=== PATIENT | female | born 2000 | race Caucasian/White ===

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

== ENCOUNTER 2019-08-09 19:11 | Observation (INO) | payer OTHER ==
[2019-08-09 19:50] VITALS: BP 112/68; PULSE 85; O2SAT 99
[2019-08-09 19:57] LABS: Appearance CLEAR (CLEAR); Bilirubin NEGATIVE (NEGATIVE); Blood NEGATIVE Ery/ul (0-5); Epithelial Cells RARE /HPF (FEW); Glucose NEGATIVE (NEGATIVE); Ketones NEGATIVE (NEGATIVE); Leukocyte Esterase NEGATIVE (NEGATIVE); Mucus SLIGHT /HPF (NEGATIVE); Nitrite NEGATIVE (NEGATIVE); Protein,Urine Dip NEGATIVE (Negative); Specific Gravity 1.016 (1.005-1.025); Urobilinogen NEGATIVE mg/dL (0-1)
[2019-08-09 20:27] LABS: Amphetamine,Urine NEGATIVE (NEGATIVE); Barbiturate,Urine NEGATIVE (NEGATIVE); Benzodiazepine,Urine NEGATIVE (NEGATIVE); Cocaine,Urine NEGATIVE (NEGATIVE); Methadone,Urine NEGATIVE (NEGATIVE); Opiate,Urine NEGATIVE (NEGATIVE); PCP,Urine NEGATIVE (NEGATIVE); THC,Urine NEGATIVE (NEGATIVE)
== END 2019-08-09 21:40 | disposition home or self-care (01) ==
LOC: OB 19:11
PROVIDERS: ADMIT Family Medicine; ATTEND Family Medicine
DX: Z34.83 Encounter for supervision of other normal pregnancy, third trimester (principal)
CPT/HCPCS: 80307; 81001; G0378

== ENCOUNTER 2019-08-18 06:50 | Observation (INO) | payer OTHER ==
[2019-08-18 07:49] LABS: Amourphous Crystal FEW /HPF (NEGATIVE); Appearance SLIGHTLY CLOUDY (CLEAR); Bacteria RARE /HPF (NEGATIVE); Bilirubin NEGATIVE (NEGATIVE); Blood NEGATIVE Ery/ul (0-5); Epithelial Cells RARE /HPF (FEW); Glucose NEGATIVE (NEGATIVE); Ketones NEGATIVE (NEGATIVE); Leukocyte Esterase NEGATIVE (NEGATIVE); Mucus SLIGHT /HPF (NEGATIVE); Nitrite NEGATIVE (NEGATIVE); Protein,Urine Dip NEGATIVE (Negative); Specific Gravity 1.009 (1.005-1.025); Urobilinogen NEGATIVE mg/dL (0-1); WBC 0-2 /HPF (0-5)
[2019-08-18 08:55] LABS: Absolute Neutrophil Ct (ANC) 4.88 (1.4-6.9); BASOPHIL % 0.4 % (0.0-0.4); Basophil (Absolute #) 0.03 (0-0.4); Eosinophil % 1.6 % (0.00-5.0); Eosinophil (Absolute #) 0.12 (0-0.5); Hematocrit 31.2 % (35-47); Hemoglobin 10.1 gm/dl (12.0-16.0); Lymphocyte (Absolute #) 1.85 (1.0-4.6); Lymphocytes % 25.3 % (24.0-44.0); Mean Cell Volume 94.3 fl (78-100); Mean Corpuscular Hemoglobin 30.5 pg (26-32); Mean Corpuscular Hgb Concent. 32.4 g/dl (32-36); Mean Platelet Volume 9.2 fl (7.5-11.0); Monocyte (Absolute #) 0.44 (0.0-1.3); Neutrophil % 66.7 % (36.0-66.0); Platelet Count 199 K/mm3 (150-450); Red Blood Count 3.31 M/mm3 (4.1-5.4); Red Cell Distribution Width 12.8 % (11.5-14.0); White Blood Count 7.3 K/mm3 (4.0-10.5)
[2019-08-18 09:07] LABS: ALBUMIN 3.2 g/dL (3.5-5.0); ALKALINE PHOSPHATASE 136 U/L (38-126); ANION GAP 8.8 MEQ/L (5-15); BLOOD UREA NITROGEN 4 mg/dL (7-17); CHLORIDE 105 mmol/L (98-107); Calcium 8.2 mg/dL (8.4-10.2); Carbon Dioxide 25 mmol/L (22-30); Creatinine 1 0.38 mg/dL (0.52-1.04); Glucose 117 mg/dL (74-106); Potassium 3.2 mmol/L (3.5-5.1); SGOT/AST 16 U/L (14-36); SGPT/ALT 7 U/L (0-35); SODIUM 136 mmol/L (137-145); Total Protein 6.4 g/dL (6.3-8.2)
[2019-08-18] MEDS ORDERED: ZOFRAN ODT 4 MG PO ONE (11:03)
[2019-08-18 12:08] VITALS: BP 112/65; PULSE 88
== END 2019-08-18 14:10 | disposition home or self-care (01) ==
LOC: OB 06:50
PROVIDERS: ADMIT Family Medicine; ATTEND Family Medicine
DX: Z34.83 Encounter for supervision of other normal pregnancy, third trimester (principal)
CPT/HCPCS: 36415; 80053; 81001; 82962; 85025; G0378; 90791; Q0162; Q3014

== ENCOUNTER 2019-12-16 04:53 | Emergency (ER) | payer OTHER ==
--- NOTE | 2019-12-16 05:17 | ERPHSYRPT ---
- History of Present Illness Time Seen by Provider: 12/16/19 05:05 Patient Subjective Stated Complaint: "Dulce just been feeling really weird like hot and weak and anxious." Triage Nursing Assessment: Pt presented via [facility] ambulance for report of anxiety attack at home. pt presented alert et oriented x3 answering questions appropriately. Physician History: This is a 19-year-old white female who has a history of anxiety and panic disorder and is taking hydroxyzine for this. She presents with nightly palpitations which she says she has been focusing on. She is status post delivery of a child 2 months ago. Patient has had similar symptoms in the past. Patient denies any new medications and she denies illicit drug use. She has had some urinary tract infection type symptoms including some dysuria. She has had no abnormal vaginal discharge. She has no chest pain, shortness of air or abdominal pain. Timing/Duration: week(s), intermittent (1), worse Severity of Symptoms-Max: mild Severity of Symptoms-Current: mild Context related to: other (Anxiety) Suicidal thoughts: other (None) Associated Symptoms: anxiety Previous symptoms: same symptoms as today Allergies/Adverse Reactions: No Known Drug Allergies Allergy (Verified 11/21/17 16:14) Home Medications: Hydroxyzine HCl 1 tab PO DAILY PRN 12/16/19 [History] Hx Tetanus, Diphtheria Vaccination/Date Given: Yes Hx Influenza Vaccination/Date Given: No Hx Pneumococcal Vaccination/Date Given: No Travel Risk - International Travel Have you traveled outside of the country in past 3 weeks: No - Coronavirus Screening Are you exhibiting any of the following symptoms?: No Close contact with a COVID-19 positive Pt in past 14-21 Days: No - Past Medical History Pertinent Past Medical History: Yes Neurological History: No Pertinent History ENT History: No Pertinent History Cardiac History: No Pertinent History Respiratory History: No Pertinent History Endocrine Medical History: No Pertinent History Musculoskeletal History: No Pertinent History GI Medical History: No Pertinent History History: No Pertinent History Psycho-Social History: Anxiety, Depression, Panic Disorder Female Reproductive Disorders: No Pertinent History - Past Surgical History Past Surgical History: No Neuro Surgical History: No Pertinent History Cardiac: No Pertinent History Respiratory: No Pertinent History Gastrointestinal: No Pertinent History Genitourinary: No Pertinent History Musculoskeletal: No Pertinent History Female Surgical History: No Pertinent History - Social History Smoking Status: Never smoker Exposure to second hand smoke: Yes Drug Use: none Patient Lives Alone: Yes - Female History Hx Last Menstrual Period: 11/20/19 Hx Now: No - Review of Systems Constitutional: No Symptoms Eyes: No Symptoms Ears, Nose, & Throat: No Symptoms Respiratory: No Symptoms Cardiac: Palpitations, No Chest Pain Abdominal/Gastrointestinal: No Symptoms, No Abdominal Pain, No Nausea, No Vomiting, No Diarrhea Genitourinary Symptoms: No Symptoms Musculoskeletal: No Symptoms Skin: No Symptoms Neurological: No Symptoms Psychological: No Symptoms Endocrine: No Symptoms Hematologic/Lymphatic: No Symptoms Immunological/Allergic: No Symptoms All Other Systems: Reviewed and Negative - Nursing Vital Signs Nursing Vital Signs: Initial Vital Signs Temperature 97.8 F 12/16/19 04:53 Pulse Rate 91 H 12/16/19 04:53 Respiratory Rate 16 12/16/19 04:53 Blood Pressure 139/84 12/16/19 04:53 O2 Sat by Pulse Oximetry 99 12/16/19 04:53 Pain Scale Pain Intensity 3 - Physical Exam General Appearance: no apparent distress, alert, anxiety Eyes, Ears, Nose, Throat Exam: normal ENT inspection, moist mucous membranes Neck Exam: normal inspection, non-tender, supple, full range of motion Respiratory Exam: normal breath sounds, lungs clear, airway intact, No chest tenderness, No respiratory distress Cardiovascular Exam: regular rate/rhythm, normal heart sounds, normal peripheral pulses Gastrointestinal/Abdominal Exam: soft, normal bowel sounds, No tenderness Extremities Exam: normal inspection, normal range of motion, No evidence of injury Current Suicidality: denies suicide plan Neurological Exam: alert, calm, vaccinator II-XII nml as tested, oriented x 3, anxious Appearance: appropriate appearance, appropriate insight, neat, no memory impairment Behavior/Eye Contact/Speech: alert & cooperative, cooperative, good eye contact, normal speech Thoughts/Hallucinations: normal thought pattern, no apparent hallucination Skin Exam: normal color, warm, dry SpO2 Interpretation: normal SpO2: 99 O2 Delivery: Room Air - Course Nursing assessment & vital signs reviewed: Yes EKG Interpreted by Me: RATE (73), Sinus Rhythm, NORMAL AXIS, NORMAL INTERVALS, NORMAL QRS, Other (There are no acute ischemic changes. There is improvement in the current EKG when compared to EKG dated 06/11/2018.) Ordered Tests: Active Orders 24 hr Category Date Time Status EKG-ER Only STAT Care 12/16/19 06:05 Active CBC W DIFF Stat Lab 12/16/19 05:50 Completed CMP Stat Lab 12/16/19 05:50 Completed MAGNESIUM Stat Lab 12/16/19 05:50 Completed UA W/RFX UR CULTURE Stat Lab 12/16/19 06:15 Completed Urine Triage Profile Stat Lab 12/16/19 06:15 Received Lab/Rad Data: Laboratory Result Diagrams 12/16/19 05:50 12/16/19 05:50 Laboratory Results 12/16/19 12/16/19 12/16/19 Range/Units 06:15 05:50 05:50 WBC 8.6 (4.0-10.5) K/mm3 RBC 4.28 (4.1-5.4) M/mm3 Hgb 11.9 L (12.0-16.0) gm/dl Hct 37.7 (35-47) % MCV 88.1 (78-100) fl MCH 27.8 (26-32) pg MCHC 31.6 L (32-36) g/dl RDW 13.8 (11.5-14.0) % Plt Count 227 (150-450) K/mm3 MPV 10.3 (7.5-11.0) fl Gran % 40.7 (36.0-66.0) % Eos # (Auto) 0.47 (0-0.5) Absolute Lymphs (auto) 3.79 (1.0-4.6) Absolute Monos (auto) 0.78 (0.0-1.3) Lymphocytes % 44.2 H (24.0-44.0) % Monocytes % 9.1 (0.0-12.0) % Eosinophils % 5.5 H (0.00-5.0) % Basophils % 0.5 (0.0-0.4) % Absolute Granulocytes 3.50 (1.4-6.9) Basophils # 0.04 (0-0.4) Sodium 138 (137-145) mmol/L Potassium 3.8 (3.5-5.1) mmol/L Chloride 106 (98-107) mmol/L Carbon Dioxide 26 (22-30) mmol/L Anion Gap 9.5 (5-15) MEQ/L BUN 9 (7-17) mg/dL Creatinine 0.60 (0.52-1.04) mg/dL Estimated GFR > 60.0 ML/MIN Glucose 96 (74-106) mg/dL Calcium 9.2 (8.4-10.2) mg/dL Magnesium 1.9 (1.6-2.3) mg/dL Total Bilirubin 0.30 (0.2-1.3) mg/dL AST 32 (14-36) U/L ALT 31 (0-35) U/L Alkaline Phosphatase 86 (38-126) U/L Serum Total Protein 7.1 (6.3-8.2) g/dL Albumin 4.0 (3.5-5.0) g/dL Urine Color STRAW (YELLOW) Urine Appearance CLEAR (CLEAR) Urine pH 7.0 (5-6) Ur Specific [place] 1.008 (1.005-1.025) Urine Protein NEGATIVE (Negative) Urine Ketones NEGATIVE (NEGATIVE) Urine Blood NEGATIVE (0-5) Mynor/ul Urine Nitrite NEGATIVE (NEGATIVE) Urine Bilirubin NEGATIVE (NEGATIVE) Urine Urobilinogen NEGATIVE (0-1) mg/dL Ur Leukocyte Esterase NEGATIVE (NEGATIVE) Urine WBC (Auto) 0-2 (0-5) /HPF Urine RBC (Auto) NONE (0-2) /HPF U Epithel Cells (Auto) RARE (FEW) /HPF Urine Bacteria (Auto) NONE SEEN (NEGATIVE) /HPF Urine Culture Reflexed NO (NO) Urine Glucose NEGATIVE (NEGATIVE) mg/dL - Progress Progress: improved, re-examined Counseled pt/family regarding: lab results, diagnosis, need for follow-up - Departure Departure Disposition: Home Clinical Impression: Anxiety about health Condition: Stable Critical Care Time: No Referrals: GARCIA ALAS MD [Primary Care Provider] - Additional Instructions: Follow-up with your primary care physician for further management of your symptoms and anxiety diagnosis.
[2019-12-16 06:05] LABS: BASOPHIL % 0.5 % (0.0-0.4); Basophil (Absolute #) 0.04 (0-0.4); Eosinophil % 5.5 % (0.00-5.0); Eosinophil (Absolute #) 0.47 (0-0.5); Hematocrit 37.7 % (35-47); Hemoglobin 11.9 gm/dl (12.0-16.0); Lymphocyte (Absolute #) 3.79 (1.0-4.6); Lymphocytes % 44.2 % (24.0-44.0); Mean Cell Volume 88.1 fl (78-100); Mean Corpuscular Hemoglobin 27.8 pg (26-32); Mean Corpuscular Hgb Concent. 31.6 g/dl (32-36); Mean Platelet Volume 10.3 fl (7.5-11.0); Monocyte (Absolute #) 0.78 (0.0-1.3); Monocytes % 9.1 % (0.0-12.0); Neutrophil % 40.7 % (36.0-66.0); Platelet Count 227 K/mm3 (150-450); Red Blood Count 4.28 M/mm3 (4.1-5.4); Red Cell Distribution Width 13.8 % (11.5-14.0); White Blood Count 8.6 K/mm3 (4.0-10.5)
[2019-12-16 06:12] LABS: ALKALINE PHOSPHATASE 86 U/L (38-126); ANION GAP 9.5 MEQ/L (5-15); BLOOD UREA NITROGEN 9 mg/dL (7-17); CHLORIDE 106 mmol/L (98-107); Calcium 9.2 mg/dL (8.4-10.2); Carbon Dioxide 26 mmol/L (22-30); Glucose 96 mg/dL (74-106); MAGNESIUM 1.9 mg/dL (1.6-2.3); Potassium 3.8 mmol/L (3.5-5.1); SGOT/AST 32 U/L (14-36); SGPT/ALT 31 U/L (0-35); SODIUM 138 mmol/L (137-145); Total Protein 7.1 g/dL (6.3-8.2)
[2019-12-16 06:36] LABS: Appearance CLEAR (CLEAR); Bilirubin NEGATIVE (NEGATIVE); Blood NEGATIVE Ery/ul (0-5); Epithelial Cells RARE /HPF (FEW); Glucose NEGATIVE (NEGATIVE); Ketones NEGATIVE (NEGATIVE); Leukocyte Esterase NEGATIVE (NEGATIVE); Nitrite NEGATIVE (NEGATIVE); Protein,Urine Dip NEGATIVE (Negative); Specific Gravity 1.008 (1.005-1.025); Urobilinogen NEGATIVE mg/dL (0-1); WBC 0-2 /HPF (0-5)
[2019-12-16 06:38] LABS: Bacteria NONE SEEN /HPF (NEGATIVE)
[2019-12-16 06:46] LABS: Amphetamine,Urine NEGATIVE (NEGATIVE); Barbiturate,Urine NEGATIVE (NEGATIVE); Benzodiazepine,Urine NEGATIVE (NEGATIVE); Cocaine,Urine NEGATIVE (NEGATIVE); Methadone,Urine NEGATIVE (NEGATIVE); Opiate,Urine NEGATIVE (NEGATIVE); PCP,Urine NEGATIVE (NEGATIVE); THC,Urine NEGATIVE (NEGATIVE)
[2019-12-16 06:58] VITALS: BP 128/86; PULSE 78; O2SAT 98
== END 2019-12-16 06:56 | disposition home or self-care (01) ==
LOC: ED 04:53
DX: F41.9 Anxiety disorder, unspecified (principal)
CPT/HCPCS: 36415; 80053; 80307; 81001; 83735; 85025; 93005; 99284

== ENCOUNTER 2020-01-13 20:22 | Emergency (ER) | payer OTHER ==
[2020-01-13] MEDS ORDERED: Sodium Chloride 0.9% 1000 ML 1,000 ML ONE (20:53)
[2020-01-13] MEDS: Sodium Chloride 0.9% 1000 ML 1,000 ML IV STA (21:05)
[2020-01-13 21:20] LABS: Absolute Neutrophil Ct (ANC) 3.42 (1.4-6.9); BASOPHIL % 0.4 % (0.0-0.4); Basophil (Absolute #) 0.03 (0-0.4); Eosinophil % 2.8 % (0.00-5.0); Hematocrit 39.9 % (35-47); Hemoglobin 12.7 gm/dl (12.0-16.0); Lymphocyte (Absolute #) 2.75 (1.0-4.6); Lymphocytes % 39.1 % (24.0-44.0); Mean Cell Volume 86.9 fl (78-100); Mean Corpuscular Hemoglobin 27.7 pg (26-32); Mean Corpuscular Hgb Concent. 31.8 g/dl (32-36); Mean Platelet Volume 10.2 fl (7.5-11.0); Monocyte (Absolute #) 0.63 (0.0-1.3); Neutrophil % 48.7 % (36.0-66.0); Platelet Count 251 K/mm3 (150-450); Red Blood Count 4.59 M/mm3 (4.1-5.4); Red Cell Distribution Width 14.3 % (11.5-14.0)
[2020-01-13 21:21] LABS: Appearance CLEAR (CLEAR); Bilirubin NEGATIVE (NEGATIVE); Blood NEGATIVE Ery/ul (0-5); Glucose NEGATIVE (NEGATIVE); Ketones NEGATIVE (NEGATIVE); Leukocyte Esterase NEGATIVE (NEGATIVE); Mucus SLIGHT /HPF (NEGATIVE); Nitrite NEGATIVE (NEGATIVE); Protein,Urine Dip NEGATIVE (Negative); Specific Gravity 1.008 (1.005-1.025); Urobilinogen NEGATIVE mg/dL (0-1)
[2020-01-13 21:23] LABS: ALBUMIN 4.6 g/dL (3.5-5.0); ALKALINE PHOSPHATASE 80 U/L (38-126); BLOOD UREA NITROGEN 11 mg/dL (7-17); CHLORIDE 104 mmol/L (98-107); Calcium 9.7 mg/dL (8.4-10.2); Carbon Dioxide 26 mmol/L (22-30); Creatinine 1 0.65 mg/dL (0.52-1.04); Glucose 98 mg/dL (74-106); MAGNESIUM 1.9 mg/dL (1.6-2.3); Potassium 4.3 mmol/L (3.5-5.1); SGOT/AST 26 U/L (14-36); SGPT/ALT 18 U/L (0-35); SODIUM 138 mmol/L (137-145); Total Protein 7.7 g/dL (6.3-8.2)
[2020-01-13 21:32] VITALS: O2SAT 99
--- NOTE | 2020-01-13 21:58 | ERPHSYRPT ---
- History of Present Illness Time Seen by Provider: 01/13/20 20:35 Patient Subjective Stated Complaint: pt states she has been feeling funny for the past 3-4 days. state she has been feeling "out of it", excessively thirsty, having blurry vision, increased anxiety, and her blood sugars have been varying more than usual. states her blood pressure at home was 153/97 at home today when she was feeling bad. c/o frontal headeache now 08/04 Triage Nursing Assessment: pt alert and oriented, answers questions approp. pt ambulatoryw ith steady gait noted. respirations nonlabored with lungs cta. skin pink warm and dry. heart rate 74 on monitor. denies chest pain or pressure. pupils equal and reactive. no facioal droop noted. bilat upper and lower ext strength equal and wnl. Physician History: Patient is a 2 para 2 female who is 3 months who had an anx iety and panic attack this morning and has not been feeling right. For 3 to 4 days has been lightheaded had some blurred vision at times her last period was 615 she is using no control she complains of a headache she also complains of of a history of episodes of hypoglycemia she denies fever but states she has had some chills and sweats. Timing/Duration: day(s) (4) Severity: mild Modifying Factors: Improves With: nothing Associated Symptoms: chills, headaches Allergies/Adverse Reactions: No Known Drug Allergies Allergy (Verified 01/13/20 20:40) Home Medications: Hydroxyzine HCl 1 tab PO DAILY PRN 12/16/19 [History] Hx Tetanus, Diphtheria Vaccination/Date Given: Yes Hx Influenza Vaccination/Date Given: No Hx Pneumococcal Vaccination/Date Given: No Immunizations Up to Date: Yes Travel Risk - International Travel Have you traveled outside of the country in past 3 weeks: No - Coronavirus Screening Close contact with a COVID-19 positive Pt in past 14-21 Days: No - Review of Systems Constitutional: No Fever, No Chills Eyes: Vision Changes Ears, Nose, & Throat: No Symptoms Respiratory: No Cough, No Dyspnea Cardiac: No Chest Pain, No Edema, No Syncope Abdominal/Gastrointestinal: No Abdominal Pain, No Nausea, No Vomiting, No Diarrhea Genitourinary Symptoms: No Dysuria Musculoskeletal: No Back Pain, No Neck Pain Skin: No Rash Neurological: Dizziness, Headache, No Focal Weakness, No Sensory Changes Psychological: No Symptoms Endocrine: No Symptoms All Other Systems: Reviewed and Negative - Past Medical History Pertinent Past Medical History: Yes Neurological History: No Pertinent History ENT History: No Pertinent History Cardiac History: No Pertinent History Respiratory History: No Pertinent History Endocrine Medical History: No Pertinent History Musculoskeletal History: No Pertinent History GI Medical History: No Pertinent History History: No Pertinent History Psycho-Social History: Anxiety, Depression, Panic Disorder Female Reproductive Disorders: No Pertinent History Other Medical History: hypoglycemia - Past Surgical History Past Surgical History: No Neuro Surgical History: No Pertinent History Cardiac: No Pertinent History Respiratory: No Pertinent History Gastrointestinal: No Pertinent History Genitourinary: No Pertinent History Musculoskeletal: No Pertinent History Female Surgical History: No Pertinent History - Social History Smoking Status: Never smoker Exposure to second hand smoke: Yes Drug Use: none Patient Lives Alone: Yes - Female History Hx Last Menstrual Period: mid november Hx Now: No (unsure) - Nursing Vital Signs Nursing Vital Signs: Initial Vital Signs Temperature 97.8 F 01/13/20 20:28 Pulse Rate 84 01/13/20 20:28 Respiratory Rate 18 01/13/20 20:28 Blood Pressure 133/94 01/13/20 20:28 O2 Sat by Pulse Oximetry 98 01/13/20 20:28 Pain Scale Pain Intensity 2 - Physical Exam General Appearance: no apparent distress, alert Eye Exam: PERRL/EOMI, eyes nml inspection Ears, Nose, Throat Exam: normal ENT inspection, TMs normal, pharynx normal, moist mucous membranes Neck Exam: normal inspection, non-tender, supple, full range of motion Respiratory Exam: normal breath sounds, lungs clear, No respiratory distress Cardiovascular Exam: regular rate/rhythm, normal heart sounds, normal peripheral pulses Gastrointestinal/Abdomen Exam: soft, normal bowel sounds, No tenderness, No mass Back Exam: normal inspection, normal range of motion, No CVA tenderness, No vertebral tenderness Extremity Exam: normal inspection, normal range of motion, pelvis stable Neurologic Exam: alert, oriented x 3, cooperative, normal mood/affect, nml cerebellar function, nml station & gait, sensation nml, No motor deficits Skin Exam: normal color, warm, dry, No rash Lymphatic Exam: No adenopathy SpO2: 99 - Course Nursing assessment & vital signs reviewed: Yes EKG Interpreted by Me: RATE (82), NORMAL AXIS, NORMAL INTERVALS, NORMAL QRS, NORMAL ST-T Ordered Tests: Active Orders 24 hr Category Date Time Status EKG-ER Only STAT Care 01/13/20 20:47 Active CBC W DIFF Stat Lab 01/13/20 21:00 Completed CMP Stat Lab 01/13/20 21:00 Completed HCG QUALITATIVE,SERUM Stat Lab 01/13/20 21:00 Completed Lactic Acid Stat Lab 01/13/20 21:00 Completed MAGNESIUM Stat Lab 01/13/20 21:00 Completed TROPONIN Q3H Lab 01/13/20 21:00 Received TROPONIN Q3H Lab 01/14/20 00:00 Ordered TROPONIN Q3H Lab 01/14/20 03:00 Ordered TROPONIN Q3H Lab 01/14/20 06:00 Ordered TROPONIN Q3H Lab 01/14/20 09:00 Ordered UA W/RFX UR CULTURE Stat Lab 01/13/20 20:45 Completed Urine Triage Profile Stat Lab 01/13/20 20:45 Received Medication Summary Discontinued Medications Generic Name Dose Route Start Last Admin Trade Name Maryam PRN Reason Stop Dose Admin Sodium Chloride 1,000 mls @ 999 mls/hr 01/13/20 20:47 01/13/20 21:05 Sodium Chloride 0.9% 1000 Ml IV 01/13/20 21:47 999 mls/hr .Q1H1M STA Administration Sodium Chloride Confirm 01/13/20 20:53 Sodium Chloride 0.9% 1000 Ml Administered 01/13/20 20:54 Dose 1,000 mls @ ud .ROUTE .STK-MED ONE Lab/Rad Data: Laboratory Result Diagrams 01/13/20 21:00 01/13/20 21:00 Laboratory Results 01/13/20 01/13/20 01/13/20 Range/Units 21:00 21:00 21:00 WBC (4.0-10.5) K/mm3 RBC (4.1-5.4) M/mm3 Hgb (12.0-16.0) gm/dl Hct (35-47) % MCV (78-100) fl MCH (26-32) pg MCHC (32-36) g/dl RDW (11.5-14.0) % Plt Count (150-450) K/mm3 MPV (7.5-11.0) fl Gran % (36.0-66.0) % Eos # (Auto) (0-0.5) Absolute Lymphs (auto) (1.0-4.6) Absolute Monos (auto) (0.0-1.3) Lymphocytes % (24.0-44.0) % Monocytes % (0.0-12.0) % Eosinophils % (0.00-5.0) % Basophils % (0.0-0.4) % Absolute Granulocytes (1.4-6.9) Basophils # (0-0.4) Sodium 138 (137-145) mmol/L Potassium 4.3 (3.5-5.1) mmol/L Chloride 104 (98-107) mmol/L Carbon Dioxide 26 (22-30) mmol/L Anion Gap 13.0 (5-15) MEQ/L BUN 11 (7-17) mg/dL Creatinine 0.65 (0.52-1.04) mg/dL Estimated GFR > 60.0 ML/MIN Glucose 98 (74-106) mg/dL Lactic Acid 0.9 (0.4-2.0) Calcium 9.7 (8.4-10.2) mg/dL Magnesium 1.9 (1.6-2.3) mg/dL Total Bilirubin 0.40 (0.2-1.3) mg/dL AST 26 (14-36) U/L ALT 18 (0-35) U/L Alkaline Phosphatase 80 (38-126) U/L Serum Total Protein 7.7 (6.3-8.2) g/dL Albumin 4.6 (3.5-5.0) g/dL Serum , Qual NEGATIVE (Negative) Urine Color (YELLOW) Urine Appearance (CLEAR) Urine pH (5-6) Ur Specific [place] (1.005-1.025) Urine Protein (Negative) Urine Ketones (NEGATIVE) Urine Blood (0-5) Mynor/ul Urine Nitrite (NEGATIVE) Urine Bilirubin (NEGATIVE) Urine Urobilinogen (0-1) mg/dL Ur Leukocyte Esterase (NEGATIVE) Urine WBC (Auto) (0-5) /HPF Urine RBC (Auto) (0-2) /HPF U Epithel Cells (Auto) (FEW) /HPF Urine Bacteria (Auto) (NEGATIVE) /HPF Urine Mucus (Auto) (NEGATIVE) /HPF Urine Culture Reflexed (NO) Urine Glucose (NEGATIVE) mg/dL 01/13/20 01/13/20 Range/Units 21:00 20:45 WBC 7.0 (4.0-10.5) K/mm3 RBC 4.59 (4.1-5.4) M/mm3 Hgb 12.7 (12.0-16.0) gm/dl Hct 39.9 (35-47) % MCV 86.9 (78-100) fl MCH 27.7 (26-32) pg MCHC 31.8 L (32-36) g/dl RDW 14.3 H (11.5-14.0) % Plt Count 251 (150-450) K/mm3 MPV 10.2 (7.5-11.0) fl Gran % 48.7 (36.0-66.0) % Eos # (Auto) 0.20 (0-0.5) Absolute Lymphs (auto) 2.75 (1.0-4.6) Absolute Monos (auto) 0.63 (0.0-1.3) Lymphocytes % 39.1 (24.0-44.0) % Monocytes % 9.0 (0.0-12.0) % Eosinophils % 2.8 (0.00-5.0) % Basophils % 0.4 (0.0-0.4) % Absolute Granulocytes 3.42 (1.4-6.9) Basophils # 0.03 (0-0.4) Sodium (137-145) mmol/L Potassium (3.5-5.1) mmol/L Chloride (98-107) mmol/L Carbon Dioxide (22-30) mmol/L Anion Gap (5-15) MEQ/L BUN (7-17) mg/dL Creatinine (0.52-1.04) mg/dL Estimated GFR ML/MIN Glucose (74-106) mg/dL Lactic Acid (0.4-2.0) Calcium (8.4-10.2) mg/dL Magnesium (1.6-2.3) mg/dL Total Bilirubin (0.2-1.3) mg/dL AST (14-36) U/L ALT (0-35) U/L Alkaline Phosphatase (38-126) U/L Serum Total Protein (6.3-8.2) g/dL Albumin (3.5-5.0) g/dL Serum , Qual (Negative) Urine Color STRAW (YELLOW) Urine Appearance CLEAR (CLEAR) Urine pH 6.0 (5-6) Ur Specific [place] 1.008 (1.005-1.025) Urine Protein NEGATIVE (Negative) Urine Ketones NEGATIVE (NEGATIVE) Urine Blood NEGATIVE (0-5) Mynor/ul Urine Nitrite NEGATIVE (NEGATIVE) Urine Bilirubin NEGATIVE (NEGATIVE) Urine Urobilinogen NEGATIVE (0-1) mg/dL Ur Leukocyte Esterase NEGATIVE (NEGATIVE) Urine WBC (Auto) NONE (0-5) /HPF Urine RBC (Auto) NONE (0-2) /HPF U Epithel Cells (Auto) NONE (FEW) /HPF Urine Bacteria (Auto) NONE (NEGATIVE) /HPF Urine Mucus (Auto) SLIGHT (NEGATIVE) /HPF Urine Culture Reflexed NO (NO) Urine Glucose NEGATIVE (NEGATIVE) mg/dL - Progress Progress: unchanged - Departure Departure Disposition: Home Clinical Impression: Anxiety Condition: Stable Critical Care Time: No Referrals: GARCIA ALAS MD [Primary Care Provider] - Instructions: Anxiety, Adult (DC) Prescriptions: Lorazepam 1 mg [Ativan 1 MG] 1 mg PO Q8H PRN PRN #8 tablet PRN Reason: Anxiety
[2020-01-13 22:03] LABS: Amphetamine,Urine NEGATIVE (NEGATIVE); Barbiturate,Urine NEGATIVE (NEGATIVE); Benzodiazepine,Urine NEGATIVE (NEGATIVE); Cocaine,Urine NEGATIVE (NEGATIVE); Methadone,Urine NEGATIVE (NEGATIVE); Opiate,Urine NEGATIVE (NEGATIVE); PCP,Urine NEGATIVE (NEGATIVE); THC,Urine NEGATIVE (NEGATIVE)
[2020-01-13 22:08] VITALS: BP 121/80; PULSE 76
== END 2020-01-13 22:16 | disposition home or self-care (01) ==
LOC: ED 20:22
DX: F41.9 Anxiety disorder, unspecified (principal); F32.9 Major depressive disorder, single episode, unspecified
CPT/HCPCS: 36000; 36415; 80053; 80307; 81001; 81025; 83605; 83735; 84484; 85025; 93005; 96360; 99284

== ENCOUNTER 2020-02-05 21:20 | Emergency (ER) | payer OTHER ==
[2020-02-05] MEDS ORDERED: TYLENOL 325 MG PO ONE (21:37)
[2020-02-05] MEDS ORDERED: TYLENOL 325 MG ONE (21:42)
--- NOTE | 2020-02-05 22:12 | ERPHSYRPT ---
- History of Present Illness Time Seen by Provider: 02/05/20 21:35 Source: patient Patient Subjective Stated Complaint: pt states she thinks she has a uti. states she has been having burining with urination, pain in bladder area and sometimes in lt lower back Triage Nursing Assessment: pt alert and oriented, answers questions approp. pt ambulatory with steady gait noted. respirations nonlabored with lungs cta. skin pink warm and dry. abd nontender to light palpation. pt reports pain with urination. urine yellow and cloudy. Physician History: Patient is a 19-year-old female who presents to our ED with complaints of UTI. Patient has a history of UTI. Symptoms are the same. Patient has been experiencing dysuria urinary urgency and frequency. Symptoms have been constant for the past 3 to 4 days. Patient's last UTI was approximately 1 year ago. Patient describes discomfort at the suprapubic region. Patient occasionally feels a pain shoot into her low back. Pain is well localized at this time. No fever. No nausea no vomiting. No diarrhea. No trauma. Patient is otherwise healthy. Patient denies the possibility of . She voices no other complaints at this time. Timing/Duration: day(s) (4) Activites at Onset: none Quality: burning Onset Location: suprapubic, low back pain Pain Radiation: other (Pain occasionally radiates to her low back.) Severity of Pain-Max: moderate Severity of Pain-Current: mild Sexual intercourse history: non-contributory Modifying Factors: Improves With: nothing Associated Symptoms: dysuria, urinary frequency, No fever, No chills, No diaphoresis, No , No swelling, No vaginal discharge Allergies/Adverse Reactions: No Known Drug Allergies Allergy (Verified 01/13/20 20:40) Home Medications: Hydroxyzine HCl 1 tab PO DAILY PRN 12/16/19 [History] Hx Tetanus, Diphtheria Vaccination/Date Given: Yes Hx Influenza Vaccination/Date Given: No Hx Pneumococcal Vaccination/Date Given: No Travel Risk - International Travel Have you traveled outside of the country in past 3 weeks: No - Coronavirus Screening Are you exhibiting any of the following symptoms?: No Close contact with a COVID-19 positive Pt in past 14-21 Days: No - Review of Systems Constitutional: No Symptoms, No Fever, No Chills Eyes: No Symptoms Ears, Nose, & Throat: No Symptoms Respiratory: No Symptoms, No Cough, No Dyspnea Cardiac: No Symptoms, No Chest Pain, No Edema, No Syncope Abdominal/Gastrointestinal: No Symptoms, No Abdominal Pain, No Nausea, No Vomiting, No Diarrhea Genitourinary Symptoms: No Symptoms, No Dysuria Musculoskeletal: No Symptoms, No Back Pain, No Neck Pain Skin: No Symptoms, No Rash Neurological: No Symptoms, No Dizziness, No Focal Weakness, No Sensory Changes Psychological: No Symptoms Endocrine: No Symptoms Hematologic/Lymphatic: No Symptoms Immunological/Allergic: No Symptoms All Other Systems: Reviewed and Negative - Past Medical History Pertinent Past Medical History: Yes Neurological History: No Pertinent History ENT History: No Pertinent History Cardiac History: No Pertinent History Respiratory History: No Pertinent History Endocrine Medical History: No Pertinent History Musculoskeletal History: No Pertinent History GI Medical History: No Pertinent History History: No Pertinent History Psycho-Social History: Anxiety, Depression, Panic Disorder Female Reproductive Disorders: No Pertinent History Other Medical History: hypoglycemia - Past Surgical History Past Surgical History: No Neuro Surgical History: No Pertinent History Cardiac: No Pertinent History Respiratory: No Pertinent History Gastrointestinal: No Pertinent History Genitourinary: No Pertinent History Musculoskeletal: No Pertinent History Female Surgical History: No Pertinent History - Social History Smoking Status: Never smoker Exposure to second hand smoke: Yes Drug Use: none Patient Lives Alone: Yes - Female History Hx Last Menstrual Period: current Hx Now: No - Nursing Vital Signs Nursing Vital Signs: Initial Vital Signs Temperature 98.3 F 02/05/20 21:30 Pulse Rate 92 H 02/05/20 21:30 Respiratory Rate 18 02/05/20 21:30 Blood Pressure 127/81 02/05/20 21:30 O2 Sat by Pulse Oximetry 97 02/05/20 21:30 Pain Scale Pain Intensity 5 - Physical Exam General Appearance: no apparent distress, alert Eye Exam: PERRL/EOMI, eyes nml inspection Ears, Nose, Throat Exam: normal ENT inspection, TMs normal, pharynx normal, moist mucous membranes Neck Exam: normal inspection, non-tender, supple, full range of motion Respiratory Exam: normal breath sounds, lungs clear, No respiratory distress Cardiovascular Exam: regular rate/rhythm, normal heart sounds, normal peripheral pulses Gastrointestinal/Abdomen Exam: soft, other (Suprapubic tenderness. No CVA tenderness. No abdominal pain or tenderness.), No tenderness, No mass Back Exam: normal inspection, normal range of motion, No CVA tenderness, No vertebral tenderness Extremity Exam: normal inspection, normal range of motion, pelvis stable Neurologic Exam: alert, oriented x 3, cooperative, head miller II-XII nml as tested, normal mood/affect, sensation nml, No motor deficits Skin Exam: normal color, warm, dry Lymphatic Exam: No adenopathy SpO2 Interpretation: normal SpO2: 97 O2 Delivery: Room Air - Course Nursing assessment & vital signs reviewed: Yes Ordered Tests: Active Orders 24 hr Category Date Time Status CULTURE,URINE Stat Lab 02/05/20 21:51 Received UA W/RFX UR CULTURE Stat Lab 02/05/20 21:51 Received Medication Summary Discontinued Medications Generic Name Dose Route Start Last Admin Trade Name Jamariq PRN Reason Stop Dose Admin Acetaminophen 975 mg 02/05/20 21:37 02/05/20 21:43 Tylenol 325 Mg PO 02/05/20 21:38 975 mg STAT ONE Administration Acetaminophen Confirm 02/05/20 21:42 Tylenol 325 Mg Administered 02/05/20 21:43 Dose 975 mg .ROUTE .STK-MED ONE Lab/Rad Data: Laboratory Results 02/05/20 Range/Units 21:51 Urine Color YELLOW (YELLOW) Urine Appearance CLOUDY (CLEAR) Urine pH 7.0 (5-6) Ur Specific [place] 1.018 (1.005-1.025) Urine Protein 30 (Negative) Urine Ketones NEGATIVE (NEGATIVE) Urine Blood SMALL (0-5) Mynor/ul Urine Nitrite NEGATIVE (NEGATIVE) Urine Bilirubin NEGATIVE (NEGATIVE) Urine Urobilinogen NEGATIVE (0-1) mg/dL Ur Leukocyte Esterase LARGE (NEGATIVE) Urine WBC (Auto) >100 (0-5) /HPF Urine RBC (Auto) 16-25 (0-2) /HPF U Epithel Cells (Auto) NONE (FEW) /HPF Urine Bacteria (Auto) FEW (NEGATIVE) /HPF U Non-Squamous Epi Cells RARE (FEW) /HPF Amorphous Crystals FEW (NEGATIVE) /HPF Urine Culture Reflexed YES (NO) Urine Glucose NEGATIVE (NEGATIVE) mg/dL - Progress Progress: improved Air Movement: good Blood Culture(s) Obtained: No Antibiotics given: Yes Counseled pt/family regarding: lab results, diagnosis, need for follow-up - Departure Departure Disposition: Home Clinical Impression: UTI (urinary tract infection) Condition: Stable Critical Care Time: No Referrals: GARCIA ALAS MD [Primary Care Provider] - Additional Instructions: Discharge/Care Plan HIRAEREN SANDOVAL was seen on 02/05/20 in the Emergency Room. The patient was counseled regarding Diagnosis,Lab results, Imaging studies, need for follow up and when to return to the Emergency Room. Prescriptions given: Discharge Note I have spoken with the patient and/or caregivers. I have explained the patient's condition, diagnosis and treatment plan based on the information available to me at this time. I have answered the patient's and/or caregiver's questions and addressed any concerns. The patient and/or caregivers have as good understanding of the patient's diagnosis, condition and treatment plan as can be expected at this point. The vital signs have been stable. The patient's condition is stable and appropriate for discharge from the emergency department. The patient will pursue further outpatient evaluation with the primary care physician or other designated or consulting physician as outlined in the discharge instructions. The patient and/or caregivers are agreeable to this plan of care and follow-up instructions have been explained in detail. The patient and/or caregivers have received these instruction. The patient/and or caregivers are aware that any significant change in condition or worsening of symptoms sh ould prompt an immediate return to this or the closest emergency department or call 911. Prescriptions: Nitrofurantoin Macro 100 mg [Macrobid 100MG Capsule] 100 mg PO BID 7 Days #14 cap
[2020-02-05 22:13] LABS: Amourphous Crystal FEW /HPF (NEGATIVE); Appearance CLOUDY (CLEAR); Bacteria FEW /HPF (NEGATIVE); Bilirubin NEGATIVE (NEGATIVE); Blood SMALL Ery/ul (0-5); Glucose NEGATIVE (NEGATIVE); Ketones NEGATIVE (NEGATIVE); Leukocyte Esterase LARGE (NEGATIVE); Nitrite NEGATIVE (NEGATIVE); Non-Squamous Epithelial Cells RARE /HPF (FEW); Protein,Urine Dip 30 (Negative); Specific Gravity 1.018 (1.005-1.025); Urobilinogen NEGATIVE mg/dL (0-1); WBC >100 /HPF (0-5)
[2020-02-05] MEDS ORDERED: Macrobid 100MG Capsule PO ONE (22:18)
[2020-02-05] MEDS ORDERED: Macrobid 100MG Capsule ONE (22:18)
[2020-02-05 22:28] VITALS: BP 123/78; PULSE 79; O2SAT 98
== END 2020-02-05 22:28 | disposition home or self-care (01) ==
LOC: ED 21:20
DX: N39.0 Urinary tract infection, site not specified (principal)
CPT/HCPCS: 81001; 87077; 87086; 87186; 99284; A9270-GY

== ENCOUNTER 2020-03-11 00:47 | Emergency (ER) | payer OTHER ==
[2020-03-11 00:53] VITALS: O2SAT 98
[2020-03-11 01:12] VITALS: BP 142/98; PULSE 126
[2020-03-11] MEDS ORDERED: Ativan 1 MG PO ONE (01:12)
[2020-03-11] MEDS ORDERED: BABY ASPIRIN 81 MG CHEW PO ONE (01:12)
[2020-03-11] MEDS ORDERED: Ativan 1 MG ONE (01:24)
[2020-03-11 03:27] LABS: Amphetamine,Urine NEGATIVE (NEGATIVE); Barbiturate,Urine NEGATIVE (NEGATIVE); Benzodiazepine,Urine NEGATIVE (NEGATIVE); Cocaine,Urine NEGATIVE (NEGATIVE); Methadone,Urine NEGATIVE (NEGATIVE); Opiate,Urine NEGATIVE (NEGATIVE); PCP,Urine NEGATIVE (NEGATIVE); THC,Urine NEGATIVE (NEGATIVE)
[2020-03-11 03:28] LABS: ALBUMIN 4.6 g/dL (3.5-5.0); BLOOD UREA NITROGEN 8 mg/dL (7-17); CHLORIDE 105 mmol/L (98-107); Calcium 9.5 mg/dL (8.4-10.2); Carbon Dioxide 24 mmol/L (22-30); Creatinine 1 0.58 mg/dL (0.52-1.04); EST GLOMERULAR FILTRATION RATE > 60.0 ML/MIN; Glucose 146 mg/dL (74-106); Potassium 3.6 mmol/L (3.5-5.1); SODIUM 138 mmol/L (137-145); Total Protein 7.8 g/dL (6.3-8.2)
[2020-03-11 03:29] LABS: ALKALINE PHOSPHATASE 81 U/L (38-126); NT PRO BNP 15.4 pg/mL (0-450); SGOT/AST 22 U/L (14-36); SGPT/ALT 14 U/L (0-35)
[2020-03-11 03:31] LABS: ANION GAP 7.9 MEQ/L (5-15)
[2020-03-11 03:35] LABS: Hemoglobin 13.3 gm/dl (12.0-16.0); Mean Corpuscular Hemoglobin 28.5 pg (26-32); Mean Corpuscular Hgb Concent. 32.4 g/dl (32-36); Platelet Count 231 K/mm3 (150-450); Red Blood Count 4.66 M/mm3 (4.1-5.4); White Blood Count 8.2 K/mm3 (4.0-10.5)
[2020-03-11 03:36] LABS: BASOPHIL % 0.1 % (0.0-0.4); Eosinophil % 0.3 % (0.00-5.0); Lymphocytes % 2.9 % (24.0-44.0); Mean Platelet Volume 10.1 fl (7.5-11.0); Monocytes % 0.7 % (0.0-12.0); Neutrophil % 4.2 % (36.0-66.0)
[2020-03-11 03:37] LABS: Slide Review 1 NO
--- NOTE | 2020-03-11 08:58 | XRAY ---
Indication: Chest pain. Comparison: None Portable chest demonstrates normal heart and lungs. Bony thorax intact with minimal double curvature scoliosis.
== END 2020-03-11 02:10 | disposition home or self-care (01) ==
LOC: ED 00:47
DX: F41.9 Anxiety disorder, unspecified (principal); R00.2 Palpitations
CPT/HCPCS: 36415; 71045; 80053; 80307; 83880; 84484; 85025; 85379; 99284; A9270-GY; G0480

== ENCOUNTER 2020-04-18 12:24 | Emergency (ER) | payer OTHER ==
--- NOTE | 2020-04-18 12:54 | ERPHSYRPT ---
- History of Present Illness Time Seen by Provider: 04/18/20 12:52 Source: patient Exam Limitations: no limitations Patient Subjective Stated Complaint: Tachycardia Triage Nursing Assessment: Patient ambulated back to ED and transferred self to bed. Patient A+O X 3. Patient's skin pink, warm and dry. Patient complains of increased heart rate for the past few days. Patient states she ran out of her Klonopin 3 days ago. Patient states she has a hx of increased HR and anxiety. Patient denies pain or discomfort. Lungs clear a/p noah. No edema noted. Heart tones audible and tachy. Physician History: Patient complains of increased heart rate for the past few days. Patient states she ran out of her Klonopin 3 days ago. Patient states she has a hx of increased HR and anxiety. Patient denies pain or discomfort. Timing/Duration: today Activities at Onset: none Modifying Factors: Improves With: nothing Nitro Today/Relief: no nitro taken today Aspirin Treatment Today: no aspirin today Associated Symptoms: other (off and on palpitations) Allergies/Adverse Reactions: venlafaxine [From Effexor] Allergy (Verified 04/18/20 12:31) Hx Tetanus, Diphtheria Vaccination/Date Given: Yes Hx Influenza Vaccination/Date Given: No Hx Pneumococcal Vaccination/Date Given: No Immunizations Up to Date: Yes Travel Risk - International Travel Have you traveled outside of the country in past 3 weeks: No - Coronavirus Screening Are you exhibiting any of the following symptoms?: No Close contact with a COVID-19 positive Pt in past 14-21 Days: No - Review of Systems Constitutional: No Fever, No Chills Eyes: No Symptoms Ears, Nose, & Throat: No Symptoms Respiratory: No Cough, No Dyspnea Cardiac: Palpitations, No Chest Pain, No Edema, No Syncope Abdominal/Gastrointestinal: No Abdominal Pain, No Nausea, No Vomiting, No Diarrhea Genitourinary Symptoms: No Dysuria Musculoskeletal: No Back Pain, No Neck Pain Skin: No Rash Neurological: No Dizziness, No Focal Weakness, No Sensory Changes Psychological: No Symptoms Endocrine: No Symptoms All Other Systems: Reviewed and Negative - Past Medical History Pertinent Past Medical History: Yes Neurological History: No Pertinent History ENT History: No Pertinent History Cardiac History: No Pertinent History Respiratory History: No Pertinent History Endocrine Medical History: No Pertinent History Musculoskeletal History: No Pertinent History GI Medical History: No Pertinent History History: No Pertinent History Psycho-Social History: Anxiety, Depression, Panic Disorder Female Reproductive Disorders: No Pertinent History Other Medical History: hypoglycemia - Past Surgical History Past Surgical History: No Neuro Surgical History: No Pertinent History Cardiac: No Pertinent History Respiratory: No Pertinent History Gastrointestinal: No Pertinent History Genitourinary: No Pertinent History Musculoskeletal: No Pertinent History Female Surgical History: No Pertinent History - Social History Smoking Status: Never smoker Exposure to second hand smoke: Yes Drug Use: marijuana Patient Lives Alone: No - Female History Hx Last Menstrual Period: currently Hx Now: No - Nursing Vital Signs Nursing Vital Signs: Initial Vital Signs Pulse Rate 127 H 04/18/20 12:33 Respiratory Rate 15 04/18/20 12:33 Blood Pressure 148/98 04/18/20 12:33 O2 Sat by Pulse Oximetry 100 04/18/20 12:33 Pain Scale Pain Intensity 0 - Physical Exam General Appearance: no apparent distress, alert Eye Exam: PERRL/EOMI, eyes nml inspection Ears, Nose, Throat Exam: normal ENT inspection, moist mucous membranes Neck Exam: normal inspection, non-tender, supple Respiratory Exam: normal breath sounds, lungs clear, No respiratory distress Cardiovascular Exam: normal heart sounds, tachycardia, No edema Gastrointestinal/Abdomen Exam: soft, No tenderness, No mass Back Exam: normal inspection, No CVA tenderness, No vertebral tenderness Extremity Exam: normal inspection, normal range of motion Neurologic Exam: alert, oriented x 3, cooperative, normal mood/affect, nml cerebellar function, sensation nml, No motor deficits Skin Exam: normal color, warm, dry Lymphatic Exam: No adenopathy SpO2: 100 - Course Nursing assessment & vital signs reviewed: Yes EKG Interpreted by Me: Sinus Rhythm Ordered Tests: Active Orders 24 hr Category Date Time Status EKG-ER Only STAT Care 04/18/20 12:50 Active CBC W DIFF Stat Lab 04/18/20 13:15 Completed CMP Stat Lab 04/18/20 13:15 Completed CULTURE,URINE Stat Lab 04/18/20 12:52 Received UA W/RFX UR CULTURE Stat Lab 04/18/20 12:52 Completed Urine Triage Profile Stat Lab 04/18/20 13:00 Received Medication Summary Discontinued Medications Generic Name Dose Route Start Last Admin Trade Name Freq PRN Reason Stop Dose Admin Propranolol HCl 40 mg 04/18/20 13:03 04/18/20 13:38 Inderal 20 Mg PO 04/18/20 13:04 40 mg 1XONLY ONE Administration Lab/Rad Data: Laboratory Result Diagrams 04/18/20 13:15 04/18/20 13:15 Laboratory Results 04/18/20 04/18/20 04/18/20 Range/Units 13:15 13:15 12:52 WBC 6.4 (4.0-10.5) K/mm3 RBC 4.48 (4.1-5.4) M/mm3 Hgb 13.0 (12.0-16.0) gm/dl Hct 40.0 (35-47) % MCV 89.3 (78-100) fl MCH 29.0 (26-32) pg MCHC 32.5 (32-36) g/dl RDW 14.1 H (11.5-14.0) % Plt Count 188 (150-450) K/mm3 MPV 10.0 (7.5-11.0) fl Gran % 55.3 (36.0-66.0) % Eos # (Auto) 0.19 (0-0.5) Absolute Lymphs (auto) 2.16 (1.0-4.6) Absolute Monos (auto) 0.48 (0.0-1.3) Lymphocytes % 33.7 (24.0-44.0) % Monocytes % 7.5 (0.0-12.0) % Eosinophils % 3.0 (0.00-5.0) % Basophils % 0.5 (0.0-0.4) % Absolute Granulocytes 3.55 (1.4-6.9) Basophils # 0.03 (0-0.4) Sodium 138 (137-145) mmol/L Potassium 4.1 (3.5-5.1) mmol/L Chloride 107 (98-107) mmol/L Carbon Dioxide 26 (22-30) mmol/L Anion Gap 9.2 (5-15) MEQ/L BUN 9 (7-17) mg/dL Creatinine 0.73 (0.52-1.04) mg/dL Estimated GFR > 60.0 ML/MIN Glucose 103 (74-106) mg/dL Calcium 9.2 (8.4-10.2) mg/dL Total Bilirubin 0.50 (0.2-1.3) mg/dL AST 21 (14-36) U/L ALT 12 (0-35) U/L Alkaline Phosphatase 81 (38-126) U/L Serum Total Protein 7.3 (6.3-8.2) g/dL Albumin 4.2 (3.5-5.0) g/dL Urine Color YELLOW (YELLOW) Urine Appearance SLIGHTLY CLOUDY (CLEAR) Urine pH 5.0 (5-6) Ur Specific [place] 1.024 (1.005-1.025) Urine Protein 30 (Negative) Urine Ketones NEGATIVE (NEGATIVE) Urine Blood LARGE (0-5) Mynor/ul Urine Nitrite NEGATIVE (NEGATIVE) Urine Bilirubin NEGATIVE (NEGATIVE) Urine Urobilinogen NEGATIVE (0-1) mg/dL Ur Leukocyte Esterase NEGATIVE (NEGATIVE) Urine WBC (Auto) 6-10 (0-5) /HPF Urine RBC (Auto) 11-15 (0-2) /HPF U Hyaline Cast (Auto) 0-2 (0-2) /LPF U Epithel Cells (Auto) RARE (FEW) /HPF Urine Bacteria (Auto) RARE (NEGATIVE) /HPF Unidentified Crystals 2-5 (NEGATIVE) /HPF Other Casts (Auto) NEGATIVE (NEGATIVE) /LPF Urine Mucus (Auto) SLIGHT (NEGATIVE) /HPF Urine Culture Reflexed YES (NO) Urine Glucose NEGATIVE (NEGATIVE) mg/dL - Progress Progress: improved Air Movement: good Progress Note: 04/18/20 13:42 Patient urine analysis is showing some bacteria WBC and RBC but patient is asymptomatic so we will not treat this urine analysis with antibiotic. 04/18/20 13:43 wait For urine reflex culture and then will consider antibiotic if necessary patient is informed Counseled pt/family regarding: lab results, diagnosis, need for follow-up - Departure Departure Disposition: Home Clinical Impression: Palpitations with regular cardiac rhythm Condition: Stable Critical Care Time: No Referrals: GARCIA ALAS MD [ACTIVE STAFF] - Instructions: Tachycardia (DC) Additional Instructions: Discharge/Care Plan EMMANUEL INIGUEZSSICA LORI was seen on 04/18/20 in the Emergency Room. The patient w as counseled regarding Diagnosis,Lab results, Imaging studies, need for follow up and when to return to the Emergency Room. Prescriptions given: Discharge Note I have spoken with the patient and/or caregivers. I have explained the patient's condition, diagnosis and treatment plan based on the information available to me at this time. I have answered the patient's and/or caregiver's questions and addressed any concerns. The patient and/or caregivers have as good understanding of the patient's diagnosis, condition and treatment plan as can be expected at this point. The vital signs have been stable. The patient's condition is stable and appropriate for discharge from the emergency department. The patient will pursue further outpatient evaluation with the primary care physician or other designated or consulting physician as outlined in the discharge instructions. The patient and/or caregivers are agreeable to this plan of care and follow-up instructions have been explained in detail. The patient and/or caregivers have received these instruction. The patient/and or caregivers are aware that any significant change in condition or worsening of symptoms should prompt an immediate return to this or the closest emergency department or call 911. urine analysis is showing some bacteria WBC and RBC but patient is asymptomatic so we will not treat this urine analysis with antibiotic. 04/18/20 13:43 wait For urine reflex culture and then will consider antibiotic if necessary patient is informed Prescriptions: Propranolol HCl [Inderal LA] 60 mg PO DAILY 30 Days #30 cap.sa.24h
[2020-04-18] MEDS ORDERED: Inderal 20 MG PO ONE (13:03)
[2020-04-18 13:20] LABS: Absolute Neutrophil Ct (ANC) 3.55 (1.4-6.9); BASOPHIL % 0.5 % (0.0-0.4); Basophil (Absolute #) 0.03 (0-0.4); Eosinophil (Absolute #) 0.19 (0-0.5); Lymphocyte (Absolute #) 2.16 (1.0-4.6); Lymphocytes % 33.7 % (24.0-44.0); Mean Cell Volume 89.3 fl (78-100); Mean Corpuscular Hgb Concent. 32.5 g/dl (32-36); Monocyte (Absolute #) 0.48 (0.0-1.3); Monocytes % 7.5 % (0.0-12.0); Neutrophil % 55.3 % (36.0-66.0); Platelet Count 188 K/mm3 (150-450); Red Blood Count 4.48 M/mm3 (4.1-5.4); Red Cell Distribution Width 14.1 % (11.5-14.0); White Blood Count 6.4 K/mm3 (4.0-10.5)
[2020-04-18 13:35] LABS: ALBUMIN 4.2 g/dL (3.5-5.0); ALKALINE PHOSPHATASE 81 U/L (38-126); ANION GAP 9.2 MEQ/L (5-15); BLOOD UREA NITROGEN 9 mg/dL (7-17); CHLORIDE 107 mmol/L (98-107); Calcium 9.2 mg/dL (8.4-10.2); Carbon Dioxide 26 mmol/L (22-30); Creatinine 1 0.73 mg/dL (0.52-1.04); EST GLOMERULAR FILTRATION RATE > 60.0 ML/MIN; Glucose 103 mg/dL (74-106); Potassium 4.1 mmol/L (3.5-5.1); SGOT/AST 21 U/L (14-36); SGPT/ALT 12 U/L (0-35); SODIUM 138 mmol/L (137-145); Total Protein 7.3 g/dL (6.3-8.2)
[2020-04-18 13:39] LABS: Appearance SLIGHTLY CLOUDY (CLEAR); Bacteria RARE /HPF (NEGATIVE); Bilirubin NEGATIVE (NEGATIVE); Blood LARGE Ery/ul (0-5); Epithelial Cells RARE /HPF (FEW); Glucose NEGATIVE (NEGATIVE); Hyaline Casts 0-2 /LPF (0-2); Ketones NEGATIVE (NEGATIVE); Leukocyte Esterase NEGATIVE (NEGATIVE); Mucus SLIGHT /HPF (NEGATIVE); Nitrite NEGATIVE (NEGATIVE); Protein,Urine Dip 30 (Negative); Specific Gravity 1.024 (1.005-1.025); Urobilinogen NEGATIVE mg/dL (0-1)
[2020-04-18 13:47] LABS: Amphetamine,Urine NEGATIVE (NEGATIVE); Barbiturate,Urine NEGATIVE (NEGATIVE); Benzodiazepine,Urine POSITIVE (NEGATIVE); Cocaine,Urine NEGATIVE (NEGATIVE); Methadone,Urine NEGATIVE (NEGATIVE); Opiate,Urine NEGATIVE (NEGATIVE); PCP,Urine NEGATIVE (NEGATIVE); THC,Urine NEGATIVE (NEGATIVE)
[2020-04-18 14:13] VITALS: BP 123/77; PULSE 98; O2SAT 99
== END 2020-04-18 14:13 | disposition home or self-care (01) ==
LOC: ED 12:24
DX: R00.2 Palpitations (principal)
CPT/HCPCS: 36415; 80053; 80307; 81001; 85025; 87086; 93005; 99284; A9270-GY

== ENCOUNTER 2020-05-25 17:14 | Emergency (ER) | payer OTHER ==
[2020-05-25 17:30] VITALS: O2SAT 99
--- NOTE | 2020-05-25 17:55 | ERPHSYRPT ---
- History of Present Illness Historian: patient Patient Subjective Stated Complaint: pt here for abd pain to center of abd for a week now, with some nausea, and loose stool, was able to eat peanutbutter today Triage Nursing Assessment: pt alert, resp easy, skin w/d/p,has face mask in place, abd soft, no edema Physician History: 19yo wf w L sided abdominal pain x5 days. Pain is 4 out of 10/sharp/worse w food. She has had N/D wo vomiting/melena/hematochezia/dysuria/hem aturia/cough/fever. Pt denies . Timing/Duration: day(s) (5 days) Activities at Onset: none Quality: sharpness Abdominal Pain Onset Location: LUQ, LLQ Pain Radiation: no radiation Severity of Pain-Max: moderate Severity of Pain-Current: mild Modifying Factors: Improves With: eating Associated Symptoms: denies symptoms Previous symptoms: no prior history Allergies/Adverse Reactions: venlafaxine [From Effexor] Allergy (Verified 05/25/20 17:30) Home Medications: Clonazepam 1 mg DAILY 05/25/20 [History] Hx Tetanus, Diphtheria Vaccination/Date Given: No Hx Influenza Vaccination/Date Given: No Hx Pneumococcal Vaccination/Date Given: No Immunizations Up to Date: Yes Travel Risk - International Travel Have you traveled outside of the country in past 3 weeks: No - Coronavirus Screening Are you exhibiting any of the following symptoms?: Yes Symptoms: Vomiting/Diarrhea Close contact with a COVID-19 positive Pt in past 14-21 Days: No - Review of Systems Constitutional: No Symptoms Eyes: No Symptoms Ears, Nose, & Throat: No Symptoms Respiratory: No Symptoms Cardiac: No Symptoms Genitourinary Symptoms: No Symptoms Musculoskeletal: No Symptoms Skin: No Symptoms Neurological: No Symptoms Psychological: No Symptoms Endocrine: No Symptoms Hematologic/Lymphatic: No Symptoms Immunological/Allergic: No Symptoms - Past Medical History Pertinent Past Medical History: Yes Neurological History: No Pertinent History ENT History: No Pertinent History Cardiac History: No Pertinent History Respiratory History: No Pertinent History Endocrine Medical History: No Pertinent History Musculoskeletal History: No Pertinent History GI Medical History: No Pertinent History History: No Pertinent History Psycho-Social History: Anxiety, Depression, Panic Disorder Female Reproductive Disorders: No Pertinent History Other Medical History: hypoglycemia - Past Surgical History Past Surgical History: No Neuro Surgical History: No Pertinent History Cardiac: No Pertinent History Respiratory: No Pertinent History Gastrointestinal: No Pertinent History Genitourinary: No Pertinent History Musculoskeletal: No Pertinent History Female Surgical History: No Pertinent History - Social History Smoking Status: Never smoker Exposure to second hand smoke: No Drug Use: marijuana Patient Lives Alone: No Significant Family History: no pertinent family hx - Female History Hx Last Menstrual Period: unsure Hx Now: No - Nursing Vital Signs Nursing Vital Signs: Initial Vital Signs Temperature 98.3 F 05/25/20 17:22 Pulse Rate 108 H 05/25/20 17:22 Respiratory Rate 18 05/25/20 17:22 Blood Pressure 134/99 05/25/20 17:22 O2 Sat by Pulse Oximetry 99 05/25/20 17:22 Pain Scale Pain Intensity 4 - Physical Exam General Appearance: no apparent distress Eye Exam: PERRL/EOMI, eyes nml inspection, No scleral icterus, No pale conjunctivae Ears, Nose, Throat Exam: normal ENT inspection, TMs normal, pharynx normal, moist mucous membranes Neck Exam: normal inspection, non-tender, supple, full range of motion, No meningismus, No mass, No Brudzinski, No Kernig's Respiratory Exam: normal breath sounds, lungs clear, airway intact, No chest tenderness, No respiratory distress Cardiovascular Exam: regular rate/rhythm, normal heart sounds, normal peripheral pulses, No murmur Gastrointestinal/Abdomen Exam: soft, normal bowel sounds, tenderness (Very mild LUQ wo guarding or rebound) Back Exam: normal inspection, normal range of motion Extremity Exam: normal inspection, normal range of motion Neurologic Exam: alert, oriented x 3, cooperative, lozenge maker helper II-XII nml as tested, normal mood/affect, sensation nml, No motor deficits, No sensory deficit Skin Exam: normal color, warm, dry, No rash Lymphatic Exam: No adenopathy SpO2 Interpretation: normal SpO2: 99 O2 Delivery: Room Air Ordered Tests: Active Orders 24 hr Category Date Time Status AMYLASE Stat Lab 05/25/20 18:07 Completed CBC W DIFF Stat Lab 05/25/20 18:07 Completed CMP Stat Lab 05/25/20 18:07 Completed HCG,QUALITATIVE URINE Stat Lab 05/25/20 18:51 Completed LIPASE Stat Lab 05/25/20 18:07 Completed UA W/RFX UR CULTURE Stat Lab 05/25/20 18:51 Completed Lab/Rad Data: Laboratory Result Diagrams 05/25/20 18:07 05/25/20 18:07 Laboratory Results 05/25/20 05/25/20 05/25/20 Range/Units 18:51 18:51 18:07 WBC (4.0-10.5) K/mm3 RBC (4.1-5.4) M/mm3 Hgb (12.0-16.0) gm/dl Hct (35-47) % MCV (78-100) fl MCH (26-32) pg MCHC (32-36) g/dl RDW (11.5-14.0) % Plt Count (150-450) K/mm3 MPV (7.5-11.0) fl Gran % (36.0-66.0) % Eos # (Auto) (0-0.5) Absolute Lymphs (auto) (1.0-4.6) Absolute Monos (auto) (0.0-1.3) Lymphocytes % (24.0-44.0) % Monocytes % (0.0-12.0) % Eosinophils % (0.00-5.0) % Basophils % (0.0-0.4) % Absolute Granulocytes (1.4-6.9) Basophils # (0-0.4) Sodium 139 (137-145) mmol/L Potassium 4.1 (3.5-5.1) mmol/L Chloride 107 (98-107) mmol/L Carbon Dioxide 24 (22-30) mmol/L Anion Gap 13.1 (5-15) MEQ/L BUN 8 (7-17) mg/dL Creatinine 0.67 (0.52-1.04) mg/dL Estimated GFR > 60.0 ML/MIN Glucose 101 (74-106) mg/dL Calcium 9.4 (8.4-10.2) mg/dL Total Bilirubin 0.50 (0.2-1.3) mg/dL AST 20 (14-36) U/L ALT 10 (0-35) U/L Alkaline Phosphatase 78 (38-126) U/L Serum Total Protein 7.7 (6.3-8.2) g/dL Albumin 4.5 (3.5-5.0) g/dL Amylase 78 (30-110) U/L Lipase 53 (23-300) U/L Urine Color YELLOW (YELLOW) Urine Appearance SLIGHTLY CLOUDY (CLEAR) Urine pH 6.0 (5-6) Ur Specific [place] 1.024 (1.005-1.025) Urine Protein NEGATIVE (Negative) Urine Ketones TRACE (NEGATIVE) Urine Blood MODERATE (0-5) Mynor/ul Urine Nitrite NEGATIVE (NEGATIVE) Urine Bilirubin NEGATIVE (NEGATIVE) Urine Urobilinogen NEGATIVE (0-1) mg/dL Ur Leukocyte Esterase NEGATIVE (NEGATIVE) Urine WBC (Auto) 3-5 (0-5) /HPF Urine RBC (Auto) 0-2 (0-2) /HPF U Epithel Cells (Auto) RARE (FEW) /HPF Urine Bacteria (Auto) NONE (NEGATIVE) /HPF Urine Mucus (Auto) MODERATE (NEGATIVE) /HPF Urine Culture Reflexed NO (NO) Urine Glucose NEGATIVE (NEGATIVE) mg/dL Urine HCG, Qual NEGATIVE (Negative) 05/25/20 Range/Units 18:07 WBC 5.7 (4.0-10.5) K/mm3 RBC 4.82 (4.1-5.4) M/mm3 Hgb 14.3 (12.0-16.0) gm/dl Hct 43.5 (35-47) % MCV 90.2 (78-100) fl MCH 29.7 (26-32) pg MCHC 32.9 (32-36) g/dl RDW 13.4 (11.5-14.0) % Plt Count 218 (150-450) K/mm3 MPV 10.3 (7.5-11.0) fl Gran % 50.8 (36.0-66.0) % Eos # (Auto) 0.22 (0-0.5) Absolute Lymphs (auto) 2.15 (1.0-4.6) Absolute Monos (auto) 0.36 (0.0-1.3) Lymphocytes % 38.0 (24.0-44.0) % Monocytes % 6.4 (0.0-12.0) % Eosinophils % 3.9 (0.00-5.0) % Basophils % 0.9 (0.0-0.4) % Absolute Granulocytes 2.88 (1.4-6.9) Basophils # 0.05 (0-0.4) Sodium (137-145) mmol/L Potassium (3.5-5.1) mmol/L Chloride (98-107) mmol/L Carbon Dioxide (22-30) mmol/L Anion Gap (5-15) MEQ/L BUN (7-17) mg/dL Creatinine (0.52-1.04) mg/dL Estimated GFR ML/MIN Glucose (74-106) mg/dL Calcium (8.4-10.2) mg/dL Total Bilirubin (0.2-1.3) mg/dL AST (14-36) U/L ALT (0-35) U/L Alkaline Phosphatase (38-126) U/L Serum Total Protein (6.3-8.2) g/dL Albumin (3.5-5.0) g/dL Amylase (30-110) U/L Lipase (23-300) U/L Urine Color (YELLOW) Urine Appearance (CLEAR) Urine pH (5-6) Ur Specific [place] (1.005-1.025) Urine Protein (Negative) Urine Ketones (NEGATIVE) Urine Blood (0-5) Mynor/ul Urine Nitrite (NEGATIVE) Urine Bilirubin (NEGATIVE) Urine Urobilinogen (0-1) mg/dL Ur Leukocyte Esterase (NEGATIVE) Urine WBC (Auto) (0-5) /HPF Urine RBC (Auto) (0-2) /HPF U Epithel Cells (Auto) (FEW) /HPF Urine Bacteria (Auto) (NEGATIVE) /HPF Urine Mucus (Auto) (NEGATIVE) /HPF Urine Culture Reflexed (NO) Urine Glucose (NEGATIVE) mg/dL Urine HCG, Qual (Negative) - Progress Progress Note: 05/25/20 19:54 Pt w normal CBC/UA/CMP, so will not get CT at this time. Pt instructed to return to ER for increasing pain or temperature greater than 100.5. Counseled pt/family regarding: lab results, diagnosis, need for follow-up - Departure Departure Disposition: Home Clinical Impression: Abdominal pain Condition: Stable Critical Care Time: No Referrals: LLOYD MILTON [Primary Care Provider] - Instructions: Acute Abdomen (Belly Pain), Adult (DC) Additional Instructions: Follow up with your family MD in 1-2 days Return to ER for increasing pain or temperature greater than 100.5 Prescriptions: Dicyclomine HCl 20 mg [Bentyl 20 mg] 10 mg PO QIDPRN PRN #15 tablet PRN Reason: Pain
[2020-05-25 18:11] LABS: Absolute Neutrophil Ct (ANC) 2.88 (1.4-6.9); BASOPHIL % 0.9 % (0.0-0.4); Basophil (Absolute #) 0.05 (0-0.4); Eosinophil % 3.9 % (0.00-5.0); Eosinophil (Absolute #) 0.22 (0-0.5); Hematocrit 43.5 % (35-47); Hemoglobin 14.3 gm/dl (12.0-16.0); Lymphocyte (Absolute #) 2.15 (1.0-4.6); Mean Cell Volume 90.2 fl (78-100); Mean Corpuscular Hemoglobin 29.7 pg (26-32); Mean Corpuscular Hgb Concent. 32.9 g/dl (32-36); Mean Platelet Volume 10.3 fl (7.5-11.0); Monocyte (Absolute #) 0.36 (0.0-1.3); Monocytes % 6.4 % (0.0-12.0); Neutrophil % 50.8 % (36.0-66.0); Platelet Count 218 K/mm3 (150-450); Red Blood Count 4.82 M/mm3 (4.1-5.4); Red Cell Distribution Width 13.4 % (11.5-14.0); White Blood Count 5.7 K/mm3 (4.0-10.5)
[2020-05-25 18:27] LABS: ALBUMIN 4.5 g/dL (3.5-5.0); ALKALINE PHOSPHATASE 78 U/L (38-126); AMYLASE 78 U/L (30-110); ANION GAP 13.1 MEQ/L (5-15); BLOOD UREA NITROGEN 8 mg/dL (7-17); CHLORIDE 107 mmol/L (98-107); Calcium 9.4 mg/dL (8.4-10.2); Carbon Dioxide 24 mmol/L (22-30); Creatinine 1 0.67 mg/dL (0.52-1.04); EST GLOMERULAR FILTRATION RATE > 60.0 ML/MIN; Glucose 101 mg/dL (74-106); LIPASE 53 U/L (23-300); Potassium 4.1 mmol/L (3.5-5.1); SGOT/AST 20 U/L (14-36); SGPT/ALT 10 U/L (0-35); SODIUM 139 mmol/L (137-145); Total Protein 7.7 g/dL (6.3-8.2)
[2020-05-25 19:10] VITALS: BP 127/88; PULSE 81
[2020-05-25 19:37] LABS: Appearance SLIGHTLY CLOUDY (CLEAR); Bilirubin NEGATIVE (NEGATIVE); Blood MODERATE Ery/ul (0-5); Epithelial Cells RARE /HPF (FEW); Glucose NEGATIVE (NEGATIVE); Ketones TRACE (NEGATIVE); Leukocyte Esterase NEGATIVE (NEGATIVE); Mucus MODERATE /HPF (NEGATIVE); Nitrite NEGATIVE (NEGATIVE); Protein,Urine Dip NEGATIVE (Negative); RBC 0-2 /HPF (0-2); Specific Gravity 1.024 (1.005-1.025); Urobilinogen NEGATIVE mg/dL (0-1)
== END 2020-05-25 20:15 | disposition home or self-care (01) ==
LOC: ED 17:14
DX: R10.9 Unspecified abdominal pain (principal)
CPT/HCPCS: 36415; 80053; 81001; 82150; 83690; 84703; 85025; 99283

== ENCOUNTER 2020-07-15 16:49 | Emergency (ER) | payer OTHER ==
--- NOTE | 2020-07-15 16:55 | ERPHSYRPT ---
- History of Present Illness Time Seen by Provider: 07/15/20 16:54 Historian: patient Exam Limitations: no limitations Physician History: This is a 19-year-old white female who has had history of urinary tract infections in the past and states that symptoms are somewhat similar except there is the addition of left flank pain and suprapubic pressure. She does not have dysuria and she has not noticed hematuria. However when she urinates there is a suprapubic pain with urination. She had no nausea vomiting or diarrhea. She has had no fevers. She has no cough. She denies chest pain. Quality: aching, pressure (Suprapubic) Abdominal Pain Onset Location: suprapubic (Mild with urination), flank (Right) Severity of Pain-Max: mild Severity of Pain-Current: mild Modifying Factors: Improves With: nothing Associated Symptoms: denies symptoms Previous symptoms: same symptoms as today Allergies/Adverse Reactions: venlafaxine [From Effexor] Allergy (Verified 05/25/20 17:30) Home Medications: clonazePAM [Clonazepam] 0.5 mg PO DAILY 07/15/20 [History] Hx Tetanus, Diphtheria Vaccination/Date Given: No Hx Influenza Vaccination/Date Given: No Hx Pneumococcal Vaccination/Date Given: No Travel Risk - International Travel Have you traveled outside of the country in past 3 weeks: No - Coronavirus Screening Are you exhibiting any of the following symptoms?: No Close contact with a COVID-19 positive Pt in past 14-21 Days: No - Review of Systems Constitutional: No Symptoms Eyes: No Symptoms Ears, Nose, & Throat: No Symptoms Respiratory: No Symptoms Cardiac: No Symptoms Abdominal/Gastrointestinal: Abdominal Pain (Mild suprapubic with urination) Genitourinary Symptoms: Flank Pain (Left) Musculoskeletal: No Symptoms Skin: No Symptoms Neurological: No Symptoms Psychological: No Symptoms Endocrine: No Symptoms Hematologic/Lymphatic: No Symptoms Immunological/Allergic: No Symptoms All Other Systems: Reviewed and Negative - Past Medical History Pertinent Past Medical History: Yes Neurological History: No Pertinent History ENT History: No Pertinent History Cardiac History: No Pertinent History Respiratory History: No Pertinent History Endocrine Medical History: No Pertinent History Musculoskeletal History: No Pertinent History GI Medical History: No Pertinent History History: No Pertinent History Psycho-Social History: Anxiety, Depression, Panic Disorder Female Reproductive Disorders: No Pertinent History Other Medical History: hypoglycemia - Past Surgical History Past Surgical History: No Neuro Surgical History: No Pertinent History Cardiac: No Pertinent History Respiratory: No Pertinent History Gastrointestinal: No Pertinent History Genitourinary: No Pertinent History Musculoskeletal: No Pertinent History Female Surgical History: No Pertinent History - Social History Smoking Status: Never smoker Exposure to second hand smoke: No Drug Use: marijuana Patient Lives Alone: No Significant Family History: no pertinent family hx - Nursing Vital Signs Nursing Vital Signs: Initial Vital Signs Temperature 98.4 F 07/15/20 17:56 Pulse Rate 74 07/15/20 17:56 Respiratory Rate 20 07/15/20 17:56 Blood Pressure 156/90 07/15/20 17:56 O2 Sat by Pulse Oximetry 98 07/15/20 17:56 Pain Scale Pain Intensity [Back] 3 Pain Intensity 3 - Physical Exam General Appearance: no apparent distress, alert, anxiety Eye Exam: PERRL/EOMI, eyes nml inspection Ears, Nose, Throat Exam: normal ENT inspection, moist mucous membranes Neck Exam: normal inspection, non-tender, supple, full range of motion Respiratory Exam: normal breath sounds, lungs clear, airway intact, No chest tenderness, No respiratory distress Cardiovascular Exam: regular rate/rhythm, normal heart sounds, normal peripheral pulses Gastrointestinal/Abdomen Exam: soft, normal bowel sounds, tenderness (Mild suprapubic region), No guarding, No rebound Pelvic Exam: not done Rectal Exam: not done Back Exam: normal inspection, normal range of motion, CVA tenderness (Mild left side), No vertebral tenderness Extremity Exam: normal inspection, normal range of motion, pelvis stable Neurologic Exam: alert, oriented x 3, cooperative, vice president 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 portfolio manager II-XII 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 as tested, normal mood/affect, nml cerebellar function, nml station & gait, sensation nml Skin Exam: normal color, warm, dry Lymphatic Exam: No adenopathy SpO2 Interpretation: normal O2 Delivery: Room Air - Course Nursing assessment & vital signs reviewed: No Ordered Tests: Active Orders 24 hr Category Date Time Status CULTURE,URINE Stat Lab 07/15/20 18:15 Received HCG,QUALITATIVE URINE Stat Lab 07/15/20 18:15 Completed UA W/RFX UR CULTURE Stat Lab 07/15/20 18:15 Completed Medication Summary Discontinued Medications Generic Name Dose Route Start Last Admin Trade Name Freq PRN Reason Stop Dose Admin Ceftriaxone Sodium 1,000 mg 07/15/20 19:34 07/15/20 19:45 Rocephin 1000 Mg Inj IM 07/15/20 19:35 1,000 mg STAT ONE Administration Ceftriaxone Sodium Confirm 07/15/20 19:37 Rocephin 1000 Mg Inj Administered 07/15/20 19:38 Dose 1,000 mg .ROUTE .STK-MED ONE Lidocaine HCl Confirm 07/15/20 19:37 Xylocaine 1% Hcl 20 Ml Mdv Administered 07/15/20 19:38 Dose 2 ml .ROUTE .STK-MED ONE Lab/Rad Data: Laboratory Results 07/15/20 07/15/20 Range/Units 18:15 18:15 Urine Color YELLOW (YELLOW) Urine Appearance SLIGHTLY CLOUDY (CLEAR) Urine pH 6.0 (5-6) Ur Specific [place] 1.020 (1.005-1.025) Urine Protein NEGATIVE (Negative) Urine Ketones NEGATIVE (NEGATIVE) Urine Blood NEGATIVE (0-5) Mynor/ul Urine Nitrite NEGATIVE (NEGATIVE) Urine Bilirubin NEGATIVE (NEGATIVE) Urine Urobilinogen NEGATIVE (0-1) mg/dL Ur Leukocyte Esterase MODERATE (NEGATIVE) Urine WBC (Auto) 6-10 (0-5) /HPF Urine RBC (Auto) 0-2 (0-2) /HPF U Epithel Cells (Auto) RARE (FEW) /HPF Urine Bacteria (Auto) NONE (NEGATIVE) /HPF Urine Mucus (Auto) SLIGHT (NEGATIVE) /HPF Urine Culture Reflexed YES (NO) Urine Glucose NEGATIVE (NEGATIVE) mg/dL Urine HCG, Qual NEGATIVE (Negative) - Progress Progress: unchanged Counseled pt/family regarding: lab results, diagnosis, need for follow-up - Departure Departure Disposition: Home Clinical Impression: UTI (urinary tract infection) Condition: Stable Critical Care Time: No Referrals: LLOYD MILTON [ACTIVE STAFF] - Additional Instructions: Drink plenty of fluids. Use Tylenol and ibuprofen for pain and fever control. Take your medication as prescribed. Follow-up with your primary care physician for further management Prescriptions: Smz/Tmp Ds Tablet [Bactrim Ds Tablet] 1 udtab PO BID #14 tablet
[2020-07-15 19:18] VITALS: BP 123/76; PULSE 72; O2SAT 100
[2020-07-15 19:19] LABS: Appearance SLIGHTLY CLOUDY (CLEAR); Bilirubin NEGATIVE (NEGATIVE); Blood NEGATIVE Ery/ul (0-5); Epithelial Cells RARE /HPF (FEW); Glucose NEGATIVE (NEGATIVE); Ketones NEGATIVE (NEGATIVE); Leukocyte Esterase MODERATE (NEGATIVE); Mucus SLIGHT /HPF (NEGATIVE); Nitrite NEGATIVE (NEGATIVE); Protein,Urine Dip NEGATIVE (Negative); RBC 0-2 /HPF (0-2); Urobilinogen NEGATIVE mg/dL (0-1)
[2020-07-15] MEDS ORDERED: Rocephin 1000 MG INJ IM ONE (19:34)
[2020-07-15] MEDS ORDERED: XYLOCAINE 1% HCL 20 ML MDV ONE (19:37)
[2020-07-15] MEDS ORDERED: Rocephin 1000 MG INJ ONE (19:37)
== END 2020-07-15 20:48 | disposition home or self-care (01) ==
LOC: ED 16:49
DX: R10.32 Left lower quadrant pain (principal); N39.0 Urinary tract infection, site not specified
CPT/HCPCS: 81001; 84703; 87086; 96372; 99284; J0696

== ENCOUNTER 2020-09-25 16:56 | Emergency (ER) | payer OTHER ==
--- NOTE | 2020-09-25 17:53 | ERPHSYRPT ---
- History of Present Illness Time Seen by Provider: 09/25/20 17:48 Source: patient, family Exam Limitations: no limitations Patient Subjective Stated Complaint: Pt states "For the past 4 dyas I have been having palpitations and I get short of breath just sitting there." Triage Nursing Assessment: Pt presented alert and oriented X 3, skin pwd Pt a mbulates with an upright steady gait, able to speak in clear full sentences pt tachypneic, crying and anxious. Physician History: pt has hx of panic attacks with prior neg w/u but this one has lasted 4 days , some cough , no fever, some sobreath and some palpitations but says neg holter in past with only tachycardia sinus per hx , last CT 2 years ago and agrees to again if indicated for d dimer after disucscsion of risk and benefits. chest clear, abd soft nontender; no peritoneal signs. she has no trauma; she has hx CAD in family bt older, no hptn, no DM in pt. no actual CP , so is cardiac Heart score less than 3 . Activities at Onset: none Severity of Dyspnea-Max: moderate Severity of Dyspnea-Current: none Possible Cause: occasional episodes Modifying Factors: Improves With: coughing Associated Symptoms: anxiety, cough, heart racing, No fever, No wheezing, No calf pain, No sweating Allergies/Adverse Reactions: venlafaxine [From Effexor] Allergy (Verified 05/25/20 17:30) Home Medications: No Reportable Medications [No Reported Medications] 09/25/20 [History] Hx Tetanus, Diphtheria Vaccination/Date Given: No Hx Influenza Vaccination/Date Given: No Hx Pneumococcal Vaccination/Date Given: No Immunizations Up to Date: Yes Travel Risk - International Travel Have you traveled outside of the country in past 3 weeks: No - Coronavirus Screening Are you exhibiting any of the following symptoms?: No Close contact with a COVID-19 positive Pt in past 14-21 Days: No - Vaccine Status Have you recieved a Covid-19 vaccination: No - Review of Systems Constitutional: No Fever, No Chills Eyes: No Symptoms Ears, Nose, & Throat: No Symptoms, Painful Swallowing Respiratory: Cough, No Dyspnea Cardiac: Palpitations, No Chest Pain, No Edema, No Syncope Abdominal/Gastrointestinal: No Abdominal Pain, No Nausea, No Vomiting, No Diarrhea Genitourinary Symptoms: No Dysuria Musculoskeletal: No Back Pain, No Neck Pain Skin: No Rash Neurological: No Dizziness, No Focal Weakness, No Sensory Changes Psychological: No Symptoms Endocrine: No Symptoms Hematologic/Lymphatic: No Symptoms Immunological/Allergic: No Symptoms All Other Systems: Reviewed and Negative - Past Medical History Pertinent Past Medical History: Yes Neurological History: No Pertinent History ENT History: No Pertinent History Cardiac History: No Pertinent History Respiratory History: No Pertinent History Endocrine Medical History: No Pertinent History Musculoskeletal History: No Pertinent History GI Medical History: No Pertinent History History: No Pertinent History Psycho-Social History: Anxiety, Depression, Panic Disorder Female Reproductive Disorders: No Pertinent History Other Medical History: hypoglycemia - Past Surgical History Past Surgical History: No Neuro Surgical History: No Pertinent History Cardiac: No Pertinent History Respiratory: No Pertinent History Gastrointestinal: No Pertinent History Genitourinary: No Pertinent History Musculoskeletal: No Pertinent History Female Surgical History: No Pertinent History - Social History Smoking Status: Former smoker Exposure to second hand smoke: Yes Drug Use: marijuana Patient Lives Alone: Yes Significant Family History: no pertinent family hx - Female History Hx Last Menstrual Period: 09/06/2020 Hx Now: No - Nursing Vital Signs Nursing Vital Signs: Initial Vital Signs Temperature 98.4 F 09/25/20 17:01 Pulse Rate 116 H 09/25/20 17:01 Respiratory Rate 26 H 09/25/20 17:01 Blood Pressure 167/102 09/25/20 17:01 O2 Sat by Pulse Oximetry 100 09/25/20 17:01 Pain Scale Pain Intensity 0 - Physical Exam General Appearance: no apparent distress, alert Eye Exam: PERRL/EOMI Ears, Nose, Throat Exam: normal ENT inspection, normal pharynx Neck Exam: normal inspection, supple Respiratory Exam: normal breath sounds, lungs clear, airway intact, No respiratory distress, No rhonchi, No wheezing, No stridor Cardiovascular/Chest Exam: normal heart sounds, regular rate/rhythm Abdominal/Gastrointestinal Exam: soft, No tenderness, No distention, No mass Rectal Exam: deferred Extremity Exam: non-tender, normal range of motion, normal inspection, no calf tenderness, no pedal edema Peripheral Pulses Exam: carotid (R): 2+, carotid (L): 2+, femoral (R): 2+, femoral (L): 2+, dorsalis-pedis (R): 2+, dorsalis-pedis (L): 2+ Neurologic Exam: alert, oriented x 3, cooperative, blackjack dealer II-XII nml as tested, sensation nml, No motor deficits Skin Exam: normal color, warm, No dry SpO2 Interpretation: normal SpO2: 100 O2 Delivery: Room Air - Course Nursing assessment & vital signs reviewed: Yes EKG Interpreted by Me: Sinus Rhythm, Sinus Tach, NORMAL INTERVALS, NORMAL QRS, Non-specific ST Changes - Radiology Exams Chest X-ray Interpretation: Reviewed by me, No Pneumothorax, No Infiltrates Ordered Tests: Active Orders 24 hr Category Date Time Status 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 Care 09/25/20 17:56 Active EKG-ER Only STAT Care 09/25/20 17:54 Active Pulse Oximetry (ED) STAT Care 09/25/20 17:54 Active CHEST 2 VIEWS (PA AND LAT) Stat Exams 09/25/20 17:55 Completed CHEST WITH CONTRAST [CT] Stat Exams 09/25/20 18:45 Completed ACETAMINOPHEN Stat Lab 09/25/20 17:51 Completed CBC W DIFF Stat Lab 09/25/20 17:15 Completed CMP Stat Lab 09/25/20 17:15 Completed CULTURE,URINE Stat Lab 09/25/20 17:54 Received D-DIMER QUANTITATIVE Stat Lab 09/25/20 17:15 Completed ETHYL ALCOHOL Stat Lab 09/25/20 17:51 Completed HCG QUALITATIVE,SERUM Stat Lab 09/25/20 17:15 Completed LIPASE Stat Lab 09/25/20 17:15 Completed Lactic Acid Stat Lab 09/25/20 17:54 Completed SALICYLATE Stat Lab 09/25/20 17:51 Completed T4 (Thyroxine) Stat Lab 09/25/20 17:15 Completed TROPONIN Q3H Lab 09/25/20 17:30 Completed TROPONIN Q3H Lab 09/25/20 23:15 Ordered TSH [TSH, 3RD Generation] Stat Lab 09/25/20 17:15 Completed UA W/RFX UR CULTURE Stat Lab 09/25/20 17:54 Completed Medication Summary Discontinued Medications Generic Name Dose Route Start Last Admin Trade Name Freq PRN Reason Stop Dose Admin Sodium Chloride 1,000 mls @ 999 mls/hr 09/25/20 17:54 09/25/20 18:01 Sodium Chloride 0.9% 1000 Ml IV 09/25/20 18:54 999 mls/hr .Q1H1M STA Administration Sodium Chloride Confirm 09/25/20 17:59 Sodium Chloride 0.9% 1000 Ml Administered 09/25/20 18:00 Dose 1,000 mls @ ud .ROUTE .STK-MED ONE Lorazepam 1 mg 09/25/20 17:54 09/25/20 17:59 Ativan 2 Mg/1 Ml Vial IM 09/25/20 17:55 Not Given STAT ONE Lorazepam 1 mg 09/25/20 17:57 09/25/20 18:00 Ativan 1 Mg PO 09/25/20 17:58 1 mg STAT ONE Administration Lorazepam Confirm 09/25/20 17:59 Ativan 1 Mg Administered 09/25/20 18:00 Dose 1 mg .ROUTE .STK-MED ONE Lab/Rad Data: Laboratory Result Diagrams 09/25/20 17:15 09/25/20 17:15 Laboratory Results 09/25/20 09/25/20 09/25/20 Range/Units 17:54 17:54 17:51 WBC (4.0-10.5) K/mm3 RBC (4.1-5.4) M/mm3 Hgb (12.0-16.0) gm/dl Hct (35-47) % MCV (78-100) fl MCH (26-32) pg MCHC (32-36) g/dl RDW (11.5-14.0) % Plt Count (150-450) K/mm3 MPV (7.5-11.0) fl Gran % (36.0-66.0) % Eos # (Auto) (0-0.5) Absolute Lymphs (auto) (1.0-4.6) Absolute Monos (auto) (0.0-1.3) Lymphocytes % (24.0-44.0) % Monocytes % (0.0-12.0) % Eosinophils % (0.00-5.0) % Basophils % (0.0-0.4) % Absolute Granulocytes (1.4-6.9) Basophils # (0-0.4) D-Dimer (215-500) ng/mL Sodium (137-145) mmol/L Potassium (3.5-5.1) mmol/L Chloride (98-107) mmol/L Carbon Dioxide (22-30) mmol/L Anion Gap (5-15) MEQ/L BUN (7-17) mg/dL Creatinine (0.52-1.04) mg/dL Estimated GFR ML/MIN Glucose (74-106) mg/dL Lactic Acid 1.7 (0.4-2.0) Calcium (8.4-10.2) mg/dL Total Bilirubin (0.2-1.3) mg/dL AST (14-36) U/L ALT (0-35) U/L Alkaline Phosphatase (38-126) U/L Troponin I (0.000-0.034) ng/mL Serum Total Protein (6.3-8.2) g/dL Albumin (3.5-5.0) g/dL Lipase (23-300) U/L Thyroxine (T4) (5.53-10.96) ug/dL TSH 3rd Generation (0.47-4.68) mIU/L Serum , Qual (Negative) Urine Color STRAW (YELLOW) Urine Appearance CLEAR (CLEAR) Urine pH 7.0 (5-6) Ur Specific [place] 1.015 (1.005-1.025) Urine Protein NEGATIVE (Negative) Urine Ketones NEGATIVE (NEGATIVE) Urine Blood SMALL (0-5) Mynor/ul Urine Nitrite NEGATIVE (NEGATIVE) Urine Bilirubin NEGATIVE (NEGATIVE) Urine Urobilinogen NEGATIVE (0-1) mg/dL Ur Leukocyte Esterase TRACE (NEGATIVE) Urine WBC (Auto) 0-2 (0-5) /HPF Urine RBC (Auto) NONE SEEN (0-2) /HPF U Epithel Cells (Auto) RARE (FEW) /HPF Urine Bacteria (Auto) NONE SEEN (NEGATIVE) /HPF Urine Culture Reflexed YES (NO) Urine Glucose NEGATIVE (NEGATIVE) mg/dL Salicylates < 1.0 L (2-20) mg/dL Acetaminophen < 10 L (10-30) ug/ml Ethyl Alcohol < 10 (0-10) mg/dL 09/25/20 09/25/20 09/25/20 Range/Units 17:30 17:15 17:15 WBC (4.0-10.5) K/mm3 RBC (4.1-5.4) M/mm3 Hgb (12.0-16.0) gm/dl Hct (35-47) % MCV (78-100) fl MCH (26-32) pg MCHC (32-36) g/dl RDW (11.5-14.0) % Plt Count (150-450) K/mm3 MPV (7.5-11.0) fl Gran % (36.0-66.0) % Eos # (Auto) (0-0.5) Absolute Lymphs (auto) (1.0-4.6) Absolute Monos (auto) (0.0-1.3) Lymphocytes % (24.0-44.0) % Monocytes % (0.0-12.0) % Eosinophils % (0.00-5.0) % Basophils % (0.0-0.4) % Absolute Granulocytes (1.4-6.9) Basophils # (0-0.4) D-Dimer (215-500) ng/mL Sodium (137-145) mmol/L Potassium (3.5-5.1) mmol/L Chloride (98-107) mmol/L Carbon Dioxide (22-30) mmol/L Anion Gap (5-15) MEQ/L BUN (7-17) mg/dL Creatinine (0.52-1.04) mg/dL Estimated GFR ML/MIN Glucose (74-106) mg/dL Lactic Acid (0.4-2.0) Calcium (8.4-10.2) mg/dL Total Bilirubin (0.2-1.3) mg/dL AST (14-36) U/L ALT (0-35) U/L Alkaline Phosphatase (38-126) U/L Troponin I < 0.012 (0.000-0.034) ng/mL Serum Total Protein (6.3-8.2) g/dL Albumin (3.5-5.0) g/dL Lipase (23-300) U/L Thyroxine (T4) 5.70 (5.53-10.96) ug/dL TSH 3rd Generation 3.720 (0.47-4.68) mIU/L Serum , Qual NEGATIVE (Negative) Urine Color (YELLOW) Urine Appearance (CLEAR) Urine pH (5-6) Ur Specific [place] (1.005-1.025) Urine Protein (Negative) Urine Ketones (NEGATIVE) Urine Blood (0-5) Mynor/ul Urine Nitrite (NEGATIVE) Urine Bilirubin (NEGATIVE) Urine Urobilinogen (0-1) mg/dL Ur Leukocyte Esterase (NEGATIVE) Urine WBC (Auto) (0-5) /HPF Urine RBC (Auto) (0-2) /HPF U Epithel Cells (Auto) (FEW) /HPF Urine Bacteria (Auto) (NEGATIVE) /HPF Urine Culture Reflexed (NO) Urine Glucose (NEGATIVE) mg/dL Salicylates (2-20) mg/dL Acetaminophen (10-30) ug/ml Ethyl Alcohol (0-10) mg/dL 09/25/20 09/25/20 09/25/20 Range/Units 17:15 17:15 17:15 WBC 7.8 (4.0-10.5) K/mm3 RBC 4.62 (4.1-5.4) M/mm3 Hgb 14.1 (12.0-16.0) gm/dl Hct 42.7 (35-47) % MCV 92.4 (78-100) fl MCH 30.5 (26-32) pg MCHC 33.0 (32-36) g/dl RDW 12.8 (11.5-14.0) % Plt Count 267 (150-450) K/mm3 MPV 10.3 (7.5-11.0) fl Gran % 54.4 (36.0-66.0) % Eos # (Auto) 0.08 (0-0.5) Absolute Lymphs (auto) 2.93 (1.0-4.6) Absolute Monos (auto) 0.51 (0.0-1.3) Lymphocytes % 37.6 (24.0-44.0) % Monocytes % 6.5 (0.0-12.0) % Eosinophils % 1.0 (0.00-5.0) % Basophils % 0.5 (0.0-0.4) % Absolute Granulocytes 4.23 (1.4-6.9) Basophils # 0.04 (0-0.4) D-Dimer 539 H* (215-500) ng/mL Sodium 139 (137-145) mmol/L Potassium 3.4 L (3.5-5.1) mmol/L Chloride 103 (98-107) mmol/L Carbon Dioxide 25 (22-30) mmol/L Anion Gap 14.7 (5-15) MEQ/L BUN 8 (7-17) mg/dL Creatinine 0.60 (0.52-1.04) mg/dL Estimated GFR > 60.0 ML/MIN Glucose 92 (74-106) mg/dL Lactic Acid (0.4-2.0) Calcium 9.5 (8.4-10.2) mg/dL Total Bilirubin 0.60 (0.2-1.3) mg/dL AST 24 (14-36) U/L ALT 12 (0-35) U/L Alkaline Phosphatase 75 (38-126) U/L Troponin I (0.000-0.034) ng/mL Serum Total Protein 7.6 (6.3-8.2) g/dL Albumin 4.4 (3.5-5.0) g/dL Lipase 72 (23-300) U/L Thyroxine (T4) (5.53-10.96) ug/dL TSH 3rd Generation (0.47-4.68) mIU/L Serum , Qual (Negative) Urine Color (YELLOW) Urine Appearance (CLEAR) Urine pH (5-6) Ur Specific [place] (1.005-1.025) Urine Protein (Negative) Urine Ketones (NEGATIVE) Urine Blood (0-5) Mynor/ul Urine Nitrite (NEGATIVE) Urine Bilirubin (NEGATIVE) Urine Urobilinogen (0-1) mg/dL Ur Leukocyte Esterase (NEGATIVE) Urine WBC (Auto) (0-5) /HPF Urine RBC (Auto) (0-2) /HPF U Epithel Cells (Auto) (FEW) /HPF Urine Bacteria (Auto) (NEGATIVE) /HPF Urine Culture Reflexed (NO) Urine Glucose (NEGATIVE) mg/dL Salicylates (2-20) mg/dL Acetaminophen (10-30) ug/ml Ethyl Alcohol (0-10) mg/dL - Progress Progress: improved, re-examined Air Movement: good Progress Note: 09/25/20 20:12 discussed risk and benefit of testing [performed and that additional w/u is indicated and pt wishes to persue this as outpt which is reasonable with given results , and cardaic heart score. Blood Culture(s) Obtained: No Antibiotics given: No Counseled pt/family regarding: lab results, diagnosis, need for follow-up, rad results - Departure Departure Disposition: Home Clinical Impression: Dyspnea, Person under investigation for COVID-19 Condition: Good Critical Care Time: No Referrals: MARY MARSHALL [Primary Care Provider] - Instructions: Shortness of Breath (Dyspnea) (DC), Coronavirus Disease 2019 (COVID-19) (DC), High Blood Pressure in Adults Additional Instructions: we have not determined the cause for your symptoms and so are also testing for Covid , but additional workup is advised with your s and return meantime if symptoms recur or get worse. also followup with your DrSami to recheck your blood pressure which may need treatment.
[2020-09-25] MEDS ORDERED: Sodium Chloride 0.9% 1000 ML 1,000 ML IV STA (17:54)
[2020-09-25] MEDS ORDERED: Ativan 2 MG/1 ML VIAL IM ONE (17:54)
[2020-09-25] MEDS ORDERED: Ativan 1 MG PO ONE (17:57)
[2020-09-25 17:59] LABS: ACETAMINOPHEN < 10 ug/ml (10-30); ETHYL ALCOHOL < 10 mg/dL (0-10); SALICYLATE < 1.0 mg/dL (2-20)
[2020-09-25] MEDS ORDERED: Ativan 1 MG ONE (17:59)
[2020-09-25] MEDS ORDERED: Sodium Chloride 0.9% 1000 ML 1,000 ML ONE (17:59)
[2020-09-25 18:05] LABS: Absolute Neutrophil Ct (ANC) 4.23 (1.4-6.9); BASOPHIL % 0.5 % (0.0-0.4); Basophil (Absolute #) 0.04 (0-0.4); Eosinophil (Absolute #) 0.08 (0-0.5); Hematocrit 42.7 % (35-47); Hemoglobin 14.1 gm/dl (12.0-16.0); Lymphocyte (Absolute #) 2.93 (1.0-4.6); Lymphocytes % 37.6 % (24.0-44.0); Mean Cell Volume 92.4 fl (78-100); Mean Corpuscular Hemoglobin 30.5 pg (26-32); Mean Platelet Volume 10.3 fl (7.5-11.0); Monocyte (Absolute #) 0.51 (0.0-1.3); Monocytes % 6.5 % (0.0-12.0); Neutrophil % 54.4 % (36.0-66.0); Platelet Count 267 K/mm3 (150-450); Red Blood Count 4.62 M/mm3 (4.1-5.4); Red Cell Distribution Width 12.8 % (11.5-14.0); White Blood Count 7.8 K/mm3 (4.0-10.5)
[2020-09-25 18:16] LABS: ALBUMIN 4.4 g/dL (3.5-5.0); ALKALINE PHOSPHATASE 75 U/L (38-126); ANION GAP 14.7 MEQ/L (5-15); BLOOD UREA NITROGEN 8 mg/dL (7-17); CHLORIDE 103 mmol/L (98-107); Calcium 9.5 mg/dL (8.4-10.2); Carbon Dioxide 25 mmol/L (22-30); EST GLOMERULAR FILTRATION RATE > 60.0 ML/MIN; Glucose 92 mg/dL (74-106); LIPASE 72 U/L (23-300); Potassium 3.4 mmol/L (3.5-5.1); SGOT/AST 24 U/L (14-36); SGPT/ALT 12 U/L (0-35); SODIUM 139 mmol/L (137-145); Total Protein 7.6 g/dL (6.3-8.2)
[2020-09-25 18:44] LABS: T4 (Thyroxine) 5.7 ug/dL (5.53-10.96); TSH, 3RD Generation 3.72 mIU/L (0.47-4.68)
[2020-09-25 20:22] LABS: Appearance CLEAR (CLEAR); Bilirubin NEGATIVE (NEGATIVE); Blood SMALL Ery/ul (0-5); Epithelial Cells RARE /HPF (FEW); Glucose NEGATIVE (NEGATIVE); Ketones NEGATIVE (NEGATIVE); Leukocyte Esterase TRACE (NEGATIVE); Nitrite NEGATIVE (NEGATIVE); Protein,Urine Dip NEGATIVE (Negative); Specific Gravity 1.015 (1.005-1.025); Urobilinogen NEGATIVE mg/dL (0-1); WBC 0-2 /HPF (0-5)
[2020-09-25 20:30] LABS: RBC NONE SEEN /HPF (0-2)
[2020-09-25 20:31] LABS: Bacteria NONE SEEN /HPF (NEGATIVE)
--- NOTE | 2020-09-25 20:53 | XRAY ---
Indication: Short of breath. Elevated d-dimer. Multiple contiguous axial images obtained through the chest using 100 cc Isovue 370 contrast and PE protocol. Comparison: None. There is good opacification of the pulmonary arteries to include the lobar and segmental branches. No pulmonary embolus. Heart is not enlarged. Aorta is normal in course and caliber. No pathologic mediastinal/hilar lymphadenopathy. Lungs are inflated and clear. Bony thorax intact. Limited upper abdomen unremarkable. Impression: Negative pulmonary embolus. No acute cardiopulmonary abnormalities. Comment: Preliminary interpretation was made by [facility]. No critical discrepancy.
--- NOTE | 2020-09-25 20:53 | XRAY ---
Indication: Short of breath and weak. Comparison: March 11, 2020. PA/lateral chest hyperinflated and clear. Heart is not enlarged. Bony thorax intact. No new/acute findings.
[2020-09-26 00:04] VITALS: BP 139/77; PULSE 77; O2SAT 98
== END 2020-09-25 21:10 | disposition home or self-care (01) ==
LOC: ED 16:56
DX: R06.00 Dyspnea, unspecified (principal); R06.02 Shortness of breath
CPT/HCPCS: 36000; 36415; 71046; 71260; 80053; 80307; 81001; 81025; 83605; 83690; 84436; 84443; 84484; 85025; 85379; 87086; 93005; 93041; 94760; 96360; 99284; U0003; A9270-GY; G0480

== ENCOUNTER 2020-10-31 19:32 | Emergency (ER) | payer OTHER ==
[2020-10-31] MEDS ORDERED: Zofran 4 MG/2 ML VIAL IV ONE (20:17)
[2020-10-31] MEDS ORDERED: Sodium Chloride 0.9% 1000 ML 1,000 ML IV STA (20:20)
[2020-10-31] MEDS ORDERED: TYLENOL 325 MG PO ONE (20:20)
[2020-10-31] MEDS ORDERED: Zofran 4 MG/2 ML VIAL ONE (20:30)
[2020-10-31] MEDS ORDERED: Sodium Chloride 0.9% 1000 ML 1,000 ML ONE (20:30)
[2020-10-31] MEDS ORDERED: TYLENOL 325 MG ONE (20:30)
[2020-10-31 21:07] LABS: Absolute Neutrophil Ct (ANC) 3.51 (1.4-6.9); BASOPHIL % 0.3 % (0.0-0.4); Basophil (Absolute #) 0.02 (0-0.4); Eosinophil % 2.6 % (0.00-5.0); Hematocrit 42.8 % (35-47); Hemoglobin 14.1 gm/dl (12.0-16.0); Lymphocyte (Absolute #) 3.16 (1.0-4.6); Lymphocytes % 41.5 % (24.0-44.0); Mean Corpuscular Hemoglobin 30.3 pg (26-32); Mean Corpuscular Hgb Concent. 32.9 g/dl (32-36); Mean Platelet Volume 10.5 fl (7.5-11.0); Monocyte (Absolute #) 0.73 (0.0-1.3); Monocytes % 9.6 % (0.0-12.0); Platelet Count 231 K/mm3 (150-450); Red Blood Count 4.65 M/mm3 (4.1-5.4); Red Cell Distribution Width 12.7 % (11.5-14.0); White Blood Count 7.6 K/mm3 (4.0-10.5)
[2020-10-31 21:07] LABS: Amourphous Crystal FEW /HPF (NEGATIVE); Appearance SLIGHTLY CLOUDY (CLEAR); Bilirubin NEGATIVE (NEGATIVE); Blood NEGATIVE Ery/ul (0-5); Epithelial Cells RARE /HPF (FEW); Glucose NEGATIVE (NEGATIVE); Ketones NEGATIVE (NEGATIVE); Leukocyte Esterase NEGATIVE (NEGATIVE); Mucus SLIGHT /HPF (NEGATIVE); Nitrite NEGATIVE (NEGATIVE); Protein,Urine Dip NEGATIVE (Negative); Specific Gravity 1.017 (1.005-1.025); Urobilinogen NEGATIVE mg/dL (0-1); WBC 0-2 /HPF (0-5)
[2020-10-31 21:20] LABS: ALBUMIN 4.6 g/dL (3.5-5.0); ALKALINE PHOSPHATASE 67 U/L (38-126); BLOOD UREA NITROGEN 11 mg/dL (7-17); CHLORIDE 102 mmol/L (98-107); Calcium 9.5 mg/dL (8.4-10.2); Carbon Dioxide 27 mmol/L (22-30); EST GLOMERULAR FILTRATION RATE > 60.0 ML/MIN; Glucose 86 mg/dL (74-106); Potassium 3.7 mmol/L (3.5-5.1); SGOT/AST 21 U/L (14-36); SGPT/ALT 11 U/L (0-35); SODIUM 137 mmol/L (137-145); Total Protein 7.7 g/dL (6.3-8.2)
[2020-10-31 22:07] VITALS: O2SAT 99
--- NOTE | 2020-10-31 22:13 | ERPHSYRPT ---
- History of Present Illness Time Seen by Provider: 10/31/20 19:34 Source: patient Exam Limitations: no limitations Patient Subjective Stated Complaint: Patient states " I have been feeling wierd today and I found out last week I was . Today I started having cramps throughout my lower back and in my lower ABD and I have had 1 miscarriage so I got scared." Triage Nursing Assessment: . Physician History: 20 years old 4 para 2 at with positive test last week presented in the ER with pelvic cramping since yesterday which is worsening today with radiation/causing low back pain as well. No vaginal bleeding or discharge. No urinary symptoms. Does have history of early miscarriage with her first . Timing/Duration: yesterday, gradual onset, worse Activites at Onset: rest Quality: cramping Onset Location: pelvic pain, low back pain Pain Radiation: back Severity of Pain-Max: moderate Severity of Pain-Current: mild Prior abdominal problems: none Sexual intercourse history: single partner Modifying Factors: Improves With: nothing Associated Symptoms: , lower back pain Allergies/Adverse Reactions: venlafaxine [From Effexor] Allergy (Verified 10/31/20 19:47) Home Medications: Buspirone HCl [Buspar] 15 mg PO BID 10/31/20 [History] Fluoxetine HCl 20 mg [Prozac 20 MG] 20 mg PO DAILY 10/31/20 [History] Vits W-Ca,Fe,FA(<1Mg) [] 1 each PO DAILY 10/31/20 [History] Hx Tetanus, Diphtheria Vaccination/Date Given: Yes Hx Influenza Vaccination/Date Given: No Hx Pneumococcal Vaccination/Date Given: No Travel Risk - International Travel Have you traveled outside of the country in past 3 weeks: No - Coronavirus Screening Are you exhibiting any of the following symptoms?: No Close contact with a COVID-19 positive Pt in past 14-21 Days: No - Vaccine Status Have you recieved a Covid-19 vaccination: No - Review of Systems Constitutional: No Symptoms Eyes: No Symptoms Ears, Nose, & Throat: No Symptoms Respiratory: No Symptoms Cardiac: No Symptoms Abdominal/Gastrointestinal: No Symptoms Genitourinary Symptoms: Musculoskeletal: Back Pain Skin: No Symptoms Neurological: No Symptoms Psychological: No Symptoms Endocrine: No Symptoms Hematologic/Lymphatic: No Symptoms - Past Medical History Pertinent Past Medical History: Yes Neurological History: No Pertinent History ENT History: No Pertinent History Cardiac History: No Pertinent History Respiratory History: No Pertinent History Endocrine Medical History: No Pertinent History Musculoskeletal History: No Pertinent History GI Medical History: No Pertinent History History: No Pertinent History Psycho-Social History: Anxiety, Depression, Panic Disorder Female Reproductive Disorders: No Pertinent History Other Medical History: hypoglycemia - Past Surgical History Past Surgical History: No Neuro Surgical History: No Pertinent History Cardiac: No Pertinent History Respiratory: No Pertinent History Gastrointestinal: No Pertinent History Genitourinary: No Pertinent History Musculoskeletal: No Pertinent History Female Surgical History: No Pertinent History - Social History Smoking Status: Never smoker Exposure to second hand smoke: No Drug Use: none Patient Lives Alone: No Significant Family History: no pertinent family hx - Female History Hx Now: Yes - Nursing Vital Signs Nursing Vital Signs: Initial Vital Signs Temperature 97.5 F 10/31/20 19:46 Pulse Rate 97 H 10/31/20 19:46 Respiratory Rate 20 10/31/20 19:46 Blood Pressure 155/92 10/31/20 19:46 O2 Sat by Pulse Oximetry 100 10/31/20 19:46 Pain Scale Pain Intensity 5 - Physical Exam General Appearance: no apparent distress, alert, anxiety Eye Exam: eyes nml inspection Ears, Nose, Throat Exam: normal ENT inspection Neck Exam: normal inspection, supple, full range of motion Respiratory Exam: normal breath sounds, lungs clear Cardiovascular Exam: regular rate/rhythm, normal heart sounds Gastrointestinal/Abdomen Exam: soft, normal bowel sounds, tenderness (Minimal suprapubic tenderness) Back Exam: normal inspection, normal range of motion Extremity Exam: normal inspection, normal range of motion Neurologic Exam: alert, oriented x 3, cooperative Skin Exam: normal color SpO2 Interpretation: normal SpO2: 99 O2 Delivery: Room Air Ordered Tests: Active Orders 24 hr Category Date Time Status OB <14 WKS 1ST GESTATION [US] Stat Exams 10/31/20 20:21 Taken CBC W DIFF Stat Lab 10/31/20 18:50 Completed CMP Stat Lab 10/31/20 18:50 Completed HCG, Quantitative (Inhouse) Stat Lab 10/31/20 18:50 Completed UA W/RFX UR CULTURE Stat Lab 10/31/20 20:30 Completed Medication Summary Discontinued Medications Generic Name Dose Route Start Last Admin Trade Name Freq PRN Reason Stop Dose Admin Acetaminophen 650 mg 10/31/20 20:20 10/31/20 20:30 Tylenol 325 Mg PO 10/31/20 20:21 650 mg STAT ONE Administration Acetaminophen Confirm 10/31/20 20:30 Tylenol 325 Mg Administered 10/31/20 20:31 Dose 650 mg .ROUTE .STK-MED ONE Sodium Chloride 1,000 mls @ 999 mls/hr 10/31/20 20:20 10/31/20 21:34 Sodium Chloride 0.9% 1000 Ml IV 10/31/20 21:20 Infused .Q1H1M STA Infusion Sodium Chloride Confirm 10/31/20 20:30 Sodium Chloride 0.9% 1000 Ml Administered 10/31/20 20:31 Dose 1,000 mls @ ud .ROUTE .STK-MED ONE Ondansetron HCl 4 mg 10/31/20 20:17 10/31/20 20:31 Zofran 4 Mg/2 Ml Vial IV 10/31/20 20:18 4 mg STAT ONE Administration Ondansetron HCl Confirm 10/31/20 20:30 Zofran 4 Mg/2 Ml Vial Administered 10/31/20 20:31 Dose 4 mg .ROUTE .STK-MED ONE Lab/Rad Data: Laboratory Result Diagrams 10/31/20 18:50 10/31/20 18:50 Laboratory Results 10/31/20 10/31/20 10/31/20 Range/Units 20:30 18:50 18:50 WBC (4.0-10.5) K/mm3 RBC (4.1-5.4) M/mm3 Hgb (12.0-16.0) gm/dl Hct (35-47) % MCV (78-100) fl MCH (26-32) pg MCHC (32-36) g/dl RDW (11.5-14.0) % Plt Count (150-450) K/mm3 MPV (7.5-11.0) fl Gran % (36.0-66.0) % Eos # (Auto) (0-0.5) Absolute Lymphs (auto) (1.0-4.6) Absolute Monos (auto) (0.0-1.3) Lymphocytes % (24.0-44.0) % Monocytes % (0.0-12.0) % Eosinophils % (0.00-5.0) % Basophils % (0.0-0.4) % Absolute Granulocytes (1.4-6.9) Basophils # (0-0.4) Sodium 137 (137-145) mmol/L Potassium 3.7 (3.5-5.1) mmol/L Chloride 102 (98-107) mmol/L Carbon Dioxide 27 (22-30) mmol/L Anion Gap 12.0 (5-15) MEQ/L BUN 11 (7-17) mg/dL Creatinine 0.60 (0.52-1.04) mg/dL Estimated GFR > 60.0 ML/MIN Glucose 86 (74-106) mg/dL Calcium 9.5 (8.4-10.2) mg/dL Total Bilirubin 0.50 (0.2-1.3) mg/dL AST 21 (14-36) U/L ALT 11 (0-35) U/L Alkaline Phosphatase 67 (38-126) U/L Serum Total Protein 7.7 (6.3-8.2) g/dL Albumin 4.6 (3.5-5.0) g/dL Beta HCG, Quant 143.05 mIU/ml Urine Color YELLOW (YELLOW) Urine Appearance SLIGHTLY CLOUDY (CLEAR) Urine pH 6.0 (5-6) Ur Specific [place] 1.017 (1.005-1.025) Urine Protein NEGATIVE (Negative) Urine Ketones NEGATIVE (NEGATIVE) Urine Blood NEGATIVE (0-5) Mynor/ul Urine Nitrite NEGATIVE (NEGATIVE) Urine Bilirubin NEGATIVE (NEGATIVE) Urine Urobilinogen NEGATIVE (0-1) mg/dL Ur Leukocyte Esterase NEGATIVE (NEGATIVE) Urine WBC (Auto) 0-2 (0-5) /HPF Urine RBC (Auto) NONE (0-2) /HPF U Epithel Cells (Auto) RARE (FEW) /HPF Urine Bacteria (Auto) NONE (NEGATIVE) /HPF Amorphous Crystals FEW (NEGATIVE) /HPF Urine Mucus (Auto) SLIGHT (NEGATIVE) /HPF Urine Culture Reflexed NO (NO) Urine Glucose NEGATIVE (NEGATIVE) mg/dL 10/31/20 Range/Units 18:50 WBC 7.6 (4.0-10.5) K/mm3 RBC 4.65 (4.1-5.4) M/mm3 Hgb 14.1 (12.0-16.0) gm/dl Hct 42.8 (35-47) % MCV 92.0 (78-100) fl MCH 30.3 (26-32) pg MCHC 32.9 (32-36) g/dl RDW 12.7 (11.5-14.0) % Plt Count 231 (150-450) K/mm3 MPV 10.5 (7.5-11.0) fl Gran % 46.0 (36.0-66.0) % Eos # (Auto) 0.20 (0-0.5) Absolute Lymphs (auto) 3.16 (1.0-4.6) Absolute Monos (auto) 0.73 (0.0-1.3) Lymphocytes % 41.5 (24.0-44.0) % Monocytes % 9.6 (0.0-12.0) % Eosinophils % 2.6 (0.00-5.0) % Basophils % 0.3 (0.0-0.4) % Absolute Granulocytes 3.51 (1.4-6.9) Basophils # 0.02 (0-0.4) Sodium (137-145) mmol/L Potassium (3.5-5.1) mmol/L Chloride (98-107) mmol/L Carbon Dioxide (22-30) mmol/L Anion Gap (5-15) MEQ/L BUN (7-17) mg/dL Creatinine (0.52-1.04) mg/dL Estimated GFR ML/MIN Glucose (74-106) mg/dL Calcium (8.4-10.2) mg/dL Total Bilirubin (0.2-1.3) mg/dL AST (14-36) U/L ALT (0-35) U/L Alkaline Phosphatase (38-126) U/L Serum Total Protein (6.3-8.2) g/dL Albumin (3.5-5.0) g/dL Beta HCG, Quant mIU/ml Urine Color (YELLOW) Urine Appearance (CLEAR) Urine pH (5-6) Ur Specific [place] (1.005-1.025) Urine Protein (Negative) Urine Ketones (NEGATIVE) Urine Blood (0-5) Mynor/ul Urine Nitrite (NEGATIVE) Urine Bilirubin (NEGATIVE) Urine Urobilinogen (0-1) mg/dL Ur Leukocyte Esterase (NEGATIVE) Urine WBC (Auto) (0-5) /HPF Urine RBC (Auto) (0-2) /HPF U Epithel Cells (Auto) (FEW) /HPF Urine Bacteria (Auto) (NEGATIVE) /HPF Amorphous Crystals (NEGATIVE) /HPF Urine Mucus (Auto) (NEGATIVE) /HPF Urine Culture Reflexed (NO) Urine Glucose (NEGATIVE) mg/dL - Progress Progress: improved Air Movement: fair Progress Note: 10/31/20 22:12 20 years old is evaluated for pelvic cramping early in . She is given fluid bolus and Tylenol, on reevaluation her cramps are better. No UTI. Grossly unremarkable work-up. Obtain ultrasound which did not see any obvious sac/poles or any abnormality in the uterus/adnexal area. It was done transabdominal as patient refused to have transvaginal ultrasound. Report is preliminary and official report is pending. She is already on vitamins. Her hCG quant is 143. She could be too early in the to strip picker by ultrasound. She is advised to have pelvic rest and increase hydration with outpatient follow-up with Dr. Perry. Discussed signs symptoms of worsening needing return to ER which she seems understanding. Blood Culture(s) Obtained: No Antibiotics given: No Counseled pt/family regarding: lab results, diagnosis, need for follow-up, rad results - Departure Departure Disposition: Home Clinical Impression: Pelvic pain affecting Qualifiers: Trimester: first trimester Qualified Code(s): O26.891 - Other specified related conditions, first trimester; R10.2 - Pelvic and perineal pain Condition: Stable Critical Care Time: No Referrals: MARY MARSHALL [Primary Care Provider] - Follow Up with PCP/3 days STELLA PERRY DO [ACTIVE STAFF] - (1-2 days for reevaluation.) Instructions: Symptoms Additional Instructions: Drink plenty of fluids. Continue with your vitamins. Take Tylenol as needed. Have pelvic rest. Follow-up with OB for reevaluation. Return to ER for intractable pain/cramping/vaginal bleeding discharge etc.
[2020-10-31 22:25] VITALS: BP 125/72; PULSE 80
[2020-10-31 22:30] LABS: ABO TYPING A; Antibody Screen NEGATIVE (NEGATIVE); RH TYPING POSITIVE
--- NOTE | 2020-11-01 08:46 | XRAY ---
Indication: Cramping. Two-dimensional transabdominal early OB ultrasound performed. Comparison: None for this . Urinary bladder not adequately distended producing suboptimal acoustic window. Uterus anteverted measuring 8.0 x 4.3 x 6.9 cm. No intrauterine gestational sac, pole, or heart tones. Endometrial stripe measures 11 mm. Right ovary measures 2.7 x 2.2 x 2.3 cm and the left measures 1.3 x 2.4 x 1.6 cm with normal color perfusion bilaterally. No suspicious adnexal mass or free fluid. Impression: Negative for intrauterine/ectopic . Correlate with serial beta hCG and follow-up sonogram regarding viability. Comment: Preliminary report was given.
== END 2020-10-31 22:25 | disposition home or self-care (01) ==
LOC: ED 19:32
DX: O26.891 Other specified pregnancy related conditions, first trimester (principal); R10.2 Pelvic and perineal pain
CPT/HCPCS: 36000; 36415; 76801; 80053; 81001; 84702; 85025; 86850; 86900; 86901; 96360; 96374; 99284; J2405; A9270-GY

== ENCOUNTER 2020-11-02 16:20 | Emergency (ER) | payer OTHER ==
[2020-11-02] MEDS ORDERED: Sodium Chloride 0.9% 1000 ML 1,000 ML IV STA (16:56)
[2020-11-02] MEDS ORDERED: TYLENOL 325 MG PO STA (16:56)
[2020-11-02] MEDS ORDERED: TYLENOL 325 MG ONE (17:00)
[2020-11-02] MEDS ORDERED: Sodium Chloride 0.9% 1000 ML 1,000 ML ONE (17:00)
--- NOTE | 2020-11-02 17:42 | ERPHSYRPT ---
- History of Present Illness Time Seen by Provider: 11/02/20 16:34 Source: patient Exam Limitations: no limitations Patient Subjective Stated Complaint: Pt states "I am and I was bleeding earlier. I am so nervous right now." Triage Nursing Assessment: Pt presented alert and oriented X 3, skin pwd Pt ambulates with an upright steady gait, able to speak in clear full sentences. Pt in no apparent respiratory distress. Physician History: 20 years old 4 para 2 at almost 4 weeks gestation per LMP presented in the ER with sudden onset vaginal bleeding almost 30 minutes prior to arrival when she used the restroom and noted some blood on the wipe. Later on she has small clots but no tissues. Gradually it is clearing up and is also complaining of mild dull aching pelvic cramping without any significant aggravating or relieving factors. Patient was seen in the ER 2 days ago with ultrasound negative for any obvious visible IUP/ectopic sac. Patient was seen at primary OB yesterday with hCG quant done this afternoon which is 343, more than doubled the last time. Timing/Duration: today, sudden, improved Activites at Onset: rest Quality: dullness Onset Location: pelvic pain Pain Radiation: none Severity of Pain-Max: mild Severity of Pain-Current: mild Prior abdominal problems: none Sexual intercourse history: single partner Modifying Factors: Improves With: nothing Allergies/Adverse Reactions: venlafaxine [From Effexor] Allergy (Verified 10/31/20 19:47) Home Medications: Buspirone HCl [Buspar] 15 mg PO BID 10/31/20 [History] Fluoxetine HCl 20 mg [Prozac 20 MG] 20 mg PO DAILY 10/31/20 [History] Vits W-Ca,Fe,FA(<1Mg) [] 1 each PO DAILY 10/31/20 [History] Aspirin [Aspirin EC] 81 mg PO DAILY 11/02/20 [History] Hx Tetanus, Diphtheria Vaccination/Date Given: Yes Hx Influenza Vaccination/Date Given: No Hx Pneumococcal Vaccination/Date Given: No Travel Risk - International Travel Have you traveled outside of the country in past 3 weeks: No - Coronavirus Screening Are you exhibiting any of the following symptoms?: No Close contact with a COVID-19 positive Pt in past 14-21 Days: No - Vaccine Status Have you recieved a Covid-19 vaccination: No - Review of Systems Constitutional: No Symptoms Eyes: No Symptoms Ears, Nose, & Throat: No Symptoms Respiratory: No Symptoms Cardiac: No Symptoms Abdominal/Gastrointestinal: Abdominal Pain Genitourinary Symptoms: Musculoskeletal: No Symptoms Skin: No Symptoms Neurological: No Symptoms Psychological: Anxiety Endocrine: No Symptoms Hematologic/Lymphatic: No Symptoms Immunological/Allergic: No Symptoms - Past Medical History Pertinent Past Medical History: Yes Neurological History: No Pertinent History ENT History: No Pertinent History Cardiac History: No Pertinent History Respiratory History: No Pertinent History Endocrine Medical History: No Pertinent History Musculoskeletal History: No Pertinent History GI Medical History: No Pertinent History History: No Pertinent History Psycho-Social History: Anxiety, Depression, Panic Disorder Female Reproductive Disorders: No Pertinent History Other Medical History: hypoglycemia - Past Surgical History Past Surgical History: No Neuro Surgical History: No Pertinent History Cardiac: No Pertinent History Respiratory: No Pertinent History Gastrointestinal: No Pertinent History Genitourinary: No Pertinent History Musculoskeletal: No Pertinent History Female Surgical History: No Pertinent History - Social History Smoking Status: Never smoker Exposure to second hand smoke: Yes Drug Use: none Patient Lives Alone: No Significant Family History: no pertinent family hx - Female History Hx Last Menstrual Period: 09/24/2020 Hx Now: Yes - Nursing Vital Signs Nursing Vital Signs: Initial Vital Signs Temperature 97.7 F 11/02/20 16:38 Pulse Rate 102 H 11/02/20 16:38 Respiratory Rate 20 11/02/20 16:38 Blood Pressure 165/93 11/02/20 16:38 O2 Sat by Pulse Oximetry 100 11/02/20 16:38 Pain Scale Pain Intensity 4 - Physical Exam General Appearance: no apparent distress, alert, anxiety Eye Exam: eyes nml inspection Ears, Nose, Throat Exam: normal ENT inspection Neck Exam: normal inspection, non-tender, supple, full range of motion Respiratory Exam: normal breath sounds, lungs clear Cardiovascular Exam: regular rate/rhythm, normal heart sounds Gastrointestinal/Abdomen Exam: soft, normal bowel sounds, No tenderness Pelvic Exam: not done Back Exam: normal inspection, normal range of motion Extremity Exam: normal inspection, normal range of motion Neurologic Exam: alert, oriented x 3, cooperative Skin Exam: normal color SpO2 Interpretation: normal SpO2: 100 O2 Delivery: Room Air Ordered Tests: Medication Summary Generic Name Dose Route Start Last Admin Trade Name Freq PRN Reason Stop Dose Admin Sodium Chloride 1,000 mls @ 999 mls/hr 11/02/20 16:56 11/02/20 17:02 Sodium Chloride 0.9% 1000 Ml IV 11/02/20 17:56 999 mls/hr .Q1H1M STA Administration Discontinued Medications Generic Name Dose Route Start Last Admin Trade Name Maryam PRN Reason Stop Dose Admin Acetaminophen 650 mg 11/02/20 16:56 11/02/20 17:02 Tylenol 325 Mg PO 11/02/20 16:57 650 mg STAT STA Administration Acetaminophen Confirm 11/02/20 17:00 Tylenol 325 Mg Administered 11/02/20 17:01 Dose 650 mg .ROUTE .STK-MED ONE Sodium Chloride Confirm 11/02/20 17:00 Sodium Chloride 0.9% 1000 Ml Administered 11/02/20 17:01 Dose 1,000 mls @ ud .ROUTE .STK-MED ONE - Progress Progress Note: 11/02/20 17:45 She is given fluid bolus and Tylenol for symptomatic relief. I have discussed with Dr. Perry who do not think patient needs any work-up and repeating another ultrasound would not be any help as she is too early in her . Recommended keeping up with hydration, pelvic rest and outpatient follow-up with ob. Her discomfort/cramping is almost completely resolved on reevaluation. I have discussed with patient about hydration and signs symptoms of worsening needing return to ER which she seems understanding. Stable for discharge Discussed with Dr.: Luli Counseled pt/family regarding: diagnosis, need for follow-up - Departure Departure Disposition: Home Clinical Impression: Vaginal bleeding affecting early Condition: Stable Critical Care Time: No Referrals: MARY MARSHALL [Primary Care Provider] - Follow Up with PCP/3 days STELLA PERRY DO [ACTIVE STAFF] - (Call for next appointment) Instructions: Bleeding In Early Additional Instructions: Drink plenty of fluids. Take Tylenol as needed for cramping. Have pelvic rest. Follow-up with your OB for reevaluation. Return to ER for worsening bleeding, cramping/pain or if feel dizzy lightheaded etc.
[2020-11-02 17:49] VITALS: O2SAT 100
[2020-11-02 18:06] VITALS: BP 118/66; PULSE 72
== END 2020-11-02 18:20 | disposition home or self-care (01) ==
LOC: ED 16:20
DX: O20.9 Hemorrhage in early pregnancy, unspecified (principal); Z3A.01 Less than 8 weeks gestation of pregnancy
CPT/HCPCS: 36000; 99284; A9270-GY

== ENCOUNTER 2020-11-16 17:15 | Emergency (ER) | payer OTHER ==
--- NOTE | 2020-11-16 17:17 | ERPHSYRPT ---
- History of Present Illness Time Seen by Provider: 11/16/20 17:17 Source: patient Exam Limitations: no limitations Physician History: This is a 20-year-old white female who is approximately 6 weeks and presents with sudden onset of clear vaginal discharge. She called her radar engineering teacher, Dr. Perry, who she saw yesterday in his clinic. He told her to come to the emergency department. This patient had a full work-up in the emergency department on 10/31/2020 because of pelvic cramping and . She had another emergency department work-up on 11/02/2020 for vaginal bleeding. Ultrasound was also performed at that time. No obvious sac present. Most rece nt hCG was 143. In addition to her evaluation in radar engineering teacher office yesterday, she was also seen in his office on 11/01/2020. Patient does have a significant history of anxiety issues. She is with a history of early miscarriage. She has no abdominal pain or cramping. She has no vaginal bleeding. Timing/Duration: today Activites at Onset: none Quality: other (Pain) Pain Radiation: none Severity of Pain-Max: none Severity of Pain-Current: none Prior abdominal problems: none Sexual intercourse history: non-contributory Modifying Factors: Improves With: nothing Associated Symptoms: denies symptoms Allergies/Adverse Reactions: venlafaxine [From Effexor] Allergy (Verified 11/16/20 17:27) Home Medications: Buspirone HCl [Buspar] 15 mg PO BID 10/31/20 [History] Vits W-Ca,Fe,FA(<1Mg) [] 1 each PO DAILY 10/31/20 [History] Aspirin [Aspirin EC] 81 mg PO DAILY 11/02/20 [History] Sertraline HCl 50 mg [Zoloft 50 mg Tablet] 1 tab PO DAILY 11/16/20 [History] Hx Tetanus, Diphtheria Vaccination/Date Given: Yes Hx Influenza Vaccination/Date Given: No Hx Pneumococcal Vaccination/Date Given: No Travel Risk - International Travel Have you traveled outside of the country in past 3 weeks: No - Coronavirus Screening Are you exhibiting any of the following symptoms?: No Close contact with a COVID-19 positive Pt in past 14-21 Days: No - Vaccine Status Have you recieved a Covid-19 vaccination: No - Review of Systems Constitutional: No Symptoms Eyes: No Symptoms Ears, Nose, & Throat: No Symptoms Respiratory: No Symptoms Cardiac: No Symptoms Abdominal/Gastrointestinal: No Symptoms Genitourinary Symptoms: Vaginal Discharge (Clear. Has now stopped) Musculoskeletal: No Symptoms Skin: No Symptoms Neurological: No Symptoms Psychological: No Symptoms Endocrine: No Symptoms Hematologic/Lymphatic: No Symptoms Immunological/Allergic: No Symptoms All Other Systems: Reviewed and Negative - Past Medical History Pertinent Past Medical History: Yes Neurological History: No Pertinent History ENT History: No Pertinent History Cardiac History: No Pertinent History Respiratory History: No Pertinent History Endocrine Medical History: No Pertinent History Musculoskeletal History: No Pertinent History GI Medical History: No Pertinent History History: No Pertinent History Psycho-Social History: Anxiety, Depression, Panic Disorder Female Reproductive Disorders: No Pertinent History Other Medical History: hypoglycemia - Past Surgical History Past Surgical History: No Neuro Surgical History: No Pertinent History Cardiac: No Pertinent History Respiratory: No Pertinent History Gastrointestinal: No Pertinent History Genitourinary: No Pertinent History Musculoskeletal: No Pertinent History Female Surgical History: No Pertinent History - Social History Smoking Status: Never smoker Exposure to second hand smoke: Yes Drug Use: none Patient Lives Alone: No Significant Family History: no pertinent family hx - Nursing Vital Signs Nursing Vital Signs: Initial Vital Signs Temperature 98.3 F 11/16/20 17:29 Pulse Rate 80 11/16/20 17:29 Respiratory Rate 18 11/16/20 17:29 Blood Pressure 126/82 11/16/20 17:29 O2 Sat by Pulse Oximetry 97 11/16/20 17:29 Pain Scale Pain Intensity 0 - Physical Exam General Appearance: no apparent distress, alert Eye Exam: PERRL/EOMI, eyes nml inspection Ears, Nose, Throat Exam: normal ENT inspection, moist mucous membranes Neck Exam: normal inspection, non-tender, supple, full range of motion Respiratory Exam: normal breath sounds, lungs clear, airway intact, No chest tenderness, No respiratory distress Cardiovascular Exam: regular rate/rhythm, normal heart sounds, normal peripheral pulses Gastrointestinal/Abdomen Exam: soft, normal bowel sounds, No tenderness Pelvic Exam: not done Rectal Exam: not done Back Exam: normal inspection, normal range of motion, No CVA tenderness, No vertebral tenderness Extremity Exam: normal inspection, normal range of motion, pelvis stable Neurologic Exam: alert, oriented x 3, cooperative, 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 tested, normal mood/affect, nml cerebellar function, nml station & gait, sensation nml Skin Exam: normal color, warm, dry Lymphatic Exam: No adenopathy SpO2 Interpretation: normal O2 Delivery: Room Air - Course Nursing assessment & vital signs reviewed: Yes Ordered Tests: Active Orders 24 hr Category Date Time Status UA W/RFX UR CULTURE Stat Lab 11/16/20 17:40 Completed Lab/Rad Data: Laboratory Results 11/16/20 Range/Units 17:40 Urine Color YELLOW (YELLOW) Urine Appearance CLEAR (CLEAR) Urine pH 8.0 (5-6) Ur Specific [place] 1.011 (1.005-1.025) Urine Protein NEGATIVE (Negative) Urine Ketones NEGATIVE (NEGATIVE) Urine Blood NEGATIVE (0-5) Mynor/ul Urine Nitrite NEGATIVE (NEGATIVE) Urine Bilirubin NEGATIVE (NEGATIVE) Urine Urobilinogen NEGATIVE (0-1) mg/dL Ur Leukocyte Esterase NEGATIVE (NEGATIVE) Urine WBC (Auto) NONE (0-5) /HPF Urine RBC (Auto) NONE (0-2) /HPF U Epithel Cells (Auto) NONE (FEW) /HPF Urine Bacteria (Auto) NONE (NEGATIVE) /HPF Urine Culture Reflexed NO (NO) Urine Glucose NEGATIVE (NEGATIVE) mg/dL - Progress Progress: re-examined, unchanged Air Movement: good Progress Note: 11/16/20 18:28 Medical decision making: This patient has had an extensive work-up over the last 3 to 4 weeks and has had multiple visits to the emergency department as well as to her radar engineering teacher. I do not believe that she needs any type of extensive emergency department work-up. She has no abdominal pain or cramping. She has no vaginal bleeding. She is only 6 weeks . My plan is to check a urinalysis. Her urinalysis is negative for any acute emergent issue. Patient can follow-up with her radar engineering teacher at her scheduled appointment in 1 month. Blood Culture(s) Obtained: No Antibiotics given: No Counseled pt/family regarding: lab results, diagnosis, need for follow-up - Departure Departure Disposition: Home Clinical Impression: Encounter for medical screening examination Condition: Stable Critical Care Time: No Referrals: MARY MARSHALL [Primary Care Provider] - Additional Instructions: Take your medications as prescribed. Keep your appointment with your radar engineering teacher in 1 month. If there is any concerns call your radar engineering teacher or follow-up in the emergency department as needed.
[2020-11-16 18:26] VITALS: BP 112/70; PULSE 70; O2SAT 98
[2020-11-16 18:26] LABS: Appearance CLEAR (CLEAR); Bilirubin NEGATIVE (NEGATIVE); Blood NEGATIVE Ery/ul (0-5); Glucose NEGATIVE (NEGATIVE); Ketones NEGATIVE (NEGATIVE); Leukocyte Esterase NEGATIVE (NEGATIVE); Nitrite NEGATIVE (NEGATIVE); Protein,Urine Dip NEGATIVE (Negative); Specific Gravity 1.011 (1.005-1.025); Urobilinogen NEGATIVE mg/dL (0-1)
== END 2020-11-16 18:35 | disposition home or self-care (01) ==
LOC: ED 17:15
DX: Z13.9 Encounter for screening, unspecified (principal); Z3A.01 Less than 8 weeks gestation of pregnancy
CPT/HCPCS: 81001; 99283

== ENCOUNTER 2020-11-28 17:55 | Emergency (ER) | payer OTHER ==
[2020-11-28 18:20] LABS: Appearance SLIGHTLY CLOUDY (CLEAR); Bilirubin NEGATIVE (NEGATIVE); Blood NEGATIVE Ery/ul (0-5); Epithelial Cells RARE /HPF (FEW); Glucose NEGATIVE (NEGATIVE); Ketones NEGATIVE (NEGATIVE); Leukocyte Esterase MODERATE (NEGATIVE); Mucus SLIGHT /HPF (NEGATIVE); Nitrite NEGATIVE (NEGATIVE); Protein,Urine Dip NEGATIVE (Negative); Specific Gravity 1.023 (1.005-1.025); Urobilinogen 2 mg/dL (0-1)
[2020-11-28] MEDS ORDERED: KEFLEX 500 MG PO ONE (19:49)
[2020-11-28] MEDS ORDERED: TYLENOL 325 MG PO STA (19:49)
[2020-11-28] MEDS ORDERED: Sodium Chloride 0.9% 1000 ML 1,000 ML IV STA (19:50)
[2020-11-28] MEDS ORDERED: KEFLEX 500 MG ONE (19:54)
[2020-11-28] MEDS ORDERED: Sodium Chloride 0.9% 1000 ML 1,000 ML ONE (19:54)
[2020-11-28] MEDS ORDERED: TYLENOL 325 MG ONE (19:54)
--- NOTE | 2020-11-28 19:54 | ERPHSYRPT ---
- History of Present Illness Time Seen by Provider: 11/28/20 19:27 Source: patient Exam Limitations: no limitations Patient Subjective Stated Complaint: Pt c/o of noah flank pain that radiates to noah lower abdomen quadrants, pt is passing blood with clots, pt is 8 weeks pre gnant Triage Nursing Assessment: Pt brought self to the ER, vitals wnl, rates abd/back pain as 4/10, pain had been off and on but became steady today, hx of kidney issues while with previous child, hx of kidney stones and infections, skin n/w/d, pulses normal, pain w/palpatation to the noah flanks and noah lower abdomen Physician History: 20 years old 3 para 2 at 8 weeks gestation per ultrasound at will be with single IUP presented in the ER with bilateral off-and-on flank pain for the last couple of days with some suprapubic discomfort and associated increased frequency and some hematuria. Patient denies any nausea vomiting, fever or chills. Denies any right or left lower quadrant pain. Does have some low back discomfort as well. Denies any vaginal bleeding or discharge. Reports having some kidney issue probably hydronephrosis with previous . Timing/Duration: day(s) (2), intermittent, gradual onset, worse Activites at Onset: rest Quality: aching Onset Location: suprapubic, generalized flank Pain Radiation: none Severity of Pain-Max: moderate Severity of Pain-Current: mild Prior abdominal problems: none Sexual intercourse history: non-contributory Modifying Factors: Improves With: rest. Worsens With: movement, palpation, urinating Associated Symptoms: dysuria, urinary frequency, lower back pain Allergies/Adverse Reactions: venlafaxine [From Effexor] Allergy (Verified 11/28/20 18:10) Home Medications: Buspirone HCl [Buspar] 15 mg PO BID 10/31/20 [History] Vits W-Ca,Fe,FA(<1Mg) [] 1 each PO DAILY 10/31/20 [History] Aspirin [Aspirin EC] 81 mg PO DAILY 11/02/20 [History] Sertraline HCl 50 mg [Zoloft 50 mg Tablet] 1 tab PO DAILY 11/16/20 [History] Hydroxyzine HCl 25 mg [Atarax 25 mg] 25 mg PO TID PRN 11/28/20 [History] Hx Tetanus, Diphtheria Vaccination/Date Given: Yes Hx Influenza Vaccination/Date Given: No Hx Pneumococcal Vaccination/Date Given: No Travel Risk - International Travel Have you traveled outside of the country in past 3 weeks: No - Coronavirus Screening Are you exhibiting any of the following symptoms?: No Close contact with a COVID-19 positive Pt in past 14-21 Days: No - Vaccine Status Have you recieved a Covid-19 vaccination: No - Review of Systems Constitutional: No Symptoms Eyes: No Symptoms Ears, Nose, & Throat: No Symptoms Respiratory: No Symptoms Cardiac: No Symptoms Abdominal/Gastrointestinal: Abdominal Pain Genitourinary Symptoms: Frequency, Hematuria Musculoskeletal: No Symptoms Skin: No Symptoms Neurological: No Symptoms Psychological: No Symptoms Endocrine: No Symptoms Hematologic/Lymphatic: No Symptoms Immunological/Allergic: No Symptoms - Past Medical History Pertinent Past Medical History: Yes Neurological History: No Pertinent History ENT History: No Pertinent History Cardiac History: No Pertinent History Respiratory History: No Pertinent History Endocrine Medical History: No Pertinent History Musculoskeletal History: No Pertinent History GI Medical History: No Pertinent History History: No Pertinent History Psycho-Social History: Anxiety, Depression, Panic Disorder Female Reproductive Disorders: No Pertinent History Other Medical History: hypoglycemia - Past Surgical History Past Surgical History: No Neuro Surgical History: No Pertinent History Cardiac: No Pertinent History Respiratory: No Pertinent History Gastrointestinal: No Pertinent History Genitourinary: No Pertinent History Musculoskeletal: No Pertinent History Female Surgical History: No Pertinent History - Social History Smoking Status: Never smoker Exposure to second hand smoke: Yes Drug Use: none Patient Lives Alone: No Significant Family History: no pertinent family hx - Female History Hx Now: Yes Expected Date of Delivery: 07/10/21 - Nursing Vital Signs Nursing Vital Signs: Initial Vital Signs Temperature 98.5 F 11/28/20 18:01 Pulse Rate 77 11/28/20 18:01 Blood Pressure 123/86 11/28/20 18:01 O2 Sat by Pulse Oximetry 100 11/28/20 18:01 Pain Scale Pain Intensity 3 - Physical Exam General Appearance: no apparent distress, alert Eye Exam: PERRL/EOMI Ears, Nose, Throat Exam: normal ENT inspection Neck Exam: normal inspection, supple, full range of motion Respiratory Exam: normal breath sounds Cardiovascular Exam: regular rate/rhythm, normal heart sounds Gastrointestinal/Abdomen Exam: soft, normal bowel sounds, tenderness (Suprapubic. Mild bilateral flank tenderness.), No distention, No guarding, No rebound Back Exam: normal inspection, normal range of motion, CVA tenderness Extremity Exam: normal inspection, normal range of motion Neurologic Exam: alert, oriented x 3, cooperative Skin Exam: normal color SpO2 Interpretation: normal SpO2: 100 O2 Delivery: Room Air Ordered Tests: Active Orders 24 hr Category Date Time Status IV Insertion STAT Care 11/28/20 20:48 Active CBC W DIFF Stat Lab 11/28/20 19:58 Completed CMP Stat Lab 11/28/20 19:58 Completed LIPASE Stat Lab 11/28/20 19:58 Completed UA W/RFX UR CULTURE Stat Lab 11/28/20 18:13 Completed Medication Summary Discontinued Medications Generic Name Dose Route Start Last Admin Trade Name Freq PRN Reason Stop Dose Admin Acetaminophen 650 mg 11/28/20 19:49 11/28/20 19:55 Tylenol 325 Mg PO 11/28/20 19:50 650 mg STAT STA Administration Acetaminophen Confirm 11/28/20 19:54 Tylenol 325 Mg Administered 11/28/20 19:55 Dose 650 mg .ROUTE .STK-MED ONE Cephalexin HCl 500 mg 11/28/20 19:49 11/28/20 19:55 Keflex 500 Mg PO 11/28/20 19:50 500 mg STAT ONE Administration Cephalexin HCl Confirm 11/28/20 19:54 Keflex 500 Mg Administered 11/28/20 19:55 Dose 500 mg .ROUTE .STK-MED ONE Sodium Chloride 1,000 mls @ 999 mls/hr 11/28/20 19:50 11/28/20 19:56 Sodium Chloride 0.9% 1000 Ml IV 11/28/20 20:50 999 mls/hr .Q1H1M STA Administration Sodium Chloride Confirm 11/28/20 19:54 Sodium Chloride 0.9% 1000 Ml Administered 11/28/20 19:55 Dose 1,000 mls @ ud .ROUTE .STK-MED ONE Lab/Rad Data: Laboratory Result Diagrams 11/28/20 19:58 11/28/20 19:58 Laboratory Results 11/28/20 11/28/20 11/28/20 Range/Units 19:58 19:58 18:13 WBC 9.0 (4.0-10.5) K/mm3 RBC 4.05 L (4.1-5.4) M/mm3 Hgb 12.3 (12.0-16.0) gm/dl Hct 37.9 (35-47) % MCV 93.6 (78-100) fl MCH 30.4 (26-32) pg MCHC 32.5 (32-36) g/dl RDW 12.7 (11.5-14.0) % Plt Count 208 (150-450) K/mm3 MPV 9.6 (7.5-11.0) fl Gran % 58.7 (36.0-66.0) % Eos # (Auto) 0.18 (0-0.5) Absolute Lymphs (auto) 2.75 (1.0-4.6) Absolute Monos (auto) 0.78 (0.0-1.3) Lymphocytes % 30.5 (24.0-44.0) % Monocytes % 8.6 (0.0-12.0) % Eosinophils % 2.0 (0.00-5.0) % Basophils % 0.2 (0.0-0.4) % Absolute Granulocytes 5.29 (1.4-6.9) Basophils # 0.02 (0-0.4) Sodium 134 L (137-145) mmol/L Potassium 4.0 (3.5-5.1) mmol/L Chloride 102 (98-107) mmol/L Carbon Dioxide 25 (22-30) mmol/L Anion Gap 10.5 (5-15) MEQ/L BUN 9 (7-17) mg/dL Creatinine 0.48 L (0.52-1.04) mg/dL Estimated GFR > 60.0 ML/MIN Glucose 81 (74-106) mg/dL Calcium 9.0 (8.4-10.2) mg/dL Total Bilirubin 0.30 (0.2-1.3) mg/dL AST 23 (14-36) U/L ALT 13 (0-35) U/L Alkaline Phosphatase 62 (38-126) U/L Serum Total Protein 6.5 (6.3-8.2) g/dL Albumin 3.8 (3.5-5.0) g/dL Lipase 63 (23-300) U/L Urine Color YELLOW (YELLOW) Urine Appearance SLIGHTLY CLOUDY (CLEAR) Urine pH 6.0 (5-6) Ur Specific [place] 1.023 (1.005-1.025) Urine Protein NEGATIVE (Negative) Urine Ketones NEGATIVE (NEGATIVE) Urine Blood NEGATIVE (0-5) Mynor/ul Urine Nitrite NEGATIVE (NEGATIVE) Urine Bilirubin NEGATIVE (NEGATIVE) Urine Urobilinogen 2 (0-1) mg/dL Ur Leukocyte Esterase MODERATE (NEGATIVE) Urine WBC (Auto) 3-5 (0-5) /HPF Urine RBC (Auto) NONE (0-2) /HPF U Epithel Cells (Auto) RARE (FEW) /HPF Urine Bacteria (Auto) NONE (NEGATIVE) /HPF Urine Mucus (Auto) SLIGHT (NEGATIVE) /HPF Urine Culture Reflexed NO (NO) Urine Glucose NEGATIVE (NEGATIVE) mg/dL - Progress Progress: improved Air Movement: good Progress Note: 11/28/20 20:55 She is given fluid bolus and Tylenol, on reevaluation her pain is much improved. Questionable UTI which would be treated because she is with Keflex. Normal white count, grossly unremarkable chemistries. No peritoneal signs needing imaging. She is almost 8 weeks, difficult to have heart tones but does not have any vaginal bleeding or discharge or cramping. She is despite that she is recommended pelvic rest, increase hydration, Tylenol as needed and outpatient follow-up. Discussed signs symptoms of worsening needing return to ER which she seems understanding. Stable for discharge. 11/28/20 21:00 Plan discussed with her primary OB who will see patient sometimes next week. Blood Culture(s) Obtained: No Antibiotics given: Yes Counseled pt/family regarding: lab results, diagnosis, need for follow-up - Departure Departure Disposition: Home Clinical Impression: UTI in , antepartum Condition: Stable Critical Care Time: No Referrals: MARY MARSHALL [Primary Care Provider] - Follow Up with PCP/3 days STELLA SOTO DO [ACTIVE STAFF] - (Call tomorrow for evaluation.) Instructions: Urinary Tract Infections in , Blood in the Urine (Hematuria) in Adults Additional Instructions: Pelvic rest. Drink plenty of fluids. Take Tylenol as needed. Continue with antibiotics. Follow-up with your OB for reevaluation in 1 to 2 days. Return to ER for worsening pain, hematuria Prescriptions: Cephalexin Mh 500 mg [Keflex 500 mg] 500 mg PO TID #21 capsule
[2020-11-28 20:23] LABS: Absolute Neutrophil Ct (ANC) 5.29 (1.4-6.9); BASOPHIL % 0.2 % (0.0-0.4); Basophil (Absolute #) 0.02 (0-0.4); Eosinophil (Absolute #) 0.18 (0-0.5); Hematocrit 37.9 % (35-47); Hemoglobin 12.3 gm/dl (12.0-16.0); Lymphocyte (Absolute #) 2.75 (1.0-4.6); Lymphocytes % 30.5 % (24.0-44.0); Mean Cell Volume 93.6 fl (78-100); Mean Corpuscular Hemoglobin 30.4 pg (26-32); Mean Corpuscular Hgb Concent. 32.5 g/dl (32-36); Mean Platelet Volume 9.6 fl (7.5-11.0); Monocyte (Absolute #) 0.78 (0.0-1.3); Monocytes % 8.6 % (0.0-12.0); Neutrophil % 58.7 % (36.0-66.0); Platelet Count 208 K/mm3 (150-450); Red Blood Count 4.05 M/mm3 (4.1-5.4); Red Cell Distribution Width 12.7 % (11.5-14.0)
[2020-11-28 20:36] LABS: ALBUMIN 3.8 g/dL (3.5-5.0); ALKALINE PHOSPHATASE 62 U/L (38-126); ANION GAP 10.5 MEQ/L (5-15); BLOOD UREA NITROGEN 9 mg/dL (7-17); CHLORIDE 102 mmol/L (98-107); Carbon Dioxide 25 mmol/L (22-30); Creatinine 1 0.48 mg/dL (0.52-1.04); EST GLOMERULAR FILTRATION RATE > 60.0 ML/MIN; Glucose 81 mg/dL (74-106); LIPASE 63 U/L (23-300); SGOT/AST 23 U/L (14-36); SGPT/ALT 13 U/L (0-35); SODIUM 134 mmol/L (137-145); Total Protein 6.5 g/dL (6.3-8.2)
[2020-11-28 21:09] VITALS: BP 125/73; PULSE 93; O2SAT 98
== END 2020-11-28 21:09 | disposition home or self-care (01) ==
LOC: ED 17:55
DX: O23.41 Unspecified infection of urinary tract in pregnancy, first trimester (principal); Z3A.08 8 weeks gestation of pregnancy
CPT/HCPCS: 36000; 36415; 80053; 81001; 83690; 85025; 96360; 99284; A9270-GY

== ENCOUNTER 2020-12-02 14:29 | Emergency (ER) | payer OTHER ==
[2020-12-02 14:35] VITALS: O2SAT 98
--- NOTE | 2020-12-02 14:59 | ERPHSYRPT ---
- History of Present Illness Time Seen by Provider: 12/02/20 14:40 Source: patient Exam Limitations: no limitations Patient Subjective Stated Complaint: Pt states that her BS was 31 on her meter, upon arrival to the ER it was 128 on the hospitals, pt reports a headache Triage Nursing Assessment: Pt brought to the ER by her mother, hypertensive, BS is 128, headache, medial chest pain rated at 1/10, doesn't appear to be in any distress Physician History: Patient is a 20-year-old female presents to our ED for evaluation of dizziness and hypoglycemia. Patient states she checked her blood sugar at home and it revealed a blood sugar of 31. Patient states she has been experiencing hypoglycemic episodes since she was 15 years old. Patient states she became very nervous and came to our ED. Patient has no chest pain no nausea no vomiting no diaphoresis. Patient is currently asymptomatic. Patient was in our ED 4 days ago. She received full laboratory work-up. All was essentially normal. Patient was diagnosed with a UTI. She is currently in antibiotics. Patient voices no other complaints concerns at this time. Timing/Duration: today Severity: mild Modifying Factors: Improves With: nothing Associated Symptoms: denies symptoms Allergies/Adverse Reactions: venlafaxine [From Effexor] Allergy (Verified 12/02/20 14:35) Home Medications: Buspirone HCl [Buspar] 15 mg PO BID 10/31/20 [History] Vits W-Ca,Fe,FA(<1Mg) [] 1 each PO DAILY 10/31/20 [History] Aspirin [Aspirin EC] 81 mg PO DAILY 11/02/20 [History] Sertraline HCl 50 mg [Zoloft 50 mg Tablet] 1 tab PO DAILY 11/16/20 [History] Hydroxyzine HCl 25 mg [Atarax 25 mg] 25 mg PO TID PRN 11/28/20 [History] Hx Tetanus, Diphtheria Vaccination/Date Given: Yes Hx Influenza Vaccination/Date Given: No Hx Pneumococcal Vaccination/Date Given: No Travel Risk - International Travel Have you traveled outside of the country in past 3 weeks: No - Coronavirus Screening Are you exhibiting any of the following symptoms?: No Close contact with a COVID-19 positive Pt in past 14-21 Days: No - Vaccine Status Have you recieved a Covid-19 vaccination: No - Review of Systems Constitutional: No Symptoms, No Fever, No Chills Eyes: No Symptoms Ears, Nose, & Throat: No Symptoms Respiratory: No Symptoms, No Cough, No Dyspnea Cardiac: No Symptoms, No Chest Pain, No Edema, No Syncope Abdominal/Gastrointestinal: No Symptoms, No Abdominal Pain, No Nausea, No Vomiting, No Diarrhea Genitourinary Symptoms: No Symptoms, No Dysuria Musculoskeletal: No Symptoms, No Back Pain, No Neck Pain Skin: No Symptoms, No Rash Neurological: No Symptoms, No Dizziness, No Focal Weakness, No Sensory Changes Psychological: No Symptoms Endocrine: No Symptoms Hematologic/Lymphatic: No Symptoms Immunological/Allergic: No Symptoms All Other Systems: Reviewed and Negative - Past Medical History Pertinent Past Medical History: Yes Neurological History: No Pertinent History ENT History: No Pertinent History Cardiac History: No Pertinent History Respiratory History: No Pertinent History Endocrine Medical History: No Pertinent History Musculoskeletal History: No Pertinent History GI Medical History: No Pertinent History History: No Pertinent History Psycho-Social History: Anxiety, Depression, Panic Disorder Female Reproductive Disorders: No Pertinent History Other Medical History: hypoglycemia - Past Surgical History Past Surgical History: No Neuro Surgical History: No Pertinent History Cardiac: No Pertinent History Respiratory: No Pertinent History Gastrointestinal: No Pertinent History Genitourinary: No Pertinent History Musculoskeletal: No Pertinent History Female Surgical History: No Pertinent History - Social History Smoking Status: Never smoker Exposure to second hand smoke: Yes Drug Use: none Patient Lives Alone: No Significant Family History: no pertinent family hx - Female History Hx Now: Yes Expected Date of Delivery: 07/10/21 - Nursing Vital Signs Nursing Vital Signs: Initial Vital Signs Temperature 98.3 F 12/02/20 14:30 Pulse Rate 92 H 12/02/20 14:30 Blood Pressure 147/88 12/02/20 14:30 O2 Sat by Pulse Oximetry 98 12/02/20 14:30 Pain Scale Pain Intensity 1 - Physical Exam General Appearance: no apparent distress, alert Eye Exam: PERRL/EOMI, eyes nml inspection Ears, Nose, Throat Exam: normal ENT inspection, TMs normal, pharynx normal, moist mucous membranes Neck Exam: normal inspection, non-tender, supple, full range of motion Respiratory Exam: normal breath sounds, lungs clear, No respiratory distress Cardiovascular Exam: regular rate/rhythm, normal heart sounds, normal peripheral pulses Gastrointestinal/Abdomen Exam: soft, normal bowel sounds, No tenderness, No mass Back Exam: normal inspection, normal range of motion, No CVA tenderness, No vertebral tenderness Extremity Exam: normal inspection, normal range of motion, pelvis stable Neurologic Exam: alert, oriented x 3, cooperative, normal mood/affect, nml cerebellar function, nml station & gait, sensation nml, No motor deficits Skin Exam: normal color, warm, dry, No rash Lymphatic Exam: No adenopathy SpO2 Interpretation: normal SpO2: 98 O2 Delivery: Room Air - Course Nursing assessment & vital signs reviewed: Yes - Progress Progress: improved Progress Note: Glucose checked in our ED. Glucose was 128. Patient asymptomatic. Patient denies vaginal pain vaginal discharge. No abdominal cramping pelvic cramping. Patient has no SWITCHBOARD OPERATOR SUPERVISOR complaints at this time. Vitals are stable. Patient was in our ED 4 days ago. She received a complete work-up at that time. Patient declined additional work-up. Patient attributes her transient symptoms to her chronic recurrent hypoglycemia. Case discussed with Dr. Farris he patient's SWITCHBOARD OPERATOR SUPERVISOR physician feels patient is appropriate for discharge as well. Will discharge patient at this time. She agrees to follow-up with her primary care doctor within 48 hours for reevaluation. 12/02/20 15:17 Discussed with : Other ([facility]) Will see patient in: office Counseled pt/family regarding: diagnosis, need for follow-up - Departure Departure Disposition: Home Clinical Impression: Hypoglycemia Condition: Stable Critical Care Time: No Referrals: MARY MARSHALL [Primary Care Provider] - Additional Instructions: Discharge/Care Plan EMMANUEL INIGUEZSSICA LORI was seen on 12/02/20 in the Emergency Room. The patient was counseled regarding Diagnosis,Lab results, Imaging studies, need for follow up and when to return to the Emergency Room. Prescriptions given: Discharge Note I have spoken with the patient and/or caregivers. I have explained the patient's condition, diagnosis and treatment plan based on the information available to me at this time. I have answered the patient's and/or caregiver's questions and addressed any concerns. The patient and/or caregivers have as good understanding of the patient's diagnosis, condition and treatment plan as can be expected at this point. The vital signs have been stable. The patient's condition is stable and appropriate for discharge from the emergency department. The patient will pursue further outpatient evaluation with the primary care physician or other designated or consulting physician as outlined in the discharge instructions. The patient and/or caregivers are agreeable to this plan of care and follow-up instructions have been explained in detail. The patient and/or caregivers have received these instruction. The patient/and or caregivers are aware that any significant change in condition or worsening of symptoms should prompt an immediate return to this or the closest emergency department or call 911.
[2020-12-02 15:28] VITALS: BP 131/79; PULSE 81
== END 2020-12-02 15:22 | disposition home or self-care (01) ==
LOC: ED 14:29
DX: E16.2 Hypoglycemia, unspecified (principal)
CPT/HCPCS: 99283

== ENCOUNTER 2020-12-31 17:26 | Emergency (ER) | payer OTHER ==
[2020-12-31] MEDS ORDERED: Sodium Chloride 0.9% 1000 ML 1,000 ML IV STA (17:47)
--- NOTE | 2020-12-31 17:47 | ERPHSYRPT ---
- History of Present Illness Time Seen by Provider: 12/31/20 17:47 Source: patient, family Exam Limitations: no limitations Patient Subjective Stated Complaint: On Keflex for 2 days and today it got switched it today to Macrobid, diagnosed 3 days ago from [facility] with a UTI, pt states that her left flank hurts and is causing her to vomit Triage Nursing Assessment: Pt brought self to the ER, vitals wnl, rates pain in her left flank as 5/10, N&V, states that she hasn't urinated in 2 days but she did give a urine sample today, denies pain in the abdomen with palpatation Physician History: This is a 20-year-old white female who is approximately 13 weeks and presents with left flank pain. She was seen in urgent care clinic 2 days ago and was given a prescription for Keflex. She took this medication for 2 days to treat the urinary tract infection. Sensitivities returned today and patient was called by the clinic and told to stop her Keflex and they started her on Macrobid. She has not taken any of that medication yet. She was having significant flank pain and was nauseated and had some vomiting and so she came to the emergency room for evaluation. We obtained the culture and sensitivities of her urine specimen dated 12/29/2020. That urinalysis, culture and sensitivity grew out greater than 100,000 CFU's per milliliter's of Staphylococcus saprophyticus. Timing/Duration: today Activites at Onset: none Quality: aching Onset Location: left flank Pain Radiation: none Severity of Pain-Max: mild (To moderate) Severity of Pain-Current: mild (To moderate) Sexual intercourse history: non-contributory Modifying Factors: Improves With: nothing Associated Symptoms: vomiting, Allergies/Adverse Reactions: venlafaxine [From Effexor] Allergy (Verified 12/31/20 17:40) Home Medications: Buspirone HCl [Buspar] 5 mg PO TID 10/31/20 [History] Vits W-Ca,Fe,FA(<1Mg) [] 1 each PO DAILY 10/31/20 [History] Aspirin [Aspirin EC] 81 mg PO DAILY 11/02/20 [History] Sertraline HCl 50 mg [Zoloft 50 mg Tablet] 1 tab PO DAILY 11/16/20 [History] Hydroxyzine HCl 25 mg [Atarax 25 mg] 25 mg PO TID PRN 11/28/20 [History] Nitrofurantoin Macro 100 mg [Macrobid 100MG Capsule] 100 mg PO BID 12/31/20 [History] Hx Tetanus, Diphtheria Vaccination/Date Given: Yes Hx Influenza Vaccination/Date Given: No Hx Pneumococcal Vaccination/Date Given: No Travel Risk - International Travel Have you traveled outside of the country in past 3 weeks: No - Coronavirus Screening Are you exhibiting any of the following symptoms?: No Close contact with a COVID-19 positive Pt in past 14-21 Days: No - Vaccine Status Have you recieved a Covid-19 vaccination: No - Review of Systems Constitutional: No Symptoms Eyes: No Symptoms Ears, Nose, & Throat: No Symptoms Respiratory: No Symptoms Cardiac: No Symptoms Abdominal/Gastrointestinal: Nausea, Vomiting, No Abdominal Pain Genitourinary Symptoms: Flank Pain (Left) Musculoskeletal: No Symptoms Skin: No Symptoms Neurological: No Symptoms Psychological: No Symptoms Endocrine: No Symptoms Hematologic/Lymphatic: No Symptoms Immunological/Allergic: No Symptoms All Other Systems: Reviewed and Negative - Past Medical History Pertinent Past Medical History: Yes Neurological History: No Pertinent History ENT History: No Pertinent History Cardiac History: No Pertinent History Respiratory History: No Pertinent History Endocrine Medical History: No Pertinent History Musculoskeletal History: No Pertinent History GI Medical History: No Pertinent History History: No Pertinent History Psycho-Social History: Anxiety, Depression, Panic Disorder Female Reproductive Disorders: No Pertinent History Other Medical History: hypoglycemia - Past Surgical History Past Surgical History: No Neuro Surgical History: No Pertinent History Cardiac: No Pertinent History Respiratory: No Pertinent History Gastrointestinal: No Pertinent History Genitourinary: No Pertinent History Musculoskeletal: No Pertinent History Female Surgical History: No Pertinent History - Social History Smoking Status: Never smoker Exposure to second hand smoke: Yes Drug Use: none Patient Lives Alone: No Significant Family History: no pertinent family hx - Female History Hx Now: Yes Expected Date of Delivery: 07/10/21 - Nursing Vital Signs Nursing Vital Signs: Initial Vital Signs Temperature 97.5 F 12/31/20 17:31 Pulse Rate 100 H 12/31/20 17:31 Blood Pressure 139/94 12/31/20 17:31 O2 Sat by Pulse Oximetry 100 12/31/20 17:31 Pain Scale Pain Intensity 2 - Physical Exam General Appearance: no apparent distress, alert, anxiety Eye Exam: PERRL/EOMI, eyes nml inspection Ears, Nose, Throat Exam: normal ENT inspection, moist mucous membranes Neck Exam: normal inspection, non-tender, supple, full range of motion Respiratory Exam: normal breath sounds, lungs clear, airway intact, No chest tenderness, No respiratory distress Cardiovascular Exam: regular rate/rhythm, normal heart sounds, normal peripheral pulses Gastrointestinal/Abdomen Exam: soft, normal bowel sounds, No tenderness Pelvic Exam: not done Rectal Exam: not done Back Exam: normal inspection, normal range of motion, CVA tenderness (left) Extremity Exam: normal inspection, normal range of motion, pelvis stable Neurologic Exam: alert, oriented x 3, cooperative, flight attendant ramp II-XII nml as tested, normal mood/affect, nml cerebellar function, nml station & gait, sensation nml Skin Exam: normal color, warm, dry Lymphatic Exam: No adenopathy SpO2 Interpretation: normal SpO2: 100 O2 Delivery: Room Air - Course Nursing assessment & vital signs reviewed: Yes Ordered Tests: Active Orders 24 hr Category Date Time Status IV Insertion STAT Care 12/31/20 17:47 Active AMYLASE Stat Lab 12/31/20 17:48 Completed CBC W DIFF Stat Lab 12/31/20 17:48 Completed CMP Stat Lab 12/31/20 17:48 Completed CULTURE,URINE Stat Lab 12/31/20 17:43 Received HCG,QUALITATIVE URINE Stat Lab 12/31/20 17:43 Completed LIPASE Stat Lab 12/31/20 17:48 Completed Lactic Acid Stat Lab 12/31/20 17:48 Completed UA W/RFX UR CULTURE Stat Lab 12/31/20 17:43 Completed Medication Summary Discontinued Medications Generic Name Dose Route Start Last Admin Trade Name Freq PRN Reason Stop Dose Admin Sodium Chloride 1,000 mls @ 999 mls/hr 12/31/20 17:47 12/31/20 18:55 Sodium Chloride 0.9% 1000 Ml IV 12/31/20 18:47 Infused .Q1H1M STA Infusion Sodium Chloride Confirm 12/31/20 17:52 Sodium Chloride 0.9% 1000 Ml Administered 12/31/20 17:53 Dose 1,000 mls @ ud .ROUTE .STK-MED ONE Ceftriaxone Sodium/Dextrose 1 g in 50 mls @ 100 mls/hr 12/31/20 18:46 12/31/20 18:55 Rocephin 1 Gm-D5w 50 Ml Bag IV 12/31/20 19:15 100 ml/hr STAT STA 100 mls/hr Administration Ceftriaxone Sodium/Dextrose Confirm 12/31/20 18:53 Rocephin 1 Gm-D5w 50 Ml Bag Administered 12/31/20 18:54 Dose 1 g in 50 mls @ ud IV .STK-MED ONE Ondansetron HCl 4 mg 12/31/20 17:49 12/31/20 17:54 Zofran 4 Mg/2 Ml Vial IV 12/31/20 17:50 4 mg STAT ONE Administration Ondansetron HCl Confirm 12/31/20 17:51 Zofran 4 Mg/2 Ml Vial Administered 12/31/20 17:52 Dose 4 mg .ROUTE .STK-MED ONE Lab/Rad Data: Laboratory Result Diagrams 12/31/20 17:48 12/31/20 17:48 Laboratory Results 12/31/20 12/31/20 12/31/20 Range/Units 17:48 17:48 17:48 WBC 8.2 (4.0-10.5) K/mm3 RBC 4.15 (4.1-5.4) M/mm3 Hgb 12.7 (12.0-16.0) gm/dl Hct 38.4 (35-47) % MCV 92.5 (78-100) fl MCH 30.6 (26-32) pg MCHC 33.1 (32-36) g/dl RDW 12.7 (11.5-14.0) % Plt Count 193 (150-450) K/mm3 MPV 9.6 (7.5-11.0) fl Gran % 64.8 (36.0-66.0) % Eos # (Auto) 0.08 (0-0.5) Absolute Lymphs (auto) 2.16 (1.0-4.6) Absolute Monos (auto) 0.63 (0.0-1.3) Lymphocytes % 26.4 (24.0-44.0) % Monocytes % 7.7 (0.0-12.0) % Eosinophils % 1.0 (0.00-5.0) % Basophils % 0.1 (0.0-0.4) % Absolute Granulocytes 5.30 (1.4-6.9) Basophils # 0.01 (0-0.4) Sodium 135 L (137-145) mmol/L Potassium 4.1 (3.5-5.1) mmol/L Chloride 101 (98-107) mmol/L Carbon Dioxide 25 (22-30) mmol/L Anion Gap 12.3 (5-15) MEQ/L BUN 6 L (7-17) mg/dL Creatinine 0.46 L (0.52-1.04) mg/dL Estimated GFR > 60.0 ML/MIN Glucose 80 (74-106) mg/dL Lactic Acid 1.0 (0.4-2.0) Calcium 8.9 (8.4-10.2) mg/dL Total Bilirubin 0.40 (0.2-1.3) mg/dL AST 24 (14-36) U/L ALT 14 (0-35) U/L Alkaline Phosphatase 70 (38-126) U/L Serum Total Protein 7.3 (6.3-8.2) g/dL Albumin 4.0 (3.5-5.0) g/dL Amylase 76 (30-110) U/L Lipase 69 (23-300) U/L Urine Color (YELLOW) Urine Appearance (CLEAR) Urine pH (5-6) Ur Specific Pease (1.005-1.025) Urine Protein (Negative) Urine Ketones (NEGATIVE) Urine Blood (0-5) Mynor/ul Urine Nitrite (NEGATIVE) Urine Bilirubin (NEGATIVE) Urine Urobilinogen (0-1) mg/dL Ur Leukocyte Esterase (NEGATIVE) Urine WBC (Auto) (0-5) /HPF Urine RBC (Auto) (0-2) /HPF U Epithel Cells (Auto) (FEW) /HPF Urine Bacteria (Auto) (NEGATIVE) /HPF Urine Mucus (Auto) (NEGATIVE) /HPF Urine Culture Reflexed (NO) Urine Glucose (NEGATIVE) mg/dL Urine HCG, Qual (Negative) 12/31/20 12/31/20 Range/Units 17:43 17:43 WBC (4.0-10.5) K/mm3 RBC (4.1-5.4) M/mm3 Hgb (12.0-16.0) gm/dl Hct (35-47) % MCV (78-100) fl MCH (26-32) pg MCHC (32-36) g/dl RDW (11.5-14.0) % Plt Count (150-450) K/mm3 MPV (7.5-11.0) fl Gran % (36.0-66.0) % Eos # (Auto) (0-0.5) Absolute Lymphs (auto) (1.0-4.6) Absolute Monos (auto) (0.0-1.3) Lymphocytes % (24.0-44.0) % Monocytes % (0.0-12.0) % Eosinophils % (0.00-5.0) % Basophils % (0.0-0.4) % Absolute Granulocytes (1.4-6.9) Basophils # (0-0.4) Sodium (137-145) mmol/L Potassium (3.5-5.1) mmol/L Chloride (98-107) mmol/L Carbon Dioxide (22-30) mmol/L Anion Gap (5-15) MEQ/L BUN (7-17) mg/dL Creatinine (0.52-1.04) mg/dL Estimated GFR ML/MIN Glucose (74-106) mg/dL Lactic Acid (0.4-2.0) Calcium (8.4-10.2) mg/dL Total Bilirubin (0.2-1.3) mg/dL AST (14-36) U/L ALT (0-35) U/L Alkaline Phosphatase (38-126) U/L Serum Total Protein (6.3-8.2) g/dL Albumin (3.5-5.0) g/dL Amylase (30-110) U/L Lipase (23-300) U/L Urine Color ANGIE (YELLOW) Urine Appearance CLOUDY (CLEAR) Urine pH 7.0 (5-6) Ur Specific Pease 1.010 (1.005-1.025) Urine Protein 30 (Negative) Urine Ketones NEGATIVE (NEGATIVE) Urine Blood NEGATIVE (0-5) Mynor/ul Urine Nitrite NEGATIVE (NEGATIVE) Urine Bilirubin NEGATIVE (NEGATIVE) Urine Urobilinogen NEGATIVE (0-1) mg/dL Ur Leukocyte Esterase LARGE (NEGATIVE) Urine WBC (Auto) 26-50 (0-5) /HPF Urine RBC (Auto) 11-15 (0-2) /HPF U Epithel Cells (Auto) PACKED (FEW) /HPF Urine Bacteria (Auto) FEW (NEGATIVE) /HPF Urine Mucus (Auto) SLIGHT (NEGATIVE) /HPF Urine Culture Reflexed YES (NO) Urine Glucose NEGATIVE (NEGATIVE) mg/dL Urine HCG, Qual POSITIVE (Negative) - Progress Progress: improved, re-examined Air Movement: good Progress Note: 12/31/20 19:27 Medical decision making: This patient grew out Staph saprophyticus. I reviewed the patient's culture and sensitivity results from 12/29/2020. This organism is sensitive to ceftriaxone as well as cefdinir based on my research. Both of these medications can be taken when . Patient will receive injection of intravenous Rocephin followed by 7 days outpatient treatment with cefdinir. I reviewed the cefdinir drug profile regarding and with the patient. Patient can use Tylenol for pain control. Patient is to follow-up with her primary care physician and nurse case management for further management. She was informed to return to the emergency department if her symptoms worsen. Blood Culture(s) Obtained: Yes Antibiotics given: Yes Counseled pt/family regarding: lab results, diagnosis, need for follow-up - Departure Departure Disposition: Home Clinical Impression: Pyelonephritis affecting Condition: Stable Critical Care Time: No Referrals: MARY MARSHALL [Primary Care Provider] - Additional Instructions: Drink plenty of fluids. Use Tylenol for pain control. Take your medication as prescribed. Stop your Macrobid and Keflex. Follow-up with your runner worker and primary care doctor for further management. Return to the emergency department symptoms worsen. Prescriptions: Cefdinir 300 mg PO BID 7 Days #14 capsule
[2020-12-31] MEDS ORDERED: Zofran 4 MG/2 ML VIAL IV ONE (17:49)
[2020-12-31] MEDS ORDERED: Zofran 4 MG/2 ML VIAL ONE (17:51)
[2020-12-31] MEDS ORDERED: Sodium Chloride 0.9% 1000 ML 1,000 ML ONE (17:52)
[2020-12-31 18:05] LABS: BASOPHIL % 0.1 % (0.0-0.4); Basophil (Absolute #) 0.01 (0-0.4); Eosinophil (Absolute #) 0.08 (0-0.5); Hematocrit 38.4 % (35-47); Hemoglobin 12.7 gm/dl (12.0-16.0); Lymphocyte (Absolute #) 2.16 (1.0-4.6); Lymphocytes % 26.4 % (24.0-44.0); Mean Cell Volume 92.5 fl (78-100); Mean Corpuscular Hemoglobin 30.6 pg (26-32); Mean Corpuscular Hgb Concent. 33.1 g/dl (32-36); Mean Platelet Volume 9.6 fl (7.5-11.0); Monocyte (Absolute #) 0.63 (0.0-1.3); Monocytes % 7.7 % (0.0-12.0); Neutrophil % 64.8 % (36.0-66.0); Platelet Count 193 K/mm3 (150-450); Red Blood Count 4.15 M/mm3 (4.1-5.4); Red Cell Distribution Width 12.7 % (11.5-14.0); White Blood Count 8.2 K/mm3 (4.0-10.5)
[2020-12-31 18:10] LABS: ALKALINE PHOSPHATASE 70 U/L (38-126); AMYLASE 76 U/L (30-110); ANION GAP 12.3 MEQ/L (5-15); BLOOD UREA NITROGEN 6 mg/dL (7-17); CHLORIDE 101 mmol/L (98-107); Calcium 8.9 mg/dL (8.4-10.2); Carbon Dioxide 25 mmol/L (22-30); Creatinine 1 0.46 mg/dL (0.52-1.04); EST GLOMERULAR FILTRATION RATE > 60.0 ML/MIN; Glucose 80 mg/dL (74-106); LIPASE 69 U/L (23-300); Potassium 4.1 mmol/L (3.5-5.1); SGOT/AST 24 U/L (14-36); SGPT/ALT 14 U/L (0-35); SODIUM 135 mmol/L (137-145); Total Protein 7.3 g/dL (6.3-8.2)
[2020-12-31 18:36] LABS: Appearance CLOUDY (CLEAR); Bacteria FEW /HPF (NEGATIVE); Bilirubin NEGATIVE (NEGATIVE); Blood NEGATIVE Ery/ul (0-5); Epithelial Cells PACKED /HPF (FEW); Glucose NEGATIVE (NEGATIVE); Ketones NEGATIVE (NEGATIVE); Leukocyte Esterase LARGE (NEGATIVE); Mucus SLIGHT /HPF (NEGATIVE); Nitrite NEGATIVE (NEGATIVE); Protein,Urine Dip 30 (Negative); Urobilinogen NEGATIVE mg/dL (0-1); WBC 26-50 /HPF (0-5)
[2020-12-31] MEDS ORDERED: ROCEPHIN 1 Gm-D5w 50 ml Bag** 1 G/50 ML IVPB IV STA (18:46)
[2020-12-31] MEDS ORDERED: ROCEPHIN 1 Gm-D5w 50 ml Bag** 1 G/50 ML IVPB IV ONE (18:53)
[2020-12-31 19:25] VITALS: BP 120/77; PULSE 68
[2020-12-31 19:29] VITALS: O2SAT 100
== END 2020-12-31 19:35 | disposition home or self-care (01) ==
LOC: ED 17:26
DX: O23.01 Infections of kidney in pregnancy, first trimester (principal); Z3A.13 13 weeks gestation of pregnancy
CPT/HCPCS: 36000; 36415; 80053; 81001; 82150; 83605; 83690; 84703; 85025; 87086; 96360; 96374; 96375; 99284; J0696; J2405

== ENCOUNTER 2021-01-18 21:53 | Emergency (ER) | payer OTHER ==
[2021-01-18] MEDS ORDERED: Sodium Chloride 0.9% 1000 ML 1,000 ML IV STA (22:35)
[2021-01-18] MEDS ORDERED: Sodium Chloride 0.9% 1000 ML 1,000 ML ONE (22:42)
[2021-01-18 23:01] LABS: Absolute Neutrophil Ct (ANC) 5.53 (1.4-6.9); BASOPHIL % 0.2 % (0.0-0.4); Basophil (Absolute #) 0.02 (0-0.4); Eosinophil % 2.4 % (0.00-5.0); Hematocrit 35.1 % (35-47); Hemoglobin 11.7 gm/dl (12.0-16.0); Lymphocyte (Absolute #) 2.22 (1.0-4.6); Lymphocytes % 26.2 % (24.0-44.0); Mean Cell Volume 93.9 fl (78-100); Mean Corpuscular Hemoglobin 31.3 pg (26-32); Mean Corpuscular Hgb Concent. 33.3 g/dl (32-36); Mean Platelet Volume 9.9 fl (7.5-11.0); Monocytes % 5.9 % (0.0-12.0); Neutrophil % 65.3 % (36.0-66.0); Platelet Count 177 K/mm3 (150-450); Red Blood Count 3.74 M/mm3 (4.1-5.4); Red Cell Distribution Width 12.9 % (11.5-14.0); White Blood Count 8.5 K/mm3 (4.0-10.5)
--- NOTE | 2021-01-18 23:07 | ERPHSYRPT ---
- History of Present Illness Time Seen by Provider: 01/18/21 22:10 Source: patient Exam Limitations: no limitations Patient Subjective Stated Complaint: C/O loose stools X 2 weeks. Now having N/V and dizziness. States "very bad headaches." Denies any fever. Triage Nursing Assessment: States "tender" when palpating lower abdomen. Abdomen is soft and non-distended. Denies any vaginal bleeding or spotting. Physician History: Patient is a 20-year-old female M1 presents to our ED currently 15 weeks . Patient presents with complaints of nausea vomiting, diarrhea and body aches. Patient has been experiencing diarrhea for approximately 2 weeks. Patient has been taking Zofran for her vomiting but states it is not very helpful. She has also been experiencing a mild headache. For which she has been taking Tylenol. Patient is not mildly dizzy. Patient called her [employer] physician's office who advised coming to our ED for evaluation. No fever. No trauma. Patient experiences intermittent periumbilical pain. No active pain at this time however. Patient states she is otherwise healthy. She voices no other complaints or concerns at this time. Timing/Duration: week(s) (2 weeks) Severity: moderate Modifying Factors: Improves With: nothing Associated Symptoms: No shortness of breath, No cough, No fever, No syncope, No seizure Allergies/Adverse Reactions: venlafaxine [From Effexor] Allergy (Verified 01/18/21 22:14) Home Medications: Buspirone HCl [Buspar] 5 mg PO TID 10/31/20 [History] Vits W-Ca,Fe,FA(<1Mg) [] 1 each PO DAILY 10/31/20 [History] Aspirin [Aspirin EC] 81 mg PO DAILY 11/02/20 [History] Sertraline HCl 50 mg [Zoloft 50 mg Tablet] 1 tab PO DAILY 11/16/20 [History] Hydroxyzine HCl 25 mg [Atarax 25 mg] 25 mg PO TID PRN 11/28/20 [History] Hx Tetanus, Diphtheria Vaccination/Date Given: Yes Hx Influenza Vaccination/Date Given: No Hx Pneumococcal Vaccination/Date Given: No Travel Risk - International Travel Have you traveled outside of the country in past 3 weeks: No - Coronavirus Screening Are you exhibiting any of the following symptoms?: Yes Symptoms: Shortness of Breath, Vomiting/Diarrhea, Headaches/Body Aches/Fatigue Close contact with a COVID-19 positive Pt in past 14-21 Days: No - Vaccine Status Have you recieved a Covid-19 vaccination: No - Review of Systems Constitutional: No Symptoms, No Fever, No Chills Eyes: No Symptoms Ears, Nose, & Throat: No Symptoms Respiratory: No Symptoms, No Cough, No Dyspnea Cardiac: No Symptoms, No Chest Pain, No Edema, No Syncope Abdominal/Gastrointestinal: No Symptoms, No Abdominal Pain, No Nausea, No Vomit ing, No Diarrhea Genitourinary Symptoms: No Symptoms, No Dysuria Musculoskeletal: No Symptoms, No Back Pain, No Neck Pain Skin: No Symptoms, No Rash Neurological: No Symptoms, No Dizziness, No Focal Weakness, No Sensory Changes Psychological: No Symptoms Endocrine: No Symptoms Hematologic/Lymphatic: No Symptoms Immunological/Allergic: No Symptoms All Other Systems: Reviewed and Negative - Past Medical History Pertinent Past Medical History: Yes Neurological History: No Pertinent History ENT History: No Pertinent History Cardiac History: No Pertinent History Respiratory History: No Pertinent History Endocrine Medical History: No Pertinent History Musculoskeletal History: No Pertinent History GI Medical History: No Pertinent History History: No Pertinent History Psycho-Social History: Anxiety, Depression, Panic Disorder Female Reproductive Disorders: No Pertinent History Other Medical History: hypoglycemia - Past Surgical History Past Surgical History: No Neuro Surgical History: No Pertinent History Cardiac: No Pertinent History Respiratory: No Pertinent History Gastrointestinal: No Pertinent History Genitourinary: No Pertinent History Musculoskeletal: No Pertinent History Female Surgical History: No Pertinent History - Social History Smoking Status: Never smoker Exposure to second hand smoke: Yes Drug Use: none Patient Lives Alone: No (kids) Significant Family History: no pertinent family hx - Female History Hx Now: Yes Expected Date of Delivery: 07/10/21 Gestational Age: 15 weeks - Nursing Vital Signs Nursing Vital Signs: Initial Vital Signs Temperature 97.9 F 01/18/21 22:04 Pulse Rate 94 H 01/18/21 22:04 Respiratory Rate 19 01/18/21 22:04 Blood Pressure 141/86 01/18/21 22:04 O2 Sat by Pulse Oximetry 98 01/18/21 22:04 Pain Scale Pain Intensity 2 - Physical Exam General Appearance: no apparent distress, alert Eye Exam: PERRL/EOMI, eyes nml inspection Ears, Nose, Throat Exam: normal ENT inspection, TMs normal, pharynx normal, moist mucous membranes Neck Exam: normal inspection, non-tender, supple, full range of motion Respiratory Exam: normal breath sounds, lungs clear, No respiratory distress Cardiovascular Exam: regular rate/rhythm, normal heart sounds, normal peripheral pulses Gastrointestinal/Abdomen Exam: soft, normal bowel sounds, No tenderness, No mass Back Exam: normal inspection, normal range of motion, No CVA tenderness, No vertebral tenderness Extremity Exam: normal inspection, normal range of motion, pelvis stable Neurologic Exam: alert, oriented x 3, cooperative, normal mood/affect, nml cerebellar function, nml station & gait, sensation nml, No motor deficits Skin Exam: normal color, warm, dry, No rash Lymphatic Exam: No adenopathy SpO2 Interpretation: normal SpO2: 98 O2 Delivery: Room Air - Course Nursing assessment & vital signs reviewed: Yes Ordered Tests: Active Orders 24 hr Category Date Time Status IV Insertion STAT Care 01/18/21 22:35 Active CBC W DIFF Stat Lab 01/18/21 22:50 Completed CMP Stat Lab 01/18/21 22:50 Completed LIPASE Stat Lab 01/18/21 22:50 Completed UA W/RFX UR CULTURE Stat Lab 01/18/21 22:39 Completed Medication Summary Discontinued Medications Generic Name Dose Route Start Last Admin Trade Name Maryam PRN Reason Stop Dose Admin Sodium Chloride 1,000 mls @ 999 mls/hr 01/18/21 22:35 01/18/21 22:43 Sodium Chloride 0.9% 1000 Ml IV 01/18/21 23:35 999 mls/hr .Q1H1M STA Administration Sodium Chloride Confirm 01/18/21 22:42 Sodium Chloride 0.9% 1000 Ml Administered 01/18/21 22:43 Dose 1,000 mls @ ud .ROUTE .STK-MED ONE Lab/Rad Data: Laboratory Result Diagrams 01/18/21 22:50 01/18/21 22:50 Laboratory Results 01/18/21 01/18/21 01/18/21 Range/Units 22:50 22:50 22:39 WBC 8.5 (4.0-10.5) K/mm3 RBC 3.74 L (4.1-5.4) M/mm3 Hgb 11.7 L (12.0-16.0) gm/dl Hct 35.1 (35-47) % MCV 93.9 (78-100) fl MCH 31.3 (26-32) pg MCHC 33.3 (32-36) g/dl RDW 12.9 (11.5-14.0) % Plt Count 177 (150-450) K/mm3 MPV 9.9 (7.5-11.0) fl Gran % 65.3 (36.0-66.0) % Eos # (Auto) 0.20 (0-0.5) Absolute Lymphs (auto) 2.22 (1.0-4.6) Absolute Monos (auto) 0.50 (0.0-1.3) Lymphocytes % 26.2 (24.0-44.0) % Monocytes % 5.9 (0.0-12.0) % Eosinophils % 2.4 (0.00-5.0) % Basophils % 0.2 (0.0-0.4) % Absolute Granulocytes 5.53 (1.4-6.9) Basophils # 0.02 (0-0.4) Sodium 133 L (137-145) mmol/L Potassium 3.4 L (3.5-5.1) mmol/L Chloride 102 (98-107) mmol/L Carbon Dioxide 23 (22-30) mmol/L Anion Gap 10.5 (5-15) MEQ/L BUN 5 L (7-17) mg/dL Creatinine 0.41 L (0.52-1.04) mg/dL Estimated GFR > 60.0 ML/MIN Glucose 115 H (74-106) mg/dL Calcium 8.4 (8.4-10.2) mg/dL Total Bilirubin < 0.10 L (0.2-1.3) mg/dL AST 19 (14-36) U/L ALT 9 (0-35) U/L Alkaline Phosphatase 55 (38-126) U/L Serum Total Protein 6.1 L (6.3-8.2) g/dL Albumin 3.3 L (3.5-5.0) g/dL Lipase 45 (23-300) U/L Urine Color YELLOW (YELLOW) Urine Appearance CLOUDY (CLEAR) Urine pH 6.0 (5-6) Ur Specific [place] 1.025 (1.005-1.025) Urine Protein NEGATIVE (Negative) Urine Ketones NEGATIVE (NEGATIVE) Urine Blood NEGATIVE (0-5) Mynor/ul Urine Nitrite NEGATIVE (NEGATIVE) Urine Bilirubin NEGATIVE (NEGATIVE) Urine Urobilinogen NEGATIVE (0-1) mg/dL Ur Leukocyte Esterase NEGATIVE (NEGATIVE) Urine WBC (Auto) 0-2 (0-5) /HPF Urine RBC (Auto) 0-2 (0-2) /HPF U Epithel Cells (Auto) RARE (FEW) /HPF Urine Bacteria (Auto) NONE SEEN (NEGATIVE) /HPF Amorphous Crystals FEW (NEGATIVE) /HPF Urine Mucus (Auto) SLIGHT (NEGATIVE) /HPF Urine Culture Reflexed NO (NO) Urine Glucose NEGATIVE (NEGATIVE) mg/dL - Progress Progress: improved Progress Note: Patient reassessed. She feels better. IV fluids infused. Patient tolerated p.o. heart tones were 160. 01/19/21 00:52 01/19/21 00:54 Discussed with who agrees with disposition. Patient will follow up with him this week. Discussed with : Luli Will see patient in: office Counseled pt/family regarding: lab results, diagnosis, need for follow-up - Departure Departure Disposition: Home Clinical Impression: Nausea and vomiting, Diarrhea, Nausea and vomiting during Condition: Stable Critical Care Time: No Referrals: MARY MARSHALL [Primary Care Provider] - Additional Instructions: Discharge/Care Plan HIRAEREN SANDOVAL was seen on 01/19/21 in the Emergency Room. The patient was counseled regarding Diagnosis,Lab results, Imaging studies, need for follow up and when to return to the Emergency Room. Prescriptions given: Discharge Note I have spoken with the patient and/or caregivers. I have explained the patient's condition, diagnosis and treatment plan based on the information available to me at this time. I have answered the patient's and/or caregiver's questions and addressed any concerns. The patient and/or caregivers have as good understanding of the patient's diagnosis, condition and treatment plan as can be expected at this point. The vital signs have been stable. The patient's condition is stable and appropriate for discharge from the emergency department. The patient will pursue further outpatient evaluation with the primary care physician or other designated or consulting physician as outlined in the discharge instructions. The patient and/or caregivers are agreeable to this plan of care and follow-up instructions have been explained in detail. The patient and/or caregivers have received these instruction. The patient/and or caregivers are aware that any significant change in condition or worsening of symptoms should prompt an immediate return to this or the closest emergency department or call 911.
[2021-01-18 23:08] LABS: Amourphous Crystal FEW /HPF (NEGATIVE); Appearance CLOUDY (CLEAR); Bacteria NONE SEEN /HPF (NEGATIVE); Bilirubin NEGATIVE (NEGATIVE); Blood NEGATIVE Ery/ul (0-5); Epithelial Cells RARE /HPF (FEW); Glucose NEGATIVE (NEGATIVE); Ketones NEGATIVE (NEGATIVE); Leukocyte Esterase NEGATIVE (NEGATIVE); Mucus SLIGHT /HPF (NEGATIVE); Nitrite NEGATIVE (NEGATIVE); Protein,Urine Dip NEGATIVE (Negative); RBC 0-2 /HPF (0-2); Specific Gravity 1.025 (1.005-1.025); Urobilinogen NEGATIVE mg/dL (0-1); WBC 0-2 /HPF (0-5)
[2021-01-18 23:14] LABS: ALBUMIN 3.3 g/dL (3.5-5.0); ALKALINE PHOSPHATASE 55 U/L (38-126); ANION GAP 10.5 MEQ/L (5-15); BILIRUBIN,TOTAL < 0.10 mg/dL (0.2-1.3); BLOOD UREA NITROGEN 5 mg/dL (7-17); CHLORIDE 102 mmol/L (98-107); Calcium 8.4 mg/dL (8.4-10.2); Carbon Dioxide 23 mmol/L (22-30); Creatinine 1 0.41 mg/dL (0.52-1.04); EST GLOMERULAR FILTRATION RATE > 60.0 ML/MIN; Glucose 115 mg/dL (74-106); LIPASE 45 U/L (23-300); Potassium 3.4 mmol/L (3.5-5.1); SGOT/AST 19 U/L (14-36); SGPT/ALT 9 U/L (0-35); SODIUM 133 mmol/L (137-145); Total Protein 6.1 g/dL (6.3-8.2)
[2021-01-19 00:53] VITALS: BP 119/75; PULSE 64
[2021-01-19 00:56] VITALS: O2SAT 98
== END 2021-01-19 01:18 | disposition home or self-care (01) ==
LOC: ED 21:53
DX: O21.9 Vomiting of pregnancy, unspecified (principal); Z3A.15 15 weeks gestation of pregnancy; R19.7 Diarrhea, unspecified; R42 Dizziness and giddiness
CPT/HCPCS: 36000; 36415; 80053; 81001; 83690; 85025; 96360; 99284

== ENCOUNTER 2021-02-22 21:28 | Emergency (ER) | payer OTHER ==
[2021-02-22] MEDS ORDERED: Sodium Chloride 0.9% 1000 ML 1,000 ML IV STA (23:00)
--- NOTE | 2021-02-22 23:28 | ERPHSYRPT ---
- History of Present Illness Time Seen by Provider: 02/22/21 21:59 Source: patient Exam Limitations: no limitations Physician History: 20 years old 3 para 2 at 20 weeks gestation presented in the ER with vaginal discharge/gush of fluid which started almost 4 hours ago when she was doing her daughter's room. Since then it has slowed down but still having some discharge with associated moderate intensity dull aching pelvic cramping without any significant aggravating or relieving factors. Denies any urinary symptoms. No fever chills cough reported. Timing/Duration: hour(s) (4), constant, sudden Activites at Onset: physical activity Quality: cramping Onset Location: pelvic pain Severity of Pain-Max: moderate Severity of Pain-Current: moderate Prior abdominal problems: none Sexual intercourse history: non-contributory Modifying Factors: Improves With: nothing Associated Symptoms: vaginal fluid leakage Allergies/Adverse Reactions: venlafaxine [From Effexor] Allergy (Verified 02/22/21 22:59) Home Medications: Buspirone HCl [Buspar] 5 mg PO TID 10/31/20 [History] Vits W-Ca,Fe,FA(<1Mg) [] 1 each PO DAILY 10/31/20 [History] Aspirin [Aspirin EC] 81 mg PO DAILY 11/02/20 [History] Sertraline HCl 50 mg [Zoloft 50 mg Tablet] 1 tab PO DAILY 11/16/20 [History] Hydroxyzine HCl 25 mg [Atarax 25 mg] 25 mg PO TID PRN 11/28/20 [History] Hx Tetanus, Diphtheria Vaccination/Date Given: Yes Hx Influenza Vaccination/Date Given: No Hx Pneumococcal Vaccination/Date Given: No Travel Risk - Vaccine Status Have you recieved a Covid-19 vaccination: No - Review of Systems Constitutional: No Symptoms Eyes: No Symptoms Ears, Nose, & Throat: No Symptoms Respiratory: No Symptoms Cardiac: No Symptoms Abdominal/Gastrointestinal: No Symptoms Genitourinary Symptoms: , Vaginal Discharge Musculoskeletal: No Symptoms Skin: No Symptoms Neurological: No Symptoms Psychological: Anxiety Endocrine: No Symptoms Hematologic/Lymphatic: No Symptoms Immunological/Allergic: No Symptoms - Past Medical History Pertinent Past Medical History: Yes Neurological History: No Pertinent History ENT History: No Pertinent History Cardiac History: No Pertinent History Respiratory History: No Pertinent History Endocrine Medical History: No Pertinent History Musculoskeletal History: No Pertinent History GI Medical History: No Pertinent History History: No Pertinent History Psycho-Social History: Anxiety, Depression, Panic Disorder Female Reproductive Disorders: No Pertinent History Other Medical History: hypoglycemia - Past Surgical History Past Surgical History: No Neuro Surgical History: No Pertinent History Cardiac: No Pertinent History Respiratory: No Pertinent History Gastrointestinal: No Pertinent History Genitourinary: No Pertinent History Musculoskeletal: No Pertinent History Female Surgical History: No Pertinent History - Social History Smoking Status: Never smoker Exposure to second hand smoke: Yes Drug Use: none Patient Lives Alone: No (kids) Significant Family History: no pertinent family hx - Female History Hx Now: Yes - Nursing Vital Signs Nursing Vital Signs: Initial Vital Signs Temperature 97.9 F 02/22/21 23:00 Pulse Rate 73 02/22/21 23:00 Respiratory Rate 18 02/22/21 23:00 Blood Pressure 133/80 02/22/21 23:00 O2 Sat by Pulse Oximetry 100 02/22/21 23:00 Pain Scale Pain Intensity 4 - Physical Exam General Appearance: no apparent distress, alert, anxiety Eye Exam: PERRL/EOMI Ears, Nose, Throat Exam: normal ENT inspection, pharynx normal Neck Exam: normal inspection, supple, full range of motion Respiratory Exam: normal breath sounds, lungs clear Cardiovascular Exam: regular rate/rhythm, normal heart sounds Gastrointestinal/Abdomen Exam: soft, normal bowel sounds, tenderness (Pelvic/suprapubic), other (Gravid uterus) Back Exam: normal inspection, normal range of motion Extremity Exam: normal inspection, normal range of motion, pelvis stable Neurologic Exam: alert, oriented x 3, cooperative Skin Exam: normal color SpO2 Interpretation: normal SpO2: 98 O2 Delivery: Room Air Ordered Tests: Medication Summary Discontinued Medications Generic Name Dose Route Start Last Admin Trade Name Freq PRN Reason Stop Dose Admin Acetaminophen 1,000 mg 02/23/21 00:49 02/23/21 00:54 Tylenol Extra Strength 500 Mg PO 02/23/21 00:50 1,000 mg STAT STA Administration Acetaminophen Confirm 02/23/21 00:53 Tylenol Extra Strength 500 Mg Administered 02/23/21 00:54 Dose 1,000 mg .ROUTE .[employer]-MED ONE Sodium Chloride 1,000 mls @ 999 mls/hr 02/22/21:00 02/23/21 00:08 Sodium Chloride 0.9% 1000 Ml IV 02/23/21 00:00 999 mls/hr .Q1H1M STA Administration Sodium Chloride Confirm 02/22/21 23:54 Sodium Chloride 0.9% 1000 Ml Administered 02/22/21 23:55 Dose 1,000 mls @ ud .ROUTE .STK-MED ONE Ceftriaxone Sodium/Dextrose 1 g in 50 mls @ 100 mls/hr 02/23/21 00:50 02/23/21 00:54 Rocephin 1 Gm-D5w 50 Ml Bag IV 02/23/21 01:19 100 mls/hr STAT STA 100 mls/hr Administration Ceftriaxone Sodium/Dextrose Confirm 02/23/21 00:53 Rocephin 1 Gm-D5w 50 Ml Bag Administered 02/23/21 00:54 Dose 1 g in 50 mls @ ud IV .STK-MED ONE Lab/Rad Data: Laboratory Result Diagrams 02/22/21 23:21 02/22/21 23:21 Laboratory Results 02/22/21 02/22/21 02/22/21 Range/Units 23:40 23:21 23:21 WBC 11.0 H (4.0-10.5) K/mm3 RBC 3.37 L (4.1-5.4) M/mm3 Hgb 10.5 L (12.0-16.0) gm/dl Hct 31.9 L (35-47) % MCV 94.7 (78-100) fl MCH 31.2 (26-32) pg MCHC 32.9 (32-36) g/dl RDW 12.6 (11.5-14.0) % Plt Count 232 (150-450) K/mm3 MPV 9.6 (7.5-11.0) fl Gran % 64.8 (36.0-66.0) % Eos # (Auto) 0.15 (0-0.5) Absolute Lymphs (auto) 2.95 (1.0-4.6) Absolute Monos (auto) 0.75 (0.0-1.3) Lymphocytes % 26.8 (24.0-44.0) % Monocytes % 6.8 (0.0-12.0) % Eosinophils % 1.4 (0.00-5.0) % Basophils % 0.2 (0.0-0.4) % Absolute Granulocytes 7.12 H (1.4-6.9) Basophils # 0.02 (0-0.4) Sodium 134 L (137-145) mmol/L Potassium 3.5 (3.5-5.1) mmol/L Chloride 103 (98-107) mmol/L Carbon Dioxide 24 (22-30) mmol/L Anion Gap 10.8 (5-15) MEQ/L BUN 3 L (7-17) mg/dL Creatinine 0.37 L (0.52-1.04) mg/dL Estimated GFR > 60.0 ML/MIN Glucose 96 (74-106) mg/dL Calcium 8.4 (8.4-10.2) mg/dL Total Bilirubin 0.30 (0.2-1.3) mg/dL AST 17 (14-36) U/L ALT 6 (0-35) U/L Alkaline Phosphatase 84 (38-126) U/L Serum Total Protein 6.5 (6.3-8.2) g/dL Albumin 3.4 L (3.5-5.0) g/dL Urine Color (YELLOW) Urine Appearance (CLEAR) Urine pH (5-6) Ur Specific [place] (1.005-1.025) Urine Protein (Negative) Urine Ketones (NEGATIVE) Urine Blood (0-5) Mynor/ul Urine Nitrite (NEGATIVE) Urine Bilirubin (NEGATIVE) Urine Urobilinogen (0-1) mg/dL Ur Leukocyte Esterase (NEGATIVE) Urine WBC (Auto) (0-5) /HPF Urine RBC (Auto) (0-2) /HPF U Epithel Cells (Auto) (FEW) /HPF Urine Bacteria (Auto) (NEGATIVE) /HPF Urine Mucus (Auto) (NEGATIVE) /HPF Urine Culture Reflexed (NO) Urine Glucose (NEGATIVE) mg/dL POC Amnio Swab Test Negative 02/22/21 Range/Units 23:19 WBC (4.0-10.5) K/mm3 RBC (4.1-5.4) M/mm3 Hgb (12.0-16.0) gm/dl Hct (35-47) % MCV (78-100) fl MCH (26-32) pg MCHC (32-36) g/dl RDW (11.5-14.0) % Plt Count (150-450) K/mm3 MPV (7.5-11.0) fl Gran % (36.0-66.0) % Eos # (Auto) (0-0.5) Absolute Lymphs (auto) (1.0-4.6) Absolute Monos (auto) (0.0-1.3) Lymphocytes % (24.0-44.0) % Monocytes % (0.0-12.0) % Eosinophils % (0.00-5.0) % Basophils % (0.0-0.4) % Absolute Granulocytes (1.4-6.9) Basophils # (0-0.4) Sodium (137-145) mmol/L Potassium (3.5-5.1) mmol/L Chloride (98-107) mmol/L Carbon Dioxide (22-30) mmol/L Anion Gap (5-15) MEQ/L BUN (7-17) mg/dL Creatinine (0.52-1.04) mg/dL Estimated GFR ML/MIN Glucose (74-106) mg/dL Calcium (8.4-10.2) mg/dL Total Bilirubin (0.2-1.3) mg/dL AST (14-36) U/L ALT (0-35) U/L Alkaline Phosphatase (38-126) U/L Serum Total Protein (6.3-8.2) g/dL Albumin (3.5-5.0) g/dL Urine Color YELLOW (YELLOW) Urine Appearance CLOUDY (CLEAR) Urine pH 7.0 (5-6) Ur Specific [place] 1.014 (1.005-1.025) Urine Protein NEGATIVE (Negative) Urine Ketones NEGATIVE (NEGATIVE) Urine Blood NEGATIVE (0-5) Mynor/ul Urine Nitrite NEGATIVE (NEGATIVE) Urine Bilirubin NEGATIVE (NEGATIVE) Urine Urobilinogen 2 (0-1) mg/dL Ur Leukocyte Esterase LARGE (NEGATIVE) Urine WBC (Auto) 16-25 (0-5) /HPF Urine RBC (Auto) NONE (0-2) /HPF U Epithel Cells (Auto) FEW (FEW) /HPF Urine Bacteria (Auto) FEW (NEGATIVE) /HPF Urine Mucus (Auto) SLIGHT (NEGATIVE) /HPF Urine Culture Reflexed YES (NO) Urine Glucose NEGATIVE (NEGATIVE) mg/dL POC Amnio Swab Test - Progress Progress: improved Air Movement: good Progress Note: 02/22/21 23:47 She is given fluid bolus and Tylenol. Discussed with Dr. Perry, will obtain AmniSure for membrane rupture, ultrasound. 02/23/21 AmniSure is negative for rupture of membrane. Ultrasound showed good heart tone around 144, amniotic fluid of 15 and cervical length 3+ and closed. Lab work grossly unremarkable, given Tylenol and does have UTI and given a dose of Rocephin in here and will continue with Keflex to go home. As per OB recommendation after discussion with Dr. Perry, patient can be discharged if has negative AmniSure and ultrasound did not show anything acute. She is advised to follow-up with Dr. Perez who is her primary OB in the morning. Discussed signs symptoms of worsening needing return to ER which he seems understanding. Stable for discharge. Blood Culture(s) Obtained: No Antibiotics given: No Discussed with : Luli Counseled pt/family regarding: lab results, diagnosis, need for follow-up, rad results - Departure Departure Disposition: Home Clinical Impression: Pelvic pain affecting Qualifiers: Trimester: second trimester Qualified Code(s): O26.892 - Other specified related conditions, second trimester UTI (urinary tract infection) during Qualifiers: Trimester: second trimester Qualified Code(s): O23.42 - Unspecified infection of urinary tract in , second trimester Condition: Stable Critical Care Time: No Referrals: MARY MARSHALL [Primary Care Provider] - Follow Up with PCP/3 days JIN PEREZ MD [NON-STAFF PHY W/O PRIVILEGES] - (Call in the morning for reevaluation) Instructions: Threatened Miscarriage (DC) Additional Instructions: Drink plenty of fluids. Take Tylenol as needed. Continue with antibiotics. Follow-up with your primary OB for reevaluation tomorrow. Return to ER for intractable pain, cramping, vaginal bleeding discharge etc. Prescriptions: Cephalexin Mh 500 mg [Keflex 500 mg] 500 mg PO TID #21 cap
[2021-02-22] MEDS ORDERED: Sodium Chloride 0.9% 1000 ML 1,000 ML ONE (23:54)
[2021-02-22 23:56] LABS: Absolute Neutrophil Ct (ANC) 7.12 (1.4-6.9); BASOPHIL % 0.2 % (0.0-0.4); Basophil (Absolute #) 0.02 (0-0.4); Eosinophil % 1.4 % (0.00-5.0); Eosinophil (Absolute #) 0.15 (0-0.5); Hematocrit 31.9 % (35-47); Hemoglobin 10.5 gm/dl (12.0-16.0); Lymphocyte (Absolute #) 2.95 (1.0-4.6); Lymphocytes % 26.8 % (24.0-44.0); Mean Cell Volume 94.7 fl (78-100); Mean Corpuscular Hemoglobin 31.2 pg (26-32); Mean Corpuscular Hgb Concent. 32.9 g/dl (32-36); Mean Platelet Volume 9.6 fl (7.5-11.0); Monocyte (Absolute #) 0.75 (0.0-1.3); Monocytes % 6.8 % (0.0-12.0); Neutrophil % 64.8 % (36.0-66.0); Platelet Count 232 K/mm3 (150-450); Red Blood Count 3.37 M/mm3 (4.1-5.4); Red Cell Distribution Width 12.6 % (11.5-14.0)
[2021-02-23 00:02] LABS: ALBUMIN 3.4 g/dL (3.5-5.0); ALKALINE PHOSPHATASE 84 U/L (38-126); ANION GAP 10.8 MEQ/L (5-15); BLOOD UREA NITROGEN 3 mg/dL (7-17); CHLORIDE 103 mmol/L (98-107); Calcium 8.4 mg/dL (8.4-10.2); Carbon Dioxide 24 mmol/L (22-30); Creatinine 1 0.37 mg/dL (0.52-1.04); EST GLOMERULAR FILTRATION RATE > 60.0 ML/MIN; Glucose 96 mg/dL (74-106); Potassium 3.5 mmol/L (3.5-5.1); SGOT/AST 17 U/L (14-36); SGPT/ALT 6 U/L (0-35); SODIUM 134 mmol/L (137-145); Total Protein 6.5 g/dL (6.3-8.2)
[2021-02-23 00:09] LABS: Appearance CLOUDY (CLEAR); Bacteria FEW /HPF (NEGATIVE); Bilirubin NEGATIVE (NEGATIVE); Blood NEGATIVE Ery/ul (0-5); Epithelial Cells FEW /HPF (FEW); Glucose NEGATIVE (NEGATIVE); Ketones NEGATIVE (NEGATIVE); Leukocyte Esterase LARGE (NEGATIVE); Mucus SLIGHT /HPF (NEGATIVE); Nitrite NEGATIVE (NEGATIVE); Protein,Urine Dip NEGATIVE (Negative); Specific Gravity 1.014 (1.005-1.025); Urobilinogen 2 mg/dL (0-1)
[2021-02-23] MEDS ORDERED: TYLENOL EXTRA STRENGTH 500 MG PO STA (00:49)
[2021-02-23] MEDS ORDERED: ROCEPHIN 1 Gm-D5w 50 ml Bag** 1 G/50 ML IVPB IV STA (00:50)
[2021-02-23] MEDS ORDERED: ROCEPHIN 1 Gm-D5w 50 ml Bag** 1 G/50 ML IVPB IV ONE (00:53)
[2021-02-23] MEDS ORDERED: TYLENOL EXTRA STRENGTH 500 MG ONE (00:53)
[2021-02-23 01:12] VITALS: BP 118/67; PULSE 77
--- NOTE | 2021-02-23 09:16 | XRAY ---
Indication: Vaginal discharge. Evaluate CT and cervical length. Two-dimensional limited OB sonogram performed. Single intrauterine with heart rate [address] CT is 15.6 cm. Cervix is closed measuring 3.8 cm in length. Comment: Preliminary report was given.
[2021-02-25 17:23] VITALS: O2SAT 98
== END 2021-02-23 01:15 | disposition home or self-care (01) ==
LOC: ED 21:28
DX: O26.892 Other specified pregnancy related conditions, second trimester (principal); Z3A.20 20 weeks gestation of pregnancy; R10.2 Pelvic and perineal pain
CPT/HCPCS: 36000; 36415; 76815; 80053; 81001; 84112; 85025; 87086; 96360; 99284; J0696; A9270-GY

== ENCOUNTER 2021-04-03 19:44 | Emergency (ER) | payer OTHER ==
[2021-04-03] MEDS ORDERED: TYLENOL 325 MG PO ONE (20:08)
[2021-04-03] MEDS ORDERED: Sodium Chloride 0.9% 1000 ML 1,000 ML IV STA (20:08)
[2021-04-03] MEDS ORDERED: Sodium Chloride 0.9% 1000 ML 1,000 ML ONE (20:21)
[2021-04-03] MEDS ORDERED: TYLENOL 325 MG ONE (20:21)
--- NOTE | 2021-04-03 20:49 | ERPHSYRPT ---
- History of Present Illness Time Seen by Provider: 04/03/21 19:51 Source: patient Exam Limitations: no limitations Patient Subjective Stated Complaint: pt states she has been having fatigue and feeling unwell for the last 3 days. Triage Nursing Assessment: pt alert and oriented, answers questions approp. pt ambulatory with steady gait noted. respirations nonlabored. skin pink warm and dry. Physician History: 20 years old 3 para 2 at 26 weeks gestation presented in the ER with chief complaint of generalized weakness fatigue and tiredness. Patient reports she is having multiple episodes of loose stool every day for the last 3 days. She also has nausea and vomiting which is around baseline since her started. She has been taking oral but feels dehydrated. Also reports occasional cramping and feeling of bulge in her vagina for almost 1 week. Denies any vaginal bleeding or discharge. Denies any cramping currently. Timing/Duration: day(s) (3), constant, gradual onset, worse Severity: moderate Associated Symptoms: nausea, vomiting, weakness Allergies/Adverse Reactions: venlafaxine [From Effexor] Allergy (Verified 04/03/21 20:11) Home Medications: Buspirone HCl [Buspar] 5 mg PO TID 10/31/20 [History] Vits W-Ca,Fe,FA(<1Mg) [] 1 each PO DAILY 10/31/20 [History] Aspirin [Aspirin EC] 81 mg PO DAILY 11/02/20 [History] Sertraline HCl 50 mg [Zoloft 50 mg Tablet] 1 tab PO DAILY 11/16/20 [History] Hydroxyzine HCl 25 mg [Atarax 25 mg] 25 mg PO TID PRN 11/28/20 [History] Hx Tetanus, Diphtheria Vaccination/Date Given: Yes Hx Influenza Vaccination/Date Given: No Hx Pneumococcal Vaccination/Date Given: No Immunizations Up to Date: Yes Travel Risk - International Travel Have you traveled outside of the country in past 3 weeks: No - Coronavirus Screening Are you exhibiting any of the following symptoms?: Yes Symptoms: Vomiting/Diarrhea, Headaches/Body Aches/Fatigue Close contact with a COVID-19 positive Pt in past 14-21 Days: No - Vaccine Status Have you recieved a Covid-19 vaccination: No - Review of Systems Constitutional: No Symptoms Eyes: No Symptoms Ears, Nose, & Throat: No Symptoms Respiratory: No Symptoms Cardiac: No Symptoms Abdominal/Gastrointestinal: Nausea, Vomiting, Diarrhea Genitourinary Symptoms: No Symptoms Musculoskeletal: No Symptoms Skin: No Symptoms Neurological: No Symptoms Psychological: No Symptoms Endocrine: No Symptoms Hematologic/Lymphatic: No Symptoms Immunological/Allergic: No Symptoms - Past Medical History Pertinent Past Medical History: Yes Neurological History: No Pertinent History ENT History: No Pertinent History Cardiac History: No Pertinent History Respiratory History: No Pertinent History Endocrine Medical History: No Pertinent History Musculoskeletal History: No Pertinent History GI Medical History: No Pertinent History History: No Pertinent History Psycho-Social History: Anxiety, Depression, Panic Disorder Female Reproductive Disorders: No Pertinent History Other Medical History: hypoglycemia - Past Surgical History Past Surgical History: No Neuro Surgical History: No Pertinent History Cardiac: No Pertinent History Respiratory: No Pertinent History Gastrointestinal: No Pertinent History Genitourinary: No Pertinent History Musculoskeletal: No Pertinent History Female Surgical History: No Pertinent History - Social History Smoking Status: Never smoker Exposure to second hand smoke: Yes Drug Use: none Patient Lives Alone: No (kids) Significant Family History: no pertinent family hx - Female History Hx Last Menstrual Period: september 28 Hx Now: Yes Expected Date of Delivery: 07/10/21 Gestational Age: 26 weeks - Nursing Vital Signs Nursing Vital Signs: Initial Vital Signs Temperature 98.1 F 04/03/21 19:58 Pulse Rate 86 04/03/21 19:58 Respiratory Rate 16 04/03/21 19:58 Blood Pressure 135/74 04/03/21 19:58 O2 Sat by Pulse Oximetry 100 04/03/21 19:58 Pain Scale Pain Intensity 3 - Physical Exam General Appearance: no apparent distress, alert, anxiety Eye Exam: PERRL/EOMI, eyes nml inspection Ears, Nose, Throat Exam: normal ENT inspection, TMs normal, pharynx normal Neck Exam: normal inspection, non-tender, supple, full range of motion Respiratory Exam: normal breath sounds, lungs clear Cardiovascular Exam: regular rate/rhythm, normal heart sounds Gastrointestinal/Abdomen Exam: soft, normal bowel sounds, other (Gravid uterus), No tenderness Back Exam: normal inspection, normal range of motion Extremity Exam: normal inspection, normal range of motion Neurologic Exam: alert, oriented x 3, cooperative Skin Exam: normal color SpO2 Interpretation: normal SpO2: 100 O2 Delivery: Room Air Ordered Tests: Active Orders 24 hr Category Date Time Status Heart Tones-ED STAT Care 04/03/21 20:09 Active IV Insertion STAT Care 04/03/21 20:08 Active CBC W DIFF Stat Lab 04/03/21 20:19 Completed CMP Stat Lab 04/03/21 20:19 Completed LIPASE Stat Lab 04/03/21 20:19 Completed UA W/RFX UR CULTURE Stat Lab 04/03/21 20:19 Completed Medication Summary Discontinued Medications Generic Name Dose Route Start Last Admin Trade Name Freava PRN Reason Stop Dose Admin Acetaminophen 975 mg 04/03/21 20:08 04/03/21 20:23 Tylenol 325 Mg PO 04/03/21 20:09 975 mg STAT ONE Administration Acetaminophen Confirm 04/03/21 20:21 Tylenol 325 Mg Administered 04/03/21 20:22 Dose 975 mg .ROUTE .STK-MED ONE Sodium Chloride 1,000 mls @ 999 mls/hr 04/03/21 20:08 04/03/21 21:24 Sodium Chloride 0.9% 1000 Ml IV 04/03/21 21:08 Infused .Q1H1M STA Infusion Sodium Chloride Confirm 04/03/21 20:21 Sodium Chloride 0.9% 1000 Ml Administered 04/03/21 20:22 Dose 1,000 mls @ ud .ROUTE .STK-MED ONE Lab/Rad Data: Laboratory Result Diagrams 04/03/21 20:19 04/03/21 20:19 Laboratory Results 04/03/21 04/03/21 04/03/21 Range/Units 20:19 20:19 20:19 WBC 10.5 (4.0-10.5) K/mm3 RBC 3.52 L (4.1-5.4) M/mm3 Hgb 10.8 L (12.0-16.0) gm/dl Hct 33.0 L (35-47) % MCV 93.8 (78-100) fl MCH 30.7 (26-32) pg MCHC 32.7 (32-36) g/dl RDW 12.7 (11.5-14.0) % Plt Count 213 (150-450) K/mm3 MPV 9.5 (7.5-11.0) fl Gran % 66.4 H (36.0-66.0) % Eos # (Auto) 0.15 (0-0.5) Absolute Lymphs (auto) 2.44 (1.0-4.6) Absolute Monos (auto) 0.93 (0.0-1.3) Lymphocytes % 23.2 L (24.0-44.0) % Monocytes % 8.8 (0.0-12.0) % Eosinophils % 1.4 (0.00-5.0) % Basophils % 0.2 (0.0-0.4) % Absolute Granulocytes 6.99 H (1.4-6.9) Basophils # 0.02 (0-0.4) Sodium 133 L (137-145) mmol/L Potassium 3.6 (3.5-5.1) mmol/L Chloride 104 (98-107) mmol/L Carbon Dioxide 20 L (22-30) mmol/L Anion Gap 12.3 (5-15) MEQ/L BUN 3 L (7-17) mg/dL Creatinine 0.32 L (0.52-1.04) mg/dL Estimated GFR > 60.0 ML/MIN Glucose 79 (74-106) mg/dL Calcium 8.3 L (8.4-10.2) mg/dL Total Bilirubin 0.40 (0.2-1.3) mg/dL AST 21 (14-36) U/L ALT 8 (0-35) U/L Alkaline Phosphatase 100 (38-126) U/L Serum Total Protein 6.6 (6.3-8.2) g/dL Albumin 3.5 (3.5-5.0) g/dL Lipase 60 (23-300) U/L Urine Color COLORLESS (YELLOW) Urine Appearance CLEAR (CLEAR) Urine pH 8.0 (5-6) Ur Specific [place] 1.002 (1.005-1.025) Urine Protein NEGATIVE (Negative) Urine Ketones NEGATIVE (NEGATIVE) Urine Blood NEGATIVE (0-5) Mynor/ul Urine Nitrite NEGATIVE (NEGATIVE) Urine Bilirubin NEGATIVE (NEGATIVE) Urine Urobilinogen NEGATIVE (0-1) mg/dL Ur Leukocyte Esterase NEGATIVE (NEGATIVE) Urine WBC (Auto) NONE (0-5) /HPF Urine RBC (Auto) NONE (0-2) /HPF U Epithel Cells (Auto) NONE (FEW) /HPF Urine Bacteria (Auto) NONE (NEGATIVE) /HPF Urine Culture Reflexed NO (NO) Urine Glucose NEGATIVE (NEGATIVE) mg/dL - Progress Progress: improved Progress Note: She is given fluid bolus and Tylenol. Discussed with her primary OB Dr. Keene, reviewed history, recommended pelvic exam and heart tones along with baseline work-up and hydration. Pelvic exam did not reveal any cervical dilatation. Good heart tones. No obvious contractions. She is given fluids, feeling better on reevaluation baseline work-up grossly unremarkable. Recommended outpatient follow-up and supportive care discussed signs symptoms of worsening needing return to ER which she seems understanding. 04/03/21 21:54 Counseled pt/family regarding: lab results, diagnosis, need for follow-up - Departure Departure Disposition: Home Clinical Impression: Nausea and vomiting during , Diarrhea during Condition: Stable Critical Care Time: No Referrals: MARY MARSHALL [Primary Care Provider] - STELLA SOTO DO [ACTIVE STAFF] - (Call tomorrow for reevaluation/appointment) Instructions: Taking in Enough Fluids While You are Additional Instructions: Drink plenty of fluids. Continue with Zofran as needed. Follow-up with your primary OB for reevaluation. Return to ER for intractable vomiting/diarrhea or if have worsening cramping, vaginal bleeding discharge etc.
[2021-04-03 20:54] LABS: Absolute Neutrophil Ct (ANC) 6.99 (1.4-6.9); BASOPHIL % 0.2 % (0.0-0.4); Basophil (Absolute #) 0.02 (0-0.4); Eosinophil % 1.4 % (0.00-5.0); Eosinophil (Absolute #) 0.15 (0-0.5); Hemoglobin 10.8 gm/dl (12.0-16.0); Lymphocyte (Absolute #) 2.44 (1.0-4.6); Lymphocytes % 23.2 % (24.0-44.0); Mean Cell Volume 93.8 fl (78-100); Mean Corpuscular Hemoglobin 30.7 pg (26-32); Mean Corpuscular Hgb Concent. 32.7 g/dl (32-36); Mean Platelet Volume 9.5 fl (7.5-11.0); Monocyte (Absolute #) 0.93 (0.0-1.3); Monocytes % 8.8 % (0.0-12.0); Neutrophil % 66.4 % (36.0-66.0); Platelet Count 213 K/mm3 (150-450); Red Blood Count 3.52 M/mm3 (4.1-5.4); Red Cell Distribution Width 12.7 % (11.5-14.0); White Blood Count 10.5 K/mm3 (4.0-10.5)
[2021-04-03 21:02] LABS: Appearance CLEAR (CLEAR); Bilirubin NEGATIVE (NEGATIVE); Blood NEGATIVE Ery/ul (0-5); Glucose NEGATIVE (NEGATIVE); Ketones NEGATIVE (NEGATIVE); Leukocyte Esterase NEGATIVE (NEGATIVE); Nitrite NEGATIVE (NEGATIVE); Protein,Urine Dip NEGATIVE (Negative); Specific Gravity 1.002 (1.005-1.025); Urobilinogen NEGATIVE mg/dL (0-1)
[2021-04-03 21:12] LABS: ALBUMIN 3.5 g/dL (3.5-5.0); ALKALINE PHOSPHATASE 100 U/L (38-126); ANION GAP 12.3 MEQ/L (5-15); BLOOD UREA NITROGEN 3 mg/dL (7-17); CHLORIDE 104 mmol/L (98-107); Calcium 8.3 mg/dL (8.4-10.2); Carbon Dioxide 20 mmol/L (22-30); Creatinine 1 0.32 mg/dL (0.52-1.04); EST GLOMERULAR FILTRATION RATE > 60.0 ML/MIN; Glucose 79 mg/dL (74-106); LIPASE 60 U/L (23-300); Potassium 3.6 mmol/L (3.5-5.1); SGOT/AST 21 U/L (14-36); SGPT/ALT 8 U/L (0-35); SODIUM 133 mmol/L (137-145); Total Protein 6.6 g/dL (6.3-8.2)
[2021-04-03 21:58] VITALS: BP 115/78; PULSE 76; O2SAT 99
[2021-04-03 22:58] LABS: Slide Review 1 YES
== END 2021-04-03 22:02 | disposition home or self-care (01) ==
LOC: ED 19:44
DX: O21.0 Mild hyperemesis gravidarum (principal); O26.892 Other specified pregnancy related conditions, second trimester; R19.7 Diarrhea, unspecified; Z3A.26 26 weeks gestation of pregnancy
CPT/HCPCS: 36000; 36415; 80053; 81001; 83690; 85025; 99284; A9270-GY

== ENCOUNTER 2021-04-16 15:05 | Observation (INO) | payer OTHER ==
[2021-04-16 15:32] VITALS: BP 108/67; PULSE 94; O2SAT 99
[2021-04-16 15:32] LABS: Appearance CLEAR (CLEAR); Bacteria RARE /HPF (NEGATIVE); Bilirubin NEGATIVE (NEGATIVE); Blood NEGATIVE Ery/ul (0-5); Epithelial Cells RARE /HPF (FEW); Glucose NEGATIVE (NEGATIVE); Ketones NEGATIVE (NEGATIVE); Leukocyte Esterase SMALL (NEGATIVE); Nitrite NEGATIVE (NEGATIVE); Protein,Urine Dip NEGATIVE (Negative); Specific Gravity 1.006 (1.005-1.025); Urobilinogen NEGATIVE mg/dL (0-1); WBC 0-2 /HPF (0-5)
[2021-04-16 15:38] LABS: Amphetamine,Urine NEGATIVE (NEGATIVE); Barbiturate,Urine NEGATIVE (NEGATIVE); Benzodiazepine,Urine NEGATIVE (NEGATIVE); Cocaine,Urine NEGATIVE (NEGATIVE); Methadone,Urine NEGATIVE (NEGATIVE); Opiate,Urine NEGATIVE (NEGATIVE); PCP,Urine NEGATIVE (NEGATIVE); THC,Urine NEGATIVE (NEGATIVE)
== END 2021-04-16 16:40 | disposition home or self-care (01) ==
LOC: OB 15:05
PROVIDERS: ADMIT Obstetrics & Gynecology; ATTEND Obstetrics & Gynecology
DX: Z34.82 Encounter for supervision of other normal pregnancy, second trimester (principal); Z3A.27 27 weeks gestation of pregnancy
CPT/HCPCS: 80307; 81001; 87086; G0378

== ENCOUNTER 2021-04-24 17:55 | Observation (INO) | payer OTHER ==
[2021-04-24 18:54] VITALS: BP 108/70; PULSE 76; O2SAT 99
== END 2021-04-24 19:15 | disposition home or self-care (01) ==
LOC: OB 17:55
PROVIDERS: ADMIT Obstetrics & Gynecology; ATTEND Obstetrics & Gynecology
DX: O26.893 Other specified pregnancy related conditions, third trimester (principal); Z3A.29 29 weeks gestation of pregnancy; R51.9 Headache, unspecified; R11.0 Nausea
CPT/HCPCS: G0378

== ENCOUNTER 2021-05-02 17:56 | Observation (INO) | payer OTHER | END 2021-05-02 19:12 | disposition home or self-care (01) | LOC: OB 17:56 | PROVIDERS: ADMIT Obstetrics & Gynecology; ATTEND Obstetrics & Gynecology | DX: Z34.83 Encounter for supervision of other normal pregnancy, third trimester (principal); Z3A.30 30 weeks gestation of pregnancy | CPT/HCPCS: 84112; G0378 ==

== ENCOUNTER 2021-05-11 23:35 | Observation (INO) | payer OTHER ==
[2021-05-12 00:15] LABS: Amphetamine,Urine NEGATIVE (NEGATIVE); Barbiturate,Urine NEGATIVE (NEGATIVE); Benzodiazepine,Urine NEGATIVE (NEGATIVE); Cocaine,Urine NEGATIVE (NEGATIVE); Methadone,Urine NEGATIVE (NEGATIVE); Opiate,Urine NEGATIVE (NEGATIVE); PCP,Urine NEGATIVE (NEGATIVE); THC,Urine NEGATIVE (NEGATIVE)
[2021-05-12 00:16] LABS: Appearance CLOUDY (CLEAR); Bacteria RARE /HPF (NEGATIVE); Bilirubin NEGATIVE (NEGATIVE); Blood NEGATIVE Ery/ul (0-5); Epithelial Cells FEW /HPF (FEW); Glucose NEGATIVE (NEGATIVE); Ketones NEGATIVE (NEGATIVE); Leukocyte Esterase MODERATE (NEGATIVE); Mucus SLIGHT /HPF (NEGATIVE); Nitrite NEGATIVE (NEGATIVE); Protein,Urine Dip NEGATIVE (Negative); Specific Gravity 1.009 (1.005-1.025); Urobilinogen NEGATIVE mg/dL (0-1)
[2021-05-12] MEDS: Lactated Ringers 1,000 ML IV ONE ×2 (00:37→05:01)
[2021-05-12] MEDS ORDERED: PROCARDIA 10 MG PO ONE (02:03)
[2021-05-12] MEDS ORDERED: TYLENOL 325 MG PO PRN (02:20)
[2021-05-12] MEDS ORDERED: Lactated Ringers 1,000 ML IV SCH (02:30)
[2021-05-12] MEDS ORDERED: Celestone Soluspan 6MG/ML IM ONE (04:20)
[2021-05-12] MEDS ORDERED: Magnesium Sulfate 40 Gm/1000 Ml H2O Premix*** 1,000 ML IV SCH (04:30)
[2021-05-12 05:01] LABS: INR 0.95 (0.8-3.0); PROTIME 11.2 SECONDS (9.4-12.5)
[2021-05-12 05:02] LABS: Hematocrit 30.6 % (35-47); Hemoglobin 9.7 gm/dl (12.0-16.0); Mean Cell Volume 92.4 fl (78-100); Mean Corpuscular Hemoglobin 29.3 pg (26-32); Mean Corpuscular Hgb Concent. 31.7 g/dl (32-36); Mean Platelet Volume 9.1 fl (7.5-11.0); Platelet Count 166 K/mm3 (150-450); Red Blood Count 3.31 M/mm3 (4.1-5.4); Red Cell Distribution Width 12.9 % (11.5-14.0); White Blood Count 10.9 K/mm3 (4.0-10.5)
[2021-05-12 05:04] LABS: PTT 24.2 SECONDS (25.1-36.5)
[2021-05-12 05:14] LABS: ALBUMIN 2.8 g/dL (3.5-5.0); ALKALINE PHOSPHATASE 166 U/L (38-126); ANION GAP 7.9 MEQ/L (5-15); CHLORIDE 106 mmol/L (98-107); Calcium 8.1 mg/dL (8.4-10.2); Carbon Dioxide 25 mmol/L (22-30); Creatinine 1 0.36 mg/dL (0.52-1.04); EST GLOMERULAR FILTRATION RATE > 60.0 ML/MIN; Glucose 99 mg/dL (74-106); Potassium 3.5 mmol/L (3.5-5.1); SGOT/AST 16 U/L (14-36); SGPT/ALT 9 U/L (0-35); SODIUM 135 mmol/L (137-145); Total Protein 5.5 g/dL (6.3-8.2)
[2021-05-12 05:16] LABS: BLOOD UREA NITROGEN < 2 mg/dL (7-17)
--- NOTE | 2021-05-12 08:05 | PCM.DS ---
Discharge Summary Date of Admission: 05/11/21 23:35 Admitting Physician: STELLA SOTO DO Consults: Consults on Case 05/12/21 04:14 Notify Physician ROUTINE Primary Care Provider: MARY MARSHALL Allergies Allergies venlafaxine [From Effexor] Allergy (Verified 05/12/21 00:16) Irregular Heart Beat hives also Hospital Summary - Hospital Course Hospital Course: pt admitted secondary to having regular uterine contx and was given procardia 10mg without resolution of contx and declined terbutaline. pt was then started on mgso4 and contx subsided. pt was given first dose celestone and was instructed to fu in 24 hrs for repeat dose. pt had pelvic exam this morning and was noted to being closed and thick on exam. pt stable for discharge and was advised to fu in office as scheduled next week to go home on procardia 10mg q 6 hrs. - Vitals & Intake/Output Vital Signs: Vital Signs Temperature 97.9 F 05/12/21 04:30 Pulse Rate 76 05/12/21 07:00 Respiratory Rate 20 05/12/21 00:24 Blood Pressure 102/59 05/12/21 07:00 O2 Sat by Pulse Oximetry 94 L 05/12/21 06:00 Intake & Output: Intake & Output 05/09/21 05/10/21 05/11/21 05/12/21 11:59 11:59 11:59 11:59 Intake Total 3315 Output Total 1125 Balance 2190 Weight 74.389 kg - Lab Result Diagrams: 05/12/21 04:51 05/12/21 04:51 Lab Results-Last 24 Hrs: Lab Results-Last 24 Hours 05/11/21 05/11/21 05/12/21 Range/Units 23:55 23:55 03:26 WBC (4.0-10.5) K/mm3 RBC (4.1-5.4) M/mm3 Hgb (12.0-16.0) gm/dl Hct (35-47) % MCV (78-100) fl MCH (26-32) pg MCHC (32-36) g/dl RDW (11.5-14.0) % Plt Count (150-450) K/mm3 MPV (7.5-11.0) fl PT (9.4-12.5) SECONDS INR (0.8-3.0) APTT (25.1-36.5) SECONDS Sodium (137-145) mmol/L Potassium (3.5-5.1) mmol/L Chloride (98-107) mmol/L Carbon Dioxide (22-30) mmol/L Anion Gap (5-15) MEQ/L BUN (7-17) mg/dL Creatinine (0.52-1.04) mg/dL Estimated GFR ML/MIN Glucose (74-106) mg/dL POC Glucometer 79 (74 to 106) mg/dL Calcium (8.4-10.2) mg/dL Magnesium (1.6-2.3) mg/dL Total Bilirubin (0.2-1.3) mg/dL AST (14-36) U/L ALT (0-35) U/L Alkaline Phosphatase (38-126) U/L Serum Total Protein (6.3-8.2) g/dL Albumin (3.5-5.0) g/dL Urine Color YELLOW (YELLOW) Urine Appearance CLOUDY (CLEAR) Urine pH 8.0 (5-6) Ur Specific [place] 1.009 (1.005-1.025) Urine Protein NEGATIVE (Negative) Urine Ketones NEGATIVE (NEGATIVE) Urine Blood NEGATIVE (0-5) Mynor/ul Urine Nitrite NEGATIVE (NEGATIVE) Urine Bilirubin NEGATIVE (NEGATIVE) Urine Urobilinogen NEGATIVE (0-1) mg/dL Ur Leukocyte Esterase MODERATE (NEGATIVE) Urine WBC (Auto) 3-5 (0-5) /HPF Urine RBC (Auto) NONE (0-2) /HPF U Epithel Cells (Auto) FEW (FEW) /HPF Urine Bacteria (Auto) RARE (NEGATIVE) /HPF Urine Mucus (Auto) SLIGHT (NEGATIVE) /HPF Urine Culture Reflexed NO (NO) Urine Glucose NEGATIVE (NEGATIVE) mg/dL Urine Opiates Level NEGATIVE (NEGATIVE) Ur Methadone NEGATIVE (NEGATIVE) Urine Barbiturates NEGATIVE (NEGATIVE) Ur Phencyclidine (PCP) NEGATIVE (NEGATIVE) Urine Amphetamine NEGATIVE (NEGATIVE) U Benzodiazepine Level NEGATIVE (NEGATIVE) Urine Cocaine NEGATIVE (NEGATIVE) Urine Marijuana (THC) NEGATIVE (NEGATIVE) 05/12/21 05/12/21 05/12/21 Range/Units 04:51 04:51 04:51 WBC 10.9 H (4.0-10.5) K/mm3 RBC 3.31 L (4.1-5.4) M/mm3 Hgb 9.7 L (12.0-16.0) gm/dl Hct 30.6 L (35-47) % MCV 92.4 (78-100) fl MCH 29.3 (26-32) pg MCHC 31.7 L (32-36) g/dl RDW 12.9 (11.5-14.0) % Plt Count 166 (150-450) K/mm3 MPV 9.1 (7.5-11.0) fl PT (9.4-12.5) SECONDS INR (0.8-3.0) APTT (25.1-36.5) SECONDS Sodium 135 L (137-145) mmol/L Potassium 3.5 (3.5-5.1) mmol/L Chloride 106 (98-107) mmol/L Carbon Dioxide 25 (22-30) mmol/L Anion Gap 7.9 (5-15) MEQ/L BUN < 2 L (7-17) mg/dL Creatinine 0.36 L (0.52-1.04) mg/dL Estimated GFR > 60.0 ML/MIN Glucose 99 (74-106) mg/dL POC Glucometer (74 to 106) mg/dL Calcium 8.1 L (8.4-10.2) mg/dL Magnesium 2.2 (1.6-2.3) mg/dL Total Bilirubin 0.30 (0.2-1.3) mg/dL AST 16 (14-36) U/L ALT 9 (0-35) U/L Alkaline Phosphatase 166 H (38-126) U/L Serum Total Protein 5.5 L (6.3-8.2) g/dL Albumin 2.8 L (3.5-5.0) g/dL Urine Color (YELLOW) Urine Appearance (CLEAR) Urine pH (5-6) Ur Specific [place] (1.005-1.025) Urine Protein (Negative) Urine Ketones (NEGATIVE) Urine Blood (0-5) Mynor/ul Urine Nitrite (NEGATIVE) Urine Bilirubin (NEGATIVE) Urine Urobilinogen (0-1) mg/dL Ur Leukocyte Esterase (NEGATIVE) Urine WBC (Auto) (0-5) /HPF Urine RBC (Auto) (0-2) /HPF U Epithel Cells (Auto) (FEW) /HPF Urine Bacteria (Auto) (NEGATIVE) /HPF Urine Mucus (Auto) (NEGATIVE) /HPF Urine Culture Reflexed (NO) Urine Glucose (NEGATIVE) mg/dL Urine Opiates Level (NEGATIVE) Ur Methadone (NEGATIVE) Urine Barbiturates (NEGATIVE) Ur Phencyclidine (PCP) (NEGATIVE) Urine Amphetamine (NEGATIVE) U Benzodiazepine Level (NEGATIVE) Urine Cocaine (NEGATIVE) Urine Marijuana (THC) (NEGATIVE) 05/12/21 Range/Units 04:51 WBC (4.0-10.5) K/mm3 RBC (4.1-5.4) M/mm3 Hgb (12.0-16.0) gm/dl Hct (35-47) % MCV (78-100) fl MCH (26-32) pg MCHC (32-36) g/dl RDW (11.5-14.0) % Plt Count (150-450) K/mm3 MPV (7.5-11.0) fl PT 11.2 (9.4-12.5) SECONDS INR 0.95 (0.8-3.0) APTT 24.2 L (25.1-36.5) SECONDS Sodium (137-145) mmol/L Potassium (3.5-5.1) mmol/L Chloride (98-107) mmol/L Carbon Dioxide (22-30) mmol/L Anion Gap (5-15) MEQ/L BUN (7-17) mg/dL Creatinine (0.52-1.04) mg/dL Estimated GFR ML/MIN Glucose (74-106) mg/dL POC Glucometer (74 to 106) mg/dL Calcium (8.4-10.2) mg/dL Magnesium (1.6-2.3) mg/dL Total Bilirubin (0.2-1.3) mg/dL AST (14-36) U/L ALT (0-35) U/L Alkaline Phosphatase (38-126) U/L Serum Total Protein (6.3-8.2) g/dL Albumin (3.5-5.0) g/dL Urine Color (YELLOW) Urine Appearance (CLEAR) Urine pH (5-6) Ur Specific [place] (1.005-1.025) Urine Protein (Negative) Urine Ketones (NEGATIVE) Urine Blood (0-5) Mynor/ul Urine Nitrite (NEGATIVE) Urine Bilirubin (NEGATIVE) Urine Urobilinogen (0-1) mg/dL Ur Leukocyte Esterase (NEGATIVE) Urine WBC (Auto) (0-5) /HPF Urine RBC (Auto) (0-2) /HPF U Epithel Cells (Auto) (FEW) /HPF Urine Bacteria (Auto) (NEGATIVE) /HPF Urine Mucus (Auto) (NEGATIVE) /HPF Urine Culture Reflexed (NO) Urine Glucose (NEGATIVE) mg/dL Urine Opiates Level (NEGATIVE) Ur Methadone (NEGATIVE) Urine Barbiturates (NEGATIVE) Ur Phencyclidine (PCP) (NEGATIVE) Urine Amphetamine (NEGATIVE) U Benzodiazepine Level (NEGATIVE) Urine Cocaine (NEGATIVE) Urine Marijuana (THC) (NEGATIVE) Micro Results-Entire Visit: Accuchecks Date 05/12/21 - Discharge Disposition: Home, Self-Care Condition: Stable Prescriptions: New Nifedipine 10 mg [Procardia 10 mg] 10 mg PO Q6-8HPRN 30 Days #90 No Action Buspirone HCl [Buspar] 5 mg PO TID Vits W-Ca,Fe,FA(<1Mg) [] 1 each PO DAILY Aspirin [Aspirin EC] 81 mg PO DAILY Hydroxyzine HCl 25 mg [Atarax 25 mg] 25 mg PO TID PRN PRN PRN Reason: Anxiety Sertraline HCl 50 mg [Zoloft 50 mg Tablet] 75 mg PO DAILY Follow up with: MARY MARSHALL [Primary Care Provider] - STELLA SOTO DO [ACTIVE STAFF] - 1 Week
--- NOTE | 2021-05-12 08:08 | PCM.NOTE ---
Date and Time: 05/12/21805 Subjective Assessment: pt currently admitted for contx and was placed on mgso4 and now doing well. has received one dose of celestone and is to return tomorrow for second dose. pt currently doing well and had received one dose of procarida with minimal resolution . pt had declined terbutaline. vss afebrile abd; soft pelvc; closed thick post a/p iup 31 wks with contx will discontinue mgso 4 at this time may dc home today and fu in office as scheduled. OBJECTIVE DATA Vital Signs: Vital Signs - 24 hr Temp Pulse Resp BP BP Pulse Ox 05/12/21 07:00 76 102/59 05/12/21 06:00 85 109/65 111/66 94 L 05/12/21 05:00 83 108/58 05/12/21 04:30 97.9 F 87 111/68 99 05/12/21 03:45 86 105/60 98 05/12/21 03:15 77 97/57 97 05/12/21 02:50 92 H 96 05/12/21 02:45 115 H 110/65 98 05/12/21 00:24 98.0 F 87 20 108/64 97 Pain Assessment - Last Documented Pain Intensity 4 Pain Scale Used 0-10 Pain Scale Intake and Output: Intake & Output 05/09/21 05/10/21 05/11/21 05/12/21 11:59 11:59 11:59 11:59 Intake Total 3315 Output Total 1125 Balance 2190 Weight 74.389 kg Lab Results: Lab Results-Last 24 Hours 05/11/21 05/11/21 05/12/21 Range/Units 23:55 23:55 03:26 WBC (4.0-10.5) K/mm3 RBC (4.1-5.4) M/mm3 Hgb (12.0-16.0) gm/dl Hct (35-47) % MCV (78-100) fl MCH (26-32) pg MCHC (32-36) g/dl RDW (11.5-14.0) % Plt Count (150-450) K/mm3 MPV (7.5-11.0) fl PT (9.4-12.5) SECONDS INR (0.8-3.0) APTT (25.1-36.5) SECONDS Sodium (137-145) mmol/L Potassium (3.5-5.1) mmol/L Chloride (98-107) mmol/L Carbon Dioxide (22-30) mmol/L Anion Gap (5-15) MEQ/L BUN (7-17) mg/dL Creatinine (0.52-1.04) mg/dL Estimated GFR ML/MIN Glucose (74-106) mg/dL POC Glucometer 79 (74 to 106) mg/dL Calcium (8.4-10.2) mg/dL Magnesium (1.6-2.3) mg/dL Total Bilirubin (0.2-1.3) mg/dL AST (14-36) U/L ALT (0-35) U/L Alkaline Phosphatase (38-126) U/L Serum Total Protein (6.3-8.2) g/dL Albumin (3.5-5.0) g/dL Urine Color YELLOW (YELLOW) Urine Appearance CLOUDY (CLEAR) Urine pH 8.0 (5-6) Ur Specific [place] 1.009 (1.005-1.025) Urine Protein NEGATIVE (Negative) Urine Ketones NEGATIVE (NEGATIVE) Urine Blood NEGATIVE (0-5) Mynor/ul Urine Nitrite NEGATIVE (NEGATIVE) Urine Bilirubin NEGATIVE (NEGATIVE) Urine Urobilinogen NEGATIVE (0-1) mg/dL Ur Leukocyte Esterase MODERATE (NEGATIVE) Urine WBC (Auto) 3-5 (0-5) /HPF Urine RBC (Auto) NONE (0-2) /HPF U Epithel Cells (Auto) FEW (FEW) /HPF Urine Bacteria (Auto) RARE (NEGATIVE) /HPF Urine Mucus (Auto) SLIGHT (NEGATIVE) /HPF Urine Culture Reflexed NO (NO) Urine Glucose NEGATIVE (NEGATIVE) mg/dL Urine Opiates Level NEGATIVE (NEGATIVE) Ur Methadone NEGATIVE (NEGATIVE) Urine Barbiturates NEGATIVE (NEGATIVE) Ur Phencyclidine (PCP) NEGATIVE (NEGATIVE) Urine Amphetamine NEGATIVE (NEGATIVE) U Benzodiazepine Level NEGATIVE (NEGATIVE) Urine Cocaine NEGATIVE (NEGATIVE) Urine Marijuana (THC) NEGATIVE (NEGATIVE) 05/12/21 05/12/21 05/12/21 Range/Units 04:51 04:51 04:51 WBC 10.9 H (4.0-10.5) K/mm3 RBC 3.31 L (4.1-5.4) M/mm3 Hgb 9.7 L (12.0-16.0) gm/dl Hct 30.6 L (35-47) % MCV 92.4 (78-100) fl MCH 29.3 (26-32) pg MCHC 31.7 L (32-36) g/dl RDW 12.9 (11.5-14.0) % Plt Count 166 (150-450) K/mm3 MPV 9.1 (7.5-11.0) fl PT (9.4-12.5) SECONDS INR (0.8-3.0) APTT (25.1-36.5) SECONDS Sodium 135 L (137-145) mmol/L Potassium 3.5 (3.5-5.1) mmol/L Chloride 106 (98-107) mmol/L Carbon Dioxide 25 (22-30) mmol/L Anion Gap 7.9 (5-15) MEQ/L BUN < 2 L (7-17) mg/dL Creatinine 0.36 L (0.52-1.04) mg/dL Estimated GFR > 60.0 ML/MIN Glucose 99 (74-106) mg/dL POC Glucometer (74 to 106) mg/dL Calcium 8.1 L (8.4-10.2) mg/dL Magnesium 2.2 (1.6-2.3) mg/dL Total Bilirubin 0.30 (0.2-1.3) mg/dL AST 16 (14-36) U/L ALT 9 (0-35) U/L Alkaline Phosphatase 166 H (38-126) U/L Serum Total Protein 5.5 L (6.3-8.2) g/dL Albumin 2.8 L (3.5-5.0) g/dL Urine Color (YELLOW) Urine Appearance (CLEAR) Urine pH (5-6) Ur Specific [place] (1.005-1.025) Urine Protein (Negative) Urine Ketones (NEGATIVE) Urine Blood (0-5) Mynor/ul Urine Nitrite (NEGATIVE) Urine Bilirubin (NEGATIVE) Urine Urobilinogen (0-1) mg/dL Ur Leukocyte Esterase (NEGATIVE) Urine WBC (Auto) (0-5) /HPF Urine RBC (Auto) (0-2) /HPF U Epithel Cells (Auto) (FEW) /HPF Urine Bacteria (Auto) (NEGATIVE) /HPF Urine Mucus (Auto) (NEGATIVE) /HPF Urine Culture Reflexed (NO) Urine Glucose (NEGATIVE) mg/dL Urine Opiates Level (NEGATIVE) Ur Methadone (NEGATIVE) Urine Barbiturates (NEGATIVE) Ur Phencyclidine (PCP) (NEGATIVE) Urine Amphetamine (NEGATIVE) U Benzodiazepine Level (NEGATIVE) Urine Cocaine (NEGATIVE) Urine Marijuana (THC) (NEGATIVE) 05/12/21 Range/Units 04:51 WBC (4.0-10.5) K/mm3 RBC (4.1-5.4) M/mm3 Hgb (12.0-16.0) gm/dl Hct (35-47) % MCV (78-100) fl MCH (26-32) pg MCHC (32-36) g/dl RDW (11.5-14.0) % Plt Count (150-450) K/mm3 MPV (7.5-11.0) fl PT 11.2 (9.4-12.5) SECONDS INR 0.95 (0.8-3.0) APTT 24.2 L (25.1-36.5) SECONDS Sodium (137-145) mmol/L Potassium (3.5-5.1) mmol/L Chloride (98-107) mmol/L Carbon Dioxide (22-30) mmol/L Anion Gap (5-15) MEQ/L BUN (7-17) mg/dL Creatinine (0.52-1.04) mg/dL Estimated GFR ML/MIN Glucose (74-106) mg/dL POC Glucometer (74 to 106) mg/dL Calcium (8.4-10.2) mg/dL Magnesium (1.6-2.3) mg/dL Total Bilirubin (0.2-1.3) mg/dL AST (14-36) U/L ALT (0-35) U/L Alkaline Phosphatase (38-126) U/L Serum Total Protein (6.3-8.2) g/dL Albumin (3.5-5.0) g/dL Urine Color (YELLOW) Urine Appearance (CLEAR) Urine pH (5-6) Ur Specific [place] (1.005-1.025) Urine Protein (Negative) Urine Ketones (NEGATIVE) Urine Blood (0-5) Mynor/ul Urine Nitrite (NEGATIVE) Urine Bilirubin (NEGATIVE) Urine Urobilinogen (0-1) mg/dL Ur Leukocyte Esterase (NEGATIVE) Urine WBC (Auto) (0-5) /HPF Urine RBC (Auto) (0-2) /HPF U Epithel Cells (Auto) (FEW) /HPF Urine Bacteria (Auto) (NEGATIVE) /HPF Urine Mucus (Auto) (NEGATIVE) /HPF Urine Culture Reflexed (NO) Urine Glucose (NEGATIVE) mg/dL Urine Opiates Level (NEGATIVE) Ur Methadone (NEGATIVE) Urine Barbiturates (NEGATIVE) Ur Phencyclidine (PCP) (NEGATIVE) Urine Amphetamine (NEGATIVE) U Benzodiazepine Level (NEGATIVE) Urine Cocaine (NEGATIVE) Urine Marijuana (THC) (NEGATIVE)
[2021-05-16 16:55] VITALS: BP 102/59; PULSE 76; O2SAT 94
== END 2021-05-12 09:45 | disposition home or self-care (01) ==
LOC: OB 23:35
PROVIDERS: ADMIT Obstetrics & Gynecology; ATTEND Obstetrics & Gynecology
DX: Z34.83 Encounter for supervision of other normal pregnancy, third trimester (principal); Z3A.37 37 weeks gestation of pregnancy
CPT/HCPCS: 36415; 80053; 80307; 81001; 82947; 83735; 85027; 85610; 85730; 87086; 96372; G0378; J0702; A9270-GY

== ENCOUNTER 2021-05-31 23:46 | Observation (INO) | payer OTHER ==
[2021-06-01 00:11] VITALS: BP 116/67; PULSE 90
[2021-06-01 00:22] LABS: Amphetamine,Urine NEGATIVE (NEGATIVE); Barbiturate,Urine NEGATIVE (NEGATIVE); Benzodiazepine,Urine NEGATIVE (NEGATIVE); Cocaine,Urine NEGATIVE (NEGATIVE); Methadone,Urine NEGATIVE (NEGATIVE); Opiate,Urine NEGATIVE (NEGATIVE); PCP,Urine NEGATIVE (NEGATIVE); THC,Urine NEGATIVE (NEGATIVE)
== END 2021-06-01 01:25 | disposition home or self-care (01) ==
LOC: OB 23:46
PROVIDERS: ADMIT Obstetrics & Gynecology; ATTEND Obstetrics & Gynecology
DX: Z34.83 Encounter for supervision of other normal pregnancy, third trimester (principal); Z3A.34 34 weeks gestation of pregnancy
CPT/HCPCS: 80307; G0378

== ENCOUNTER 2021-06-02 19:59 | Observation (INO) | payer OTHER ==
[2021-06-02 20:24] VITALS: O2SAT 99
[2021-06-02 21:05] LABS: Hematocrit 32.7 % (35-47); Hemoglobin 10.2 gm/dl (12.0-16.0); Mean Cell Volume 89.6 fl (78-100); Mean Corpuscular Hemoglobin 27.9 pg (26-32); Mean Corpuscular Hgb Concent. 31.2 g/dl (32-36); Mean Platelet Volume 9.9 fl (7.5-11.0); Platelet Count 177 K/mm3 (150-450); Red Blood Count 3.65 M/mm3 (4.1-5.4); Red Cell Distribution Width 13.2 % (11.5-14.0)
[2021-06-02 21:20] LABS: Appearance SLIGHTLY CLOUDY (CLEAR); Bacteria RARE /HPF (NEGATIVE); Bilirubin NEGATIVE (NEGATIVE); Blood NEGATIVE Ery/ul (0-5); Epithelial Cells FEW /HPF (FEW); Glucose NEGATIVE (NEGATIVE); Ketones SMALL (NEGATIVE); Leukocyte Esterase MODERATE (NEGATIVE); Mucus SLIGHT /HPF (NEGATIVE); Nitrite NEGATIVE (NEGATIVE); Protein,Urine Dip NEGATIVE (Negative); RBC 0-2 /HPF (0-2); Specific Gravity 1.009 (1.005-1.025); Urobilinogen NEGATIVE mg/dL (0-1)
[2021-06-02 21:22] LABS: ALBUMIN 3.5 g/dL (3.5-5.0); ALKALINE PHOSPHATASE 323 U/L (38-126); ANION GAP 10.5 MEQ/L (5-15); CHLORIDE 103 mmol/L (98-107); Calcium 8.4 mg/dL (8.4-10.2); Carbon Dioxide 22 mmol/L (22-30); Creatinine 1 0.38 mg/dL (0.52-1.04); EST GLOMERULAR FILTRATION RATE > 60.0 ML/MIN; Glucose 81 mg/dL (74-106); Potassium 3.6 mmol/L (3.5-5.1); SGOT/AST 24 U/L (14-36); SGPT/ALT 9 U/L (0-35); SODIUM 132 mmol/L (137-145); Total Protein 6.6 g/dL (6.3-8.2); Uric Acid 4.6 mg/dL (2.6-6.0)
[2021-06-02 21:26] LABS: BLOOD UREA NITROGEN < 2 mg/dL (7-17)
[2021-06-02 21:32] LABS: Creatinine, Urine Random 66.7 mg/dl
[2021-06-02 22:20] VITALS: BP 118/72; PULSE 89
== END 2021-06-02 22:15 | disposition home or self-care (01) ==
LOC: OB 19:59
PROVIDERS: ADMIT Obstetrics & Gynecology; ATTEND Obstetrics & Gynecology
DX: Z34.83 Encounter for supervision of other normal pregnancy, third trimester (principal); Z3A.34 34 weeks gestation of pregnancy
CPT/HCPCS: 36415; 80053; 81001; 82570; 84156; 84550; 85027; G0378

== ENCOUNTER 2021-06-04 13:01 | Observation (INO) | payer OTHER ==
[2021-06-04] MEDS ORDERED: Lactated Ringers 1,000 ML IV ONE (14:00)
[2021-06-04 14:19] LABS: Appearance SLIGHTLY CLOUDY (CLEAR); Bacteria FEW /HPF (NEGATIVE); Bilirubin NEGATIVE (NEGATIVE); Blood LARGE Ery/ul (0-5); Epithelial Cells FEW /HPF (FEW); Glucose NEGATIVE (NEGATIVE); Ketones NEGATIVE (NEGATIVE); Leukocyte Esterase SMALL (NEGATIVE); Mucus SLIGHT /HPF (NEGATIVE); Nitrite NEGATIVE (NEGATIVE); Protein,Urine Dip NEGATIVE (Negative); Specific Gravity 1.009 (1.005-1.025); Urobilinogen NEGATIVE mg/dL (0-1)
[2021-06-04 15:08] VITALS: BP 127/84; PULSE 105; O2SAT 99
== END 2021-06-04 16:20 | disposition home or self-care (01) ==
LOC: OB 13:01
PROVIDERS: ADMIT Obstetrics & Gynecology; ATTEND Obstetrics & Gynecology
DX: Z34.83 Encounter for supervision of other normal pregnancy, third trimester (principal); Z3A.34 34 weeks gestation of pregnancy
CPT/HCPCS: 81001; 87086; G0378

== ENCOUNTER 2021-10-30 19:31 | Emergency (ER) | payer OTHER ==
--- NOTE | 2021-10-30 19:58 | ERPHSYRPT ---
- History of Present Illness Source: patient Exam Limitations: other (Poor historian) Patient Subjective Stated Complaint: pt states she has had shortness of breath and cough for 2 days, states she has checked her bp at home and was 146/102. c/o slight headache in occipital area 08/04 Triage Nursing Assessment: pt alert and oriented, answers questions approp. pt ambulatory with steady gait noted. skin pink warm and dry. respirations nonlabored with lungs cta bilat. Physician History: 21 yo anxious wf cc of elevated BP/bilateral occipital ANNA x 1 day. Pt states that she has just not felt well over last day. She has a mild cough/mild coryza but denies fever. Pt denies fever/N/V/D/focal weakness but has had mild chest pain/dyspnea. Timing/Duration: yesterday Quality: aching Head Pain Location: occipital Severity of Pain-Max: moderate Severity of Pain-Current: mild Recent Head Trauma: no recent headache/trauma Associated Symptoms: nasal congestion, nasal drainage, No confusion, No dizziness, No fatigue, No facial pain, No fever/chills, No flushing, No light-he adedness, No loss of consciousness, No nausea/vomiting, No neck pain, No numbness in legs/feet, No rash, No sweating, No scotoma, No seizures, No sinus infection, No sensitive to light, No speech problems, No stiff neck, No trouble walking, No vision changes, No visual disturbance, No weakness Previous symptoms: no prior history Allergies/Adverse Reactions: venlafaxine [From Effexor] Allergy (Verified 10/30/21 19:50) Irregular Heart Beat hives also Home Medications: Buspirone HCl [Buspar] 5 mg PO TID 10/31/20 [History] Vits W-Ca,Fe,FA(<1Mg) [] 1 each PO DAILY 10/31/20 [History] Aspirin [Aspirin EC] 81 mg PO DAILY 11/02/20 [History] Hydroxyzine HCl 25 mg [Atarax 25 mg] 25 mg PO TID PRN PRN 11/28/20 [History] Sertraline HCl 50 mg [Zoloft 50 mg Tablet] 75 mg PO DAILY 04/16/21 [History] Hx Tetanus, Diphtheria Vaccination/Date Given: Yes Hx Influenza Vaccination/Date Given: No Hx Pneumococcal Vaccination/Date Given: No Immunizations Up to Date: Yes Travel Risk - International Travel Have you traveled outside of the country in past 3 weeks: No - Coronavirus Screening Are you exhibiting any of the following symptoms?: Yes Symptoms: Cough: New Onset, Shortness of Breath Close contact with a COVID-19 positive Pt in past 14-21 Days: No - Vaccine Status Have you recieved a Covid-19 vaccination: No - Review of Systems Constitutional: No Symptoms Eyes: No Symptoms Ears, Nose, & Throat: No Symptoms, Nose Discharge Respiratory: No Symptoms, Cough Cardiac: No Symptoms Abdominal/Gastrointestinal: No Symptoms Genitourinary Symptoms: No Symptoms Musculoskeletal: No Symptoms Skin: No Symptoms Neurological: No Symptoms, Headache Psychological: No Symptoms, Anxiety Endocrine: No Symptoms Hematologic/Lymphatic: No Symptoms Immunological/Allergic: No Symptoms - Past Medical History Pertinent Past Medical History: Yes Neurological History: No Pertinent History ENT History: No Pertinent History Cardiac History: No Pertinent History Respiratory History: No Pertinent History Endocrine Medical History: No Pertinent History Musculoskeletal History: No Pertinent History GI Medical History: No Pertinent History History: No Pertinent History Psycho-Social History: Anxiety, Depression, Panic Disorder Female Reproductive Disorders: No Pertinent History Other Medical History: hypoglycemia - Past Surgical History Past Surgical History: No Neuro Surgical History: No Pertinent History Cardiac: No Pertinent History Respiratory: No Pertinent History Gastrointestinal: No Pertinent History Genitourinary: No Pertinent History Musculoskeletal: No Pertinent History Female Surgical History: No Pertinent History - Social History Smoking Status: Current some day smoker Exposure to second hand smoke: Yes (occasional) Drug Use: none Patient Lives Alone: No Significant Family History: no pertinent family hx - Female History Hx Last Menstrual Period: current Hx Now: No - Nursing Vital Signs Nursing Vital Signs: Initial Vital Signs Temperature 97.3 F 10/30/21 19:33 Pulse Rate 90 10/30/21 19:33 Respiratory Rate 20 10/30/21 19:33 Blood Pressure 164/107 10/30/21 19:33 O2 Sat by Pulse Oximetry 100 10/30/21 19:33 Pain Scale Pain Intensity 2 Hypertensive - Physical Exam General Appearance: no apparent distress, anxiety Eye Exam: PERRL/EOMI, eyes nml inspection Ears, Nose, Throat Exam: normal ENT inspection, TMs normal, pharynx normal, moist mucous membranes Neck Exam: normal inspection, non-tender, supple, full range of motion, No meningismus, No mass, No Brudzinski, No Kernig's, No carotid bruit Respiratory Exam: normal breath sounds, lungs clear, airway intact, No respiratory distress Cardiovascular Exam: regular rate/rhythm, normal heart sounds, normal peripheral pulses, capillary refill <2 sec, No murmur Gastrointestinal/Abdominal Exam: soft, normal bowel sounds, No tenderness Back Exam: normal inspection, normal range of motion Extremity Exam: normal inspection, normal range of motion Mental Status Exam: alert, 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 3, 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 Exam: normal hearing, normal speech, PERRL Coordination/Gait Exam: normal gait, normal cerebellar function Motor/Sensory Exam: no motor deficit, no sensory deficit, no pronator drift, negative Babinski's sign DTR Exam: bicep (R): 2+, bicep (L): 2+ Skin Exam: normal color, warm, dry, No rash Lymphatic Exam: No adenopathy SpO2 Interpretation: normal SpO2: 100 O2 Delivery: Room Air - Course Nursing assessment & vital signs reviewed: Yes EKG Interpreted by Me: RATE (NSR/Rate77/Normal QT-QTc/RBBB/Flipped Twave V2- V3/No acute ST segment changes) - CT Exams Head CT Interpretation: Tele-radiologist Report (Neg) Ordered Tests: Active Orders 24 hr Category Date Time Status HEAD WITHOUT CONTRAST [CT] Stat Exams 10/30/21 19:56 Taken Medication Summary Discontinued Medications Generic Name Dose Route Start Last Admin Trade Name Maryam PRN Reason Stop Dose Admin Clonidine 0.2 mg 10/30/21 19:55 10/30/21 20:00 Clonidine Hcl 0.1 Mg Tablet PO 10/30/21 19:56 0.2 mg STAT ONE Administration Clonidine Confirm 10/30/21 19:59 Clonidine Hcl 0.1 Mg Tablet Administered 10/30/21 20:00 Dose 0.2 mg .ROUTE [email or web address] Lab/Rad Data: Laboratory Results 10/30/21 Range/Units 20:18 Influenza Type A Ag NEGATIVE (NEGATIVE) Influenza Type B Ag NEGATIVE (NEGATIVE) RSV (PCR) NEGATIVE (Negative) SARS-CoV-2 (PCR) NEGATIVE (NEGATIVE) - Progress Progress: improved Progress Note: 10/30/21 21:04 0.2 po clonidine w improvement in BP, anxiety, and headache 10/31/21 00:49 Counseled pt/family regarding: diagnosis, need for follow-up, rad results - Departure Departure Disposition: Home Clinical Impression: Anxiety Condition: Stable Critical Care Time: No Referrals: MARY MARSHALL [Primary Care Provider] - Follow up/PCP as directed Instructions: High Blood Pressure in Adults, Anxiety, Adult (DC) Additional Instructions: Follow up with your family Clonidine as needed Return to ER for increasing pain/focal weakness/temperature greater than 100.5 Prescriptions: Clonidine HCl 0.1 mg [Clonidine 0.1 mg Tablet] 0.1 mg PO BID PRN #12 tablet MDD 2 tabs PRN Reason: Anxiety
[2021-10-30] MEDS ORDERED: CLONIDINE 0.1 MG TABLET ONE (19:59)
[2021-10-30] MEDS: CLONIDINE 0.1 MG TABLET PO ONE (20:00)
[2021-10-30 20:47] VITALS: O2SAT 100
[2021-10-30 20:56] LABS: INFLUENZA A NEGATIVE (NEGATIVE); INFLUENZA B NEGATIVE (NEGATIVE); RESPIRATORY SYNCTIAL VIRUS NEGATIVE (Negative); SARS-CoV-2 Xpert Express NEGATIVE (NEGATIVE)
[2021-10-30 21:10] VITALS: BP 137/92; PULSE 58
--- NOTE | 2021-10-31 22:05 | XRAY ---
Exam: CT of the head without IV contrast from 10/30/2021. CTDI: 53.92 mGy Comparison: None. Indication: 21-year-old female with non-specified headache and elevated blood pressure. Technique: Non-IV contrast axial images were obtained through the brain. Reconstructed coronal and sagittal images were created and reviewed. Findings: The ventricles are of normal size and configuration. No focal mass effect or midline shift is seen. The mccormack matter-white matter interfaces appear unremarkable. No acute intracranial bleed or abnormal extra-axial fluid collection is seen. No focal low-attenuation lesions are seen to suggest edema or an ischemic infarct. The cortical sulci and basilar cisterns appear unremarkable. The calvarium of the skull appears intact. The orbits appear grossly unremarkable. The visualized paranasal sinuses are clear without air-fluid levels. The mastoid air cells also appear well aerated without effusion. Impression: 1. No acute intracranial bleed or other acute intracranial process is seen.
== END 2021-10-30 21:17 | disposition home or self-care (01) ==
LOC: ED 19:31
DX: F41.9 Anxiety disorder, unspecified (principal); R03.0 Elevated blood-pressure reading, without diagnosis of hypertension; R51.9 Headache, unspecified; R05.9 Cough, unspecified; R09.81 Nasal congestion; R07.9 Chest pain, unspecified; Z72.0 Tobacco use; Z79.899 Other long term (current) drug therapy
CPT/HCPCS: 0241U; 70450; 99284; A9270-GY

== ENCOUNTER 2021-12-15 16:53 | Emergency (ER) | payer OTHER ==
[2021-12-15] MEDS ORDERED: BABY ASPIRIN 81 MG CHEW PO ONE (17:52)
--- NOTE | 2021-12-15 18:24 | ERPHSYRPT ---
- History of Present Illness Time Seen by Provider: 12/15/21 16:57 Source: patient, rehabilitation tech Patient Subjective Stated Complaint: pt is very stressed and was becoming short of breath and having chest pains, pt admitted to me that she has been drinking alot and she is becoming a single mother of 3 kids and one is a special needs kid, she has been staying at her ex-husbands trailor/house and he told her today that he has a gas leak and she thinks that may be contributing to her feeling sick Triage Nursing Assessment: Pt brought to the ER by a friend, aleja woods, rates pain in chest and head as a 1/10, pt can pin point the pain and states that it hurts when you push on it, pt is very anxious and appears to be having an anxiety attack but is calming down, hx of high blood pressure, pulses normal, skin flushed and diaphoretic Physician History: 21 years old female with history of anxiety depression, hypertension presented in the ER with chief complaint of chest pain and shortness of breath for the last 2 days off and on. Patient reports she is going through a lot of stress because of going to be single mom with 3 kids. She complains of dull aching substernal chest pain and hurts to take a deep breath. Patient reports she has been drinking every day for last few days because she does not know how to cope with the stress. Denies any suicidal or homicidal ideations. Today she was told that there is a gas leak in her trailer and that make her anxiety go worse. She took Benadryl prior to arrival. She denies minimal chest discomfort at present and no shortness of breath. Patient is very anxious throughout the interview. Timing/Duration: day(s) (2), intermittent, gradual onset, worse Activities at Onset: rest Severity of Dyspnea-Max: moderate Severity of Dyspnea-Current: mild Possible Cause: unknown cause Modifying Factors: Worsens With: exertion Associated Symptoms: cough, chest pain/discomfort, heaviness, tightness, No painful breathing, No productive cough Allergies/Adverse Reactions: venlafaxine [From Effexor] Allergy (Verified 12/15/21 16:59) Irregular Heart Beat hives also Home Medications: Losartan Potassium 50 mg PO DAILY 12/15/21 [History] Hx Tetanus, Diphtheria Vaccination/Date Given: Yes Hx Influenza Vaccination/Date Given: No Hx Pneumococcal Vaccination/Date Given: No Travel Risk - International Travel Have you traveled outside of the country in past 3 weeks: No - Coronavirus Screening Are you exhibiting any of the following symptoms?: No Close contact with a COVID-19 positive Pt in past 14-21 Days: No - Vaccine Status Have you recieved a Covid-19 vaccination: No - Review of Systems Constitutional: No Symptoms Eyes: No Symptoms Ears, Nose, & Throat: No Symptoms Respiratory: Dyspnea Cardiac: Chest Pain, Palpitations Abdominal/Gastrointestinal: No Symptoms Genitourinary Symptoms: No Symptoms Musculoskeletal: No Symptoms Skin: No Symptoms Neurological: No Symptoms Psychological: Anxiety, Depression, No Suicidal Ideations, No Homicidal Ideations Endocrine: No Symptoms Hematologic/Lymphatic: No Symptoms Immunological/Allergic: No Symptoms - Past Medical History Pertinent Past Medical History: Yes Neurological History: No Pertinent History ENT History: No Pertinent History Cardiac History: No Pertinent History Respiratory History: No Pertinent History Endocrine Medical History: No Pertinent History Musculoskeletal History: No Pertinent History GI Medical History: No Pertinent History History: No Pertinent History Psycho-Social History: Anxiety, Depression, Panic Disorder Female Reproductive Disorders: No Pertinent History Other Medical History: hypoglycemia - Past Surgical History Past Surgical History: No Neuro Surgical History: No Pertinent History Cardiac: No Pertinent History Respiratory: No Pertinent History Gastrointestinal: No Pertinent History Genitourinary: No Pertinent History Musculoskeletal: No Pertinent History Female Surgical History: No Pertinent History - Social History Smoking Status: Former smoker Exposure to second hand smoke: No (occasional) Drug Use: none Patient Lives Alone: No Significant Family History: no pertinent family hx - Female History Hx Last Menstrual Period: 11/24/2021 Hx Now: (unkn) - Nursing Vital Signs Nursing Vital Signs: Initial Vital Signs Temperature 97.9 F 12/15/21 17:04 Pulse Rate 82 12/15/21 17:04 Respiratory Rate 12 12/15/21 17:04 Blood Pressure 139/90 12/15/21 17:04 O2 Sat by Pulse Oximetry 98 12/15/21 17:04 Pain Scale Pain Intensity 1 - Physical Exam General Appearance: no apparent distress, alert, anxiety Eye Exam: PERRL/EOMI, eyes nml inspection Ears, Nose, Throat Exam: hearing grossly normal, normal ENT inspection, normal pharynx Neck Exam: normal inspection, non-tender, supple, full range of motion Respiratory Exam: normal breath sounds, lungs clear Cardiovascular/Chest Exam: normal heart sounds, regular rate/rhythm Abdominal/Gastrointestinal Exam: soft, normal bowel sounds, No tenderness Extremity Exam: non-tender, normal range of motion Neurologic Exam: alert, oriented x 3, cooperative Skin Exam: normal color SpO2 Interpretation: normal SpO2: 98 O2 Delivery: Room Air - Course EKG Interpreted by Me: RATE (104), Sinus Tach, NORMAL AXIS, NORMAL INTERVALS, NORMAL QRS Ordered Tests: Active Orders 24 hr Category Date Time Status Operations Inspector STAT Care 12/15/21 17:52 Active EKG-ER Only STAT Care 12/15/21 17:52 Active IV Insertion STAT Care 12/15/21 17:52 Active CHEST 1 VIEW (PORTABLE) Stat Exams 12/15/21 17:52 Taken CHEST WITH CONTRAST [CT] Stat Exams 12/15/21 19:48 Taken CBC W DIFF Stat Lab 12/15/21 18:30 Completed CMP Stat Lab 12/15/21 18:30 Completed D-DIMER QUANTITATIVE Stat Lab 12/15/21 18:30 Completed ETHYL ALCOHOL Stat Lab 12/15/21 18:30 Completed HCG QUALITATIVE,SERUM Stat Lab 12/15/21 18:30 Completed TROPONIN Q3H Lab 12/15/21 18:30 Completed TROPONIN Q3H Lab 12/15/21 21:00 Ordered TROPONIN Q3H Lab 12/16/21 00:00 Ordered TROPONIN Q3H Lab 12/16/21 03:00 Ordered TROPONIN Q3H Lab 12/16/21 06:00 Ordered Urine Triage Profile Stat Lab 12/15/21 19:28 Received Medication Summary Discontinued Medications Generic Name Dose Route Start Last Admin Trade Name Maryam PRN Reason Stop Dose Admin Aspirin 324 mg 12/15/21 17:52 12/15/21 17:56 Aspirin 81 Mg Tab.Chew PO 12/15/21 17:53 324 mg STAT ONE Administration Lab/Rad Data: Laboratory Result Diagrams 12/15/21 18:30 12/15/21 18:30 Laboratory Results 12/15/21 12/15/21 12/15/21 Range/Units 18:30 18:30 18:30 WBC (4.0-10.5) x10^3/uL RBC (4.1-5.4) x10^6/uL Hgb (12.0-16.0) g/dL Hct (35-47) % MCV (78-100) fL MCH (26-32) pg MCHC (32-36) g/dL RDW (11.5-14.0) % Plt Count (150-450) x10^3/uL MPV (7.5-11.0) fL Gran % (36.0-66.0) % Immature Gran % (Auto) (0.00-0.4) % Nucleat RBC Rel Count (0.00-0.1) % Eos # (Auto) (0-0.5) x10^3/uL Immature Gran # (Auto) (0.00-0.03) x10^3u/L Absolute Lymphs (auto) (1.0-4.6) x10^3/uL Absolute Monos (auto) (0.0-1.3) x10^3/uL Absolute Nucleated RBC (0.00-0.01) x10^3u/L Lymphocytes % (24.0-44.0) % Monocytes % (0.0-12.0) % Eosinophils % (0.00-5.0) % Basophils % (0.0-0.4) % Absolute Granulocytes (1.4-6.9) x10^3/uL Basophils # (0-0.4) x10^3/uL D-Dimer (0.0-0.50) mg/L Sodium (137-145) mmol/L Potassium (3.5-5.1) mmol/L Chloride (98-107) mmol/L Carbon Dioxide (22-30) mmol/L Anion Gap (5-15) MEQ/L BUN (7-17) mg/dL Creatinine (0.52-1.04) mg/dL Estimated GFR ML/MIN Glucose (74-106) mg/dL Calcium (8.4-10.2) mg/dL Total Bilirubin (0.2-1.3) mg/dL AST (14-36) U/L ALT (0-35) U/L Alkaline Phosphatase (38-126) U/L Troponin I < 0.012 (0.000-0.034) ng/mL Serum Total Protein (6.3-8.2) g/dL Albumin (3.5-5.0) g/dL Serum , Qual NEGATIVE (Negative) Ethyl Alcohol < 10 (0-10) mg/dL 12/15/21 12/15/21 12/15/21 Range/Units 18:30 18:30 18:30 WBC 5.9 (4.0-10.5) x10^3/uL RBC 4.09 L (4.1-5.4) x10^6/uL Hgb 12.6 (12.0-16.0) g/dL Hct 37.7 (35-47) % MCV 92.2 (78-100) fL MCH 30.8 (26-32) pg MCHC 33.4 (32-36) g/dL RDW 14.5 H (11.5-14.0) % Plt Count 143 L (150-450) x10^3/uL MPV 8.7 (7.5-11.0) fL Gran % 50.5 (36.0-66.0) % Immature Gran % (Auto) 0.2 (0.00-0.4) % Nucleat RBC Rel Count 0.0 (0.00-0.1) % Eos # (Auto) 0.03 (0-0.5) x10^3/uL Immature Gran # (Auto) 0.01 (0.00-0.03) x10^3u/L Absolute Lymphs (auto) 2.40 (1.0-4.6) x10^3/uL Absolute Monos (auto) 0.47 (0.0-1.3) x10^3/uL Absolute Nucleated RBC 0.00 (0.00-0.01) x10^3u/L Lymphocytes % 40.4 (24.0-44.0) % Monocytes % 7.9 (0.0-12.0) % Eosinophils % 0.5 (0.00-5.0) % Basophils % 0.5 (0.0-0.4) % Absolute Granulocytes 3.00 (1.4-6.9) x10^3/uL Basophils # 0.03 (0-0.4) x10^3/uL D-Dimer 2.51 H* (0.0-0.50) mg/L Sodium 138 (137-145) mmol/L Potassium 4.2 (3.5-5.1) mmol/L Chloride 103 (98-107) mmol/L Carbon Dioxide 28 (22-30) mmol/L Anion Gap 11.5 (5-15) MEQ/L BUN 9 (7-17) mg/dL Creatinine 0.72 (0.52-1.04) mg/dL Estimated GFR > 60.0 ML/MIN Glucose 104 (74-106) mg/dL Calcium 9.2 (8.4-10.2) mg/dL Total Bilirubin 0.80 (0.2-1.3) mg/dL AST 26 (14-36) U/L ALT 15 (0-35) U/L Alkaline Phosphatase 114 (38-126) U/L Troponin I (0.000-0.034) ng/mL Serum Total Protein 7.8 (6.3-8.2) g/dL Albumin 4.1 (3.5-5.0) g/dL Serum , Qual (Negative) Ethyl Alcohol (0-10) mg/dL - Progress Progress: improved Air Movement: good Progress Note: 12/15/21 20:50 21 years old is evaluated for chest pain and shortness of breath. EKG did not show any acute ischemic changes. Negative troponins. Elevated D-dimer and CTA is negative for any acute findings. Patient lab work grossly unremarkable. I believe part of her symptoms are secondary to anxiety, recommended outpatient follow-up. Counseled on alcohol use. Discussed signs symptoms of worsening needing return to ER which she seems understanding. Patient is asked multiple times and denies any suicidal or homicidal ideations and has a good support with a friend who lives with her. Antibiotics given: No Counseled pt/family regarding: lab results, diagnosis, need for follow-up, rad results, smoking cessation - Departure Departure Disposition: Home Clinical Impression: Atypical chest pain, Anxiety attack Condition: Stable Critical Care Time: No Referrals: MARY MARSHALL [Primary Care Provider] - Follow up/PCP as directed (1-2 days for reevaluation) Instructions: Panic Disorder, Anxiety, Adult (DC) Additional Instructions: Do not drink alcohol. Follow-up with primary care for reevaluation. Return to ER for worsening symptoms of anxiety or if having suicidal/homicidal ideations, persistent chest pain/shortness of breath etc.
[2021-12-15 18:34] LABS: Basophil (Absolute #) 0.03 x10^3/uL (0-0.4); Eosinophil % 0.5 % (0.00-5.0); Eosinophil (Absolute #) 0.03 x10^3/uL (0-0.5); Hematocrit 37.7 % (35-47); Hemoglobin 12.6 g/dL (12.0-16.0); Lymphocytes % 40.4 % (24.0-44.0); Mean Cell Volume 92.2 fL (78-100); Mean Corpuscular Hemoglobin 30.8 pg (26-32); Mean Corpuscular Hgb Concent. 33.4 g/dL (32-36); Mean Platelet Volume 8.7 fL (7.5-11.0); Monocyte (Absolute #) 0.47 x10^3/uL (0.0-1.3); Monocytes % 7.9 % (0.0-12.0); Neutrophil % 50.5 % (36.0-66.0); Platelet Count 143 x10^3/uL (150-450); Red Blood Count 4.09 x10^6/uL (4.1-5.4); Red Cell Distribution Width 14.5 % (11.5-14.0); White Blood Count 5.9 x10^3/uL (4.0-10.5)
[2021-12-15 18:49] LABS: ALBUMIN 4.1 g/dL (3.5-5.0); ALKALINE PHOSPHATASE 114 U/L (38-126); ANION GAP 11.5 MEQ/L (5-15); BLOOD UREA NITROGEN 9 mg/dL (7-17); CHLORIDE 103 mmol/L (98-107); Calcium 9.2 mg/dL (8.4-10.2); Carbon Dioxide 28 mmol/L (22-30); Creatinine 1 0.72 mg/dL (0.52-1.04); EST GLOMERULAR FILTRATION RATE > 60.0 ML/MIN; Glucose 104 mg/dL (74-106); Potassium 4.2 mmol/L (3.5-5.1); SGOT/AST 26 U/L (14-36); SGPT/ALT 15 U/L (0-35); SODIUM 138 mmol/L (137-145); Total Protein 7.8 g/dL (6.3-8.2)
[2021-12-15 19:27] VITALS: O2SAT 98
[2021-12-15 21:03] VITALS: BP 106/62; PULSE 82
[2021-12-15 21:18] LABS: Amphetamine,Urine NEGATIVE (NEGATIVE); Barbiturate,Urine NEGATIVE (NEGATIVE); Benzodiazepine,Urine NEGATIVE (NEGATIVE); Cocaine,Urine NEGATIVE (NEGATIVE); Methadone,Urine NEGATIVE (NEGATIVE); Opiate,Urine NEGATIVE (NEGATIVE); PCP,Urine NEGATIVE (NEGATIVE); THC,Urine NEGATIVE (NEGATIVE)
--- NOTE | 2021-12-16 08:36 | XRAY ---
Indication: Chest pain. Short of breath. Elevated d-dimer. Multiple contiguous axial images obtained through the chest using 100 cc Isovue 370 contrast and PE protocol. Comparison: September 25, 2020. Good opacification of the pulmonary arteries including lobar and segmental branches. No pulmonary embolus. Heart not enlarged. Aorta is normal in course and caliber. No pathologic mediastinal/hilar lymphadenopathy. Lungs inflated and remain clear. Bony thorax intact. Limited upper abdomen unremarkable. Impression: Continued negative pulmonary embolus. No new/acute cardiopulmonary abnormalities.
--- NOTE | 2021-12-16 08:36 | XRAY ---
Indication: Chest pain. Short of breath. Comparison: September 25, 2020. Portable chest again demonstrates normal heart, lungs, and bony thorax.
== END 2021-12-15 21:03 | disposition home or self-care (01) ==
LOC: ED 16:53
DX: R07.89 Other chest pain (principal); F43.0 Acute stress reaction; R06.02 Shortness of breath; Z59.89 Other problems related to housing and economic circumstances; Z63.8 Other specified problems related to primary support group; Z79.899 Other long term (current) drug therapy; Z28.310 Unvaccinated for COVID-19
CPT/HCPCS: 36000; 36415; 71045; 71260; 80053; 80307; 84484; 84703; 85025; 85379; 93005; 93041; 99284; G0480; A9270-GY

== ENCOUNTER 2022-05-15 18:41 | Emergency (ER) | payer OTHER ==
[2022-05-15 19:02] VITALS: O2SAT 98
--- NOTE | 2022-05-15 19:12 | ERPHSYRPT ---
- History of Present Illness Source: patient Exam Limitations: no limitations Patient Subjective Stated Complaint: Pt states "I did a home test for covid and was positive today and I just do not feel well." Triage Nursing Assessment: Pt presented alert and oriented X 3, skin pwd. Pt ambulates with an upright steady gait, able to speak in clear full sentences PT in no apaprent respiratory distress. Physician History: 21 yo wf w + CV19 test today who's doctor has already called in [facility] presents w cough/coryza/Nausea/diarrhea/mild ANNA wo fever x 2 days. Timing/Duration: day(s) (2 days) Cough Quality/Degree: dry cough Possible Cause: no prior episodes Modifying Factors: Improves With: nothing Associated Symptoms: denies symptoms, cough, nasal congestion, nasal drainage Allergies/Adverse Reactions: venlafaxine [From Effexor] Allergy (Verified 12/15/21 16:59) Irregular Heart Beat hives also Home Medications: Losartan Potassium 50 mg PO DAILY 12/15/21 [History] Hx Tetanus, Diphtheria Vaccination/Date Given: Yes Hx Influenza Vaccination/Date Given: No Hx Pneumococcal Vaccination/Date Given: No Immunizations Up to Date: Yes Travel Risk - International Travel Have you traveled outside of the country in past 3 weeks: No - Coronavirus Screening Are you exhibiting any of the following symptoms?: No Close contact with a COVID-19 positive Pt in past 14-21 Days: No - Vaccine Status Have you recieved a Covid-19 vaccination: No - Review of Systems Constitutional: No Symptoms, Malaise Eyes: No Symptoms Ears, Nose, & Throat: No Symptoms, Nose Pain, Nose Congestion, Nose Discharge Respiratory: No Symptoms, Cough Cardiac: No Symptoms Abdominal/Gastrointestinal: No Symptoms, Nausea, Diarrhea Genitourinary Symptoms: No Symptoms Musculoskeletal: No Symptoms Skin: No Symptoms Neurological: No Symptoms Psychological: No Symptoms Endocrine: No Symptoms Hematologic/Lymphatic: No Symptoms Immunological/Allergic: No Symptoms - Past Medical History Pertinent Past Medical History: Yes Neurological History: No Pertinent History ENT History: No Pertinent History Cardiac History: No Pertinent History Respiratory History: No Pertinent History Endocrine Medical History: No Pertinent History Musculoskeletal History: No Pertinent History GI Medical History: No Pertinent History History: No Pertinent History Psycho-Social History: Anxiety, Depression, Panic Disorder Female Reproductive Disorders: No Pertinent History Other Medical History: hypoglycemia - Past Surgical History Past Surgical History: No Neuro Surgical History: No Pertinent History Cardiac: No Pertinent History Respiratory: No Pertinent History Gastrointestinal: No Pertinent History Genitourinary: No Pertinent History Musculoskeletal: No Pertinent History Female Surgical History: No Pertinent History - Social History Smoking Status: Former smoker Exposure to second hand smoke: No (occasional) Drug Use: none Patient Lives Alone: No Significant Family History: no pertinent family hx - Female History Hx Last Menstrual Period: 05/06/2022 Hx Now: (unknown) - Nursing Vital Signs Nursing Vital Signs: Initial Vital Signs Temperature 97.6 F 05/15/22 18:58 Pulse Rate 90 05/15/22 18:58 Respiratory Rate 20 05/15/22 18:58 Blood Pressure 162/98 05/15/22 18:58 O2 Sat by Pulse Oximetry 98 05/15/22 18:58 Pain Scale Pain Intensity 0 Hypertensive - Physical Exam General Appearance: no apparent distress Eye Exam: PERRL/EOMI Ears, Nose, Throat Exam: normal ENT inspection, TMs normal, pharynx normal, moist mucous membranes Neck Exam: normal inspection, non-tender, supple, full range of motion, No meningismus, No mass, No Brudzinski, No Kernig's Respiratory Exam: normal breath sounds, lungs clear, airway intact, No respiratory distress Cardiovascular Exam: regular rate/rhythm, normal heart sounds, normal peripheral pulses, capillary refill <2 sec, No murmur Gastrointestinal/Abdomen Exam: soft, normal bowel sounds, No tenderness Back Exam: normal inspection, normal range of motion, No CVA tenderness Extremity Exam: normal inspection, normal range of motion Neurologic Exam: alert, oriented x 3, cooperative, slabber light II-XII nml as tested, normal mood/affect, nml cerebellar function, nml station & gait, sensation nml Skin Exam: normal color, warm, dry, No rash Lymphatic Exam: No adenopathy SpO2 Interpretation: normal SpO2: 98 O2 Delivery: Room Air - Course Nursing assessment & vital signs reviewed: Yes - Progress Air Movement: good Counseled pt/family regarding: diagnosis, need for follow-up - Departure Departure Disposition: Home Clinical Impression: COVID-19 Condition: Stable Critical Care Time: No Referrals: MARY MARSHALL [Primary Care Provider] - Follow up/PCP as directed Instructions: Cough, Adult (DC), COVID-19 (DC) Additional Instructions: Start your Paxlovid Follow up with your family MD as needed
[2022-05-15 20:09] VITALS: BP 144/98; PULSE 82
== END 2022-05-15 20:22 | disposition home or self-care (01) ==
LOC: ED 18:41
DX: U07.1 COVID-19 (principal); R05.1 Acute cough; R09.81 Nasal congestion; R11.0 Nausea; R19.7 Diarrhea, unspecified; R51.9 Headache, unspecified
CPT/HCPCS: 99281

== ENCOUNTER 2022-06-27 18:26 | Emergency (ER) | payer OTHER ==
--- NOTE | 2022-06-27 18:50 | ERPHSYRPT ---
- History of Present Illness Historian: patient Exam Limitations: no limitations Activities at Onset: none Quality: cramping Abdominal Pain Onset Location: RLQ Pain Radiation: no radiation Severity of Pain-Max: mild Severity of Pain-Current: mild Modifying Factors: Improves With: movement Hx Tetanus, Diphtheria Vaccination/Date Given: Yes Hx Influenza Vaccination/Date Given: No Hx Pneumococcal Vaccination/Date Given: No <MATT CUELLAR - Last Filed: 06/27/22 18:47> <LISE RANGEL - Last Filed: 06/27/22 22:26> - History of Present Illness Time Seen by Provider: 06/27/22 18:47 Physician History: Patient is a 21-year-old female who presents with a complaint of abdominal pain. She has had pain in the right lower quadrant and was recently seen at the [facility] and was diagnosed with a UTI. She was put on Macrobid for the UTI. She was also told if the pain got worse to come to the ER. So here she is. She is also 1 to 2 days late for her menses and she is usually very regular she also states she has a right ovarian cyst. (MATT CUELLAR) Allergies/Adverse Reactions: venlafaxine [From Effexor] Allergy (Verified 06/27/22 18:30) Irregular Heart Beat hives also Home Medications: Nitrofurantoin Macro 100 mg [Macrobid 100MG Capsule] 100 mg PO BID 06/27/22 [History] Travel Risk - Vaccine Status Have you recieved a Covid-19 vaccination: No <MATT CUELLAR - Last Filed: 06/27/22 18:47> - Review of Systems Constitutional: No Fever, No Chills Eyes: No Symptoms Ears, Nose, & Throat: No Symptoms Respiratory: No Cough, No Dyspnea Cardiac: No Chest Pain, No Edema, No Syncope Abdominal/Gastrointestinal: No Abdominal Pain, No Nausea, No Vomiting, No Diarrhea Genitourinary Symptoms: No Dysuria Musculoskeletal: No Back Pain, No Neck Pain Skin: No Rash Neurological: No Dizziness, No Focal Weakness, No Sensory Changes Psychological: No Symptoms Endocrine: No Symptoms All Other Systems: Reviewed and Negative <MATT CUELLAR - Last Filed: 06/27/22 18:47> - Past Medical History Pertinent Past Medical History: Yes Neurological History: No Pertinent History ENT History: No Pertinent History Cardiac History: No Pertinent History Respiratory History: No Pertinent History Endocrine Medical History: No Pertinent History Musculoskeletal History: No Pertinent History GI Medical History: No Pertinent History History: No Pertinent History Psycho-Social History: Anxiety, Depression, Panic Disorder Female Reproductive Disorders: No Pertinent History Other Medical History: hypoglycemia - Past Surgical History Past Surgical History: No Neuro Surgical History: No Pertinent History Cardiac: No Pertinent History Respiratory: No Pertinent History Gastrointestinal: No Pertinent History Genitourinary: No Pertinent History Musculoskeletal: No Pertinent History Female Surgical History: No Pertinent History - Social History Smoking Status: Former smoker Exposure to second hand smoke: No (occasional) Drug Use: none Patient Lives Alone: No Significant Family History: no pertinent family hx <MATT CUELLAR Filed: 06/27/22 18:47> - Physical Exam General Appearance: no apparent distress, alert Eye Exam: PERRL/EOMI, eyes nml inspection Ears, Nose, Throat Exam: normal ENT inspection, pharynx normal, moist mucous membranes Neck Exam: normal inspection, non-tender, supple, full range of motion Respiratory Exam: normal breath sounds, lungs clear, No respiratory distress Cardiovascular Exam: regular rate/rhythm, normal heart sounds Gastrointestinal/Abdomen Exam: soft, tenderness (Objective tenderness right lower quadrant), No mass, No guarding, No rebound Pelvic Exam: not done Rectal Exam: deferred Back Exam: normal inspection, normal range of motion, No CVA tenderness, No vertebral tenderness Extremity Exam: normal inspection, normal range of motion, pelvis stable Neurologic Exam: alert, oriented x 3, cooperative, normal mood/affect, nml cerebellar function, sensation nml, No motor deficits Skin Exam: normal color, warm, dry <MATT CUELLAR Last Filed: 06/27/22 18:47> - Nursing Vital Signs Nursing Vital Signs: Initial Vital Signs Temperature 97.6 F 06/27/22 18:26 Pulse Rate 97 H 06/27/22 18:26 Respiratory Rate 18 06/27/22 18:26 Blood Pressure 145/81 06/27/22 18:26 O2 Sat by Pulse Oximetry 98 06/27/22 18:26 Pain Scale Pain Intensity 4 - Course Nursing assessment & vital signs reviewed: Yes <MATT CUELLAR Last Filed: 06/27/22 18:47> Ordered Tests: Active Orders 24 hr Category Date Time Status OB <14 WKS 1ST GESTATION [US] Stat Exams 06/27/22 20:27 Taken CBC W DIFF Stat Lab 06/27/22 19:00 Completed CMP Stat Lab 06/27/22 19:00 Completed HCG QUALITATIVE,SERUM Stat Lab 06/27/22 19:00 Completed HCG, Quantitative (Inhouse) Stat Lab 06/27/22 19:00 Completed HCG,QUALITATIVE URINE Stat Lab 06/27/22 18:56 Completed UA W/RFX CULTURE Stat Lab 06/27/22 18:56 Completed Medication Summary Discontinued Medications Generic Name Dose Route Start Last Admin Trade Name Maryam PRN Reason Stop Dose Admin Acetaminophen 975 mg 06/27/22 19:37 06/27/22 19:44 Acetaminophen 325 Mg Tablet PO 06/27/22 19:38 975 mg STAT STA Administration Acetaminophen Confirm 06/27/22 19:44 Acetaminophen 325 Mg Tablet Administered 06/27/22 19:45 Dose 975 mg .ROUTE .[place] Lab/Rad Data: Laboratory Result Diagrams 06/27/22 19:00 06/27/22 19:00 Laboratory Results 06/27/22 06/27/22 06/27/22 Range/Units 19:00 19:00 19:00 WBC (4.0-10.5) x10^3/uL RBC (4.1-5.4) x10^6/uL Hgb (12.0-16.0) g/dL Hct (35-47) % MCV (78-100) fL MCH (26-32) pg MCHC (32-36) g/dL RDW (11.5-14.0) % Plt Count (150-450) x10^3/uL MPV (7.5-11.0) fL Gran % (36.0-66.0) % Immature Gran % (Auto) (0.00-0.4) % Nucleat RBC Rel Count (0.00-0.1) % Eos # (Auto) (0-0.5) x10^3/uL Immature Gran # (Auto) (0.00-0.03) x10^3u/L Absolute Lymphs (auto) (1.0-4.6) x10^3/uL Absolute Monos (auto) (0.0-1.3) x10^3/uL Absolute Nucleated RBC (0.00-0.01) x10^3u/L Lymphocytes % (24.0-44.0) % Monocytes % (0.0-12.0) % Eosinophils % (0.00-5.0) % Basophils % (0.0-0.4) % Absolute Granulocytes (1.4-6.9) x10^3/uL Basophils # (0-0.4) x10^3/uL Sodium 134 L (137-145) mmol/L Potassium 3.9 (3.5-5.1) mmol/L Chloride 103 (98-107) mmol/L Carbon Dioxide 23 (22-30) mmol/L Anion Gap 11.2 (5-15) MEQ/L BUN 9 (7-17) mg/dL Creatinine 0.54 (0.52-1.04) mg/dL Estimated GFR > 60.0 ML/MIN Glucose 95 (74-106) mg/dL Calcium 8.5 (8.4-10.2) mg/dL Total Bilirubin 0.40 (0.2-1.3) mg/dL AST 24 (14-36) U/L ALT 18 (0-35) U/L Alkaline Phosphatase 79 (38-126) U/L Serum Total Protein 7.5 (6.3-8.2) g/dL Albumin 4.1 (3.5-5.0) g/dL Beta HCG, Quant 23.29 mIU/ml Serum , Qual POSITIVE (Negative) Urinalys Dipstick Clnc Urine Color (YELLOW) Urine Appearance (CLEAR) Urine pH (5-6) Ur Specific [place] (1.005-1.025) POC Urine Protein Conf (Negative) Urine Ketones (NEGATIVE) Urine Nitrite (NEGATIVE) Urine Bilirubin (NEGATIVE) Urine Urobilinogen (0-1) mg/dL Urine Leukocytes (NEGATIVE) Urine WBC (Auto) (0-5) /HPF Urine RBC (Auto) (0-2) /HPF U Epithel Cells (Auto) (FEW) /HPF Urine Bacteria (Auto) (NEGATIVE) /HPF Urine RBC (0-5) Mynor/ul Ur Culture Indicated? Urine Glucose (NEGATIVE) mg/dL Urine HCG, Qual (Negative) 06/27/22 06/27/22 06/27/22 Range/Units 19:00 18:56 18:56 WBC 8.3 (4.0-10.5) x10^3/uL RBC 4.16 (4.1-5.4) x10^6/uL Hgb 12.8 (12.0-16.0) g/dL Hct 38.1 (35-47) % MCV 91.6 (78-100) fL MCH 30.8 (26-32) pg MCHC 33.6 (32-36) g/dL RDW 12.4 (11.5-14.0) % Plt Count 189 (150-450) x10^3/uL MPV 9.1 (7.5-11.0) fL Gran % 46.2 (36.0-66.0) % Immature Gran % (Auto) 0.1 (0.00-0.4) % Nucleat RBC Rel Count 0.0 (0.00-0.1) % Eos # (Auto) 0.25 (0-0.5) x10^3/uL Immature Gran # (Auto) 0.01 (0.00-0.03) x10^3u/L Absolute Lymphs (auto) 3.48 (1.0-4.6) x10^3/uL Absolute Monos (auto) 0.69 (0.0-1.3) x10^3/uL Absolute Nucleated RBC 0.00 (0.00-0.01) x10^3u/L Lymphocytes % 41.8 (24.0-44.0) % Monocytes % 8.3 (0.0-12.0) % Eosinophils % 3.0 (0.00-5.0) % Basophils % 0.6 (0.0-0.4) % Absolute Granulocytes 3.84 (1.4-6.9) x10^3/uL Basophils # 0.05 (0-0.4) x10^3/uL Sodium (137-145) mmol/L Potassium (3.5-5.1) mmol/L Chloride (98-107) mmol/L Carbon Dioxide (22-30) mmol/L Anion Gap (5-15) MEQ/L BUN (7-17) mg/dL Creatinine (0.52-1.04) mg/dL Estimated GFR ML/MIN Glucose (74-106) mg/dL Calcium (8.4-10.2) mg/dL Total Bilirubin (0.2-1.3) mg/dL AST (14-36) U/L ALT (0-35) U/L Alkaline Phosphatase (38-126) U/L Serum Total Protein (6.3-8.2) g/dL Albumin (3.5-5.0) g/dL Beta HCG, Quant mIU/ml Serum , Qual (Negative) Urinalys Dipstick Clnc MAIN LAB Urine Color YELLOW (YELLOW) Urine Appearance CLEAR (CLEAR) Urine pH 7.0 (5-6) Ur Specific [place] 1.025 (1.005-1.025) POC Urine Protein Conf NEGATIVE (Negative) Urine Ketones NEGATIVE (NEGATIVE) Urine Nitrite NEGATIVE (NEGATIVE) Urine Bilirubin NEGATIVE (NEGATIVE) Urine Urobilinogen 0.2 (0-1) mg/dL Urine Leukocytes TRACE A (NEGATIVE) Urine WBC (Auto) 3-5 A (0-5) /HPF Urine RBC (Auto) NONE (0-2) /HPF U Epithel Cells (Auto) RARE (FEW) /HPF Urine Bacteria (Auto) NONE (NEGATIVE) /HPF Urine RBC NEGATIVE (0-5) Mynor/ul Ur Culture Indicated? NO Urine Glucose NEGATIVE (NEGATIVE) mg/dL Urine HCG, Qual NEGATIVE (Negative) - Progress Progress: unchanged <MATT CUELLAR - Last Filed: 06/27/22 18:47> - Progress Progress: improved, re-examined Counseled pt/family regarding: lab results, diagnosis, need for follow-up, rad results <LISE RANGEL - Last Filed: 06/27/22 22:26> - Progress Progress Note: 06/27/22 19:40 Patient is checked out to me at shift change from Dr. Cuellar with pending work- up. Patient presented with right lower quadrant pain and some UTI symptoms. She was seen outpatient where she was placed on Macrobid but she is still having off-and-on pain right lower quadrant which is worsening today. Denies any as sociated nausea or vomiting. No fever or chills reported. Patient does have tenderness on right lower quadrant more on the right pelvic side on my evaluation. Work-up showed normal white count, unremarkable chemistries and no definitive UTI. Patient is offered pain medication but she does not want anything but Tylenol. 06/27/22 22:15 Patient has positive serum test and beta hCG is only 23, LMP 4 to 5 weeks ago, ultrasound negative for torsion, cyst and unable to see any IUP ER ectopic with this beta-hCG patient is feeling much better after Tylenol recommended outpatient OB follow-up for further evaluation and recheck of beta- hCG in 2 to 3 days to trended. Discussed signs symptoms of worsening needing return to ER which she seems understanding. 06/27/22 22:18 Since patient has a positive test, will avoid nitrofurantoin in the first trimester and will put her on Keflex for UTI. Patient will follow-up with his primary care and OB in [facility] (LISE RANGEL) - Departure Departure Disposition: Home Critical Care Time: No <MAYTEMAKMATT - Last Filed: 06/27/22 18:47> - Departure Critical Care Time: No <LISE RANGEL - Last Filed: 06/27/22 22:26> - Departure Clinical Impression: Abdominal pain, , UTI (urinary tract infection) during Condition: Stable Referrals: MARY MARSHALL [Primary Care Provider] - Follow up/PCP as directed (In 2 days for reevaluation) Instructions: Severe Abdominal Pain, Adult (DC), Stomach Pain in Early Additional Instructions: [facility]-up with [facility] for reevaluation. Also follow-up with primary care for reevaluation and recheck of beta-hCG level in 2 to 3 days. Return to ER for worsening pain, vaginal bleeding etc. stop Macrobid and start taking Keflex for UTI. Take Tylenol as needed. Do not take ibuprofen or any other NSAIDs. Prescriptions: Cephalexin Mh 500 mg [Keflex 500 mg] 500 mg PO TID #21 cap Vit,Calc78/Iron/Folic [Prenatabs FA Tablet] 1 each PO DAILY #30 tablet
[2022-06-27 19:04] LABS: Absolute Neutrophil Ct (ANC) 3.84 x10^3/uL (1.4-6.9); Basophil (Absolute #) 0.05 x10^3/uL (0-0.4); Eosinophil (Absolute #) 0.25 x10^3/uL (0-0.5); Hematocrit 38.1 % (35-47); Hemoglobin 12.8 g/dL (12.0-16.0); Lymphocyte (Absolute #) 3.48 x10^3/uL (1.0-4.6); Lymphocytes % 41.8 % (24.0-44.0); Mean Cell Volume 91.6 fL (78-100); Mean Corpuscular Hemoglobin 30.8 pg (26-32); Mean Corpuscular Hgb Concent. 33.6 g/dL (32-36); Mean Platelet Volume 9.1 fL (7.5-11.0); Monocyte (Absolute #) 0.69 x10^3/uL (0.0-1.3); Monocytes % 8.3 % (0.0-12.0); Neutrophil % 46.2 % (36.0-66.0); Platelet Count 189 x10^3/uL (150-450); Red Blood Count 4.16 x10^6/uL (4.1-5.4); Red Cell Distribution Width 12.4 % (11.5-14.0); White Blood Count 8.3 x10^3/uL (4.0-10.5)
[2022-06-27 19:14] LABS: Appearance CLEAR (CLEAR); Bilirubin NEGATIVE (NEGATIVE); Dipstick done @ ? MAIN LAB; Glucose NEGATIVE (NEGATIVE); Ketones NEGATIVE (NEGATIVE); Nitrite NEGATIVE (NEGATIVE); Protein,Urine Dip NEGATIVE (Negative); RBC NEGATIVE Ery/ul (0-5); Specific Gravity 1.025 (1.005-1.025); Urobilinogen 0.2 mg/dL (0-1)
[2022-06-27 19:16] LABS: Epithelial Cells RARE /HPF (FEW)
[2022-06-27 19:28] LABS: Urine Cultured Indicated? NO
[2022-06-27 19:29] LABS: ALBUMIN 4.1 g/dL (3.5-5.0); ALKALINE PHOSPHATASE 79 U/L (38-126); ANION GAP 11.2 MEQ/L (5-15); BLOOD UREA NITROGEN 9 mg/dL (7-17); CHLORIDE 103 mmol/L (98-107); Calcium 8.5 mg/dL (8.4-10.2); Carbon Dioxide 23 mmol/L (22-30); Creatinine 1 0.54 mg/dL (0.52-1.04); EST GLOMERULAR FILTRATION RATE > 60.0 ML/MIN; Glucose 95 mg/dL (74-106); Potassium 3.9 mmol/L (3.5-5.1); SGOT/AST 24 U/L (14-36); SGPT/ALT 18 U/L (0-35); SODIUM 134 mmol/L (137-145); Total Protein 7.5 g/dL (6.3-8.2)
[2022-06-27] MEDS ORDERED: TYLENOL 325 MG PO STA (19:37)
[2022-06-27] MEDS ORDERED: TYLENOL 325 MG ONE (19:44)
[2022-06-27 22:08] VITALS: BP 133/96; O2SAT 98
[2022-06-27 22:26] VITALS: PULSE 83
--- NOTE | 2022-06-28 08:43 | XRAY ---
Indication: Right pelvic pain. Two-dimensional early transvaginal OB sonogram performed. Comparison: None for this . Uterus anteverted measuring 7.9 x 3.8 x 6.8 cm. No focal solid/cystic uterine mass. Endometrial stripe measures 5.5 mm. No intrauterine gestational sac, pole, or heart tones. Right ovary measures 3.4 x 1.4 x 1.6 cm and the left measures 3.0 x 1.7 x 1.8 cm. Normal follicular cysts and perfusion bilaterally. No suspicious adnexal mass or free fluid. Impression: Negative for intrauterine/ectopic . Correlate with serial beta hCG and follow-up sonogram regarding viability. Comment: Preliminary report was given.
== END 2022-06-27 22:31 | disposition home or self-care (01) ==
LOC: ED 18:26
DX: O23.41 Unspecified infection of urinary tract in pregnancy, first trimester (principal); N39.0 Urinary tract infection, site not specified; Z3A.01 Less than 8 weeks gestation of pregnancy; R10.31 Right lower quadrant pain; Z28.310 Unvaccinated for COVID-19
CPT/HCPCS: 36415; 76801; 80053; 81015; 81025; 84702; 84703; 85025; 99283; A9270-GY

== ENCOUNTER 2022-07-10 15:03 | Emergency (ER) | payer OTHER ==
--- NOTE | 2022-07-10 16:39 | ERPHSYRPT ---
- History of Present Illness Time Seen by Provider: 07/10/22 16:34 Source: patient Exam Limitations: no limitations Patient Subjective Stated Complaint: pt has multi cos. states dizzy at times, spotting last night, abd cramping today, swelling to hands and feet that is now gone Triage Nursing Assessment: pt alert, resp easy, skin w/d/p, mucus membranes moist, no edema noted, moves all ext well, Physician History: Patient is a 21-year-old female G5, P3 M1 presents to our ED for evaluation of pelvic cramping vaginal spotting hand and feet swelling, dizziness. Symptoms have been ongoing for 1 to 2 days. No trauma. No fever. No nausea vomiting or diaphoresis. Symptoms are mild to moderate in intensity. No specific worsening improving factors. Patient denies history of the same. She admits to history of high blood pressure. Patient does not know the name of her [employer] physician as she has an appointment scheduled but has never seen a doctor before. Patient states otherwise healthy. She voices no other complaints or concerns at this time. Portions of this note were created with voice recognition technology. There may be grammatical, spelling, punctuation or sound alike errors Timing/Duration: today Severity: moderate Modifying Factors: Improves With: nothing Associated Symptoms: denies symptoms Allergies/Adverse Reactions: venlafaxine [From Effexor] Allergy (Verified 07/10/22 15:50) Irregular Heart Beat hives also Hx Tetanus, Diphtheria Vaccination/Date Given: Yes Hx Influenza Vaccination/Date Given: No Hx Pneumococcal Vaccination/Date Given: No Immunizations Up to Date: Yes Travel Risk - International Travel Have you traveled outside of the country in past 3 weeks: No - Coronavirus Screening Are you exhibiting any of the following symptoms?: No Close contact with a COVID-19 positive Pt in past 14-21 Days: No - Vaccine Status Have you recieved a Covid-19 vaccination: No - Review of Systems Constitutional: No Symptoms, No Fever, No Chills Eyes: No Symptoms Ears, Nose, & Throat: No Symptoms Respiratory: No Symptoms, No Cough, No Dyspnea Cardiac: No Symptoms, No Chest Pain, No Edema, No Syncope Abdominal/Gastrointestinal: No Symptoms, No Abdominal Pain, No Nausea, No Vomiting, No Diarrhea Genitourinary Symptoms: No Symptoms, No Dysuria Musculoskeletal: No Symptoms, No Back Pain, No Neck Pain Skin: No Symptoms, No Rash Neurological: No Symptoms, No Dizziness, No Focal Weakness, No Sensory Changes Psychological: No Symptoms Endocrine: No Symptoms Hematologic/Lymphatic: No Symptoms Immunological/Allergic: No Symptoms All Other Systems: Reviewed and Negative - Past Medical History Pertinent Past Medical History: Yes Neurological History: No Pertinent History ENT History: No Pertinent History Cardiac History: Hypertension Respiratory History: No Pertinent History Endocrine Medical History: No Pertinent History Musculoskeletal History: No Pertinent History GI Medical History: No Pertinent History History: No Pertinent History Psycho-Social History: Anxiety, Depression, Panic Disorder Female Reproductive Disorders: No Pertinent History Other Medical History: hypoglycemia - Past Surgical History Past Surgical History: No Neuro Surgical History: No Pertinent History Cardiac: No Pertinent History Respiratory: No Pertinent History Gastrointestinal: No Pertinent History Genitourinary: No Pertinent History Musculoskeletal: No Pertinent History Female Surgical History: No Pertinent History - Social History Smoking Status: Former smoker Exposure to second hand smoke: No (occasional) Drug Use: none Patient Lives Alone: No Significant Family History: no pertinent family hx - Female History Hx Last Menstrual Period: may 24 Hx Now: Yes Gestational Age: ? - Nursing Vital Signs Nursing Vital Signs: Initial Vital Signs Temperature 97.0 F 07/10/22 15:48 Pulse Rate 98 H 07/10/22 15:48 Respiratory Rate 18 07/10/22 15:48 Blood Pressure 152/96 07/10/22 15:48 O2 Sat by Pulse Oximetry 100 07/10/22 15:48 Pain Scale Pain Intensity 4 - Physical Exam General Appearance: no apparent distress, alert Eye Exam: PERRL/EOMI, eyes nml inspection Ears, Nose, Throat Exam: normal ENT inspection, TMs normal, pharynx normal, moist mucous membranes Neck Exam: normal inspection, non-tender, supple, full range of motion Respiratory Exam: normal breath sounds, lungs clear, No respiratory distress Cardiovascular Exam: regular rate/rhythm, normal heart sounds, normal peripheral pulses Gastrointestinal/Abdomen Exam: soft, normal bowel sounds, No tenderness, No mass Back Exam: normal inspection, normal range of motion, No CVA tenderness, No vertebral tenderness Extremity Exam: normal inspection, normal range of motion, pelvis stable Neurologic Exam: alert, oriented x 3, cooperative, normal mood/affect, nml cerebellar function, nml station & gait, sensation nml, No motor deficits Skin Exam: normal color, warm, dry, No rash Lymphatic Exam: No adenopathy SpO2 Interpretation: normal SpO2: 100 O2 Delivery: Room Air - Course Nursing assessment & vital signs reviewed: Yes - Radiology Ultrasound Exam OB Ultrasound: tele radiology report (IUP 5 weeks. Too early for heart tones. Normal ovaries.) Ordered Tests: Active Orders 24 hr Category Date Time Status IV Insertion STAT Care 07/10/22 16:31 Active OB <14 WKS 1ST GESTATION [US] Stat Exams 07/10/22 16:30 Completed CBC W DIFF Stat Lab 07/10/22 17:10 Completed CMP Stat Lab 07/10/22 17:10 Completed HCG, Quantitative (Inhouse) Stat Lab 07/10/22 17:10 Completed UA W/RFX UR CULTURE Stat Lab 07/10/22 16:40 Completed Wet Prep Stat Lab 07/10/22 Ordered Lab/Rad Data: Laboratory Result Diagrams 07/10/22 17:10 07/10/22 17:10 Laboratory Results 07/10/22 07/10/22 07/10/22 Range/Units 17:10 17:10 17:10 WBC 8.2 (4.0-10.5) x10^3/uL RBC 3.94 L (4.1-5.4) x10^6/uL Hgb 12.2 (12.0-16.0) g/dL Hct 35.9 (35-47) % MCV 91.1 (78-100) fL MCH 31.0 (26-32) pg MCHC 34.0 (32-36) g/dL RDW 12.5 (11.5-14.0) % Plt Count 183 (150-450) x10^3/uL MPV 9.4 (7.5-11.0) fL Gran % 58.2 (36.0-66.0) % Immature Gran % (Auto) 0.4 (0.00-0.4) % Nucleat RBC Rel Count 0.0 (0.00-0.1) % Eos # (Auto) 0.19 (0-0.5) x10^3/uL Immature Gran # (Auto) 0.03 (0.00-0.03) x10^3u/L Absolute Lymphs (auto) 2.65 (1.0-4.6) x10^3/uL Absolute Monos (auto) 0.52 (0.0-1.3) x10^3/uL Absolute Nucleated RBC 0.00 (0.00-0.01) x10^3u/L Lymphocytes % 32.2 (24.0-44.0) % Monocytes % 6.3 (0.0-12.0) % Eosinophils % 2.3 (0.00-5.0) % Basophils % 0.6 (0.0-0.4) % Absolute Granulocytes 4.80 (1.4-6.9) x10^3/uL Basophils # 0.05 (0-0.4) x10^3/uL Sodium 134 L (137-145) mmol/L Potassium 3.7 (3.5-5.1) mmol/L Chloride 105 (98-107) mmol/L Carbon Dioxide 24 (22-30) mmol/L Anion Gap 8.4 (5-15) MEQ/L BUN 7 (7-17) mg/dL Creatinine 0.55 (0.52-1.04) mg/dL Estimated GFR > 60.0 ML/MIN Glucose 94 (74-106) mg/dL Calcium 8.9 (8.4-10.2) mg/dL Total Bilirubin 0.50 (0.2-1.3) mg/dL AST 26 (14-36) U/L ALT 21 (0-35) U/L Alkaline Phosphatase 71 (38-126) U/L Serum Total Protein 7.3 (6.3-8.2) g/dL Albumin 4.1 (3.5-5.0) g/dL Beta HCG, Quant mIU/ml Urine Color (Yellow) Urine Appearance (Clear) Urine pH (4.6-8.0) Ur Specific Ross (1.005-1.030) Urine Protein (Negative) Urine Glucose (UA) (Negative) mg/dL Urine Ketones (Negative) Urine Blood (Negative) Urine Nitrite (Negative) Urine Bilirubin (Negative) Urine Urobilinogen (0.2) mg/dL Ur Leukocyte Esterase (Negative) U Hyaline Cast (Auto) (0-2) /LPF Urine Microscopic RBC (0-5) /HPF Urine Microscopic WBC (0-5) /HPF Ur Epithelial Cells (None Seen) /HPF Urine Bacteria (None Seen) /HPF Urine Culture Reflexed (NO) Chlamydia DNA Probe (NEGATIVE) N.gonorrhoeae DNA Probe (NEGATIVE) ABO Group A Rh Factor POSITIVE Antibody Screen NEGATIVE (NEGATIVE) 07/10/22 07/10/22 07/10/22 Range/Units 17:10 16:40 16:40 WBC (4.0-10.5) x10^3/uL RBC (4.1-5.4) x10^6/uL Hgb (12.0-16.0) g/dL Hct (35-47) % MCV (78-100) fL MCH (26-32) pg MCHC (32-36) g/dL RDW (11.5-14.0) % Plt Count (150-450) x10^3/uL MPV (7.5-11.0) fL Gran % (36.0-66.0) % Immature Gran % (Auto) (0.00-0.4) % Nucleat RBC Rel Count (0.00-0.1) % Eos # (Auto) (0-0.5) x10^3/uL Immature Gran # (Auto) (0.00-0.03) x10^3u/L Absolute Lymphs (auto) (1.0-4.6) x10^3/uL Absolute Monos (auto) (0.0-1.3) x10^3/uL Absolute Nucleated RBC (0.00-0.01) x10^3u/L Lymphocytes % (24.0-44.0) % Monocytes % (0.0-12.0) % Eosinophils % (0.00-5.0) % Basophils % (0.0-0.4) % Absolute Granulocytes (1.4-6.9) x10^3/uL Basophils # (0-0.4) x10^3/uL Sodium (137-145) mmol/L Potassium (3.5-5.1) mmol/L Chloride (98-107) mmol/L Carbon Dioxide (22-30) mmol/L Anion Gap (5-15) MEQ/L BUN (7-17) mg/dL Creatinine (0.52-1.04) mg/dL Estimated GFR ML/MIN Glucose (74-106) mg/dL Calcium (8.4-10.2) mg/dL Total Bilirubin (0.2-1.3) mg/dL AST (14-36) U/L ALT (0-35) U/L Alkaline Phosphatase (38-126) U/L Serum Total Protein (6.3-8.2) g/dL Albumin (3.5-5.0) g/dL Beta HCG, Quant 7879.0 mIU/ml Urine Color Yellow (Yellow) Urine Appearance Clear (Clear) Urine pH 6.0 (4.6-8.0) Ur Specific Ross 1.010 (1.005-1.030) Urine Protein Negative (Negative) Urine Glucose (UA) Negative (Negative) mg/dL Urine Ketones Negative (Negative) Urine Blood Negative (Negative) Urine Nitrite Negative (Negative) Urine Bilirubin Negative (Negative) Urine Urobilinogen 0.2 (0.2) mg/dL Ur Leukocyte Esterase Trace A (Negative) U Hyaline Cast (Auto) NONE SEEN (0-2) /LPF Urine Microscopic RBC 0-2 (0-5) /HPF Urine Microscopic WBC 0-2 (0-5) /HPF Ur Epithelial Cells None Seen (None Seen) /HPF Urine Bacteria None Seen (None Seen) /HPF Urine Culture Reflexed NO (NO) Chlamydia DNA Probe NOT DETECTED (NEGATIVE) N.gonorrhoeae DNA Probe NOT DETECTED (NEGATIVE) ABO Group Rh Factor Antibody Screen (NEGATIVE) - Progress Progress: improved Progress Note: 21-year-old female G5, P3 M1 presents emergency department for evaluation of pelvic cramping spotting and feeling slightly dizzy. Although no active dizziness during my physical exam. Review of systems negative. Physical exam essentially nonremarkable. Neurologic exam normal. Patient's complaints or acute in nature. Complexity of complaint was moderate. No significant comorbidities to correlate with patient's symptoms. Tests ordered include CBC CMP hCG UA urine GC Rh. Pelvic ultrasound ordered as well. Work-up essentially nonremarkable. Ultrasound shows a IUP. Currently 5 weeks. Too early to obtain heart tones. GC chlamydia negative. Rh factor positive. No indication for RhoGAM. Patient declined a pelvic exam. Wet prep was not performed. Results of testing was used for medical decision making. Patient declined medication. She declined pain medication. No consultations performed during this visit. Plan of care discussed with patient. She agrees to follow- up with her [employer] doctor within 48 hours for reevaluation. Level of EM service provided was moderate. Complexity of problem addressed was moderate. Amount and complexity of data reviewed was moderate. Risks of complication, morbidity/mortality of management was moderate. No critical care time. 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 Patient feels well voices no other complaints at this time. Will discharge home. Patient disclaimer 07/10/22 19:31 Counseled pt/family regarding: lab results, diagnosis, need for follow-up, rad results - Departure Departure Disposition: Home Clinical Impression: Threatened , Vaginal spotting, Dizziness Condition: Stable Critical Care Time: No Referrals: MARY MARSHALL [Primary Care Provider] - Follow up/PCP as directed Additional Instructions: Discharge/Care Plan HIRAEREN SANDOVAL was seen on 07/10/22 in the Emergency Room. The patient was counseled regarding Diagnosis,Lab results, Imaging studies, need for follow up and when to return to the Emergency Room. Prescriptions given: Discharge Note I have spoken with the patient and/or caregivers. I have explained the patient's condition, diagnosis and treatment plan based on the information available to me at this time. I have answered the patient's and/or caregiver's questions and addressed any concerns. The patient and/or caregivers have as good understanding of the patient's diagnosis, condition and treatment plan as can be expected at this point. The vital signs have been stable. The patient's condition is stable and appropriate for discharge from the emergency department. The patient will pursue further outpatient evaluation with the primary care physician or other designated or consulting physician as outlined in the discharge instructions. The patient and/or caregivers are agreeable to this plan of care and follow-up instructions have been explained in detail. The patient and/or caregivers have received these instruction. The patient/and or caregivers are aware that any significant change in condition or worsening of symptoms should prompt an immediate return to this or the closest emergency department or call 911.
[2022-07-10 17:01] LABS: Appearance Clear (Clear); Bacteria None Seen /HPF (None Seen); Bilirubin Negative (Negative); Blood Negative (Negative); Epithelial Cells None Seen /HPF (None Seen); Glucose, Urine Negative (Negative); Hyaline Casts NONE SEEN /LPF (0-2); Ketones Negative (Negative); Leukocyte Esterase Trace (Negative); Nitrite Negative (Negative); Protein,Urine Dip Negative (Negative); RBC 0-2 /HPF (0-5); Urobilinogen 0.2 mg/dL (0.2); WBC 0-2 /HPF (0-5)
--- NOTE | 2022-07-10 17:05 | XRAY ---
Indication: Pain. Two-dimensional transabdominal early OB ultrasound performed. Comparison: June 27, 2022 There is now a single intrauterine gestational sac measuring 1.03 cm corresponding to 5 weeks 0 days. No pole/heart tones or abnormal subchorionic fluid. Left and right ovaries are sonographically unremarkable. No suspicious adnexal mass or free fluid. Impression: New single intrauterine gestational sac measuring 5 weeks 0 days. No pole/heart tones. Again correlate with serum beta hCG and follow-up sonogram regarding viability.
[2022-07-10 17:08] LABS: ADD URINE CULTURE? NO (NO)
[2022-07-10 17:30] LABS: Basophil (Absolute #) 0.05 x10^3/uL (0-0.4); Eosinophil % 2.3 % (0.00-5.0); Eosinophil (Absolute #) 0.19 x10^3/uL (0-0.5); Hematocrit 35.9 % (35-47); Hemoglobin 12.2 g/dL (12.0-16.0); Lymphocyte (Absolute #) 2.65 x10^3/uL (1.0-4.6); Lymphocytes % 32.2 % (24.0-44.0); Mean Cell Volume 91.1 fL (78-100); Mean Platelet Volume 9.4 fL (7.5-11.0); Monocyte (Absolute #) 0.52 x10^3/uL (0.0-1.3); Monocytes % 6.3 % (0.0-12.0); Neutrophil % 58.2 % (36.0-66.0); Platelet Count 183 x10^3/uL (150-450); Red Blood Count 3.94 x10^6/uL (4.1-5.4); Red Cell Distribution Width 12.5 % (11.5-14.0); White Blood Count 8.2 x10^3/uL (4.0-10.5)
[2022-07-10 18:17] LABS: ABO TYPING A; RH TYPING POSITIVE
[2022-07-10 18:18] LABS: Antibody Screen NEGATIVE (NEGATIVE)
[2022-07-10 18:24] LABS: CHLAMYDIA DNA NOT DETECTED (NEGATIVE); GC DNA Probe NOT DETECTED (NEGATIVE)
[2022-07-10 18:28] LABS: ALBUMIN 4.1 g/dL (3.5-5.0); ALKALINE PHOSPHATASE 71 U/L (38-126); ANION GAP 8.4 MEQ/L (5-15); BLOOD UREA NITROGEN 7 mg/dL (7-17); CHLORIDE 105 mmol/L (98-107); Calcium 8.9 mg/dL (8.4-10.2); Carbon Dioxide 24 mmol/L (22-30); Creatinine 1 0.55 mg/dL (0.52-1.04); EST GLOMERULAR FILTRATION RATE > 60.0 ML/MIN; Glucose 94 mg/dL (74-106); Potassium 3.7 mmol/L (3.5-5.1); SGOT/AST 26 U/L (14-36); SGPT/ALT 21 U/L (0-35); SODIUM 134 mmol/L (137-145); Total Protein 7.3 g/dL (6.3-8.2)
[2022-07-10 19:23] VITALS: O2SAT 100
[2022-07-10 19:37] VITALS: BP 126/77; PULSE 89
== END 2022-07-10 19:42 | disposition home or self-care (01) ==
LOC: ED 15:03
DX: O20.0 Threatened abortion (principal); Z3A.01 Less than 8 weeks gestation of pregnancy; O26.851 Spotting complicating pregnancy, first trimester; R42 Dizziness and giddiness; O10.911 Unspecified pre-existing hypertension complicating pregnancy, first trimester; Z28.310 Unvaccinated for COVID-19
CPT/HCPCS: 36415; 76801; 80053; 81001; 84702; 85025; 86850; 86900; 86901; 87491; 87591; 99283

== ENCOUNTER 2022-11-16 13:51 | Emergency (ER) | payer OTHER ==
--- NOTE | 2022-11-16 13:53 | ERPHSYRPT ---
- History of Present Illness Time Seen by Provider: 11/16/22 13:53 Historian: patient Exam Limitations: no limitations Physician History: This is a 22-year-old white female patient who is 25 weeks has a history anxiety and panic disorder and complains of mid chest pain that is nonradiating and it is sharp there is a present and persisted for 3 days. She is also been dizzy and feels "off" there is been changes in her visual [place]. She has some lower abdominal cramping but no vaginal bleeding. Patient is not short of breath. She has not had a fever or cough. Timing/Duration: day(s) (3) Activities at Onset: none Quality: sharpness (Midsternal central without radiation) Chest Pain Radiation: no radiation Severity of Pain-Max: mild Severity of Pain-Current: mild Modifying Factors: Improves With: nothing Associated Symptoms: abdominal pain (Lower abdominal cramping), No nausea, No vomiting, No shortness of breath, No cough Prior Chest Pain/Cardiac Workup: no prior chest pain Nitro Today/Relief: no nitro taken today Aspirin Treatment Today: no aspirin today Allergies/Adverse Reactions: venlafaxine [From Effexor] Allergy (Verified 11/16/22 13:58) Irregular Heart Beat hives also Hx Tetanus, Diphtheria Vaccination/Date Given: Yes Hx Influenza Vaccination/Date Given: No Hx Pneumococcal Vaccination/Date Given: No Travel Risk - International Travel Have you traveled outside of the country in past 3 weeks: No - Coronavirus Screening Are you exhibiting any of the following symptoms?: No Close contact with a COVID-19 positive Pt in past 14-21 Days: No - Vaccine Status Have you recieved a Covid-19 vaccination: No - Review of Systems Constitutional: No Symptoms Eyes: No Symptoms Ears, Nose, & Throat: No Symptoms Respiratory: No Symptoms Cardiac: Chest Pain (4 out of 10 sharp substernal central) Abdominal/Gastrointestinal: No Symptoms Genitourinary Symptoms: No Symptoms Musculoskeletal: No Symptoms Skin: No Symptoms Neurological: Dizziness, Other (Visual changes double vision mccormack lines and intermittent loss of visual field) Psychological: Anxiety Endocrine: No Symptoms Hematologic/Lymphatic: No Symptoms Immunological/Allergic: No Symptoms All Other Systems: Reviewed and Negative - Past Medical History Pertinent Past Medical History: Yes Neurological History: No Pertinent History ENT History: No Pertinent History Cardiac History: Hypertension Respiratory History: No Pertinent History Endocrine Medical History: No Pertinent History Musculoskeletal History: No Pertinent History GI Medical History: No Pertinent History History: No Pertinent History Psycho-Social History: Anxiety, Depression, Panic Disorder Female Reproductive Disorders: No Pertinent History Other Medical History: hypoglycemia - Past Surgical History Past Surgical History: No Neuro Surgical History: No Pertinent History Cardiac: No Pertinent History Respiratory: No Pertinent History Gastrointestinal: No Pertinent History Genitourinary: No Pertinent History Musculoskeletal: No Pertinent History Female Surgical History: No Pertinent History - Social History Smoking Status: Former smoker Exposure to second hand smoke: No (occasional) Drug Use: none Patient Lives Alone: No Significant Family History: no pertinent family hx - Nursing Vital Signs Nursing Vital Signs: Initial Vital Signs Temperature 97.9 F 11/16/22 13:58 Pulse Rate 92 H 11/16/22 13:58 Respiratory Rate 18 11/16/22 13:58 Blood Pressure 139/81 11/16/22 13:58 O2 Sat by Pulse Oximetry 100 11/16/22 13:58 Pain Scale Pain Intensity 4 - Physical Exam General Appearance: no apparent distress, alert, anxiety Eye Exam: PERRL/EOMI, eyes nml inspection Ears, Nose, Throat Exam: normal ENT inspection, moist mucous membranes Neck Exam: normal inspection, non-tender, supple, full range of motion Respiratory Exam: normal breath sounds, chest tenderness, lungs clear, airway intact, No respiratory distress Cardiovascular Exam: regular rate/rhythm, normal heart sounds, normal peripheral pulses Gastrointestinal/Abdomen Exam: soft, normal bowel sounds, No tenderness Pelvic Exam: not done Rectal Exam: not done Back Exam: normal inspection, normal range of motion, No CVA tenderness, No vertebral tenderness Extremity Exam: normal inspection, normal range of motion, pelvis stable Neurologic Exam: alert, oriented x 3, cooperative, coach cleaner II-XII nml as tested, normal mood/affect, nml cerebellar function, nml station & gait, sensation nml Skin Exam: normal color, warm, dry Lymphatic Exam: No adenopathy SpO2 Interpretation: normal O2 Delivery: Room Air - Course Nursing assessment & vital signs reviewed: Yes EKG Interpreted by Me: RATE (99), Sinus Rhythm, NORMAL AXIS, NORMAL INTERVALS, NORMAL QRS, NORMAL ST-T, Other (No acute ischemic changes on today's twelve-lead EKG.) Ordered Tests: Active Orders 24 hr Category Date Time Status EKG-ER Only STAT Care 11/16/22 14:03 Active IV Insertion STAT Care 11/16/22 14:03 Active HEAD WITHOUT CONTRAST [CT] Stat Exams 11/16/22 14:35 Completed CBC W DIFF Stat Lab 11/16/22 14:20 Completed CMP Stat Lab 11/16/22 14:20 Completed CULTURE,URINE Stat Lab 11/16/22 Received TROPONIN Q4H Lab 11/16/22 14:20 Completed TROPONIN Q4H Lab 11/16/22 18:15 Ordered TROPONIN Q4H Lab 11/16/22 22:15 Ordered UA W/RFX UR CULTURE Stat Lab 11/16/22 Completed Lab/Rad Data: Laboratory Result Diagrams 11/16/22 14:20 11/16/22 14:20 Laboratory Results 11/16/22 11/16/22 11/16/22 Range/Units Unknown 14:20 14:20 WBC (4.0-10.5) x10^3/uL RBC (4.1-5.4) x10^6/uL Hgb (12.0-16.0) g/dL Hct (35-47) % MCV (78-100) fL MCH (26-32) pg MCHC (32-36) g/dL RDW (11.5-14.0) % Plt Count (150-450) x10^3/uL MPV (7.5-11.0) fL Gran % (36.0-66.0) % Immature Gran % (Auto) (0.00-0.4) % Nucleat RBC Rel Count (0.00-0.1) % Eos # (Auto) (0-0.5) x10^3/uL Immature Gran # (Auto) (0.00-0.03) x10^3u/L Absolute Lymphs (auto) (1.0-4.6) x10^3/uL Absolute Monos (auto) (0.0-1.3) x10^3/uL Absolute Nucleated RBC (0.00-0.01) x10^3u/L Lymphocytes % (24.0-44.0) % Monocytes % (0.0-12.0) % Eosinophils % (0.00-5.0) % Basophils % (0.0-0.4) % Absolute Granulocytes (1.4-6.9) x10^3/uL Basophils # (0-0.4) x10^3/uL Sodium 135 L (137-145) mmol/L Potassium 3.6 (3.5-5.1) mmol/L Chloride 104 (98-107) mmol/L Carbon Dioxide 23 (22-30) mmol/L Anion Gap 10.8 (5-15) MEQ/L BUN 3 L (7-17) mg/dL Creatinine 0.41 L (0.52-1.04) mg/dL Estimated GFR > 60.0 ML/MIN Glucose 99 (74-106) mg/dL Calcium 8.1 L (8.4-10.2) mg/dL Total Bilirubin 0.40 (0.2-1.3) mg/dL AST 19 (14-36) U/L ALT 12 (0-35) U/L Alkaline Phosphatase 87 (38-126) U/L Troponin I < 0.012 (0.000-0.034) ng/mL Serum Total Protein 6.9 (6.3-8.2) g/dL Albumin 3.4 L (3.5-5.0) g/dL Urine Color Yellow (Yellow) Urine Appearance Clear (Clear) Urine pH 7.0 (4.6-8.0) Ur Specific [place] 1.010 (1.005-1.030) Urine Protein Negative (Negative) Urine Glucose (UA) Negative (Negative) mg/dL Urine Ketones Negative (Negative) Urine Blood Negative (Negative) Urine Nitrite Negative (Negative) Urine Bilirubin Negative (Negative) Urine Urobilinogen 0.2 (0.2) mg/dL Ur Leukocyte Esterase Moderate A (Negative) U Hyaline Cast (Auto) NONE SEEN (0-2) /LPF Urine Microscopic RBC 0-2 (0-5) /HPF Urine Microscopic WBC 11-20 A (0-5) /HPF Ur Epithelial Cells Few (None Seen) /HPF Urine Bacteria None Seen (None Seen) /HPF Urine Culture Reflexed YES (NO) 11/16/22 Range/Units 14:20 WBC 7.0 (4.0-10.5) x10^3/uL RBC 3.55 L (4.1-5.4) x10^6/uL Hgb 11.1 L (12.0-16.0) g/dL Hct 33.6 L (35-47) % MCV 94.6 (78-100) fL MCH 31.3 (26-32) pg MCHC 33.0 (32-36) g/dL RDW 13.5 (11.5-14.0) % Plt Count 180 (150-450) x10^3/uL MPV 9.4 (7.5-11.0) fL Gran % 62.2 (36.0-66.0) % Immature Gran % (Auto) 0.4 (0.00-0.4) % Nucleat RBC Rel Count 0.0 (0.00-0.1) % Eos # (Auto) 0.06 (0-0.5) x10^3/uL Immature Gran # (Auto) 0.03 (0.00-0.03) x10^3u/L Absolute Lymphs (auto) 2.02 (1.0-4.6) x10^3/uL Absolute Monos (auto) 0.52 (0.0-1.3) x10^3/uL Absolute Nucleated RBC 0.00 (0.00-0.01) x10^3u/L Lymphocytes % 28.7 (24.0-44.0) % Monocytes % 7.4 (0.0-12.0) % Eosinophils % 0.9 (0.00-5.0) % Basophils % 0.4 (0.0-0.4) % Absolute Granulocytes 4.37 (1.4-6.9) x10^3/uL Basophils # 0.03 (0-0.4) x10^3/uL Sodium (137-145) mmol/L Potassium (3.5-5.1) mmol/L Chloride (98-107) mmol/L Carbon Dioxide (22-30) mmol/L Anion Gap (5-15) MEQ/L BUN (7-17) mg/dL Creatinine (0.52-1.04) mg/dL Estimated GFR ML/MIN Glucose (74-106) mg/dL Calcium (8.4-10.2) mg/dL Total Bilirubin (0.2-1.3) mg/dL AST (14-36) U/L ALT (0-35) U/L Alkaline Phosphatase (38-126) U/L Troponin I (0.000-0.034) ng/mL Serum Total Protein (6.3-8.2) g/dL Albumin (3.5-5.0) g/dL Urine Color (Yellow) Urine Appearance (Clear) Urine pH (4.6-8.0) Ur Specific [place] (1.005-1.030) Urine Protein (Negative) Urine Glucose (UA) (Negative) mg/dL Urine Ketones (Negative) Urine Blood (Negative) Urine Nitrite (Negative) Urine Bilirubin (Negative) Urine Urobilinogen (0.2) mg/dL Ur Leukocyte Esterase (Negative) U Hyaline Cast (Auto) (0-2) /LPF Urine Microscopic RBC (0-5) /HPF Urine Microscopic WBC (0-5) /HPF Ur Epithelial Cells (None Seen) /HPF Urine Bacteria (None Seen) /HPF Urine Culture Reflexed (NO) - Progress Progress: improved, re-examined Air Movement: good Progress Note: 11/16/22 15:19 CT scan of the head without contrast is a normal study. The interpretation was performed by the radiologist and I reviewed the interpretation. This patient's medical history is 1 of moderate complexity. Level of complexity and the work-up performed was based on review of the patient's past medical history, review of the patient's medication list, review of the patient's drug allergy list, history present illness, and physical findings on examination. This patient work-up includes placement of a intravenous line, CBC, CMP, urinalysis, twelve-lead EKG, CT scan of the head and troponin level. I reviewed the above work-up results. The urinalysis is pending. The remainder of the work-up shows no acute emergent process. 11/16/22 15:20 11/16/22 15:36 This patient is having some dizziness and feeling off. It appears as though her symptoms are most likely due to a urinary tract infection. We will place her on Keflex and have her follow-up with her primary care provider. Blood Culture(s) Obtained: No Counseled pt/family regarding: lab results, diagnosis, need for follow-up, rad results Medical Desision Making - Diagnostic Testing Diagnostic test were ordered, analyzed, and reviewed by me: Yes Radiological Interpretation: Reviewed by me, Teleradiologist Report - Risk of complications The pt has a mod risk of morbidity or mortality based on: Need for prescription drug management - Departure Departure Disposition: Home Clinical Impression: Dizziness, UTI (urinary tract infection) Condition: Stable Critical Care Time: No Referrals: MARY MARSHALL [Primary Care Provider] - Follow up/PCP as directed Additional Instructions: Drink plenty of fluids. Take your antibiotics as prescribed. Follow-up with yo primary care provider for further evaluation and management. Prescriptions: Cephalexin Mh 500 mg [Keflex 500 mg] 500 mg PO TID #21 cap
[2022-11-16 14:04] VITALS: BP 139/81; PULSE 92; O2SAT 100
[2022-11-16 14:34] LABS: Absolute Neutrophil Ct (ANC) 4.37 x10^3/uL (1.4-6.9); BASOPHIL % 0.4 % (0.0-0.4); Basophil (Absolute #) 0.03 x10^3/uL (0-0.4); Eosinophil % 0.9 % (0.00-5.0); Eosinophil (Absolute #) 0.06 x10^3/uL (0-0.5); Hematocrit 33.6 % (35-47); Hemoglobin 11.1 g/dL (12.0-16.0); IMMATURE GRAN # 0.03 x10^3u/L (0.00-0.03); IMMATURE GRAN % 0.4 % (0.00-0.4); Lymphocyte (Absolute #) 2.02 x10^3/uL (1.0-4.6); Lymphocytes % 28.7 % (24.0-44.0); Mean Cell Volume 94.6 fL (78-100); Mean Corpuscular Hemoglobin 31.3 pg (26-32); Mean Platelet Volume 9.4 fL (7.5-11.0); Monocyte (Absolute #) 0.52 x10^3/uL (0.0-1.3); Monocytes % 7.4 % (0.0-12.0); Neutrophil % 62.2 % (36.0-66.0); Platelet Count 180 x10^3/uL (150-450); Red Blood Count 3.55 x10^6/uL (4.1-5.4); Red Cell Distribution Width 13.5 % (11.5-14.0)
[2022-11-16 14:51] LABS: ALBUMIN 3.4 g/dL (3.5-5.0); ALKALINE PHOSPHATASE 87 U/L (38-126); ANION GAP 10.8 MEQ/L (5-15); BLOOD UREA NITROGEN 3 mg/dL (7-17); CHLORIDE 104 mmol/L (98-107); Calcium 8.1 mg/dL (8.4-10.2); Carbon Dioxide 23 mmol/L (22-30); Creatinine 1 0.41 mg/dL (0.52-1.04); EST GLOMERULAR FILTRATION RATE > 60.0 ML/MIN; Glucose 99 mg/dL (74-106); Potassium 3.6 mmol/L (3.5-5.1); SGOT/AST 19 U/L (14-36); SGPT/ALT 12 U/L (0-35); SODIUM 135 mmol/L (137-145); Total Protein 6.9 g/dL (6.3-8.2)
[2022-11-16 15:08] LABS: Appearance Clear (Clear); Bilirubin Negative (Negative); Blood Negative (Negative); Glucose, Urine Negative (Negative); Ketones Negative (Negative); Leukocyte Esterase Moderate (Negative); Nitrite Negative (Negative); Protein,Urine Dip Negative (Negative); Urobilinogen 0.2 mg/dL (0.2)
--- NOTE | 2022-11-16 15:14 | XRAY ---
Indication: Headache and vision change. 25 weeks . Multiple contiguous axial images obtained through the head without contrast. Patient's abdomen shielded. Comparison: October 30, 2021 Normal appearing brain parenchyma, ventricles, and bony calvarium. New partially visualized fluid leveling both maxillary sinuses. Remaining paranasal sinuses and mastoid air cells are clear. Impression: Continued normal CT head without contrast exam. Incidental minimal paranasal sinus disease.
[2022-11-16 15:22] LABS: Bacteria None Seen /HPF (None Seen); Epithelial Cells Few /HPF (None Seen); Hyaline Casts NONE SEEN /LPF (0-2); RBC 0-2 /HPF (0-5)
[2022-11-16 15:27] LABS: ADD URINE CULTURE? YES (NO)
[2022-11-16] MEDS ORDERED: KEFLEX 500 MG PO ONE (15:38)
[2022-11-16] MEDS ORDERED: KEFLEX 500 MG ONE (15:40)
== END 2022-11-16 16:16 | disposition home or self-care (01) ==
LOC: ED 13:51
DX: O23.42 Unspecified infection of urinary tract in pregnancy, second trimester (principal); N39.0 Urinary tract infection, site not specified; Z3A.25 25 weeks gestation of pregnancy; R42 Dizziness and giddiness; R07.9 Chest pain, unspecified; R10.30 Lower abdominal pain, unspecified; Z28.310 Unvaccinated for COVID-19
CPT/HCPCS: 36000; 36415; 70450; 80053; 81001; 84484; 85025; 87086; 93005; 99284; A9270-GY

== ENCOUNTER 2022-11-24 19:06 | Observation (INO) | payer OTHER ==
[2022-11-24 19:33] LABS: Appearance Clear (Clear); Bacteria None Seen /HPF (None Seen); Bilirubin Negative (Negative); Blood Negative (Negative); Epithelial Cells None Seen /HPF (None Seen); Glucose, Urine Negative (Negative); Hyaline Casts NONE SEEN /LPF (0-2); Ketones Negative (Negative); Leukocyte Esterase Small (Negative); Nitrite Negative (Negative); Protein,Urine Dip Negative (Negative); RBC 0-2 /HPF (0-5); Specific Gravity <=1.005 (1.005-1.030); Urobilinogen 0.2 mg/dL (0.2)
[2022-11-24 19:34] LABS: ADD URINE CULTURE? NO (NO)
[2022-11-24 21:13] VITALS: BP 111/71; PULSE 75; O2SAT 98
== END 2022-11-24 21:30 | disposition home or self-care (01) ==
LOC: OB 19:06
PROVIDERS: ADMIT Obstetrics & Gynecology; ATTEND Obstetrics & Gynecology
DX: Z34.82 Encounter for supervision of other normal pregnancy, second trimester (principal); Z3A.25 25 weeks gestation of pregnancy
CPT/HCPCS: 81001; G0378; G0379

== ENCOUNTER 2023-04-28 15:08 | Observation (INO) | payer OTHER ==
--- NOTE | 2023-04-28 16:07 | ERPHSYRPT ---
- History of Present Illness Historian: patient, EMS Exam Limitations: no limitations Patient Subjective Stated Complaint: Abdominal pain Triage Nursing Assessment: Patient brought into ED per EMS and tranferred to bed per self. Patient A+O X3. Patient's skin pink, warm and dry. Patient complains of RUQ pain intermittently for one week. Patient states the pain has gotten worse today with nausea. When EMS arrived her pain was 6/10 and was given Zofran and Toradol. Abdomen soft and round with BS X 4. Patient complains of feeling "Bloated. Physician History: 22 years old female with no past medical history presenting to the emergency room complaining of intermittent right upper quadrant abdominal pain that she has been having for the last 6 days. The patient states her pain is like stabbing or sharp that comes and attacks. Today the pain lasted for 1 hour so she called EMS. Her pain was 7 out of 10. The paramedics gave her Toradol and Zofran and her pain is currently a 2 out of 10. No nausea or vomiting she has been constipated. She delivered a baby 2 months ago normal vaginal delivery she is currently on her.. She denies any fever or chills. No past abdominal surgeries. Allergies/Adverse Reactions: venlafaxine [From Effexor] Allergy (Verified 04/28/23 15:19) Irregular Heart Beat hives also Home Medications: No Reportable Medications [No Reported Medications] 04/28/23 [History] Hx Tetanus, Diphtheria Vaccination/Date Given: Yes Hx Influenza Vaccination/Date Given: No Hx Pneumococcal Vaccination/Date Given: No Travel Risk - International Travel Have you traveled outside of the country in past 3 weeks: No - Coronavirus Screening Are you exhibiting any of the following symptoms?: No Close contact with a COVID-19 positive Pt in past 14-21 Days: No - Vaccine Status Have you recieved a Covid-19 vaccination: No - Review of Systems Constitutional: No Fever, No Chills Eyes: No Symptoms Ears, Nose, & Throat: No Symptoms Respiratory: No Cough, No Dyspnea Cardiac: No Chest Pain, No Edema, No Syncope Abdominal/Gastrointestinal: Abdominal Pain, Constipation, No Nausea, No Vomiting, No Diarrhea Genitourinary Symptoms: No Dysuria Musculoskeletal: No Back Pain, No Neck Pain Skin: No Rash Neurological: No Dizziness, No Focal Weakness, No Sensory Changes Psychological: No Symptoms Endocrine: No Symptoms All Other Systems: Reviewed and Negative - Past Medical History Pertinent Past Medical History: Yes Neurological History: No Pertinent History ENT History: No Pertinent History Cardiac History: Hypertension Respiratory History: No Pertinent History Endocrine Medical History: No Pertinent History Musculoskeletal History: No Pertinent History GI Medical History: No Pertinent History History: No Pertinent History Psycho-Social History: Anxiety, Depression, Panic Disorder Female Reproductive Disorders: No Pertinent History Other Medical History: hypoglycemia - Past Surgical History Past Surgical History: No Neuro Surgical History: No Pertinent History Cardiac: No Pertinent History Respiratory: No Pertinent History Gastrointestinal: No Pertinent History Genitourinary: No Pertinent History Musculoskeletal: No Pertinent History Female Surgical History: No Pertinent History - Social History Smoking Status: Never smoker Exposure to second hand smoke: Yes Drug Use: none Patient Lives Alone: No Significant Family History: no pertinent family hx - Female History Hx Last Menstrual Period: May 2020 Hx Now: No - Nursing Vital Signs Nursing Vital Signs: Initial Vital Signs Pulse Rate 98 H 04/28/23 15:21 Respiratory Rate 18 04/28/23 15:21 Blood Pressure 136/84 04/28/23 15:21 O2 Sat by Pulse Oximetry 98 04/28/23 15:21 Pain Scale Pain Intensity 7 - Physical Exam General Appearance: no apparent distress, alert Eye Exam: PERRL/EOMI, eyes nml inspection Ears, Nose, Throat Exam: normal ENT inspection, pharynx normal, moist mucous membranes Neck Exam: normal inspection, non-tender, supple, full range of motion Respiratory Exam: normal breath sounds, lungs clear, No respiratory distress Cardiovascular Exam: regular rate/rhythm, normal heart sounds Gastrointestinal/Abdomen Exam: soft, tenderness, other (Right upper quadrant tenderness, no rebound no guarding or rigidity.), No mass Back Exam: normal inspection, normal range of motion, No CVA tenderness, No vertebral tenderness Extremity Exam: normal inspection, normal range of motion, pelvis stable Neurologic Exam: alert, oriented x 3, cooperative, normal mood/affect, nml cerebellar function, sensation nml, No motor deficits Skin Exam: normal color, warm, dry SpO2: 98 Ordered Tests: Active Orders 24 hr Category Date Time Status ABDOMEN AND PELVIS W CONTRAST [CT] Stat Exams 04/28/23 16:04 Completed CBC W DIFF Stat Lab 04/28/23 16:25 Completed CMP Stat Lab 04/28/23 16:25 Completed HCG QUALITATIVE, SERUM Stat Lab 04/28/23 16:25 Completed LIPASE Stat Lab 04/28/23 16:25 Completed UA W/RFX UR CULTURE Stat Lab 04/28/23 16:09 Completed Lab/Rad Data: Laboratory Result Diagrams 04/28/23 16:25 04/28/23 16:25 Laboratory Results 04/28/23 04/28/23 04/28/23 Range/Units 16:25 16:25 16:25 WBC 7.7 (4.0-10.5) x10^3/uL RBC 3.85 L (4.1-5.4) x10^6/uL Hgb 10.2 L (12.0-16.0) g/dL Hct 32.9 L (35-47) % MCV 85.5 (78-100) fL MCH 26.5 (26-32) pg MCHC 31.0 L (32-36) g/dL RDW 14.5 H (11.5-14.0) % Plt Count 204 (150-450) x10^3/uL MPV 9.3 (7.5-11.0) fL Gran % 64.7 (36.0-66.0) % Immature Gran % (Auto) 0.3 (0.00-0.4) % Nucleat RBC Rel Count 0.0 (0.00-0.1) % Eos # (Auto) 0.12 (0-0.5) x10^3/uL Immature Gran # (Auto) 0.02 (0.00-0.03) x10^3u/L Absolute Lymphs (auto) 2.10 (1.0-4.6) x10^3/uL Absolute Monos (auto) 0.44 (0.0-1.3) x10^3/uL Absolute Nucleated RBC 0.00 (0.00-0.01) x10^3u/L Lymphocytes % 27.3 (24.0-44.0) % Monocytes % 5.7 (0.0-12.0) % Eosinophils % 1.6 (0.00-5.0) % Basophils % 0.4 (0.0-0.4) % Absolute Granulocytes 4.97 (1.4-6.9) x10^3/uL Basophils # 0.03 (0-0.4) x10^3/uL Sodium 138 (137-145) mmol/L Potassium 4.3 (3.5-5.1) mmol/L Chloride 105 (98-107) mmol/L Carbon Dioxide 21 L (22-30) mmol/L Anion Gap 16.0 H (5-15) MEQ/L BUN 7 (7-17) mg/dL Creatinine 0.59 (0.52-1.04) mg/dL Estimated GFR 129.8 ML/MIN Glucose 110 H (74-106) mg/dL Calcium 9.4 (8.4-10.2) mg/dL Total Bilirubin 0.50 (0.2-1.3) mg/dL AST 39 H (14-36) U/L ALT 51 H (0-35) U/L Alkaline Phosphatase 113 (38-126) U/L Serum Total Protein 7.7 (6.3-8.2) g/dL Albumin 4.1 (3.5-5.0) g/dL Lipase 41 (23-300) U/L Serum HCG, Qual NEGATIVE (NEGATIVE) Urine Color (Yellow) Urine Appearance (Clear) Urine pH (4.6-8.0) Ur Specific [place] (1.005-1.030) Urine Protein (Negative) Urine Glucose (UA) (Negative) mg/dL Urine Ketones (Negative) Urine Blood (Negative) Urine Nitrite (Negative) Urine Bilirubin (Negative) Urine Urobilinogen (0.2) mg/dL Ur Leukocyte Esterase (Negative) U Hyaline Cast (Auto) (0-2) /LPF Urine Microscopic RBC (0-5) /HPF Urine Microscopic WBC (0-5) /HPF Ur Epithelial Cells (None Seen) /HPF Urine Bacteria (None Seen) /HPF Urine Culture Reflexed (NO) 04/28/23 Range/Units 16:09 WBC (4.0-10.5) x10^3/uL RBC (4.1-5.4) x10^6/uL Hgb (12.0-16.0) g/dL Hct (35-47) % MCV (78-100) fL MCH (26-32) pg MCHC (32-36) g/dL RDW (11.5-14.0) % Plt Count (150-450) x10^3/uL MPV (7.5-11.0) fL Gran % (36.0-66.0) % Immature Gran % (Auto) (0.00-0.4) % Nucleat RBC Rel Count (0.00-0.1) % Eos # (Auto) (0-0.5) x10^3/uL Immature Gran # (Auto) (0.00-0.03) x10^3u/L Absolute Lymphs (auto) (1.0-4.6) x10^3/uL Absolute Monos (auto) (0.0-1.3) x10^3/uL Absolute Nucleated RBC (0.00-0.01) x10^3u/L Lymphocytes % (24.0-44.0) % Monocytes % (0.0-12.0) % Eosinophils % (0.00-5.0) % Basophils % (0.0-0.4) % Absolute Granulocytes (1.4-6.9) x10^3/uL Basophils # (0-0.4) x10^3/uL Sodium (137-145) mmol/L Potassium (3.5-5.1) mmol/L Chloride (98-107) mmol/L Carbon Dioxide (22-30) mmol/L Anion Gap (5-15) MEQ/L BUN (7-17) mg/dL Creatinine (0.52-1.04) mg/dL Estimated GFR ML/MIN Glucose (74-106) mg/dL Calcium (8.4-10.2) mg/dL Total Bilirubin (0.2-1.3) mg/dL AST (14-36) U/L ALT (0-35) U/L Alkaline Phosphatase (38-126) U/L Serum Total Protein (6.3-8.2) g/dL Albumin (3.5-5.0) g/dL Lipase (23-300) U/L Serum HCG, Qual (NEGATIVE) Urine Color Yellow (Yellow) Urine Appearance Clear (Clear) Urine pH 6.0 (4.6-8.0) Ur Specific [place] 1.010 (1.005-1.030) Urine Protein Negative (Negative) Urine Glucose (UA) Negative (Negative) mg/dL Urine Ketones Negative (Negative) Urine Blood Negative (Negative) Urine Nitrite Negative (Negative) Urine Bilirubin Negative (Negative) Urine Urobilinogen 0.2 (0.2) mg/dL Ur Leukocyte Esterase Trace A (Negative) U Hyaline Cast (Auto) NONE SEEN (0-2) /LPF Urine Microscopic RBC 0-2 (0-5) /HPF Urine Microscopic WBC 3-5 (0-5) /HPF Ur Epithelial Cells None Seen (None Seen) /HPF Urine Bacteria None Seen (None Seen) /HPF Urine Culture Reflexed NO (NO) - Progress Progress: unchanged Progress Note: 04/28/23 16;50 22 years old female with no past medical history presenting to the emergency room complaining of intermittent right upper quadrant abdominal pain that she has been having for the last 6 days. The patient states her pain is like stabbing or sharp that comes and attacks. Today the pain lasted for 1 hour so she called EMS. Her pain was 7 out of 10. The paramedics gave her Toradol and Zofran and her pain is currently a 2 out of 10. No nausea or vomiting she has been constipated. She delivered a baby 2 months ago normal vaginal delivery she is currently on her.. She denies any fever or chills. No past abdominal surgeries. Emergency room course and medical decision making. Differential diagnosis Gallstones Cholecystitis Urinary tract infection Pyelonephritis Appendicitis Kidney stones At present the patient pain is minimum, the paramedics have given her Toradol 30 mg IV. We will check a CBC, CMP, lipase, UA, test and CT scan of abdomen and pelvis with IV contrast. 7:45 PM The patient pain is up to 5 out of 10 mostly on the right side just below the r ight upper quadrant. Her white blood cell count is normal at 7.9. Her CT scan of abdomen and pelvis revealed mildly thickened appendix maximum diameter 7.6 mm with mild periappendiceal fat stranding and a few subcentimeter lymph nodes. Reexamining the patient she has tenderness mostly in the right lumbar area just below the right upper quadrant. We will consult with general surgery in regards for possible appendicitis. 04/28/23 19:56 The case was discussed with the surgeon on-call Dr. Bipin Coronado, he wants the patient to be admitted for observation under the hospitalist care. We will keep the patient n.p.o., she will be started on IV fluid and IV Zosyn antibiotics. We will discuss the case with the hospitalist on-call. 04/28/23 20:07 The case is discussed with the hospitalist , and the patient has been accepted 12 admission to observation. Discussed with Dr.: Fawn Holley Will see patient in: hospital (observation) - Departure Departure Disposition: Observation Clinical Impression: Acute appendicitis Condition: Stable Critical Care Time: No Referrals: MARY MARSHALL [Primary Care Provider] - Follow up/PCP as directed
[2023-04-28 16:30] LABS: Absolute Neutrophil Ct (ANC) 4.97 x10^3/uL (1.4-6.9); BASOPHIL % 0.4 % (0.0-0.4); Basophil (Absolute #) 0.03 x10^3/uL (0-0.4); Eosinophil % 1.6 % (0.00-5.0); Eosinophil (Absolute #) 0.12 x10^3/uL (0-0.5); Hematocrit 32.9 % (35-47); Hemoglobin 10.2 g/dL (12.0-16.0); IMMATURE GRAN # 0.02 x10^3u/L (0.00-0.03); IMMATURE GRAN % 0.3 % (0.00-0.4); Lymphocytes % 27.3 % (24.0-44.0); Mean Cell Volume 85.5 fL (78-100); Mean Corpuscular Hemoglobin 26.5 pg (26-32); Mean Platelet Volume 9.3 fL (7.5-11.0); Monocyte (Absolute #) 0.44 x10^3/uL (0.0-1.3); Monocytes % 5.7 % (0.0-12.0); Neutrophil % 64.7 % (36.0-66.0); Platelet Count 204 x10^3/uL (150-450); Red Blood Count 3.85 x10^6/uL (4.1-5.4); Red Cell Distribution Width 14.5 % (11.5-14.0); White Blood Count 7.7 x10^3/uL (4.0-10.5)
[2023-04-28 16:42] LABS: ALBUMIN 4.1 g/dL (3.5-5.0); BILIRUBIN,TOTAL 0.5 mg/dL (0.2-1.3); Calcium 9.4 mg/dL (8.4-10.2); Creatinine 1 0.59 mg/dL (0.52-1.04); EST GLOMERULAR FILTRATION RATE 129.8 ML/MIN; Potassium 4.3 mmol/L (3.5-5.1); Total Protein 7.7 g/dL (6.3-8.2)
[2023-04-28 16:43] LABS: HCG SERUM TEST NEGATIVE (NEGATIVE)
[2023-04-28 17:22] LABS: Appearance Clear (Clear); Bacteria None Seen /HPF (None Seen); Bilirubin Negative (Negative); Blood Negative (Negative); Epithelial Cells None Seen /HPF (None Seen); Glucose, Urine Negative (Negative); Hyaline Casts NONE SEEN /LPF (0-2); Ketones Negative (Negative); Leukocyte Esterase Trace (Negative); Nitrite Negative (Negative); Protein,Urine Dip Negative (Negative); RBC 0-2 /HPF (0-5); Urobilinogen 0.2 mg/dL (0.2)
[2023-04-28 17:52] LABS: ADD URINE CULTURE? NO (NO)
--- NOTE | 2023-04-28 19:26 | XRAY ---
CLINICAL HISTORY:abdominal pain COMPARISON:None. TECHNIQUE:A CT scan of the abdomen and pelvis was performed with IV contrast. 100 ml of Injection Omnipaque (350 mg/ 100ml) was administered as an intravenous contrast agent. Coronal and sagittal reconstructive images were also obtained. FINDINGS: A scan through the lower chest reveals unremarkable lung bases and heart. Abdomen: The liver is normal in size and measures 16 cm. No focal or diffuse parenchymal abnormality. The portal vein, intrahepatic biliary radicals, and the bile ducts are normal. Mild splenomegaly, measuring 13.5 X 11.5 X 6 cm. No focal abnormality is seen. The pancreas and adrenal glands are unremarkable. The kidneys are unremarkable. They are normal in size and shape. No calculi or hydronephrosis. The gallbladder is normal. No pericholecystic collection or radio-dense calculi in the gall bladder. There is evidence of mild thickening of the appendix with an approximate diameter of about 7.6 mm with minimal surrounding fat stranding and few tiny subcentimeter lymph nodes. (Ser:2, Img 56), raising concern for early acute appendicitis. However, clinical correlation is suggested. A few uncomplicated diverticula are seen in the transverse and descending colon. Pelvis: The urinary bladder is unremarkable. The rectosigmoid colon is unremarkable. The uterus is fluid-filled and it appears normal. The osseous structures in the pelvis, lower rib cage, and lumbar spine show no abnormality. No lytic or sclerotic bone lesions. IMPRESSION: 1. There is a mild thickening of the appendix with a maximum diameter of 7.6 mm with mild [place]urah appendiceal fat stranding and a few subcentimeter lymph nodes. Clinical correlation is required to rule out early acute appendicitis. 2. Mild splenomegaly, measuring 3.5 X 11.5 X 6 cm. 3. Uncomplicated diverticulosis. Electronically Signed by: Amina Colvin MD. (04/28/2023 18:24:02 INTRAN[employer] SUPPORT)
[2023-04-28] MEDS ORDERED: PIPERACILLIN/TAZOBACTAM 3.375 GM in Sodium Chloride 100ML MINI-BAG PLUS 100 ML IV ONE (19:58)
[2023-04-28] MEDS ORDERED: Sodium Chloride 100ML MINI-BAG PLUS 100 ML IV ONE (20:03)
[2023-04-28] MEDS ORDERED: PIPERACILLIN/TAZOBACTAM IV ONE (20:03)
--- NOTE | 2023-04-28 20:25 | PCM.HP ---
History of Present Illness - Chief Complaint Chief Complaint: Abdominal pain History of Present Illness: is a 22 year old female with no past medical issue and recently had a normal vaginal delivery of a healthy baby came in with a c/o 1 week of intermittent right upper quadrant abdominal pain associated with nausea. Pain comes and goes, sharp and sudden in nature, 7 out of 10 in intensity, no radiation. No fever, chills, dysuria, flank pain, hematuria, vaginal bleeding. No diarrhea. In ER, CT shows appendicitis and surgery was consulted. Surgery wants her in for observation and they will see in AM either for surgery or repeat CT - Review of Systems Constitutional: No Symptoms Eyes: No Symptoms Ears, Nose, & Throat: No Symptoms Respiratory: No Symptoms Cardiac: No Symptoms Abdominal/Gastrointestinal: Abdominal Pain, Nausea Genitourinary Symptoms: No Symptoms Musculoskeletal: No Symptoms Skin: No Symptoms Neurological: No Symptoms Psychological: No Symptoms Endocrine: No Symptoms Hematologic/Lymphatic: No Symptoms Immunological/Allergic: No Symptoms Medications & Allergies Home Medications: Home Medication List Propranolol HCl 20 mg PO BID 04/28/23 [History Confirmed 04/28/23] hydrOXYzine pamoate [Vistaril] 25 mg PO QID PRN 04/28/23 [History Confirmed 1 06/28/22] Allergies/Adverse Reactions: Allergies Allergy/AdvReac Type Severity Reaction Status Date / Time venlafaxine [From Effexor] Allergy Irregular Verified 04/28/23 15:19 Heart Beat - Past Medical History Past Medical History: Yes Neurological History: No Pertinent History ENT History: No Pertinent History Cardiac History: Hypertension Respiratory History: No Pertinent History Endocrine Medical History: No Pertinent History Musculoskelatal History: No Pertinent History GI Medical History: No Pertinent History History: No Pertinent History Pyscho-Social History: Anxiety, Depression, Panic Disorder Reproductive Disorders: No Pertinent History Comment: hypoglycemia - Female History Hx Last Menstrual Period: May 2020 Are you now?: No - Past Surgical History Past Surgical History: No Neuro Surgical History: No Pertinent History Cardiac History: No Pertinent History Respiratory Surgery: No Pertinent History GI Surgical History: No Pertinent History Genitourinary Surgical Hx: No Pertinent History Musculskeletal Surgical Hx: No Pertinent History Female Surgical History: No Pertinent History - Social History Smoking Status: Never smoker Exposure to second hand smoke: Yes Alcohol: None Drug Use: none Significant Family History: no pertinent family hx - Physical Exam Vital Signs: Vital Signs - 24 hr Pulse Resp BP BP Pulse Ox 04/28/23 20:08 98 04/28/23 17:00 76 15 117/65 117/65 98 04/28/23 16:20 82 17 143/81 97 04/28/23 16:00 77 16 143/81 99 04/28/23 15:21 98 H 18 136/84 98 General Appearance: no apparent distress Neurologic Exam: alert, oriented x 3, cooperative, normal mood/affect Eye Exam: PERRL/EOMI, eyes nml inspection Ears, Nose, Throat Exam: normal ENT inspection, moist mucous membranes Neck Exam: normal inspection, non-tender, supple, full range of motion Respiratory Exam: normal breath sounds, lungs clear Cardiovascular Exam: regular rate/rhythm, normal heart sounds, normal peripheral pulses Gastrointestinal/Abdomen Exam: soft, normal bowel sounds, tenderness Pelvic Exam: not done Rectal Exam: deferred Back Exam: normal inspection Extremity Exam: normal inspection Skin Exam: normal color, warm, dry Results - Labs Lab/Micro Results: Lab Results-Last 24 Hours 04/28/23 04/28/23 04/28/23 Range/Units 16:09 16:25 16:25 WBC 7.7 (4.0-10.5) x10^3/uL RBC 3.85 L (4.1-5.4) x10^6/uL Hgb 10.2 L (12.0-16.0) g/dL Hct 32.9 L (35-47) % MCV 85.5 (78-100) fL MCH 26.5 (26-32) pg MCHC 31.0 L (32-36) g/dL RDW 14.5 H (11.5-14.0) % Plt Count 204 (150-450) x10^3/uL MPV 9.3 (7.5-11.0) fL Gran % 64.7 (36.0-66.0) % Immature Gran % (Auto) 0.3 (0.00-0.4) % Nucleat RBC Rel Count 0.0 (0.00-0.1) % Eos # (Auto) 0.12 (0-0.5) x10^3/uL Immature Gran # (Auto) 0.02 (0.00-0.03) x10^3u/L Absolute Lymphs (auto) 2.10 (1.0-4.6) x10^3/uL Absolute Monos (auto) 0.44 (0.0-1.3) x10^3/uL Absolute Nucleated RBC 0.00 (0.00-0.01) x10^3u/L Lymphocytes % 27.3 (24.0-44.0) % Monocytes % 5.7 (0.0-12.0) % Eosinophils % 1.6 (0.00-5.0) % Basophils % 0.4 (0.0-0.4) % Absolute Granulocytes 4.97 (1.4-6.9) x10^3/uL Basophils # 0.03 (0-0.4) x10^3/uL Sodium 138 (137-145) mmol/L Potassium 4.3 (3.5-5.1) mmol/L Chloride 105 (98-107) mmol/L Carbon Dioxide 21 L (22-30) mmol/L Anion Gap 16.0 H (5-15) MEQ/L BUN 7 (7-17) mg/dL Creatinine 0.59 (0.52-1.04) mg/dL Estimated GFR 129.8 ML/MIN Glucose 110 H (74-106) mg/dL Calcium 9.4 (8.4-10.2) mg/dL Total Bilirubin 0.50 (0.2-1.3) mg/dL AST 39 H (14-36) U/L ALT 51 H (0-35) U/L Alkaline Phosphatase 113 (38-126) U/L Serum Total Protein 7.7 (6.3-8.2) g/dL Albumin 4.1 (3.5-5.0) g/dL Lipase 41 (23-300) U/L Serum HCG, Qual (NEGATIVE) Urine Color Yellow (Yellow) Urine Appearance Clear (Clear) Urine pH 6.0 (4.6-8.0) Ur Specific [place] 1.010 (1.005-1.030) Urine Protein Negative (Negative) Urine Glucose (UA) Negative (Negative) mg/dL Urine Ketones Negative (Negative) Urine Blood Negative (Negative) Urine Nitrite Negative (Negative) Urine Bilirubin Negative (Negative) Urine Urobilinogen 0.2 (0.2) mg/dL Ur Leukocyte Esterase Trace A (Negative) U Hyaline Cast (Auto) NONE SEEN (0-2) /LPF Urine Microscopic RBC 0-2 (0-5) /HPF Urine Microscopic WBC 3-5 (0-5) /HPF Ur Epithelial Cells None Seen (None Seen) /HPF Urine Bacteria None Seen (None Seen) /HPF Urine Culture Reflexed NO (NO) 04/28/23 Range/Units 16:25 WBC (4.0-10.5) x10^3/uL RBC (4.1-5.4) x10^6/uL Hgb (12.0-16.0) g/dL Hct (35-47) % MCV (78-100) fL MCH (26-32) pg MCHC (32-36) g/dL RDW (11.5-14.0) % Plt Count (150-450) x10^3/uL MPV (7.5-11.0) fL Gran % (36.0-66.0) % Immature Gran % (Auto) (0.00-0.4) % Nucleat RBC Rel Count (0.00-0.1) % Eos # (Auto) (0-0.5) x10^3/uL Immature Gran # (Auto) (0.00-0.03) x10^3u/L Absolute Lymphs (auto) (1.0-4.6) x10^3/uL Absolute Monos (auto) (0.0-1.3) x10^3/uL Absolute Nucleated RBC (0.00-0.01) x10^3u/L Lymphocytes % (24.0-44.0) % Monocytes % (0.0-12.0) % Eosinophils % (0.00-5.0) % Basophils % (0.0-0.4) % Absolute Granulocytes (1.4-6.9) x10^3/uL Basophils # (0-0.4) x10^3/uL Sodium (137-145) mmol/L Potassium (3.5-5.1) mmol/L Chloride (98-107) mmol/L Carbon Dioxide (22-30) mmol/L Anion Gap (5-15) MEQ/L BUN (7-17) mg/dL Creatinine (0.52-1.04) mg/dL Estimated GFR ML/MIN Glucose (74-106) mg/dL Calcium (8.4-10.2) mg/dL Total Bilirubin (0.2-1.3) mg/dL AST (14-36) U/L ALT (0-35) U/L Alkaline Phosphatase (38-126) U/L Serum Total Protein (6.3-8.2) g/dL Albumin (3.5-5.0) g/dL Lipase (23-300) U/L Serum HCG, Qual NEGATIVE (NEGATIVE) Urine Color (Yellow) Urine Appearance (Clear) Urine pH (4.6-8.0) Ur Specific [place] (1.005-1.030) Urine Protein (Negative) Urine Glucose (UA) (Negative) mg/dL Urine Ketones (Negative) Urine Blood (Negative) Urine Nitrite (Negative) Urine Bilirubin (Negative) Urine Urobilinogen (0.2) mg/dL Ur Leukocyte Esterase (Negative) U Hyaline Cast (Auto) (0-2) /LPF Urine Microscopic RBC (0-5) /HPF Urine Microscopic WBC (0-5) /HPF Ur Epithelial Cells (None Seen) /HPF Urine Bacteria (None Seen) /HPF Urine Culture Reflexed (NO) - Radiology Impressions Radiology Exams & Impressions: Radiology Procedures Category Date Time Status ABDOMEN AND PELVIS W CONTRAST [CT] Stat Exams 04/28/23 16:04 Completed Assessment/Plan (1) Abdominal pain Current Visit: No Status: Acute Assessment & Plan: RUQ abd pain x [address] scan confirms acute appendicitis. NPO, pain management, IVF. Surgery on case Code(s): R10.9 - UNSPECIFIED ABDOMINAL PAIN (2) Acute appendicitis Current Visit: Yes Status: Acute Assessment & Plan: CT confirms acute appendicitis: No peritoneal signs. Surgery, Dr Coronado, consulted, and took pt to surgery tonight - she is s/p appendectomy. Management as above Code(s): K35.80 - UNSPECIFIED ACUTE APPENDICITIS (3) Transaminitis Current Visit: Yes Status: Acute Assessment & Plan: AST and ALT mildly elevated. Bili and alk phos normal. CT shows no obstructive process. Lipase normal as well. Monitor for now Code(s): R74.01 - ELEVATION OF LEVELS OF LIVER TRANSAMINASE LEVELS (4) Anemia Current Visit: Yes Status: Acute Assessment & Plan: Hgb 10.2. Denies any black or bloody stools. Recent vaginal delivery of healthy baby. Likely blood loss from that, as she reports she lost a lot of blood and her level to into the 7s two months ago. Will monitor Hgb trend for now Code(s): D64.9 - ANEMIA, UNSPECIFIED Telemedicine Encounter - Telemedicine Encounter Telemedicine Encounter: The entirety of this encounter was performed via Telemedicine" The pt gave me verbal consent to have this telemedicine
[2023-04-28] MEDS ORDERED: Hydromorphone 1 mg/ml Injection IV PRN (20:36)
[2023-04-28] MEDS ORDERED: Zofran 4 MG/2 ML VIAL IV PRN (20:36)
[2023-04-28] MEDS ORDERED: Lactated Ringers 1,000 ML IV ONE ×2 (20:58→21:15)
[2023-04-28] MEDS ORDERED: Lactated Ringers 1,000 ML IV SCH ×2 (21:00→23:45)
[2023-04-28] MEDS ORDERED: Dextrose 5%-Lr IV Solution 1000 ML 1,000 ML IV SCH (21:00)
[2023-04-28] MEDS ORDERED: Zemuron 100 MG/10 ML ONE (21:04)
[2023-04-28] MEDS ORDERED: BRIDION 200MG/2ML IV ONE (21:04)
[2023-04-28] MEDS ORDERED: Decadron 4 MG INJ ONE (21:04)
[2023-04-28] MEDS ORDERED: TORAdol 30 mg Injection ONE (21:04)
[2023-04-28] MEDS ORDERED: DIPRIVAN 200 MG/20 ML IV ONE (21:04)
[2023-04-28] MEDS ORDERED: DEXMEDETOMIDINE 80 MCG/20ML-NS IV ONE (21:04)
[2023-04-28] MEDS ORDERED: Xylocaine-Mpf 2% 5 Ml Vial ONE (21:04)
[2023-04-28] MEDS ORDERED: Versed 2 MG/2 ML Injection ONE (21:07)
[2023-04-28] MEDS ORDERED: SUBLIMAZE 100 MCG/2 ML ONE ×2 (21:07→22:51)
[2023-04-28] MEDS ORDERED: OFIRMEV 100 ML IV ONE (21:15)
[2023-04-28] MEDS ORDERED: Pre-Attached Lta Kit TP ONE (21:15)
[2023-04-28] MEDS ORDERED: Sensorcaine 0.25% 10 ML ONE (21:31)
[2023-04-28] MEDS ORDERED: Transderm Scop 1.5MG Patch ONE (21:34)
[2023-04-28] MEDS ORDERED: Ephedrine Sulfate 50 MG/ML ONE (22:04)
[2023-04-28] MEDS ORDERED: Sodium Chloride 0.9% 1000 ML 1,000 ML IV SCH (23:32)
[2023-04-29] MEDS ORDERED: MORPHINE SULFATE 4 MG INJ IV PRN
[2023-04-29] MEDS: NORCO 5/325 MG PO PRN ×2 (00:29→07:38)
[2023-04-29] MEDS ORDERED: PIPERACILLIN/TAZOBACTAM IV ONE (01:55)
[2023-04-29] MEDS ORDERED: Sodium Chloride 100ML MINI-BAG PLUS 100 ML IV ONE (01:56)
[2023-04-29] MEDS: PIPERACILLIN/TAZOBACTAM 3.375 GM in Sodium Chloride 100ML MINI-BAG PLUS 100 ML IV SCH ×2 (02:25→07:25)
[2023-04-29 03:50] VITALS: RESP 20
[2023-04-29] MEDS: ATARAX 25 MG PO PRN ×2 (03:55→09:55)
--- NOTE | 2023-04-29 05:09 | PCM.NOTE ---
Date and Time: 04/29/23 0506 Subjective Assessment: is a 22 year old female with no past medical issue and recently had a normal vaginal delivery of a healthy baby came in with a c/o 1 week of intermittent right upper quadrant abdominal pain associated with nausea. Pain comes and goes, sharp and sudden in nature, 7 out of 10 in intensity, no ra diation. No fever, chills, dysuria, flank pain, hematuria, vaginal bleeding. No diarrhea. In ER, CT shows appendicitis and surgery was consulted. Surgery wants her in for observation and they will see in AM either for surgery or repeat CT OBJECTIVE DATA Vital Signs: Vital Signs - 24 hr Temp Pulse Resp BP BP Pulse Ox 04/29/23 03:50 96.9 F 71 20 123/68 99 04/29/23 01:20 EDT 96.8 F 65 16 112/61 100 04/29/23 00:50 96.9 F 72 16 111/64 100 04/29/23 00:20 97.0 F 69 15 107/68 99 04/29/23 00:05 96.8 F 67 16 102/63 98 04/28/23 23:58 99 04/28/23 23:50 67 16 105/61 98 04/28/23 23:35 97.4 F 62 16 108/67 99 04/28/23 23:32 97.4 F 62 16 108/67 99 04/28/23 21:08 83 13 117/65 98 04/28/23 20:16 83 13 122/75 98 04/28/23 20:08 98 04/28/23 17:00 76 15 117/65 117/65 98 04/28/23 16:20 82 17 143/81 97 04/28/23 16:00 77 16 143/81 99 04/28/23 15:21 98 H 18 136/84 98 Pain Assessment - Last Documented Pain Intensity 4 Pain Scale Used 0-10 Pain Scale Intake and Output: Intake & Output 04/26/23 04/27/23 04/28/23 04/29/23 11:59 11:59 11:59 10:59 Weight 80.1 kg Lab Results: Lab Results-Last 24 Hours 04/28/23 04/28/23 04/28/23 Range/Units 16:09 16:25 16:25 WBC 7.7 (4.0-10.5) x10^3/uL RBC 3.85 L (4.1-5.4) x10^6/uL Hgb 10.2 L (12.0-16.0) g/dL Hct 32.9 L (35-47) % MCV 85.5 (78-100) fL MCH 26.5 (26-32) pg MCHC 31.0 L (32-36) g/dL RDW 14.5 H (11.5-14.0) % Plt Count 204 (150-450) x10^3/uL MPV 9.3 (7.5-11.0) fL Gran % 64.7 (36.0-66.0) % Immature Gran % (Auto) 0.3 (0.00-0.4) % Nucleat RBC Rel Count 0.0 (0.00-0.1) % Eos # (Auto) 0.12 (0-0.5) x10^3/uL Immature Gran # (Auto) 0.02 (0.00-0.03) x10^3u/L Absolute Lymphs (auto) 2.10 (1.0-4.6) x10^3/uL Absolute Monos (auto) 0.44 (0.0-1.3) x10^3/uL Absolute Nucleated RBC 0.00 (0.00-0.01) x10^3u/L Lymphocytes % 27.3 (24.0-44.0) % Monocytes % 5.7 (0.0-12.0) % Eosinophils % 1.6 (0.00-5.0) % Basophils % 0.4 (0.0-0.4) % Absolute Granulocytes 4.97 (1.4-6.9) x10^3/uL Basophils # 0.03 (0-0.4) x10^3/uL Sodium 138 (137-145) mmol/L Potassium 4.3 (3.5-5.1) mmol/L Chloride 105 (98-107) mmol/L Carbon Dioxide 21 L (22-30) mmol/L Anion Gap 16.0 H (5-15) MEQ/L BUN 7 (7-17) mg/dL Creatinine 0.59 (0.52-1.04) mg/dL Estimated GFR 129.8 ML/MIN Glucose 110 H (74-106) mg/dL POC Glucometer (74 to 106) mg/dL Calcium 9.4 (8.4-10.2) mg/dL Total Bilirubin 0.50 (0.2-1.3) mg/dL AST 39 H (14-36) U/L ALT 51 H (0-35) U/L Alkaline Phosphatase 113 (38-126) U/L Serum Total Protein 7.7 (6.3-8.2) g/dL Albumin 4.1 (3.5-5.0) g/dL Lipase 41 (23-300) U/L Serum HCG, Qual (NEGATIVE) Urine Color Yellow (Yellow) Urine Appearance Clear (Clear) Urine pH 6.0 (4.6-8.0) Ur Specific [place] 1.010 (1.005-1.030) Urine Protein Negative (Negative) Urine Glucose (UA) Negative (Negative) mg/dL Urine Ketones Negative (Negative) Urine Blood Negative (Negative) Urine Nitrite Negative (Negative) Urine Bilirubin Negative (Negative) Urine Urobilinogen 0.2 (0.2) mg/dL Ur Leukocyte Esterase Trace A (Negative) U Hyaline Cast (Auto) NONE SEEN (0-2) /LPF Urine Microscopic RBC 0-2 (0-5) /HPF Urine Microscopic WBC 3-5 (0-5) /HPF Ur Epithelial Cells None Seen (None Seen) /HPF Urine Bacteria None Seen (None Seen) /HPF Urine Culture Reflexed NO (NO) 04/28/23 04/28/23 Range/Units 16:25 23:58 WBC (4.0-10.5) x10^3/uL RBC (4.1-5.4) x10^6/uL Hgb (12.0-16.0) g/dL Hct (35-47) % MCV (78-100) fL MCH (26-32) pg MCHC (32-36) g/dL RDW (11.5-14.0) % Plt Count (150-450) x10^3/uL MPV (7.5-11.0) fL Gran % (36.0-66.0) % Immature Gran % (Auto) (0.00-0.4) % Nucleat RBC Rel Count (0.00-0.1) % Eos # (Auto) (0-0.5) x10^3/uL Immature Gran # (Auto) (0.00-0.03) x10^3u/L Absolute Lymphs (auto) (1.0-4.6) x10^3/uL Absolute Monos (auto) (0.0-1.3) x10^3/uL Absolute Nucleated RBC (0.00-0.01) x10^3u/L Lymphocytes % (24.0-44.0) % Monocytes % (0.0-12.0) % Eosinophils % (0.00-5.0) % Basophils % (0.0-0.4) % Absolute Granulocytes (1.4-6.9) x10^3/uL Basophils # (0-0.4) x10^3/uL Sodium (137-145) mmol/L Potassium (3.5-5.1) mmol/L Chloride (98-107) mmol/L Carbon Dioxide (22-30) mmol/L Anion Gap (5-15) MEQ/L BUN (7-17) mg/dL Creatinine (0.52-1.04) mg/dL Estimated GFR ML/MIN Glucose (74-106) mg/dL POC Glucometer 109 H (74 to 106) mg/dL Calcium (8.4-10.2) mg/dL Total Bilirubin (0.2-1.3) mg/dL AST (14-36) U/L ALT (0-35) U/L Alkaline Phosphatase (38-126) U/L Serum Total Protein (6.3-8.2) g/dL Albumin (3.5-5.0) g/dL Lipase (23-300) U/L Serum HCG, Qual NEGATIVE (NEGATIVE) Urine Color (Yellow) Urine Appearance (Clear) Urine pH (4.6-8.0) Ur Specific [place] (1.005-1.030) Urine Protein (Negative) Urine Glucose (UA) (Negative) mg/dL Urine Ketones (Negative) Urine Blood (Negative) Urine Nitrite (Negative) Urine Bilirubin (Negative) Urine Urobilinogen (0.2) mg/dL Ur Leukocyte Esterase (Negative) U Hyaline Cast (Auto) (0-2) /LPF Urine Microscopic RBC (0-5) /HPF Urine Microscopic WBC (0-5) /HPF Ur Epithelial Cells (None Seen) /HPF Urine Bacteria (None Seen) /HPF Urine Culture Reflexed (NO) Radiology Exams: Radiology Procedures Category Date Time Status ABDOMEN AND PELVIS W CONTRAST [CT] Stat Exams 04/28/23 16:04 Completed Assessment/Plan (1) Acute appendicitis Current Visit: Yes Status: Acute Assessment & Plan: CT confirms acute appendicitis: No peritoneal signs. Surgery, Dr oCronado, consulted, and took pt to surgery tonight - she is s/p appendectomy. Management as above Code(s): K35.80 - UNSPECIFIED ACUTE APPENDICITIS (2) Anemia Current Visit: Yes Status: Acute Assessment & Plan: Hgb 10.2. Denies any black or bloody stools. Recent vaginal delivery of healthy baby. Likely blood loss from that, as she reports she lost a lot of blood and her level to into the 7s two months ago. Will monitor Hgb trend for now Code(s): D64.9 - ANEMIA, UNSPECIFIED (3) Transaminitis Current Visit: Yes Status: Acute Assessment & Plan: AST and ALT mildly elevated. Bili and alk phos normal. CT shows no obstructive process. Lipase normal as well. Monitor for now Code(s): R74.01 - ELEVATION OF LEVELS OF LIVER TRANSAMINASE LEVELS (4) Abdominal pain Current Visit: No Status: Acute Assessment & Plan: -see appendicitis Code(s): R10.9 - UNSPECIFIED ABDOMINAL PAIN
[2023-04-29 06:02] LABS: Absolute Neutrophil Ct (ANC) 5.86 x10^3/uL (1.4-6.9); BASOPHIL % 0.1 % (0.0-0.4); Basophil (Absolute #) 0.01 x10^3/uL (0-0.4); Eosinophil (Absolute #) 0 x10^3/uL (0-0.5); Hematocrit 34.1 % (35-47); Hemoglobin 10.2 g/dL (12.0-16.0); IMMATURE GRAN # 0.03 x10^3u/L (0.00-0.03); IMMATURE GRAN % 0.4 % (0.00-0.4); Lymphocyte (Absolute #) 0.94 x10^3/uL (1.0-4.6); Lymphocytes % 13.6 % (24.0-44.0); Mean Cell Volume 85.5 fL (78-100); Mean Corpuscular Hemoglobin 25.6 pg (26-32); Mean Corpuscular Hgb Concent. 29.9 g/dL (32-36); Mean Platelet Volume 9.8 fL (7.5-11.0); Monocyte (Absolute #) 0.09 x10^3/uL (0.0-1.3); Monocytes % 1.3 % (0.0-12.0); Neutrophil % 84.6 % (36.0-66.0); Platelet Count 223 x10^3/uL (150-450); Red Blood Count 3.99 x10^6/uL (4.1-5.4); Red Cell Distribution Width 14.4 % (11.5-14.0); White Blood Count 6.9 x10^3/uL (4.0-10.5)
[2023-04-29 06:32] LABS: INR 0.96 (0.8-3.0); PROTIME 10.5 SECONDS (9.4-12.5)
[2023-04-29 06:34] LABS: ALBUMIN 3.9 g/dL (3.5-5.0); BILIRUBIN,TOTAL 0.5 mg/dL (0.2-1.3); Calcium 9.3 mg/dL (8.4-10.2); Creatinine 1 0.53 mg/dL (0.52-1.04); EST GLOMERULAR FILTRATION RATE 133.2 ML/MIN; Total Protein 7.5 g/dL (6.3-8.2)
[2023-04-29 06:37] LABS: Potassium 4.2 mmol/L (3.5-5.1)
[2023-04-29 06:39] LABS: ANION GAP 14.2 MEQ/L (5-15)
[2023-04-29 08:03] VITALS: BP 111/64; PULSE 58; TEMP 97.1; O2SAT 96
--- NOTE | 2023-04-29 08:54 | PCM.DS ---
Discharge Summary Date of Admission: 04/28/23 23:27 Date of Discharge: 04/29/23 Admitting Physician: TASHA AUSTIN DO Primary Care Provider: MARY MARSHALL Allergies Allergies venlafaxine [From Effexor] Allergy (Verified 04/28/23 15:19) Irregular Heart Beat hives also Hospital Summary - Hospital Course Hospital Course: is a 22 year old female with no past medical issue and recently had a normal vaginal delivery of a healthy baby came in with a c/o 1 week of intermittent right upper quadrant abdominal pain associated with nausea. Ct sanjana ging consistent with acute appendicitis. Surgery consulted, lap appy performed. Patient is s/p surgery, doing well, no complaints other than mild pain at incision site. Punctures CLD, patient has been cleared by surgery for discharge with [place]/Augmentin. New Diagnosis:Acute appendicitis New Medications: [place]/ Augmentin Follow Up: PCP/Surgery Latest Assessment & Plan (1) Abdominal pain Current Visit: No Status: Acute Assessment & Plan: RUQ abd pain x [address] scan confirms acute appendicitis. NPO, pain management, IVF. Surgery on case Code(s): R10.9 - UNSPECIFIED ABDOMINAL PAIN (2) Acute appendicitis Current Visit: Yes Status: Acute Assessment & Plan: CT confirms acute appendicitis: No peritoneal signs. Surgery, Dr Coronado, consulted, and took pt to surgery tonight - she is s/p appendectomy. Management as above Code(s): K35.80 - UNSPECIFIED ACUTE APPENDICITIS (3) Transaminitis Current Visit: Yes Status: Acute Assessment & Plan: AST and ALT mildly elevated. Bili and alk phos normal. CT shows no obstructive process. Lipase normal as well. Monitor for now Code(s): R74.01 - ELEVATION OF LEVELS OF LIVER TRANSAMINASE LEVELS (4) Anemia Current Visit: Yes Status: Acute Assessment & Plan: Hgb 10.2. Denies any black or bloody stools. Recent vaginal delivery of healthy baby. Likely blood loss from that, as she reports she lost a lot of blood and her level to into the 7s two months ago. Will monitor Hgb trend for now Code(s): D64.9 - ANEMIA, UNSPECIFIED I spent 35 minutes [id number] with the patient on the day of discharge performing discharge exam, discussing hospital stay and discharge instructions with patient and caregivers, preparation of discharge records, prescriptions & referral forms and addressing any questions/concerns the patient had as docu mented above. - Vitals & Intake/Output Vital Signs: Vital Signs Temperature 97.1 F 04/29/23 08:00 Pulse Rate 58 L 04/29/23 08:00 Respiratory Rate 20 04/29/23 08:00 Blood Pressure 111/64 04/29/23 08:00 O2 Sat by Pulse Oximetry 96 04/29/23 08:00 Intake & Output: Intake & Output 04/26/23 04/27/23 04/28/23 04/29/23 11:59 11:59 11:59 10:59 Weight 80.1 kg - Lab Result Diagrams: 04/29/23 05:39 04/29/23 05:39 Lab Results-Last 24 Hrs: Lab Results-Last 24 Hours 04/28/23 04/28/23 04/28/23 Range/Units 16:09 16:25 16:25 WBC 7.7 (4.0-10.5) x10^3/uL RBC 3.85 L (4.1-5.4) x10^6/uL Hgb 10.2 L (12.0-16.0) g/dL Hct 32.9 L (35-47) % MCV 85.5 (78-100) fL MCH 26.5 (26-32) pg MCHC 31.0 L (32-36) g/dL RDW 14.5 H (11.5-14.0) % Plt Count 204 (150-450) x10^3/uL MPV 9.3 (7.5-11.0) fL Gran % 64.7 (36.0-66.0) % Immature Gran % (Auto) 0.3 (0.00-0.4) % Nucleat RBC Rel Count 0.0 (0.00-0.1) % Eos # (Auto) 0.12 (0-0.5) x10^3/uL Immature Gran # (Auto) 0.02 (0.00-0.03) x10^3u/L Absolute Lymphs (auto) 2.10 (1.0-4.6) x10^3/uL Absolute Monos (auto) 0.44 (0.0-1.3) x10^3/uL Absolute Nucleated RBC 0.00 (0.00-0.01) x10^3u/L Lymphocytes % 27.3 (24.0-44.0) % Monocytes % 5.7 (0.0-12.0) % Eosinophils % 1.6 (0.00-5.0) % Basophils % 0.4 (0.0-0.4) % Absolute Granulocytes 4.97 (1.4-6.9) x10^3/uL Basophils # 0.03 (0-0.4) x10^3/uL PT (9.4-12.5) SECONDS INR (0.8-3.0) Sodium 138 (137-145) mmol/L Potassium 4.3 (3.5-5.1) mmol/L Chloride 105 (98-107) mmol/L Carbon Dioxide 21 L (22-30) mmol/L Anion Gap 16.0 H (5-15) MEQ/L BUN 7 (7-17) mg/dL Creatinine 0.59 (0.52-1.04) mg/dL Estimated GFR 129.8 ML/MIN Glucose 110 H (74-106) mg/dL POC Glucometer (74 to 106) mg/dL Calcium 9.4 (8.4-10.2) mg/dL Total Bilirubin 0.50 (0.2-1.3) mg/dL AST 39 H (14-36) U/L ALT 51 H (0-35) U/L Alkaline Phosphatase 113 (38-126) U/L Serum Total Protein 7.7 (6.3-8.2) g/dL Albumin 4.1 (3.5-5.0) g/dL Lipase 41 (23-300) U/L Serum HCG, Qual (NEGATIVE) Urine Color Yellow (Yellow) Urine Appearance Clear (Clear) Urine pH 6.0 (4.6-8.0) Ur Specific [place] 1.010 (1.005-1.030) Urine Protein Negative (Negative) Urine Glucose (UA) Negative (Negative) mg/dL Urine Ketones Negative (Negative) Urine Blood Negative (Negative) Urine Nitrite Negative (Negative) Urine Bilirubin Negative (Negative) Urine Urobilinogen 0.2 (0.2) mg/dL Ur Leukocyte Esterase Trace A (Negative) U Hyaline Cast (Auto) NONE SEEN (0-2) /LPF Urine Microscopic RBC 0-2 (0-5) /HPF Urine Microscopic WBC 3-5 (0-5) /HPF Ur Epithelial Cells None Seen (None Seen) /HPF Urine Bacteria None Seen (None Seen) /HPF Urine Culture Reflexed NO (NO) 04/28/23 04/28/23 04/29/23 Range/Units 16:25 23:58 05:39 WBC 6.9 (4.0-10.5) x10^3/uL RBC 3.99 L (4.1-5.4) x10^6/uL Hgb 10.2 L (12.0-16.0) g/dL Hct 34.1 L (35-47) % MCV 85.5 (78-100) fL MCH 25.6 L (26-32) pg MCHC 29.9 L (32-36) g/dL RDW 14.4 H (11.5-14.0) % Plt Count 223 (150-450) x10^3/uL MPV 9.8 (7.5-11.0) fL Gran % 84.6 H (36.0-66.0) % Immature Gran % (Auto) 0.4 (0.00-0.4) % Nucleat RBC Rel Count 0.0 (0.00-0.1) % Eos # (Auto) 0 (0-0.5) x10^3/uL Immature Gran # (Auto) 0.03 (0.00-0.03) x10^3u/L Absolute Lymphs (auto) 0.94 L (1.0-4.6) x10^3/uL Absolute Monos (auto) 0.09 (0.0-1.3) x10^3/uL Absolute Nucleated RBC 0.00 (0.00-0.01) x10^3u/L Lymphocytes % 13.6 L (24.0-44.0) % Monocytes % 1.3 (0.0-12.0) % Eosinophils % 0.0 (0.00-5.0) % Basophils % 0.1 (0.0-0.4) % Absolute Granulocytes 5.86 (1.4-6.9) x10^3/uL Basophils # 0.01 (0-0.4) x10^3/uL PT (9.4-12.5) SECONDS INR (0.8-3.0) Sodium (137-145) mmol/L Potassium (3.5-5.1) mmol/L Chloride (98-107) mmol/L Carbon Dioxide (22-30) mmol/L Anion Gap (5-15) MEQ/L BUN (7-17) mg/dL Creatinine (0.52-1.04) mg/dL Estimated GFR ML/MIN Glucose (74-106) mg/dL POC Glucometer 109 H (74 to 106) mg/dL Calcium (8.4-10.2) mg/dL Total Bilirubin (0.2-1.3) mg/dL AST (14-36) U/L ALT (0-35) U/L Alkaline Phosphatase (38-126) U/L Serum Total Protein (6.3-8.2) g/dL Albumin (3.5-5.0) g/dL Lipase (23-300) U/L Serum HCG, Qual NEGATIVE (NEGATIVE) Urine Color (Yellow) Urine Appearance (Clear) Urine pH (4.6-8.0) Ur Specific [place] (1.005-1.030) Urine Protein (Negative) Urine Glucose (UA) (Negative) mg/dL Urine Ketones (Negative) Urine Blood (Negative) Urine Nitrite (Negative) Urine Bilirubin (Negative) Urine Urobilinogen (0.2) mg/dL Ur Leukocyte Esterase (Negative) U Hyaline Cast (Auto) (0-2) /LPF Urine Microscopic RBC (0-5) /HPF Urine Microscopic WBC (0-5) /HPF Ur Epithelial Cells (None Seen) /HPF Urine Bacteria (None Seen) /HPF Urine Culture Reflexed (NO) 04/29/23 04/29/23 Range/Units 05:39 05:39 WBC (4.0-10.5) x10^3/uL RBC (4.1-5.4) x10^6/uL Hgb (12.0-16.0) g/dL Hct (35-47) % MCV (78-100) fL MCH (26-32) pg MCHC (32-36) g/dL RDW (11.5-14.0) % Plt Count (150-450) x10^3/uL MPV (7.5-11.0) fL Gran % (36.0-66.0) % Immature Gran % (Auto) (0.00-0.4) % Nucleat RBC Rel Count (0.00-0.1) % Eos # (Auto) (0-0.5) x10^3/uL Immature Gran # (Auto) (0.00-0.03) x10^3u/L Absolute Lymphs (auto) (1.0-4.6) x10^3/uL Absolute Monos (auto) (0.0-1.3) x10^3/uL Absolute Nucleated RBC (0.00-0.01) x10^3u/L Lymphocytes % (24.0-44.0) % Monocytes % (0.0-12.0) % Eosinophils % (0.00-5.0) % Basophils % (0.0-0.4) % Absolute Granulocytes (1.4-6.9) x10^3/uL Basophils # (0-0.4) x10^3/uL PT 10.5 (9.4-12.5) SECONDS INR 0.96 (0.8-3.0) Sodium 137 (137-145) mmol/L Potassium 4.2 (3.5-5.1) mmol/L Chloride 106 (98-107) mmol/L Carbon Dioxide 21 L (22-30) mmol/L Anion Gap 14.2 (5-15) MEQ/L BUN 5 L (7-17) mg/dL Creatinine 0.53 (0.52-1.04) mg/dL Estimated GFR 133.2 ML/MIN Glucose 156 H (74-106) mg/dL POC Glucometer (74 to 106) mg/dL Calcium 9.3 (8.4-10.2) mg/dL Total Bilirubin 0.50 (0.2-1.3) mg/dL AST 33 (14-36) U/L ALT 43 H (0-35) U/L Alkaline Phosphatase 102 (38-126) U/L Serum Total Protein 7.5 (6.3-8.2) g/dL Albumin 3.9 (3.5-5.0) g/dL Lipase (23-300) U/L Serum HCG, Qual (NEGATIVE) Urine Color (Yellow) Urine Appearance (Clear) Urine pH (4.6-8.0) Ur Specific [place] (1.005-1.030) Urine Protein (Negative) Urine Glucose (UA) (Negative) mg/dL Urine Ketones (Negative) Urine Blood (Negative) Urine Nitrite (Negative) Urine Bilirubin (Negative) Urine Urobilinogen (0.2) mg/dL Ur Leukocyte Esterase (Negative) U Hyaline Cast (Auto) (0-2) /LPF Urine Microscopic RBC (0-5) /HPF Urine Microscopic WBC (0-5) /HPF Ur Epithelial Cells (None Seen) /HPF Urine Bacteria (None Seen) /HPF Urine Culture Reflexed (NO) - Radiology Exams Ordered Rad Exams-Entire Visit: Radiology Procedures Category Date Time Status ABDOMEN AND PELVIS W CONTRAST [CT] Stat Exams 04/28/23 16:04 Completed - Procedures and Test Procedures and Tests throughout Hospitalization: Therapy Orders & Screens 04/28/23 23:50 Incentive Spirometry TID Comment: Diagnosis: acute appendicitis Discharge Exam General Appearance: no apparent distress Neurologic Exam: alert, oriented x 3, cooperative Eye Exam: PERRL Ears, Nose, Throat Exam: normal ENT inspection Neck Exam: normal inspection Respiratory Exam: normal breath sounds, lungs clear Cardiovascular Exam: regular rate/rhythm, normal heart sounds Gastrointestinal/Abdomen Exam: soft, normal bowel sounds, tenderness, other (3 puncture sites covered in gauze, CDI) Pelvic Exam: deferred Rectal Exam: deferred Back Exam: normal inspection Extremity Exam: normal inspection Skin Exam: normal color Final Diagnosis/Problem List - Final Discharge Diagnosis/Problem (1) Acute appendicitis Current Visit: Yes Status: Resolved Code(s): K35.80 - UNSPECIFIED ACUTE APPENDICITIS (2) Anemia Current Visit: Yes Status: Chronic Code(s): D64.9 - ANEMIA, UNSPECIFIED (3) Transaminitis Current Visit: Yes Status: Resolved Code(s): R74.01 - ELEVATION OF LEVELS OF LIVER TRANSAMINASE LEVELS (4) Abdominal pain Current Visit: No Status: Resolved Code(s): R10.9 - UNSPECIFIED ABDOMINAL PAIN - Discharge Discharge Date: 04/29/23 Disposition: Home, Self-Care Condition: Stable Prescriptions: New Amox Tr/Potass Clav. 875 mg [Augmentin 875-125 Tablet] 875 mg PO BID 5 Days #10 tablet Hydrocodone/Acetaminophen [Hydrocodone-Acetamin 5-325 mg] 1 tab PO Q4HPRN PRN 3 Days #18 tablet MDD 6 PRN Reason: Pain Continue hydrOXYzine pamoate [Vistaril] 25 mg PO QID PRN PRN Reason: Anxiety Propranolol HCl 20 mg PO BID Additional Instructions: CALL DR CORONADO OFFICE SUNDAY TO MAKE A POST SURGICAL FOLLOW UP APPT FOR 1 WEEK Laparoscopic Appendectomy 1. No lifting for two (2) weeks. Nothing heavier than 1 gallon of milk. We do not want you straining, thus possible opening the incision. 2. If pain develops in shoulder, apply a heating pad on low setting. The pain is caused from the air they inflate the belly with. The air traps under the diaphragm and refers pain to the shoulder. The pain medication will probably not help, just the heating pad or walking may relieve the pain. This pain should go away in 3-4 days. 3. You may shower after 24 hours. You may take a tub bath in two weeks. (Leave the steri strips alone to the puncture sites) 4. Some nausea is normal. If you experience nausea or vomiting, limit your food intake. If the nausea and vomiting last longer than 24 hours, contact the doctor. 5. Take the pain medication as prescribed. Some pain and swelling is normal. Our goal is to keep your pain at a tolerable level. If the pain is not tolerable, contact the doctor. Usually you can transition to Tylenol and Ibuprofen after a couple days. 6. Remove band aid/dressing in 24 hours. You may need to apply another bandaide or dressing if the site is still oozing. This is normal. If you are saturating the dressing every hour, contact the doctor. 7. Leave steri strips in place for 1 week or until you return to the office. 8. If drainage of pus or foul odor or fever develops contact your doctor. 9. It is important to cough and deep breath after your surgery several times a day. This helps prevent lung infections. When coughing, support the surgical area with a pillow. Follow up with: BRIAN CORONADO MD [ACTIVE STAFF] -
[2023-04-29] MEDS ORDERED: Inderal PO SCH (10:00)
--- NOTE | 2023-04-30 10:17 | CONS ---
CONSULT DATE: 04/28/2023 REASON FOR CONSULT: Right lower quadrant pain. HISTORY: This 22-year-old female presents with about five days of right lower quadrant pain, tenderness started in the right lower quadrant and then radiating to her back and then to her upper quadrant with sharp pain and progressively worsening. It hurts to take a deep breath and to cough. She has been eating okay. No nausea, vomiting, diarrhea or shortness of breath. No fevers. No prior episodes. REVIEW OF SYSTEMS: Twelve systems reviewed and negative except for in the history of present illness. PAST MEDICAL HISTORY: None. PAST SURGICAL HISTORY: None. MEDICATIONS: Augmentin, hydrocodone-acetaminophen, Vistaril, propranolol. ALLERGIES: VENLAFAXINE. SOCIAL HISTORY: Positive for intermittent alcohol. No tobacco. FAMILY HISTORY: No irritable bowel disease. LAB DATA AND TESTS: PHYSICAL EXAMINATION: GENERAL: No acute distress. HEENT: Sclera nonicteric. Extraocular movements intact. NECK: Supple. No JVD. CHEST: Nonlabored breathing. ABDOMEN: Soft, nondistended, focally tender in the right lower quadrant to deep palpation. EXTREMITIES: No peripheral edema. NEURO: Awake, alert, oriented. PSYCH: Appropriate mood and affect. LAB DATA AND TESTS: CT images reviewed showed a dilated appendix with some periappendiceal stranding and enlarged ileocolic lymph nodes consistent with acute appendicitis. I reviewed the CBC, BMP, liver function tests which were significant for slightly elevated ALT and AST. ASSESSMENT AND PLAN: Acute appendicitis. Plan for laparoscopic appendectomy possible open. I discussed the case with emergency department physician. Discussed risks, benefits and alternatives to surgery including bleeding, infection or other organ injury, conversion to open surgery. We also discussed that CT scan is 95% accurate for acute appendicitis and there is a chance of other pathology and the diagnosis being incorrect. We discussed alternatives to surgery which were antibiotic therapy with potential risk for worsening of keturah-appendicitis as well as if this was cured with antibiotics to have recurrent appendicitis in the future. After discussing all of this the patient elected to proceed with laparoscopic appendectomy. Medical decision making high.
--- NOTE | 2023-04-30 10:40 | OP ---
SURGERY DATE/TIME: 04/28/20232142 PREOPERATIVE DIAGNOSIS: Acute appendicitis. POSTOPERATIVE DIAGNOSIS: Acute early appendicitis. PROCEDURE: Laparoscopic appendectomy. SURGEON: Bipin Coronado M.D. ANESTHESIA: General. ESTIMATED BLOOD LOSS: 5 cc. COMPLICATIONS: None. SPECIMEN: Appendix. DRAIN: None. FINDINGS: Early nonperforated appendicitis. INDICATION: This patient presents with signs and symptoms and CT scan evidence of acute appendicitis. After discussing the risks and benefits of surgery and alternative to surgery, the patient wished to proceed. DESCRIPTION OF PROCEDURE: The patient was brought to the operating room, placed supine on operating table, placed under general anesthesia. The abdomen was prepped and draped in sterile fashion. Left arm tucked. Incision made at the umbilicus. Veress needle inserted. Pneumoperitoneum obtained. A 5 mm optical trocar inserted under direct visualization the abdomen entered and area on entry was inspected. There did not appear to be any inadvertent injury. Additional 5 mm suprapubic and 12 mm left lower quadrant trocars were placed under direct visualization. The patient positioned. The appendix was lifted up. It was just mildly indurated, appears to be early appendicitis and fairly long. A window was created between the base of the appendix and the mesoappendix with [place] LigaSure. The LigaSure was used top transect mesoappendix. A 45 white EndoGIA was used to transect the appendix from the juncture with the cecum. The staple line looked excellent. The appendix was hemostatic. The appendix was removed with a bag without difficulty. The last two feet of terminal ileum was ran just to make sure there was no Meckel's or some other pathology. The pelvis was inspected and there appeared to be normal appearing ovaries. The gallbladder was also inspected which was distended but not inflamed and normal appearing. The 12 port was removed and closed with 0 Vicryl suture with a suture passer. The remaining trocars were removed under direct visualization. The abdomen desufflated. The wound injected with 0.25% Marcaine. Wounds closed with 4-0 Vicryl sutures. Dressings were applied. The patient was recovered and taken to PACU in stable condition.
== END 2023-04-29 10:43 | disposition home or self-care (01) ==
LOC: ED 15:08 → MED SURG 23:27
PROVIDERS: ADMIT Internal Medicine; ATTEND Internal Medicine
DX: K35.80 Unspecified acute appendicitis (principal); D64.9 Anemia, unspecified; R74.01 Elevation of levels of liver transaminase levels; R10.9 Unspecified abdominal pain; I10 Essential (primary) hypertension; Z20.828 Contact with and (suspected) exposure to other viral communicable diseases; Z79.899 Other long term (current) drug therapy
CPT/HCPCS: 36000; 36415; 74177; 80053; 81001; 82947; 83690; 84703; 85025; 85610; 94762; 96365; 99284; G0378; J1100; J1170; J1885; J2250; J2704; J3010; A9270-GY

== ENCOUNTER 2024-04-23 21:54 | Emergency (ER) | payer OTHER ==
[2024-04-23] MEDS ORDERED: Sodium Chloride 0.9% 1000 ML 1,000 ML ONE (22:13)
[2024-04-23 22:14] VITALS: TEMP 97.9; O2SAT 99
[2024-04-23] MEDS: Sodium Chloride 0.9% 1000 ML 1,000 ML IV STA (22:15)
[2024-04-23 22:18] LABS: Absolute Neutrophil Ct (ANC) 3.69 x10^3/uL (1.56-6.13); BASOPHIL % 0.7 % (0.1-1.2); Basophil (Absolute #) 0.06 x10^3/uL (0.01-0.08); Eosinophil % 2.9 % (0.7-5.8); Eosinophil (Absolute #) 0.24 x10^3/uL (0.04-0.36); Hematocrit 38.9 % (34.1-44.9); Hemoglobin 13.3 g/dL (11.2-15.7); IMMATURE GRAN # 0.01 x10^3u/L (0.001-0.031); IMMATURE GRAN % 0.1 % (0.001-0.429); Lymphocyte (Absolute #) 3.67 x10^3/uL (1.18-3.74); Lymphocytes % 44.8 % (19.3-51.7); Mean Cell Volume 88.8 fL (79.4-94.8); Mean Corpuscular Hemoglobin 30.4 pg (25.6-32.2); Mean Corpuscular Hgb Concent. 34.2 g/dL (32.2-35.5); Mean Platelet Volume 10.1 fL (9.4-12.3); Monocyte (Absolute #) 0.52 x10^3/uL (0.24-0.86); Monocytes % 6.3 % (4.7-12.5); Neutrophil % 45.2 % (34.0-71.1); Platelet Count 224 x10^3/uL (182-369); Red Blood Count 4.38 x10^6/uL (3.93-5.22); Red Cell Distribution Width 12.2 % (11.7-14.4); White Blood Count 8.2 x10^3/uL (3.98-10.04)
[2024-04-23 22:26] LABS: HCG URINE TEST NEGATIVE (NEGATIVE)
[2024-04-23 22:31] LABS: Appearance Clear (Clear); Bacteria None Seen /HPF (None Seen); Bilirubin Negative (Negative); Blood Negative (Negative); Epithelial Cells None Seen /HPF (None Seen); Glucose, Urine Negative (Negative); Hyaline Casts NONE SEEN /LPF (0-2); Ketones Negative (Negative); Leukocyte Esterase Negative (Negative); Nitrite Negative (Negative); Ph 6.5 (4.6-8.0); Protein,Urine Dip Negative (Negative); RBC 0-2 /HPF (0-5); Specific Gravity <=1.005 (1.005-1.030); Urobilinogen 0.2 mg/dL (0.2); WBC 0-2 /HPF (0-5)
[2024-04-23 22:31] LABS: ALBUMIN 4.6 g/dL (3.5-5.0); ANION GAP 15.2 MEQ/L (5-15); BILIRUBIN,TOTAL 0.7 mg/dL (0.2-1.3); Calcium 9.3 mg/dL (8.4-10.2); Creatinine 1 0.7 mg/dL (0.52-1.04); EST GLOMERULAR FILTRATION RATE 123.8 ML/MIN; Potassium 3.5 mmol/L (3.5-5.1); Total Protein 7.6 g/dL (6.3-8.2)
--- NOTE | 2024-04-23 22:32 | ERPHSYRPT ---
- History of Present Illness Time Seen by Provider: 04/23/24 22:10 Source: patient Exam Limitations: no limitations Patient Subjective Stated Complaint: C/O diarrhea for the past several months with fatigue and generalized "not feeling well" for the past few days Triage Nursing Assessment: Patient ambulated back to ER without difficulties. She is alert and oriented. No SOB. Face is flushed. JEN MELO. Physician History: 23-year-old female presents to emergency department for evaluation of not feeling well. Patient states she has been experiencing some diarrhea for the past several months. Patient called her primary care doctor who advised her to come to the ED for an evaluation. No active pain. No nausea no vomiting no rash no trauma symptoms are constant. Symptoms are mild to moderate in intensity. No specific worsening or improving factors patient voices no other complaints or concerns at this time Portions of this note were created with voice recognition technology. There may be grammatical, spelling, punctuation or sound alike errors Timing/Duration: today Severity: moderate Modifying Factors: Improves With: nothing Associated Symptoms: denies symptoms Allergies/Adverse Reactions: metoprolol Allergy (Verified 04/23/24 22:03) venlafaxine [From Effexor] Allergy (Verified 04/23/24 22:03) Irregular Heart Beat hives also Home Medications: Propranolol HCl 20 mg PO BID 04/28/23 [History] [place] Carbonate 300 mg [[place] Carbonate 300 MG] 300 mg PO BID 04/23/24 [History] Nitrofurantoin Monohyd/M-Cryst [Nitrofurantoin [place]-Mcr 100 mg] 100 mg PO BID 04/23/24 [History] Hx Tetanus, Diphtheria Vaccination/Date Given: Yes Hx Influenza Vaccination/Date Given: No Hx Pneumococcal Vaccination/Date Given: No Immunizations Up to Date: Yes Travel Risk - International Travel Have you traveled outside of the country in past 3 weeks: No - Emerging Infectious Disease Are you exhibiting symptoms associated with any current EIDs: Yes Symptoms: Diarrhea, Headaches/Body Aches/ - Review of Systems Constitutional: No Symptoms, No Fever, No Chills Eyes: No Symptoms Ears, Nose, & Throat: No Symptoms Respiratory: No Symptoms, No Cough, No Dyspnea Cardiac: No Symptoms, No Chest Pain, No Edema, No Syncope Abdominal/Gastrointestinal: No Symptoms, No Abdominal Pain, No Nausea, No Vomiting, No Diarrhea Genitourinary Symptoms: No Symptoms, No Dysuria Musculoskeletal: No Symptoms, No Back Pain, No Neck Pain Skin: No Symptoms, No Rash Neurological: No Symptoms, No Dizziness, No Focal Weakness, No Sensory Changes Psychological: No Symptoms Endocrine: No Symptoms Hematologic/Lymphatic: No Symptoms Immunological/Allergic: No Symptoms All Other Systems: Reviewed and Negative - Past Medical History Pertinent Past Medical History: Yes Neurological History: No Pertinent History ENT History: No Pertinent History Cardiac History: Hypertension Respiratory History: No Pertinent History Endocrine Medical History: No Pertinent History Musculoskeletal History: No Pertinent History GI Medical History: No Pertinent History History: No Pertinent History Psycho-Social History: Anxiety, Depression, Panic Disorder Female Reproductive Disorders: No Pertinent History Other Medical History: hypoglycemia - Past Surgical History Past Surgical History: Yes Neuro Surgical History: No Pertinent History Cardiac: No Pertinent History Respiratory: No Pertinent History Gastrointestinal: Appendectomy Genitourinary: No Pertinent History Musculoskeletal: No Pertinent History Female Surgical History: No Pertinent History Other Surgical History: appendectomy 04-28-23 Significant Family History: no pertinent family hx - Female History Hx Last Menstrual Period: Not regular Hx Now: No ( control arm implant) - Social History Smoking Status: Never smoker Exposure to second hand smoke: No Drug Use: none Patient Lives Alone: No - Social Determinants of Health Will the patient participate in the screening: Yes Do you worry about a steady place to live?: No Do you have any problems with any of the following?: No known problems In the past 12 months,have you had to go without utilities?: No Transportation Issues: No Has anyone in your support network made you feel unsafe?: No Have you or anyone in your house had to go without enough: No - Nursing Vital Signs Nursing Vital Signs: Initial Vital Signs Temperature 97.9 F 04/23/24 22:07 Pulse Rate 79 04/23/24 22:07 Respiratory Rate 16 04/23/24 22:07 Blood Pressure 126/82 04/23/24 22:07 O2 Sat by Pulse Oximetry 99 04/23/24 22:07 Pain Scale Pain Intensity 2 - Physical Exam General Appearance: no apparent distress, alert Eye Exam: PERRL/EOMI, eyes nml inspection Ears, Nose, Throat Exam: normal ENT inspection, TMs normal, pharynx normal, moist mucous membranes Neck Exam: normal inspection, non-tender, supple, full range of motion Respiratory Exam: normal breath sounds, lungs clear, airway intact, No respiratory distress Cardiovascular Exam: regular rate/rhythm, normal heart sounds, normal peripheral pulses Gastrointestinal/Abdomen Exam: soft, normal bowel sounds, No tenderness, No mass Back Exam: normal inspection, normal range of motion, No CVA tenderness, No vertebral tenderness Extremity Exam: normal inspection, normal range of motion, pelvis stable Neurologic Exam: alert, oriented x 3, cooperative, normal mood/affect, sensation nml, No motor deficits Skin Exam: normal color, warm, dry, No rash Lymphatic Exam: No adenopathy SpO2 Interpretation: normal SpO2: 99 O2 Delivery: Room Air - Course Nursing assessment & vital signs reviewed: Yes Ordered Tests: Active Orders 24 hr Category Date Time Status IV Insertion STAT Care 04/23/24 22:10 Active CBC W DIFF Stat Lab 04/23/24 22:10 Completed CMP Stat Lab 04/23/24 22:10 Completed HCG QUALITATIVE, URINE Stat Lab 04/23/24 22:22 Completed UA W/RFX UR CULTURE Stat Lab 04/23/24 22:14 Completed Medication Summary Generic Name Dose Route Start Last Admin Trade Name Freq PRN Reason Stop Dose Admin Sodium Chloride 1,000 mls @ 999 mls/hr 04/23/24 22:10 04/23/24 22:15 Sodium Chloride 0.9% 1000 Ml IV 04/23/24 23:10 999 mls/hr .Q1H1M STA Administration Discontinued Medications Generic Name Dose Route Start Last Admin Trade Name Freq PRN Reason Stop Dose Admin Sodium Chloride Confirm 04/23/24 22:13 Sodium Chloride 0.9% 1000 Ml Administered 04/23/24 22:14 Dose 1,000 mls @ ud .ROUTE .K-MED ONE Lab/Rad Data: Laboratory Result Diagrams 04/23/24 22:10 04/23/24 22:10 Laboratory Results 04/23/24 04/23/24 04/23/24 Range/Units 22:22 22:14 22:10 WBC (3.98-10.04) x10^3/uL RBC (3.93-5.22) x10^6/uL Hgb (11.2-15.7) g/dL Hct (34.1-44.9) % MCV (79.4-94.8) fL MCH (25.6-32.2) pg MCHC (32.2-35.5) g/dL RDW (11.7-14.4) % Plt Count (182-369) x10^3/uL MPV (9.4-12.3) fL Gran % (34.0-71.1) % Immature Gran % (Auto) (0.001-0.429) % Nucleat RBC Rel Count (0.00-0.2) % Eos # (Auto) (0.04-0.36) x10^3/uL Immature Gran # (Auto) (0.001-0.031) x10^3u/L Absolute Lymphs (auto) (1.18-3.74) x10^3/uL Absolute Monos (auto) (0.24-0.86) x10^3/uL Absolute Nucleated RBC (0.00-0.012) x10^3u/L Lymphocytes % (19.3-51.7) % Monocytes % (4.7-12.5) % Eosinophils % (0.7-5.8) % Basophils % (0.1-1.2) % Absolute Granulocytes (1.56-6.13) x10^3/uL Basophils # (0.01-0.08) x10^3/uL Sodium 138 (135-145) mmol/L Potassium 3.5 (3.5-5.1) mmol/L Chloride 105 (98-107) mmol/L Carbon Dioxide 22 (22-30) mmol/L Anion Gap 15.2 H (5-15) MEQ/L BUN 6 L (7-17) mg/dL Creatinine 0.70 (0.52-1.04) mg/dL Estimated GFR 123.8 ML/MIN Glucose 160 H (74-106) mg/dL Calcium 9.3 (8.4-10.2) mg/dL Total Bilirubin 0.70 (0.2-1.3) mg/dL AST 32 (14-36) U/L ALT 21 (0-35) U/L Alkaline Phosphatase 65 (38-126) U/L Serum Total Protein 7.6 (6.3-8.2) g/dL Albumin 4.6 (3.5-5.0) g/dL Urine Color Yellow (Yellow) Urine Appearance Clear (Clear) Urine pH 6.5 (4.6-8.0) Ur Specific Lillian <=1.005 (1.005-1.030) Urine Protein Negative (Negative) Urine Glucose (UA) Negative (Negative) mg/dL Urine Ketones Negative (Negative) Urine Blood Negative (Negative) Urine Nitrite Negative (Negative) Urine Bilirubin Negative (Negative) Urine Urobilinogen 0.2 (0.2) mg/dL Ur Leukocyte Esterase Negative (Negative) U Hyaline Cast (Auto) NONE SEEN (0-2) /LPF Urine Microscopic RBC 0-2 (0-5) /HPF Urine Microscopic WBC 0-2 (0-5) /HPF Ur Epithelial Cells None Seen (None Seen) /HPF Urine Bacteria None Seen (None Seen) /HPF Urine Culture Reflexed NO (NO) Urine HCG, Qual NEGATIVE (NEGATIVE) 04/23/24 Range/Units 22:10 WBC 8.2 (3.98-10.04) x10^3/uL RBC 4.38 (3.93-5.22) x10^6/uL Hgb 13.3 (11.2-15.7) g/dL Hct 38.9 (34.1-44.9) % MCV 88.8 (79.4-94.8) fL MCH 30.4 (25.6-32.2) pg MCHC 34.2 (32.2-35.5) g/dL RDW 12.2 (11.7-14.4) % Plt Count 224 (182-369) x10^3/uL MPV 10.1 (9.4-12.3) fL Gran % 45.2 (34.0-71.1) % Immature Gran % (Auto) 0.1 (0.001-0.429) % Nucleat RBC Rel Count 0.0 (0.00-0.2) % Eos # (Auto) 0.24 (0.04-0.36) x10^3/uL Immature Gran # (Auto) 0.01 (0.001-0.031) x10^3u/L Absolute Lymphs (auto) 3.67 (1.18-3.74) x10^3/uL Absolute Monos (auto) 0.52 (0.24-0.86) x10^3/uL Absolute Nucleated RBC 0.00 (0.00-0.012) x10^3u/L Lymphocytes % 44.8 (19.3-51.7) % Monocytes % 6.3 (4.7-12.5) % Eosinophils % 2.9 (0.7-5.8) % Basophils % 0.7 (0.1-1.2) % Absolute Granulocytes 3.69 (1.56-6.13) x10^3/uL Basophils # 0.06 (0.01-0.08) x10^3/uL Sodium (135-145) mmol/L Potassium (3.5-5.1) mmol/L Chloride (98-107) mmol/L Carbon Dioxide (22-30) mmol/L Anion Gap (5-15) MEQ/L BUN (7-17) mg/dL Creatinine (0.52-1.04) mg/dL Estimated GFR ML/MIN Glucose (74-106) mg/dL Calcium (8.4-10.2) mg/dL Total Bilirubin (0.2-1.3) mg/dL AST (14-36) U/L ALT (0-35) U/L Alkaline Phosphatase (38-126) U/L Serum Total Protein (6.3-8.2) g/dL Albumin (3.5-5.0) g/dL Urine Color (Yellow) Urine Appearance (Clear) Urine pH (4.6-8.0) Ur Specific Lillian (1.005-1.030) Urine Protein (Negative) Urine Glucose (UA) (Negative) mg/dL Urine Ketones (Negative) Urine Blood (Negative) Urine Nitrite (Negative) Urine Bilirubin (Negative) Urine Urobilinogen (0.2) mg/dL Ur Leukocyte Esterase (Negative) U Hyaline Cast (Auto) (0-2) /LPF Urine Microscopic RBC (0-5) /HPF Urine Microscopic WBC (0-5) /HPF Ur Epithelial Cells (None Seen) /HPF Urine Bacteria (None Seen) /HPF Urine Culture Reflexed (NO) Urine HCG, Qual (NEGATIVE) - Progress Progress: improved Progress Note: 23-year-old female presents to our ED for evaluation of feeling unwell. Patient has nonspecific symptoms. Physical exam nonremarkable. Patient has been experiencing diarrhea for the past 3 months. Laboratory workup a hyperglycemia of 160. UA negative for UTI. Otherwise essentially nonremarkable. IV fluids infused to help replace fluid losses from diarrhea.. Patient reassessed she feels better. No indication for further workup at this time will discharge home. Patient agrees to follow-up with the primary care doctor within 48 hours. She voices no other complaints or concerns at this time. Portions of this note were created with voice recognition technology. There may be grammatical, spelling, punctuation or sound alike errors Complexity of problem addressed is moderate acute complicated no critical care time. Complex of data reviewed and analyzed is moderate. Test ordered chest r eviewed results analyzed and correlated clinically with history and physical exam. Risk of complication and or risk of morbidity/mortality of patient management is low. Vital stable. Time spent to discharge patient is approximately 15 minutes. Plan of care established for shared decision making. No social determinants of health present to impede follow-up Portions of this note were created with voice recognition technology. There may be grammatical, spelling, punctuation or sound alike errors 04/23/24 22:48 Counseled pt/family regarding: lab results, diagnosis, need for follow-up, rad results - Departure Departure Disposition: Home Clinical Impression: Diarrhea, Hyperglycemia Condition: Stable Critical Care Time: No Referrals: MARY MARSHALL [Primary Care Provider] - Follow up/PCP as directed Instructions: Diarrhea, Adult ED Additional Instructions: Discharge/Care Plan EREN INIGUEZ was seen on 04/23/24 in the Emergency Room. The patient was counseled regarding Diagnosis,Lab results, Imaging studies, need for follow up and when to return to the Emergency Room. Prescriptions given: Discharge Note I have spoken with the patient and/or caregivers. I have explained the patient's condition, diagnosis and treatment plan based on the information available to me at this time. I have answered the patient's and/or caregiver's questions and addressed any concerns. The patient and/or caregivers have as good understanding of the patient's diagnosis, condition and treatment plan as can be expected at this point. The vital signs have been stable. The patient's condition is stable and appropriate for discharge from the emergency department. The patient will pursue further outpatient evaluation with the primary care physician or other designated or consulting physician as outlined in the discharge instructions. The patient and/or caregivers are agreeable to this plan of care and follow-up instructions have been explained in detail. The patient and/or caregivers have received these instruction. The patient/and or caregivers are aware that any significant change in condition or worsening of symptoms should prompt an immediate return to this or the closest emergency department or call 911.
[2024-04-23 22:41] VITALS: BP 115/82; PULSE 74; RESP 21
== END 2024-04-23 22:59 | disposition home or self-care (01) ==
LOC: ED 21:54
DX: R19.7 Diarrhea, unspecified (principal); R73.9 Hyperglycemia, unspecified; I10 Essential (primary) hypertension; Z79.899 Other long term (current) drug therapy
CPT/HCPCS: 36000; 36415; 80053; 81001; 81025; 85025; 96360; 99283

== ENCOUNTER 2024-05-31 06:18 | Emergency (ER) | payer OTHER ==
[2024-05-31 06:41] VITALS: TEMP 98.1
[2024-05-31 06:57] LABS: Absolute Neutrophil Ct (ANC) 2.19 x10^3/uL (1.56-6.13); BASOPHIL % 0.6 % (0.1-1.2); Basophil (Absolute #) 0.03 x10^3/uL (0.01-0.08); Eosinophil % 2.5 % (0.7-5.8); Eosinophil (Absolute #) 0.13 x10^3/uL (0.04-0.36); Hematocrit 40.7 % (34.1-44.9); Hemoglobin 13.7 g/dL (11.2-15.7); IMMATURE GRAN # 0.02 x10^3u/L (0.001-0.031); IMMATURE GRAN % 0.4 % (0.001-0.429); Lymphocytes % 45.7 % (19.3-51.7); Mean Cell Volume 89.8 fL (79.4-94.8); Mean Corpuscular Hemoglobin 30.2 pg (25.6-32.2); Mean Corpuscular Hgb Concent. 33.7 g/dL (32.2-35.5); Mean Platelet Volume 9.1 fL (9.4-12.3); Monocyte (Absolute #) 0.48 x10^3/uL (0.24-0.86); Monocytes % 9.1 % (4.7-12.5); Neutrophil % 41.7 % (34.0-71.1); Platelet Count 169 x10^3/uL (182-369); Red Blood Count 4.53 x10^6/uL (3.93-5.22); Red Cell Distribution Width 12.4 % (11.7-14.4); White Blood Count 5.3 x10^3/uL (3.98-10.04)
[2024-05-31 07:01] VITALS: O2SAT 100
[2024-05-31] MEDS ORDERED: Sodium Chloride 0.9% 1000 ML 1,000 ML ONE (07:02)
[2024-05-31] MEDS: Sodium Chloride 0.9% 1000 ML 1,000 ML IV STA (07:05)
[2024-05-31 07:12] LABS: HCG SERUM TEST NEGATIVE (NEGATIVE)
[2024-05-31 07:13] LABS: IFOB TEST RESULTS NEGATIVE (NEGATIVE)
[2024-05-31 07:23] LABS: Amphetamine,Urine NEGATIVE (NEGATIVE); Barbiturate,Urine NEGATIVE (NEGATIVE); Benzodiazepine,Urine POSITIVE (NEGATIVE); Cocaine,Urine NEGATIVE (NEGATIVE); Methadone,Urine NEGATIVE (NEGATIVE); Opiate,Urine NEGATIVE (NEGATIVE); PCP,Urine NEGATIVE (NEGATIVE); THC,Urine POSITIVE (NEGATIVE)
[2024-05-31 07:24] LABS: Appearance Clear (Clear); Bacteria Rare /HPF (None Seen); Bilirubin Negative (Negative); Blood Negative (Negative); Epithelial Cells Few /HPF (None Seen); Glucose, Urine Negative (Negative); Hyaline Casts NONE SEEN /LPF (0-2); Ketones Negative (Negative); Leukocyte Esterase Small (Negative); Nitrite Negative (Negative); Protein,Urine Dip Negative (Negative); RBC 0-2 /HPF (0-5)
[2024-05-31 07:43] LABS: ALBUMIN 4.4 g/dL (3.5-5.0); ANION GAP 12.5 MEQ/L (5-15); Calcium 9.3 mg/dL (8.4-10.2); Creatinine 1 0.78 mg/dL (0.52-1.04); EST GLOMERULAR FILTRATION RATE 108.7 ML/MIN; Potassium 3.9 mmol/L (3.5-5.1); TSH, 3RD Generation 2.122 mIU/L (0.470-4.680); Total Protein 7.6 g/dL (6.3-8.2)
--- NOTE | 2024-05-31 07:45 | ERPHSYRPT ---
- History of Present Illness Time Seen by Provider: 05/31/24 07:41 Historian: patient Exam Limitations: no limitations Patient Subjective Stated Complaint: c/o abdominal pain Triage Nursing Assessment: patient brought into ED by boyfriend with c/o abdominal pain in the right upper quad that radiates to her back and into shoulder. Patient hasn't felt well in 2 weeks and the last two days she has N/D but denies vomitting. bowel sounds present in all 4 quads, tender to touch in right upper quad. Patient's vitals wnl, skin w/n/d, gait steady, last BM today, last oral intake was an hour ago around 0540, patient doesn't appear to be in any distress at this time Physician History: c/o abdominal pain in the right upper quad that radiates to her back and into shoulder. Patient hasn't felt well in 2 weeks and the last two days she has Nausea and Diarrhea but denies vomitting. bowel sounds present, tender to touch in right upper quad. gait steady, last BM today, last oral intake was an hour ago around 0540, patient doesn't appear to be in any distress at this time Timing/Duration: week(s) (Two weeks) Quality: cramping Abdominal Pain Onset Location: RUQ Pain Radiation: shoulder, back Severity of Pain-Max: moderate Severity of Pain-Current: moderate Modifying Factors: Improves With: nothing Associated Symptoms: diarrhea, loss of appetite, nausea, weakness, No vomiting Previous symptoms: no prior history Body Map: 1 - pain Allergies/Adverse Reactions: metoprolol Allergy (Verified 05/31/24 06:41) venlafaxine [From Effexor] Allergy (Verified 05/31/24 06:41) Irregular Heart Beat hives also Home Medications: ALPRAZolam [Alprazolam] 0.5 mg PO DAILY 05/31/24 [History] Cariprazine HCl [Vraylar] 1.5 mg PO HS 05/31/24 [History] Clonidine HCl 0.1 mg [Clonidine 0.1 mg Tablet] 0.1 mg PO BID 05/31/24 [Histor y] Cyclobenzaprine HCl 10 mg [Cyclobenzaprine 10 MG] 10 mg PO DAILY PRN PRN 05/31/24 [History] Famotidine 20 mg PO BID 05/31/24 [History] metroNIDAZOLE [Metronidazole] 500 mg PO BID 05/31/24 [History] Hx Tetanus, Diphtheria Vaccination/Date Given: No Hx Influenza Vaccination/Date Given: No Hx Pneumococcal Vaccination/Date Given: No Travel Risk - International Travel Have you traveled outside of the country in past 3 weeks: No - Emerging Infectious Disease Are you exhibiting symptoms associated with any current EIDs: Yes Symptoms: Abdominal Pain - Review of Systems Constitutional: No Fever, No Chills Eyes: No Symptoms Ears, Nose, & Throat: No Symptoms Respiratory: No Cough, No Dyspnea Cardiac: No Chest Pain, No Edema, No Syncope Abdominal/Gastrointestinal: Abdominal Pain, Nausea, Diarrhea, No Vomiting Genitourinary Symptoms: No Dysuria Musculoskeletal: No Back Pain, No Neck Pain Skin: No Rash Neurological: No Dizziness, No Focal Weakness, No Sensory Changes Psychological: No Symptoms Endocrine: No Symptoms All Other Systems: Reviewed and Negative - Past Medical History Pertinent Past Medical History: Yes Neurological History: No Pertinent History ENT History: No Pertinent History Cardiac History: Hypertension Respiratory History: No Pertinent History Endocrine Medical History: No Pertinent History Musculoskeletal History: No Pertinent History GI Medical History: No Pertinent History History: No Pertinent History Psycho-Social History: Anxiety, Depression, Panic Disorder Female Reproductive Disorders: No Pertinent History Other Medical History: hypoglycemia - Past Surgical History Past Surgical History: Yes Neuro Surgical History: No Pertinent History Cardiac: No Pertinent History Respiratory: No Pertinent History Gastrointestinal: Appendectomy Genitourinary: No Pertinent History Musculoskeletal: No Pertinent History Female Surgical History: No Pertinent History Other Surgical History: appendectomy 04-28-23 Significant Family History: no pertinent family hx - Female History Hx Last Menstrual Period: Not regular Hx Now: No (hcg ordered) - Social History Smoking Status: Never smoker Exposure to second hand smoke: No Drug Use: marijuana Patient Lives Alone: No - Social Determinants of Health Will the patient participate in the screening: Yes Do you worry about a steady place to live?: No Do you have any problems with any of the following?: No known problems In the past 12 months,have you had to go without utilities?: No Transportation Issues: No Has anyone in your support network made you feel unsafe?: No Have you or anyone in your house had to go without enough: No - Nursing Vital Signs Nursing Vital Signs: Initial Vital Signs Temperature 98.1 F 05/31/24 06:23 Pulse Rate 103 H 05/31/24 06:23 Respiratory Rate 18 05/31/24 06:23 Blood Pressure 137/78 05/31/24 06:23 O2 Sat by Pulse Oximetry 99 05/31/24 06:23 Pain Scale Pain Intensity 0 - Physical Exam General Appearance: no apparent distress, alert Eye Exam: PERRL/EOMI, eyes nml inspection Ears, Nose, Throat Exam: normal ENT inspection, pharynx normal, moist mucous membranes Neck Exam: normal inspection, non-tender, supple, full range of motion Respiratory Exam: normal breath sounds, lungs clear, No respiratory distress Cardiovascular Exam: regular rate/rhythm, normal heart sounds Gastrointestinal/Abdomen Exam: soft, tenderness (RUQ), No mass Pelvic Exam: not done Rectal Exam: deferred Back Exam: normal inspection, normal range of motion, No CVA tenderness, No vertebral tenderness Extremity Exam: normal inspection, normal range of motion, pelvis stable Neurologic Exam: alert, oriented x 3, cooperative, normal mood/affect, nml cerebellar function, sensation nml, No motor deficits Skin Exam: normal color, warm, dry Lymphatic Exam: No adenopathy, No axilla node tender (L), No axilla node tender (R), No inguinal node tender (L), No inguinal node tender (R) SpO2 Interpretation: normal SpO2: 100 O2 Delivery: Room Air - Course Nursing assessment & vital signs reviewed: Yes - CT Exams Abdomen/Pelvis CT Interpretation: Tele-radiologist Report Ordered Tests: Active Orders 24 hr Category Date Time Status IV Insertion STAT Care 05/31/24 06:40 Active NPO (ED) STAT Care 05/31/24 06:40 Active ABDOMEN AND PELVIS W/0 CONTRAS [CT] Stat Exams 05/31/24 06:40 Completed CBC W DIFF Stat Lab 05/31/24 06:58 Completed CMP Stat Lab 05/31/24 06:58 Completed HCG QUALITATIVE, SERUM Stat Lab 05/31/24 06:58 Completed LIPASE Stat Lab 05/31/24 06:58 Completed Lactic Acid Stat Lab 05/31/24 06:50 Completed OB-FECAL SCREEN Stat Lab 05/31/24 06:58 Completed TSH, 3RD Generation Stat Lab 05/31/24 06:58 Completed UA W/RFX UR CULTURE Stat Lab 05/31/24 06:52 Completed Urine Triage Profile Stat Lab 05/31/24 06:53 Completed Medication Summary Discontinued Medications Generic Name Dose Route Start Last Admin Trade Name Maryam PRN Reason Stop Dose Admin Droperidol 1.25 mg 05/31/24 06:40 05/31/24 07:03 Droperidol 5 Mg/2 Ml Vial IV 05/31/24 06:41 1.25 mg STAT ONE Administration Droperidol Confirm 05/31/24 07:02 Droperidol 5 Mg/2 Ml Vial Administered 05/31/24 07:03 Dose 5 mg .ROUTE .STK-MED ONE Sodium Chloride 1,000 mls @ 999 mls/hr 05/31/24 06:40 05/31/24 07:05 Sodium Chloride 0.9% 1000 Ml IV 05/31/24 07:40 999 mls/hr .Q1H1M STA Administration Sodium Chloride Confirm 05/31/24 07:02 Sodium Chloride 0.9% 1000 Ml Administered 05/31/24 07:03 Dose 1,000 mls @ ud .ROUTE .STK-MED ONE Lab/Rad Data: Laboratory Result Diagrams 05/31/24 06:58 05/31/24 06:58 Laboratory Results 05/31/24 05/31/24 05/31/24 Range/Units 06:58 06:58 06:58 WBC (3.98-10.04) x10^3/uL RBC (3.93-5.22) x10^6/uL Hgb (11.2-15.7) g/dL Hct (34.1-44.9) % MCV (79.4-94.8) fL MCH (25.6-32.2) pg MCHC (32.2-35.5) g/dL RDW (11.7-14.4) % Plt Count (182-369) x10^3/uL MPV (9.4-12.3) fL Gran % (34.0-71.1) % Immature Gran % (Auto) (0.001-0.429) % Nucleat RBC Rel Count (0.00-0.2) % Eos # (Auto) (0.04-0.36) x10^3/uL Immature Gran # (Auto) (0.001-0.031) x10^3u/L Absolute Lymphs (auto) (1.18-3.74) x10^3/uL Absolute Monos (auto) (0.24-0.86) x10^3/uL Absolute Nucleated RBC (0.00-0.012) x10^3u/L Lymphocytes % (19.3-51.7) % Monocytes % (4.7-12.5) % Eosinophils % (0.7-5.8) % Basophils % (0.1-1.2) % Absolute Granulocytes (1.56-6.13) x10^3/uL Basophils # (0.01-0.08) x10^3/uL Sodium (135-145) mmol/L Potassium (3.5-5.1) mmol/L Chloride (98-107) mmol/L Carbon Dioxide (22-30) mmol/L Anion Gap (5-15) MEQ/L BUN (7-17) mg/dL Creatinine (0.52-1.04) mg/dL Estimated GFR ML/MIN Glucose (74-106) mg/dL Hemoglobin A1c 4.79 (4.5-6.0) % Lactic Acid (0.4-2.0) Calcium (8.4-10.2) mg/dL Total Bilirubin (0.2-1.3) mg/dL AST (14-36) U/L ALT (0-35) U/L Alkaline Phosphatase (38-126) U/L Serum Total Protein (6.3-8.2) g/dL Albumin (3.5-5.0) g/dL Lipase (23-300) U/L Free T4 1.03 (0.78-2.19) ng/dL TSH 3rd Generation (0.470-4.680) mIU/L Serum HCG, Qual NEGATIVE (NEGATIVE) Urine Color (Yellow) Urine Appearance (Clear) Urine pH (4.6-8.0) Ur Specific [place] (1.005-1.030) Urine Protein (Negative) Urine Glucose (UA) (Negative) mg/dL Urine Ketones (Negative) Urine Blood (Negative) Urine Nitrite (Negative) Urine Bilirubin (Negative) Urine Urobilinogen (0.2) mg/dL Ur Leukocyte Esterase (Negative) U Hyaline Cast (Auto) (0-2) /LPF Urine Microscopic RBC (0-5) /HPF Urine Microscopic WBC (0-5) /HPF Ur Epithelial Cells (None Seen) /HPF Urine Bacteria (None Seen) /HPF Urine Culture Reflexed (NO) Stl Occult Blood (IFOB) NEGATIVE (NEGATIVE) Urine Opiates Level (NEGATIVE) Ur Methadone (NEGATIVE) Urine Barbiturates (NEGATIVE) Ur Phencyclidine (PCP) (NEGATIVE) Urine Amphetamine (NEGATIVE) U Benzodiazepine Level (NEGATIVE) Urine Cocaine (NEGATIVE) Urine Marijuana (THC) (NEGATIVE) C. difficile Screen (NEGATIVE) C.difficile 027-NAP1-B1 (NEGATIVE) 05/31/24 05/31/24 05/31/24 Range/Units 06:58 06:58 06:53 WBC 5.3 (3.98-10.04) x10^3/uL RBC 4.53 (3.93-5.22) x10^6/uL Hgb 13.7 (11.2-15.7) g/dL Hct 40.7 (34.1-44.9) % MCV 89.8 (79.4-94.8) fL MCH 30.2 (25.6-32.2) pg MCHC 33.7 (32.2-35.5) g/dL RDW 12.4 (11.7-14.4) % Plt Count 169 L (182-369) x10^3/uL MPV 9.1 L (9.4-12.3) fL Gran % 41.7 (34.0-71.1) % Immature Gran % (Auto) 0.4 (0.001-0.429) % Nucleat RBC Rel Count 0.0 (0.00-0.2) % Eos # (Auto) 0.13 (0.04-0.36) x10^3/uL Immature Gran # (Auto) 0.02 (0.001-0.031) x10^3u/L Absolute Lymphs (auto) 2.40 (1.18-3.74) x10^3/uL Absolute Monos (auto) 0.48 (0.24-0.86) x10^3/uL Absolute Nucleated RBC 0.00 (0.00-0.012) x10^3u/L Lymphocytes % 45.7 (19.3-51.7) % Monocytes % 9.1 (4.7-12.5) % Eosinophils % 2.5 (0.7-5.8) % Basophils % 0.6 (0.1-1.2) % Absolute Granulocytes 2.19 (1.56-6.13) x10^3/uL Basophils # 0.03 (0.01-0.08) x10^3/uL Sodium 138 (135-145) mmol/L Potassium 3.9 (3.5-5.1) mmol/L Chloride 104 (98-107) mmol/L Carbon Dioxide 25 (22-30) mmol/L Anion Gap 12.5 (5-15) MEQ/L BUN 8 (7-17) mg/dL Creatinine 0.78 (0.52-1.04) mg/dL Estimated GFR 108.7 ML/MIN Glucose 102 (74-106) mg/dL Hemoglobin A1c (4.5-6.0) % Lactic Acid (0.4-2.0) Calcium 9.3 (8.4-10.2) mg/dL Total Bilirubin 1.00 (0.2-1.3) mg/dL AST 26 (14-36) U/L ALT 14 (0-35) U/L Alkaline Phosphatase 68 (38-126) U/L Serum Total Protein 7.6 (6.3-8.2) g/dL Albumin 4.4 (3.5-5.0) g/dL Lipase 52 (23-300) U/L Free T4 (0.78-2.19) ng/dL TSH 3rd Generation 2.122 (0.470-4.680) mIU/L Serum HCG, Qual (NEGATIVE) Urine Color (Yellow) Urine Appearance (Clear) Urine pH (4.6-8.0) Ur Specific [place] (1.005-1.030) Urine Protein (Negative) Urine Glucose (UA) (Negative) mg/dL Urine Ketones (Negative) Urine Blood (Negative) Urine Nitrite (Negative) Urine Bilirubin (Negative) Urine Urobilinogen (0.2) mg/dL Ur Leukocyte Esterase (Negative) U Hyaline Cast (Auto) (0-2) /LPF Urine Microscopic RBC (0-5) /HPF Urine Microscopic WBC (0-5) /HPF Ur Epithelial Cells (None Seen) /HPF Urine Bacteria (None Seen) /HPF Urine Culture Reflexed (NO) Stl Occult Blood (IFOB) (NEGATIVE) Urine Opiates Level (NEGATIVE) Ur Methadone (NEGATIVE) Urine Barbiturates (NEGATIVE) Ur Phencyclidine (PCP) (NEGATIVE) Urine Amphetamine (NEGATIVE) U Benzodiazepine Level (NEGATIVE) Urine Cocaine (NEGATIVE) Urine Marijuana (THC) (NEGATIVE) C. difficile Screen NEGATIVE (NEGATIVE) C.difficile 027-NAP1-B1 PRESUMPTIVE NEGATIVE (NEGATIVE) 05/31/24 05/31/24 05/31/24 Range/Units 06:53 06:52 06:50 WBC (3.98-10.04) x10^3/uL RBC (3.93-5.22) x10^6/uL Hgb (11.2-15.7) g/dL Hct (34.1-44.9) % MCV (79.4-94.8) fL MCH (25.6-32.2) pg MCHC (32.2-35.5) g/dL RDW (11.7-14.4) % Plt Count (182-369) x10^3/uL MPV (9.4-12.3) fL Gran % (34.0-71.1) % Immature Gran % (Auto) (0.001-0.429) % Nucleat RBC Rel Count (0.00-0.2) % Eos # (Auto) (0.04-0.36) x10^3/uL Immature Gran # (Auto) (0.001-0.031) x10^3u/L Absolute Lymphs (auto) (1.18-3.74) x10^3/uL Absolute Monos (auto) (0.24-0.86) x10^3/uL Absolute Nucleated RBC (0.00-0.012) x10^3u/L Lymphocytes % (19.3-51.7) % Monocytes % (4.7-12.5) % Eosinophils % (0.7-5.8) % Basophils % (0.1-1.2) % Absolute Granulocytes (1.56-6.13) x10^3/uL Basophils # (0.01-0.08) x10^3/uL Sodium (135-145) mmol/L Potassium (3.5-5.1) mmol/L Chloride (98-107) mmol/L Carbon Dioxide (22-30) mmol/L Anion Gap (5-15) MEQ/L BUN (7-17) mg/dL Creatinine (0.52-1.04) mg/dL Estimated GFR ML/MIN Glucose (74-106) mg/dL Hemoglobin A1c (4.5-6.0) % Lactic Acid 0.7 (0.4-2.0) Calcium (8.4-10.2) mg/dL Total Bilirubin (0.2-1.3) mg/dL AST (14-36) U/L ALT (0-35) U/L Alkaline Phosphatase (38-126) U/L Serum Total Protein (6.3-8.2) g/dL Albumin (3.5-5.0) g/dL Lipase (23-300) U/L Free T4 (0.78-2.19) ng/dL TSH 3rd Generation (0.470-4.680) mIU/L Serum HCG, Qual (NEGATIVE) Urine Color Yellow (Yellow) Urine Appearance Clear (Clear) Urine pH 6.0 (4.6-8.0) Ur Specific [place] 1.020 (1.005-1.030) Urine Protein Negative (Negative) Urine Glucose (UA) Negative (Negative) mg/dL Urine Ketones Negative (Negative) Urine Blood Negative (Negative) Urine Nitrite Negative (Negative) Urine Bilirubin Negative (Negative) Urine Urobilinogen 1.0 A (0.2) mg/dL Ur Leukocyte Esterase Small A (Negative) U Hyaline Cast (Auto) NONE SEEN (0-2) /LPF Urine Microscopic RBC 0-2 (0-5) /HPF Urine Microscopic WBC 3-5 (0-5) /HPF Ur Epithelial Cells Few (None Seen) /HPF Urine Bacteria Rare A (None Seen) /HPF Urine Culture Reflexed NO (NO) Stl Occult Blood (IFOB) (NEGATIVE) Urine Opiates Level NEGATIVE (NEGATIVE) Ur Methadone NEGATIVE (NEGATIVE) Urine Barbiturates NEGATIVE (NEGATIVE) Ur Phencyclidine (PCP) NEGATIVE (NEGATIVE) Urine Amphetamine NEGATIVE (NEGATIVE) U Benzodiazepine Level POSITIVE A (NEGATIVE) Urine Cocaine NEGATIVE (NEGATIVE) Urine Marijuana (THC) POSITIVE A (NEGATIVE) C. difficile Screen (NEGATIVE) C.difficile 027-NAP1-B1 (NEGATIVE) US/ABDOMINAL-LIMITED Indication: Right upper quadrant pain. Two-dimensional right upper quadrant abdominal sonogram performed. Comparison: None Pancreas not well seen due to overlying bowel gas. Remaining visualized liver, gallbladder, and right kidney are sonographically normal. No organomegaly or free fluid. Common bile duct measures 4.5 mm. No intrahepatic biliary distention. Right kidney measures 9.4 x 4.2 x 4.7 cm. Impression: Nonvisualization pancreas. Remaining right upper quadrant sonogram is negative. 0001 CT/ABDOMEN AND PELVIS W/0 CONTRAS CLINICAL HISTORY: abd pain COMPARISON: Comparison is made with prior CT dated 04/28/2023. TECHNIQUE: Non-contrast CT of the abdomen and pelvis was performed, with the following protocol: axial images with reconstructed coronal and sagittal images. One of the following dose reduction techniques was utilized for this exam: Automated exposure control, adjustment of the mA and/or kV according to patient size, and use of iterative reconstruction. FINDINGS: Abdomen: Liver: Normal in size, shape, and density. No focal lesions, cysts, or masses were identified. Gallbladder and Biliary System: The gallbladder is normal in size and shape. No wall thickening, pericholecystic fluid, or gallstones were identified. Pancreas: Pancreatic head, body, and tail are visualized and appear normal in size and density. No pancreatic masses or calcifications were noted. Spleen: Mildy enlarged in size measuring 10.1 x 7.6 cm. Normal in shape, and density. No splenic lesions or masses were identified. Kidneys and Adrenal Glands: Both kidneys are normal in size, shape, and position. Cortical thickness is within normal limits. No renal calculi or hydronephrosis. Adrenal glands are unremarkable. Appendix: Status post appendicectomy. Pelvis: Urinary Bladder: Partially distended and appears normal. No intraluminal lesions. Uterus: Normal in size and contour. No masses or abnormal thickening. Ovaries: Not well visualized but no gross abnormalities noted. Vagina: Normal in contour and wall thickness. Cervix: No evidence of mass or abnormal thickening. Peritoneal and Retroperitoneal Structures: No free fluid or abnormal fluid collections were identified within the abdomen or pelvis. No lymphadenopathy was noted. Bowel: Uncomplicated colon diverticulosis. Rest of the visualized bowel loops are normal in caliber and appearance. No evidence of bowel obstruction or wall thickening. Bones and Soft Tissues: Osteitis condensans ilii. Pelvic bones and soft tissues are unremarkable. No fractures or abnormal masses were identified. IMPRESSION: 1. No evidence of acute intra-abdominal pathology. 2. Mild splenomegaly, stable. 3. Uncomplicated colon diverticulosis, stable. 4. Clinical correlation is suggested. - Progress Progress: improved, pain not gone completely Counseled pt/family regarding: lab results, diagnosis, need for follow-up, rad results Medical Desision Making - Independent Historian Additional History obtained from: Spouse - Diagnostic Testing Diagnostic test were ordered, analyzed, and reviewed by me: Yes Radiological Interpretation: Teleradiologist Report - Risk of complications Low Risk: Low risk of morbidity from additional dx testing or treatment - Departure Departure Disposition: Home Clinical Impression: Right lateral abdominal pain GERD (gastroesophageal reflux disease) Qualifiers: Esophagitis presence: without esophagitis Qualified Code(s): K21.9 - Gastro-eso phageal reflux disease without esophagitis Condition: Stable Critical Care Time: No Referrals: ZENAIDA LEVIN NP [Primary Care Provider] - Follow up/PCP as directed Instructions: Abdominal pain, Severe Abdominal Pain, Adult (DC) Additional Instructions: Discharge/Care Plan HIRAEREN was seen on 05/31/24 in the Emergency Room. The patient was counseled regarding Diagnosis,Lab results, Imaging studies, need for follow up and when to return to the Emergency Room. Prescriptions given: Discharge Note I have spoken with the patient and/or caregivers. I have explained the patient's condition, diagnosis and treatment plan based on the information available to me at this time. I have answered the patient's and/or caregiver's questions and addressed any concerns. The patient and/or caregivers have as good understanding of the patient's diagnosis, condition and treatment plan as can be expected at this point. The vital signs have been stable. The patient's condition is stable and appropriate for discharge from the emergency department. The patient will pursue further outpatient evaluation with the primary care physician or other designated or consulting physician as outlined in the discharge instructions. The patient and/or caregivers are agreeable to this plan of care and follow-up instructions have been explained in detail. The patient and/or caregivers have received these instruction. The patient/and or caregivers are aware that any significant change in condition or worsening of symptoms should prompt an immediate return to this or the closest emergency department or call 911. HIRAEREN was seen on 05/31/24 n the Emergency Room. At that time you were treated for an emergent condition, during your visit Laboratory, Radiology and/or other procedures may have been ordered. It is very important that you follow-up with your Primary Care Physician ZENAIDA LEVIN within the next 24-48 hours to review your Emergency Room visit and the final results of testing that was ordered. Some test results such as Urine Cultures, Blood Cultures, and other cultures if ordered will not be finalized for 24-48 hours. If you do not have a Primary Care Provider please call the medical records department at [phone] ext [phone] to obtain a copy of your results or you may sign into our patient portal to obtain these results by visiting us @ [email or web address] and completing the following steps: 1. Click on the Patient Portal link 2. Click the Patient Self Enrollment Link to complete the enrollment form and entering your 3. Once the enrollment form is completed you will receive an email with a temp orary ID and password at the email address you provided. 4. Next choose a user name and password. Your user name must be at least 4 characters long and your password must be at least 4 characters long. 5. Choose a security question from the list and provide your answer to the question. If you already have signed into the Health Portal you may access your Health Care Information 15/01 by the following steps: 1. Login to our website @ [email or web address] 2. Enter your original user name and password. FAQS The [facility] Health Portal is an online tool that contains your Lab Results, Radiology Reports, Visit History, Discharge Instructions and Health Summary Lab and Radiology Results will not be available for 72 hours on the portal. The Portal is a secure site, passwords are encryted and URLs are re-written so they cannot be copied and pasted. You and authorized family members are the only ones who can access your Portal. Also there is a timeout feature that protects your information if you leave the Portal page open. If you have technical difficulty please use the Contact Us link on the page this will allow you to submit any questions you have regarding the Portal or you may contact the Medical Record Department at [phone]. Prescriptions: PANTOPRAZOLE 40 mg Tablet [Protonix 40MG Tablet] 40 mg PO QPM 30 Days #30 tab
[2024-05-31 07:51] LABS: 027 TOX PROD PRESUMPTIVE NEGATIVE (NEGATIVE); TOXIGENIC C. DIFF ORG NEGATIVE (NEGATIVE)
[2024-05-31 07:56] VITALS: BP 93/44
[2024-05-31 08:28] VITALS: PULSE 60; RESP 16
--- NOTE | 2024-05-31 08:28 | XRAY ---
CLINICAL HISTORY: abd pain COMPARISON: Comparison is made with prior CT dated 04/28/2023. TECHNIQUE: Non-contrast CT of the abdomen and pelvis was performed, with the following protocol: axial images with reconstructed coronal and sagittal images. One of the following dose reduction techniques was utilized for this exam: Automated exposure control, adjustment of the mA and/or kV according to patient size, and use of iterative reconstruction. FINDINGS: Abdomen: Liver: Normal in size, shape, and density. No focal lesions, cysts, or masses were identified. Gallbladder and Biliary System: The gallbladder is normal in size and shape. No wall thickening, pericholecystic fluid, or gallstones were identified. Pancreas: Pancreatic head, body, and tail are visualized and appear normal in size and density. No pancreatic masses or calcifications were noted. Spleen: Mildy enlarged in size measuring 10.1 x 7.6 cm. Normal in shape, and density. No splenic lesions or masses were identified. Kidneys and Adrenal Glands: Both kidneys are normal in size, shape, and position. Cortical thickness is within normal limits. No renal calculi or hydronephrosis. Adrenal glands are unremarkable. Appendix: Status post appendicectomy. Pelvis: Urinary Bladder: Partially distended and appears normal. No intraluminal lesions. Uterus: Normal in size and contour. No masses or abnormal thickening. Ovaries: Not well visualized but no gross abnormalities noted. Vagina: Normal in contour and wall thickness. Cervix: No evidence of mass or abnormal thickening. Peritoneal and Retroperitoneal Structures: No free fluid or abnormal fluid collections were identified within the abdomen or pelvis. No lymphadenopathy was noted. Bowel: Uncomplicated colon diverticulosis. Rest of the visualized bowel loops are normal in caliber and appearance. No evidence of bowel obstruction or wall thickening. Bones and Soft Tissues: Osteitis condensans ilii. Pelvic bones and soft tissues are unremarkable. No fractures or abnormal masses were identified. IMPRESSION: 1. No evidence of acute intra-abdominal pathology. 2. Mild splenomegaly, stable. 3. Uncomplicated colon diverticulosis, stable. 4. Clinical correlation is suggested. Electronically Signed by: Amina Colivn MD. (05/31/2024 08:24:45 EST)
== END 2024-05-31 09:06 | disposition home or self-care (01) ==
LOC: ED 06:18
DX: R10.11 Right upper quadrant pain (principal); K21.9 Gastro-esophageal reflux disease without esophagitis; R11.0 Nausea; R19.7 Diarrhea, unspecified; R53.1 Weakness
CPT/HCPCS: 36415; 74176; 80053; 80307; 81001; 83036; 83605; 83690; 83993; 84439; 84443; 84703; 85025; 87045; 87046; 87427; 87493; 96360; 96374; 99284; G0328; 82274